=== PATIENT | female | born 1965 | race Caucasian/White ===

== ENCOUNTER 2016-07-03 11:24 | Emergency (ER) | payer OTHER ==
[~2016-07-03] VITALS: Ht 152.4 cm; Wt 85.2 kg
[~2016-07-03 11:24] MED LIST: ACET1TAB84 PO; ALBUAER2 INH; CLR10 PO; DOCU-94 PO; DPKSR500 PO; FLUT0.15 NAE; HYDR25TA5 PO; LEVO25TA34 PO; NAPR-1169 PO; NPHOPS12 OPB; PEDI1CHW95 PO; PRLSR20 PO; QUET5TAB PO; SERT-234 PO; SERT50TA PO
[2016-07-03 11:43] VITALS: Ht 152.4 cm; Wt 85.2 kg
[2016-07-03] MEDS ORDERED: LORAZEPAM 2 MG/ML 1 ML VIAL IV STA (13:29)
[2016-07-03] MEDS ORDERED: KETOROLAC TROMETHAMINE 30 MG/ML VIAL IV STA (13:29)
[2016-07-03] MEDS ORDERED: ONDANSETRON INJ 2 MG/ML 2 ML VIAL IV STA (13:29)
[2016-07-03] MEDS ORDERED: SODIUM CHLORIDE 0.9% 1000ML 1,000 ML IV STA (13:29)
--- NOTE | 2016-07-03 13:29 | EMERGENCY ROOM VISIT NOTE ---
History Report prepared by Leslie: Daphne Bergman Under the Supervision of: Dr. Roscoe Huizar M.D. First contact with patient: 13:12 Chief Complaint: ED VAG BLEEDING Stated Complaint: PERIOD FOR 9 WEEKS, LAST 4 DAYS VERY HEAVY FLOW History of Present Illness The patient is a 51 year old female who presents to the Emergency Room with complaints of persistent vaginal bleeding for the past nine weeks. She currently rates her discomfort as an 8/10 in severity. The patient states that for the past nine weeks she has been having her menstrual period. The patient' s control director notes that her last menstrual cycle was one year ago. She notes that the patient's flow the last four days has been heavier. The patient additionally associates severe cramping with her symptoms today. The patient's control director states that the patient visited gynecology two weeks ago and is scheduled for an ultrasound this Sunday. She states that when she consulted the memorial mason today, they instructed the patient to come to the emergency department for further treatment. The patient denies any chance of a retained tampon, noting that she typically uses pads. Source of History: patient, caregiver Onset: nine weeks Position: other (vaginal) Symptom Intensity: 8/10 Quality: other (bleeding) Timing: other (persistent, heavier) Associated Symptoms: + abdominal pain (cramping) Review of Systems See HPI for pertinent positives & negatives. A total of 10 systems reviewed and were otherwise negative. Past Medical & Surgical Medical Problems: (1) Anxiety State Nos (2) Bilateral lower leg cellulitis (3) Bipolar Disorder, Unspecified (4) Esophageal Reflux (5) Hearing loss (6) Hypothyroidism (7) Mild Mental Retardation (8) Osteoarthritis (9) Plica Syndrome Surgical Problems: (1) H/O colonoscopy Family History None provided Social History Smoking Status: Never Smoker Alcohol Use: none Drug Use: none Marital Status: single Housing Status: lives alone Occupation Status: disabled, other Current/Historical Medications Scheduled Acetaminophen (Tylenol Arthritis Ext Rel), 1,300 MG PO BID Divalproex Sodium (Divalproex Sodium ER), 500 MG PO QAM Divalproex Sodium (Divalproex Sodium ER), 1,000 MG PO HS Docusate Sodium (Colace), 100 MG PO BID Hydrochlorothiazide (Hydrochlorothiazide), 25 MG PO QAM Levothyroxine Sodium (Synthroid), 1 TAB PO DAILY Norethindrone Acetate (Aygestin), 1 TAB PO DAILY Omeprazole (Prilosec), 40 MG PO QPM Pediatric Multiple Vitamin W/ (Multivitamin Gummies Chil), 1 TAB PO QAM Quetiapine Fumarate (Seroquel), 100 MG PO HS Sertraline (Zoloft), 200 MG PO QAM Sertraline (Zoloft), 50 MG PO QAM Scheduled PRN Albuterol Hfa (Ventolin Hfa), 2 PUFFS INH Q8H PRN for SOB/Wheezing Loratadine (Claritin), 10 MG PO DAILY PRN for seasonal allergies Naphazoline Hcl (Naphcon Oph Soln 0.012% *), 1 DROP OPB QID PRN for ALLERGIES Naproxen (Naprosyn), 550 MG PO BID PRN for CRAMPS Allergies Coded Allergies: No Known Allergies (Verified , 07/03/16) Physical Exam Vital Signs Date Time Temp Pulse Resp B/P Pulse Ox O2 Delivery O2 Flow Rate FiO2 07/03/16 16:21 76 20 138/77 95 Room Air 07/03/16 15:13 76 07/03/16 15:04 Room Air 07/03/16 15:03 81 20 146/79 95 Room Air 07/03/16 11:43 36.8 82 18 149/94 96 Room Air Physical Exam GENERAL: Patient is a healthy-appearing well-nourished HEAD: Normocephalic atraumatic EYES: Ocular movements intact pupils equal and react to light OROPHARYNX mucous membranes are moist no exudates present no erythema or edema present NECK: Supple no nuchal rigidity CHEST: Good equal expansion LUNGS: Clear and equal to auscultation CARDIAC: Normal S1 and S2 ABDOMEN: Tender in suprapubic area, no guarding. BACK: No CVA tenderness EXTREMITIES: No pain upon palpation normal muscle strength in all groups no clubbing cyanosis or edema NEURO: Patient is following commands is answering questions appropriately. Alert and oriented x3 Cranial Nerves 2-12 grossly intact Medical Decision & Procedures ER Provider Diagnostic Interpretation: Radiology results as stated below per my review and radiologist interpretation: ULTRASOUND OF THE PELVIS CLINICAL HISTORY: Heavy menses. COMPARISON STUDY: Pelvic CT dated 03/26/2016. Pelvic ultrasound dated 10/05/2014. TECHNIQUE: Real-time, grayscale, and color flow sonography of the pelvis is performed transabdominally. The endovaginal examination was deferred. Images are reviewed in the transverse and longitudinal planes. FINDINGS: Uterus: The uterus is normal in size and echotexture, measuring 8.4 x 4.1 x 5.5 cm. Endometrium: The endometrium is normal in appearance, and the endometrial stripe is normal in thickness measuring up to 1.0 cm. Ovaries: The ovaries are normal in size and morphology. The right ovary measures 4.3 x 2.5 x 3.5 cm and the left ovary measures 2.9 x 1.6 x 1.8 cm. Normal Doppler waveforms are shown within both ovaries. Pelvis: There is no free fluid in the cul-de-sac. No concerning adnexal lesion is seen. IMPRESSION: 1. No acute sonographic abnormality is identified in the pelvis. 2. The endometrial stripe measures up to 1.0 cm in thickness. This is likely normal if the patient is premenopausal Electronically signed by: Riki Mohan M.D. 07/03/2016 3:54 PM Dictated Date/Time: 07/03/2016 3:52 PM Laboratory Results 07/03/16 13:15 Red Blood Count 4.29, Mean Corpuscular Volume 93.5, Mean Corpuscular Hemoglobin 33.6, Mean Corpuscular Hemoglobin Concent 35.9, Mean Platelet Volume 9.4, Neutrophils (%) (Auto) 53.6, Lymphocytes (%) (Auto) 36.5, Monocytes (%) (Auto) 8.8, Eosinophils (%) (Auto) 0.7, Basophils (%) (Auto) 0.2, Neutrophils # (Auto) 2.24, Lymphocytes # (Auto) 1.53, Monocytes # (Auto) 0.37, Eosinophils # (Auto) 0.03, Basophils # (Auto) 0.01 07/03/16 13:15 Test 07/03/16 13:15 07/03/16 14:20 White Blood Count 4.19 K/uL (4.8-10.8) Red Blood Count 4.29 M/uL (4.2-5.4) Hemoglobin 14.4 g/dL (12.0-16.0) Hematocrit 40.1 % (37-47) Mean Corpuscular Volume 93.5 fL (80-100) Mean Corpuscular Hemoglobin 33.6 pg (25-34) Mean Corpuscular Hemoglobin Concent 35.9 g/dl (32-36) Platelet Count 164 K/uL (130-400) Mean Platelet Volume 9.4 fL (7.4-10.4) Neutrophils (%) (Auto) 53.6 % Lymphocytes (%) (Auto) 36.5 % Monocytes (%) (Auto) 8.8 % Eosinophils (%) (Auto) 0.7 % Basophils (%) (Auto) 0.2 % Neutrophils # (Auto) 2.24 K/uL (1.4-6.5) Lymphocytes # (Auto) 1.53 K/uL (1.2-3.4) Monocytes # (Auto) 0.37 K/uL (0.11-0.59) Eosinophils # (Auto) 0.03 K/uL (0-0.5) Basophils # (Auto) 0.01 K/uL (0-0.2) RDW Standard Deviation 41.6 fL (36.4-46.3) RDW Coefficient of Variation 12.3 % (11.5-14.5) Immature Granulocyte % (Auto) 0.2 % Immature Granulocyte # (Auto) 0.01 K/uL (0.00-0.02) Anion Gap 9.0 mmol/L (3-11) Est Creatinine Clear Calc Drug Dose 101.7 ml/min Estimated GFR () 119.3 Estimated GFR (Non- 102.9 BUN/Creatinine Ratio 47.4 (10-20) Calcium Level 9.3 mg/dl (8.5-10.1) Total Bilirubin 0.3 mg/dl (0.2-1) Aspartate Amino Transf (AST/SGOT) 14 U/L (15-37) Alanine Aminotransferase (ALT/SGPT) 20 U/L (12-78) Alkaline Phosphatase 67 U/L (45-117) Total Protein 7.7 gm/dl (6.4-8.2) Albumin 4.1 gm/dl (3.4-5.0) Globulin 3.6 gm/dl (2.5-4.0) Albumin/Globulin Ratio 1.1 (0.9-2) Human Chorionic Gonadotropin, Qual NEG (NEG) Prothrombin Time 10.3 SECONDS (9.0-12.0) Prothromb Time International Ratio 1.0 (0.9-1.1) Activated Partial Thromboplast Time 25.4 SECONDS (21.0-31.0) Partial Thromboplastin Ratio 1.0 Labs reviewed by ED physician. Medications Administered Medications (Trade) Dose Ordered Sig/Cecile Route Start Time Stop Time Status Last Admin Dose Admin Lorazepam (Ativan Inj) 1 mg NOW STAT IV 07/03/16 13:29 07/03/16 13:31 DC 07/03/16 15:21 1 MG Ketorolac Tromethamine (Toradol Inj) 30 mg NOW STAT IV 07/03/16 13:29 07/03/16 13:31 DC 07/03/16 15:11 30 MG Ondansetron HCl 4 mg 4 mg NOW STAT IV 07/03/16 13:29 07/03/16 13:31 DC 07/03/16 15:10 4 MG Sodium Chloride (Nss 1000ml) 1,000 ml @ 999 mls/hr Q1H1M STAT IV 07/03/16 13:29 07/03/16 14:29 DC 07/03/16 15:05 999 MLS/HR Norethindrone Acetate (Aygestin Tab) 10 mg NOW STAT PO 07/03/16 15:58 07/03/16 16:00 DC 07/03/16 16:19 10 MG ED Course 1322: Past medical records reviewed. The patient was evaluated in room C5. A complete history and physical examination was performed. 1329: Ordered Sodium Chloride 1000 ml @ 999 mls/hr IV, Zofran Inj 4 mg IV, Toradol Inj 30 mg IV, Ativan Inj 1 mg IV. 1558: Ordered Aygestin Tab 10 mg PO. 1600: I discussed the exam findings with the patients caregiver and I discussed the treatment plan. She verbalized complete understanding and agreement. She will come back to pharmacy picking tech the patient and take her home. Medical Decision Differential diagnosis: Etiologies such as ectopic , dysfunction uterine bleeding, bleeding dyscrasia, trauma, infection, as well as others were entertained. This is a 51- year-old female who presents emergency department complaining of heavy vaginal bleeding. The patient has seen her CASE MANAGEMENT SPECIALIST approximate 2 weeks ago. She was not started on any new medications and was scheduled for an ultrasound on Sunday however the bleeding increased today. Ultrasound shows a thickened endometrium stripe. Her hemoglobin is stable. Based on these findings I felt that the patient could be safely started on Aygestin. The patient was given Ativan for her ultrasound repeat examination revealed improvement patient's symptoms. I did discuss my results with the patient's control director who was in agreement with the treatment plan. Patient is going to follow-up with [facility] [employer] this week. Impression Primary Impression: Dysfunctional uterine bleeding Scribe Attestation The scribe's documentation has been prepared under my direction and personally reviewed by me in its entirety. I confirm that the note above accurately reflects all work, treatment, procedures, and medical decision making performed by me. Departure Information Dispostion Home / Self-Care Prescriptions Norethindrone Acetate (AYGESTIN) 5 Mg Tab 1 TAB PO DAILY for 10 Days, #10 TAB Prov: Roscoe Huizar MD 07/03/16 Referrals Sriram Ferreira III, M.D. (PCP) Rupert Jimenez MD Forms HOME CARE DOCUMENTATION FORM, IMPORTANT VISIT INFORMATION, WORK / SCHOOL INSTRUCTIONS Patient Instructions Bleeding Uterine, ED Bleed Irregular Vaginal, My [facility] Additional Instructions Follow up with DR Jimenez's office You have been examined and treated today on an emergency basis only. This is not a substitute for, or an effort to provide, complete comprehensive medical care. It is impossible to recognize and treat all injuries or illnesses in a single emergency department visit. It is therefore important that you follow up closely with DR Ferreira. Call as soon as possible for an appointment. Thank you for your time and consideration. I look forward to speaking with you again soon. Please don't hesitate to call us if you have any questions.
[2016-07-03] MEDS ORDERED: VNTHFA/IN INH (13:34)
[2016-07-03] MEDS ORDERED: LEVO25TA PO (13:36)
[2016-07-03 13:37] LABS: BASO % 0.2 %; BASO ABS # 0.01 K/uL (0-0.2); COMPLETE YES; EOS % 0.7 %; HEMATOCRIT 40.1 % (37-47); IG% 0.2 %; LYMPH % 36.5 %; LYMPH ABS # 1.53 K/uL (1.2-3.4); MEAN CELL VOLUME 93.5 fL (80-100); MEAN CORPUSCULAR HEMOGLOBIN 33.6 pg (25-34); MEAN CORPUSCULAR HGB CONC 35.9 g/dl (32-36); MEAN PLATELET VOLUME 9.4 fL (7.4-10.4); MONO % 8.8 %; NEUT % 53.6 %; PLATELET COUNT 164 K/uL (130-400); RED BLOOD COUNT 4.29 M/uL (4.2-5.4); WHITE BLOOD COUNT 4.19 K/uL (4.8-10.8)
[2016-07-03 13:56] LABS: BUN/CREATININE RATIO 47.4 (10-20); CALCIUM 9.3 mg/dl (8.5-10.1); CREATININE 0.62 mg/dl (0.60-1.20); POTASSIUM 3.2 mmol/L (3.5-5.1)
[2016-07-03 13:59] LABS: ALB/GLOB RATIO 1.1 (0.9-2)
[2016-07-03 14:53] LABS: PROTHROMBIN TIME (PATIENT) 10.3 SECONDS (9.0-12.0)
--- NOTE | 2016-07-03 15:55 | DIAGNOSTIC IMAGING REPORT ---
ULTRASOUND OF THE PELVIS CLINICAL HISTORY: Heavy menses. COMPARISON STUDY: Pelvic CT dated 03/26/2016. Pelvic ultrasound dated 10/05/2014. TECHNIQUE: Real-time, grayscale, and color flow sonography of the pelvis is performed transabdominally. The endovaginal examination was deferred. Images are reviewed in the transverse and longitudinal planes. FINDINGS: Uterus: The uterus is normal in size and echotexture, measuring 8.4 x 4.1 x 5.5 cm. Endometrium: The endometrium is normal in appearance, and the endometrial stripe is normal in thickness measuring up to 1.0 cm. Ovaries: The ovaries are normal in size and morphology. The right ovary measures 4.3 x 2.5 x 3.5 cm and the left ovary measures 2.9 x 1.6 x 1.8 cm. Normal Doppler waveforms are shown within both ovaries. Pelvis: There is no free fluid in the cul-de-sac. No concerning adnexal lesion is seen. IMPRESSION: 1. No acute sonographic abnormality is identified in the pelvis. 2. The endometrial stripe measures up to 1.0 cm in thickness. This is likely normal if the patient is premenopausal Electronically signed by: Riki Mohan M.D. 07/03/2016 3:54 PM Dictated Date/Time: 07/03/2016 3:52 PM
[2016-07-03] MEDS ORDERED: NORETHINDRONE ACETATE 5 MG TAB PO STA (15:58)
[2016-07-03] MEDS ORDERED: AYG/5 PO (16:06)
[2016-07-03 16:18] LABS: PREG INTERNAL NEGATIVE QC NEG CLEAR BACKGROUND; PREG INTERNAL POSITIVE QC POS CONTROL LINE
[2016-07-03 17:18] VITALS: BP 142/77; PULSE 142; TEMP 36.8; O2SAT 95
== END 2016-07-03 17:19 | disposition home or self-care (01) ==
LOC: C.EDB 11:25 → C.EDC 17:19
DX: N93.9 Abnormal uterine and vaginal bleeding, unspecified (principal); E03.9 Hypothyroidism, unspecified; K21.9 Gastro-esophageal reflux disease without esophagitis; F41.9 Anxiety disorder, unspecified; F31.9 Bipolar disorder, unspecified; M19.90 Unspecified osteoarthritis, unspecified site; F70 Mild intellectual disabilities; Z79.899 Other long term (current) drug therapy; Z98.890 Other specified postprocedural states

== ENCOUNTER 2016-07-17 16:44 | Emergency (ER) | payer OTHER ==
[~2016-07-17 16:44] MED LIST changes: -ALBUAER2 INH; -FLUT0.15 NAE; +LEVO25TA PO; -LEVO25TA34 PO; +VNTHFA/IN INH
[2016-07-17 17:11] VITALS: TEMP 36.8
[2016-07-17] MEDS ORDERED: SODIUM CHLORIDE 0.9% 1000ML 1,000 ML IV STA (18:31)
[2016-07-17] MEDS ORDERED: ACETAMINOPHEN IV 650 MG in EMPTY BAG 0 ML IV ONE (18:45)
[2016-07-17 19:25] LABS: BASO % 0.2 %; BASO ABS # 0.01 K/uL (0-0.2); COMPLETE YES; HEMATOCRIT 37.1 % (37-47); IG% 0.2 %; LYMPH % 35.6 %; LYMPH ABS # 2.11 K/uL (1.2-3.4); MEAN CELL VOLUME 95.4 fL (80-100); MEAN CORPUSCULAR HEMOGLOBIN 33.4 pg (25-34); MEAN PLATELET VOLUME 9.7 fL (7.4-10.4); MONO % 8.9 %; NEUT % 54.1 %; PLATELET COUNT 163 K/uL (130-400); RED BLOOD COUNT 3.89 M/uL (4.2-5.4); WHITE BLOOD COUNT 5.93 K/uL (4.8-10.8)
[2016-07-17 20:07] LABS: ALKALINE PHOSPHATASE 56 U/L (45-117); ALT/SGPT 15 U/L (12-78); BLOOD UREA NITROGEN 20 mg/dl (7-18); BUN/CREATININE RATIO 37.2 (10-20); CALCIUM 8.8 mg/dl (8.5-10.1); CARBON DIOXIDE 31 mmol/L (21-32); CHLORIDE 104 mmol/L (98-107); CREATININE 0.53 mg/dl (0.60-1.20); GLUCOSE 92 mg/dl (70-99); SODIUM 143 mmol/L (136-145)
--- NOTE | 2016-07-17 21:06 | DIAGNOSTIC IMAGING REPORT ---
EXAMINATION: PELVIC ULTRASOUND CLINICAL HISTORY: abd pain PELVIC PAIN COMPARISON STUDY: 07/03/2016 FINDINGS: The uterus measured 8 cm. The endometrial stripe measured 8 mm. The right ovary measured not well seen presumably secondary to overlying bowel. The left ovary measured 1.9 cm. Normal vascular flow. There was no evidence of pathologic free pelvic fluid. IMPRESSION: Normal pelvic ultrasound. Poor visibility right ovary apparently secondary to overlying bowel. Electronically signed by: Joel Aldana M.D. 07/17/2016 9:04 PM Dictated Date/Time: 07/17/2016 9:03 PM
[2016-07-17 21:11] LABS: POTASSIUM 3.3 mmol/L (3.5-5.1)
[2016-07-17 23:31] LABS: URINE APPEARANCE CLEAR (CLEAR); URINE BILIRUBIN NEG (NEG); URINE COLOR YELLOW; URINE EPITHELIAL CELL AUTO >30 /lpf (0-5); URINE NITRITE NEG (NEG); URINE PH 6.5 (4.5-7.5); URINE SPECIFIC GRAVITY 1.025 (1.000-1.030); UROBILINOGEN NEG (NEG); ZZUR CULT IF INDIC CLEAN CATCH NO
[2016-07-17 23:49] LABS: MANUAL MICROSCOPIC REQUIRED? NO; REVIEW REQ? NO
[2016-07-18] MEDS ORDERED: KETOROLAC TROMETHAMINE 30 MG/ML VIAL IV STA (00:10)
[2016-07-18] MEDS ORDERED: NORETHINDRONE ACETATE 5 MG TAB PO ONE (00:30)
[2016-07-18] MEDS ORDERED: NORE5TAB5 PO (00:32)
--- NOTE | 2016-07-18 00:33 | EMERGENCY ROOM VISIT NOTE ---
History First contact with patient: 18:06 Chief Complaint: VAGINAL BLEEDING Stated Complaint: HEAVY MENSTRAL BEEDING/CRAMPING History of Present Illness The patient is a 51 year old female who presents to the Emergency Department via EMS for evaluation of vaginal bleeding and pelvic cramping. The patient is hard of hearing and has MR. She complains of pain in her pelvic area. She reports the pain is been for the past 4 days. She didn't follow-up with her switch operator as recommended from previous visit. She reports that she is no longer taking the Aygestin. She reports bleeding from her vagina. I did speak with her friend, Trinh Martins who reports that she didn't follow-up with [facility]. They suggested sedating the patient to have pelvic exam performed. She is scheduled to have the stone within the upcoming week. Review of Systems A complete 10-point Review of Systems was discussed with the patient, with pertinent positives and negatives listed in the History of Present Illness. All remaining Review of Systems questions can be considered negative unless otherwise specified. Past Medical/Surgical History Medical Problems: (1) Anxiety State Nos (2) Bilateral lower leg cellulitis (3) Bipolar Disorder, Unspecified (4) Esophageal Reflux (5) Hearing loss (6) Hypothyroidism (7) Mild Mental Retardation (8) Osteoarthritis (9) Plica Syndrome Surgical Problems: (1) H/O colonoscopy Family History None provided Social History Smoking Status: Never Smoker Smokeless Tobacco Use: No Alcohol Use: none Drug Use: none Marital Status: single Housing Status: lives alone Occupation Status: disabled, other Current/Historical Medications Scheduled Acetaminophen (Tylenol Arthritis Ext Rel), 1,300 MG PO BID Divalproex Sodium (Divalproex Sodium ER), 500 MG PO QAM Divalproex Sodium (Divalproex Sodium ER), 1,000 MG PO HS Docusate Sodium (Colace), 100 MG PO BID Hydrochlorothiazide (Hydrochlorothiazide), 25 MG PO QAM Levothyroxine Sodium (Synthroid), 1 TAB PO DAILY Norethindrone (Aygestin), 5 MG PO DAILY Omeprazole (Prilosec), 40 MG PO QPM Pediatric Multiple Vitamin W/ (Multivitamin Gummies Chil), 1 TAB PO QAM Quetiapine Fumarate (Seroquel), 100 MG PO HS Sertraline (Zoloft), 200 MG PO QAM Sertraline (Zoloft), 50 MG PO QAM Scheduled PRN Albuterol Hfa (Ventolin Hfa), 2 PUFFS INH Q8H PRN for SOB/Wheezing Loratadine (Claritin), 10 MG PO DAILY PRN for seasonal allergies Naphazoline Hcl (Naphcon Oph Soln 0.012% *), 1 DROP OPB QID PRN for ALLERGIES Naproxen (Naprosyn), 550 MG PO BID PRN for CRAMPS Allergies Coded Allergies: No Known Allergies (Verified , 07/03/16) Physical Exam Vital Signs Date Time Temp Pulse Resp B/P Pulse Ox O2 Delivery O2 Flow Rate FiO2 07/18/16 01:30 67 18 139/79 97 Room Air 07/18/16 00:00 64 20 124/83 95 Room Air 07/17/16 22:40 70 19 128/78 96 07/17/16 21:14 68 17 134/75 95 07/17/16 19:17 17 136/80 96 07/17/16 17:11 36.8 82 18 135/87 97 Room Air Pain Rating (0-10): 4 Physical Exam VITAL SIGNS - Vital signs and nursing notes were reviewed. GENERAL - 51-year-old female appearing her stated age who is in no acute distress. Communicates well with provider and answers questions appropriately. LUNGS - Chest wall symmetric without accessory muscle use, intercostals retractions, or central cyanosis. Normal vesicular breath sounds CTA B/L. No wheezes, rales, or rhonchi appreciated. CARDIAC - RRR with S1/S2. No murmur, rubs, or gallops appreciated. ABDOMEN - Abdominal contour obese and without pulsations or visible masses. BS normoactive all four quadrants. Mild tenderness to palpation appreciated in the suprapubic area. No guarding. No Rebound Tenderness. No palpable masses, hepatosplenomegaly, or ascites noted. Medical Decision & Procedures ER Provider Diagnostic Interpretation: Radiological imaging and reports were reviewed by myself. Radiologist's Interpretation as follows: EXAMINATION: PELVIC ULTRASOUND CLINICAL HISTORY: abd pain PELVIC PAIN COMPARISON STUDY: 07/03/2016 FINDINGS: The uterus measured 8 cm. The endometrial stripe measured 8 mm. The right ovary measured not well seen presumably secondary to overlying bowel. The left ovary measured 1.9 cm. Normal vascular flow. There was no evidence of pathologic free pelvic fluid. IMPRESSION: Normal pelvic ultrasound. Poor visibility right ovary apparently secondary to overlying bowel. Laboratory Results 07/17/16 19:07 Red Blood Count 3.89, Mean Corpuscular Volume 95.4, Mean Corpuscular Hemoglobin 33.4, Mean Corpuscular Hemoglobin Concent 35.0, Mean Platelet Volume 9.7, Neutrophils (%) (Auto) 54.1, Lymphocytes (%) (Auto) 35.6, Monocytes (%) (Auto) 8.9, Eosinophils (%) (Auto) 1.0, Basophils (%) (Auto) 0.2, Neutrophils # (Auto) 3.21, Lymphocytes # (Auto) 2.11, Monocytes # (Auto) 0.53, Eosinophils # (Auto) 0.06, Basophils # (Auto) 0.01 07/17/16 19:07 07/17/16 20:29 Test 07/17/16 19:07 07/17/16 20:29 07/17/16 22:40 07/17/16 22:49 White Blood Count 5.93 K/uL (4.8-10.8) Red Blood Count 3.89 M/uL (4.2-5.4) Hemoglobin 13.0 g/dL (12.0-16.0) Hematocrit 37.1 % (37-47) Mean Corpuscular Volume 95.4 fL (80-100) Mean Corpuscular Hemoglobin 33.4 pg (25-34) Mean Corpuscular Hemoglobin Concent 35.0 g/dl (32-36) Platelet Count 163 K/uL (130-400) Mean Platelet Volume 9.7 fL (7.4-10.4) Neutrophils (%) (Auto) 54.1 % Lymphocytes (%) (Auto) 35.6 % Monocytes (%) (Auto) 8.9 % Eosinophils (%) (Auto) 1.0 % Basophils (%) (Auto) 0.2 % Neutrophils # (Auto) 3.21 K/uL (1.4-6.5) Lymphocytes # (Auto) 2.11 K/uL (1.2-3.4) Monocytes # (Auto) 0.53 K/uL (0.11-0.59) Eosinophils # (Auto) 0.06 K/uL (0-0.5) Basophils # (Auto) 0.01 K/uL (0-0.2) RDW Standard Deviation 43.5 fL (36.4-46.3) RDW Coefficient of Variation 12.6 % (11.5-14.5) Immature Granulocyte % (Auto) 0.2 % Immature Granulocyte # (Auto) 0.01 K/uL (0.00-0.02) Anion Gap 8.0 mmol/L (3-11) Estimated GFR () 125.6 Estimated GFR (Non- 108.4 BUN/Creatinine Ratio 37.2 (10-20) Calcium Level 8.8 mg/dl (8.5-10.1) Total Bilirubin 0.3 mg/dl (0.2-1) Alanine Aminotransferase (ALT/SGPT) 15 U/L (12-78) Alkaline Phosphatase 56 U/L (45-117) Total Protein 7.3 gm/dl (6.4-8.2) Albumin 3.6 gm/dl (3.4-5.0) Globulin 3.7 gm/dl (2.5-4.0) Albumin/Globulin Ratio 1.0 (0.9-2) Human Chorionic Gonadotropin, Quant < 1 mIU/mL Aspartate Amino Transf (AST/SGOT) 10 U/L (15-37) Urine Color YELLOW Urine Appearance CLEAR (CLEAR) Urine pH 6.5 (4.5-7.5) Urine Specific [place] 1.025 (1.000-1.030) Urine Protein 1+ (NEG) Urine Glucose (UA) NEG (NEG) Urine Ketones NEG (NEG) Urine Occult Blood 3+ (NEG) Urine Nitrite NEG (NEG) Urine Bilirubin NEG (NEG) Urine Urobilinogen NEG (NEG) Urine Leukocyte Esterase NEG (NEG) Urine WBC (Auto) 5-10 /hpf (0-5) Urine RBC (Auto) >30 /hpf (0-4) Urine Hyaline Casts (Auto) 1-5 /lpf (0-5) Urine Epithelial Cells (Auto) >30 /lpf (0-5) Urine Bacteria (Auto) NEG (NEG) Urine Test NEG (NEG) Medications Administered Medications (Trade) Dose Ordered Sig/Cecile Route Start Time Stop Time Status Last Admin Dose Admin Acetaminophen 650 mg/Empty Bag 65 ml @ 260 mls/hr NOW ONCE IV 07/17/16 18:45 07/17/16 18:59 DC 07/17/16 19:10 260 MLS/HR Sodium Chloride (Nss 1000ml) 1,000 ml @ 125 mls/hr Q8H STAT IV 07/17/16 18:31 07/18/16 02:08 DC 07/17/16 19:10 125 MLS/HR Ketorolac Tromethamine (Toradol Inj) 30 mg NOW STAT IV 07/18/16 00:10 07/18/16 00:11 DC 07/18/16 00:20 30 MG Norethindrone Acetate (Aygestin Tab) 5 mg NOW ONCE PO 07/18/16 00:30 07/18/16 00:31 DC 07/18/16 01:00 5 MG ED Course Patient was seen and evaluated by myself. Previous emergency department visit notes were reviewed. Labs were drawn, saline lock in place. The patient was hydrated with normal saline at a rate of 125 mL per hour. She received 650 IV Tylenol. Laboratory results demonstrate no acute leukocytosis, worrisome anemia , or bandemia. The patient has no significant electrolyte abnormalities. Ultrasound results above. I did speak with patient's friend and point of contact, Trinh Martins ([phone]). She was able to provide further information as the patient's most recent gynecologic care. Patient is scheduled to have a gynecological exam performed under sedation. Her current status was up-to-date with her friend who acknowledges understanding. I did speak with Dr. Maravilla of [facility]. He agrees with restarting the Aygestin. Patient was provided initial dose in the emergency department. She was instructed to follow-up with her switch operator from today's visit. She was educated on worrisome symptoms for return visit to the emergency department. Patient discharged home in good condition. Medical Decision Given the patient's presentation and exam findings, I did elect to perform the above-mentioned workup. The patient presents today with complaints of vaginal bleeding and pelvic pain. Her abdomen is soft and minimally tender to palpation in the suprapubic area. She is not anemic. The patient is MR and is hard of hearing. She is noted to have an outpatient pelvic exam performed under sedation. I do not feel is necessary to performing in this situation, especially in the setting of an unremarkable ultrasound. The patient was started back on Aygestin after discussion with [facility]. She will keep her followup. She will return for changing or worsening symptoms. In the evaluation and treatment of this patient, the following differential diagnoses were considered: Ovarian torsion, ovarian cyst, , uterine abruption, malignancy, amongst others. Impression Primary Impression: Abnormal vaginal bleeding Additional Impression: Pelvic pain Departure Information Dispostion Home / Self-Care Condition GOOD Prescriptions Norethindrone (Aygestin) 5 Mg Tab 5 MG PO DAILY for 10 Days, #10 TAB Prov: Venkat Maya, NADJA 07/18/16 Referrals Sriram Ferreira III, M.D. (PCP) Oren Maravilla ., DO Forms WORK / SCHOOL INSTRUCTIONS, HOME CARE DOCUMENTATION FORM, IMPORTANT VISIT INFORMATION Patient Instructions My [facility] Additional Instructions Please follow-up with Dr. Ferreira or your switch operator from today's visit. Take your medications as prescribed. Return for any changing or worsening symptoms. Problem Qualifiers
[2016-07-18 01:30] VITALS: BP 139/79; PULSE 67; O2SAT 97
== END 2016-07-18 01:30 | disposition home or self-care (01) ==
LOC: C.EDB 16:44 → C.EDA 07-18 01:30
DX: N93.9 Abnormal uterine and vaginal bleeding, unspecified (principal); R10.2 Pelvic and perineal pain; F41.9 Anxiety disorder, unspecified; F31.9 Bipolar disorder, unspecified; K21.9 Gastro-esophageal reflux disease without esophagitis; H91.93 Unspecified hearing loss, bilateral; E03.9 Hypothyroidism, unspecified; F79 Unspecified intellectual disabilities; M19.90 Unspecified osteoarthritis, unspecified site; M67.50 Plica syndrome, unspecified knee

== ENCOUNTER 2016-07-31 19:43 | Emergency (ER) | payer OTHER ==
[~2016-07-31] VITALS: Ht 165.1 cm; Wt 91.5 kg
[2016-07-31 19:46] VITALS: TEMP 36.4; Ht 165.1 cm; Wt 91.5 kg
[2016-07-31] MEDS ORDERED: ONDANSETRON INJ 2 MG/ML 2 ML VIAL IV STA (20:15)
[2016-07-31] MEDS ORDERED: SODIUM CHLORIDE 0.9% 1000ML 1,000 ML IV STA (20:15)
[2016-07-31] MEDS ORDERED: OPTIRAY 320 IV PRN (20:30)
--- NOTE | 2016-07-31 20:37 | DIAGNOSTIC IMAGING REPORT ---
SINGLE VIEW CHEST CLINICAL HISTORY: Generalized abdominal pain. FINDINGS: An AP, portable, upright chest radiograph is compared to study dated 10/13/2009. The heart is top normal for projection. The pulmonary vasculature appears congested. There are low lung volumes. Trace pleural effusions are suspected. The lungs and pleural spaces are clear. No pneumothorax is seen. The skeletal structures are osteopenic. Advanced degenerative change is seen in the shoulders. IMPRESSION: 1. Findings suggest congestive failure. Clinical correlation will be required. 2. Small pleural effusions are suspected. Electronically signed by: Riki Mohan M.D. 07/31/2016 8:34 PM Dictated Date/Time: 07/31/2016 8:33 PM
[2016-07-31 20:51] LABS: BASO % 0.3 %; BASO ABS # 0.02 K/uL (0-0.2); COMPLETE YES; EOS % 0.6 %; HEMATOCRIT 41.6 % (37-47); IG% 0.2 %; LYMPH % 36.3 %; LYMPH ABS # 2.32 K/uL (1.2-3.4); MEAN CELL VOLUME 95.9 fL (80-100); MEAN CORPUSCULAR HEMOGLOBIN 33.4 pg (25-34); MEAN CORPUSCULAR HGB CONC 34.9 g/dl (32-36); MEAN PLATELET VOLUME 9.8 fL (7.4-10.4); MONO % 6.7 %; NEUT % 55.9 %; PLATELET COUNT 170 K/uL (130-400); RED BLOOD COUNT 4.34 M/uL (4.2-5.4); WHITE BLOOD COUNT 6.39 K/uL (4.8-10.8)
[2016-07-31 21:36] LABS: BUN/CREATININE RATIO 27.2 (10-20); CREATININE 0.67 mg/dl (0.60-1.20)
[2016-07-31 21:56] LABS: CALCIUM 9.6 mg/dl (8.5-10.1)
--- NOTE | 2016-07-31 22:29 | DIAGNOSTIC IMAGING REPORT ---
CT SCAN OF THE ABDOMEN AND PELVIS WITH IV CONTRAST CLINICAL HISTORY: Right lower quadrant abdominal pain. COMPARISON STUDY: Abdominal CT dated 03/26/1816. TECHNIQUE: Following the IV administration of 89 cc of Optiray 320, CT scan of the abdomen and pelvis is performed from the lung bases to the proximal femora. Images are reviewed in the axial, sagittal, and coronal planes. IV contrast was administered without complication. Automated dose control exposure was utilized. The examination is degraded by motion artifact. CT DOSE: 558.30 mGy.cm FINDINGS: Lung bases: The heart is normal in size and without pericardial effusion. The lung bases are clear noting dependent atelectasis. Liver: The contrast-enhanced liver is enlarged, measuring 19 cm in length. The liver demonstrates diffusely diminished attenuation consistent with hepatic steatosis. There is no intrahepatic biliary ductal dilatation. The hepatic veins and portal veins are patent. Gallbladder: Numerous gallstones are identified. There is no CT evidence of acute cholecystitis. Spleen: Normal in size and attenuation. Pancreas: Unremarkable. Adrenal glands: Unremarkable. Kidneys: The contrast enhanced kidneys are normal in size and without hydronephrosis. The kidneys enhance symmetrically. Abdominal vasculature: The abdominal aorta is normal in course and caliber. Bowel: The small bowel and colon are normal in course and caliber. The appendix is well-visualized and normal. Peritoneum: There is no intraperitoneal free air or abdominal ascites. There is a fat-containing umbilical hernia. Lymphadenopathy: None. Pelvic viscera: The bladder, uterus, and adnexa are normal as visualized. There are small ovarian follicles. Skeletal structures: The skeletal structures are osteopenic. There is mild lumbosacral spondylosis. Sclerotic change is present at the pubic symphysis. No lytic or blastic lesions are seen. IMPRESSION: 1. There are no acute infectious or inflammatory findings in the abdomen or pelvis. 2. Cholelithiasis. 3. Hepatomegaly and mild hepatic steatosis. 4. Additional findings as above. Electronically signed by: Riki Mohan M.D. 07/31/2016 10:26 PM Dictated Date/Time: 07/31/2016 10:23 PM
--- NOTE | 2016-07-31 22:56 | EMERGENCY ROOM VISIT NOTE ---
History Report prepared by Scribe: Christel Mcknight Under the Supervision of: Dr. Roscoe Palacio D.O. First contact with patient: 20:12 Chief Complaint: ABDOMINAL PAIN Stated Complaint: ABDOMINAL PAIN Nursing Triage Summary: see triage note History of Present Illness The patient is a 51 year old female who presents to the Emergency Room with complaints of persistent abdominal pain that started earlier today. She was brought to the ED via EMS. EMS reports she rates her discomfort as a 10/10. The patient denies any vomiting or diarrhea. Source of History: patient, EMS Onset: earlier today Position: abdomen Symptom Intensity: 10/10 Timing: other (persistent) Associated Symptoms: No diarrhea, No vomiting Review of Systems See HPI for pertinent positives & negatives. A total of 10 systems reviewed and were otherwise negative. Past Medical & Surgical Medical Problems: (1) Anxiety State Nos (2) Bilateral lower leg cellulitis (3) Bipolar Disorder, Unspecified (4) Esophageal Reflux (5) Hearing loss (6) Hypothyroidism (7) Mild Mental Retardation (8) Osteoarthritis (9) Plica Syndrome Surgical Problems: (1) H/O colonoscopy Family History None provided Social History Smoking Status: Unknown if Ever Smoked Alcohol Use: none Drug Use: none Marital Status: single Housing Status: lives alone Occupation Status: disabled, other Current/Historical Medications Scheduled Acetaminophen (Tylenol Arthritis Ext Rel), 1,300 MG PO BID Divalproex Sodium (Divalproex Sodium ER), 500 MG PO QAM Divalproex Sodium (Divalproex Sodium ER), 1,000 MG PO HS Docusate Sodium (Colace), 100 MG PO BID Hydrochlorothiazide (Hydrochlorothiazide), 25 MG PO QAM Levothyroxine Sodium (Synthroid), 1 TAB PO DAILY Omeprazole (Prilosec), 40 MG PO QPM Pediatric Multiple Vitamin W/ (Multivitamin Gummies Chil), 1 TAB PO QAM Quetiapine Fumarate (Seroquel), 100 MG PO HS Sertraline (Zoloft), 200 MG PO QAM Sertraline (Zoloft), 50 MG PO QAM Scheduled PRN Albuterol Hfa (Ventolin Hfa), 2 PUFFS INH Q8H PRN for SOB/Wheezing Loratadine (Claritin), 10 MG PO DAILY PRN for seasonal allergies Naphazoline Hcl (Naphcon Oph Soln 0.012% *), 1 DROP OPB QID PRN for ALLERGIES Naproxen (Naprosyn), 550 MG PO BID PRN for CRAMPS Allergies Coded Allergies: No Known Allergies (Verified , 07/03/16) Physical Exam Vital Signs Date Time Temp Pulse Resp B/P Pulse Ox O2 Delivery O2 Flow Rate FiO2 07/31/16 22:47 84 18 110/86 07/31/16 19:46 36.4 77 16 169/83 98 Room Air Physical Exam CONSTITUTIONAL/VITAL SIGNS: Reviewed / noted above. GENERAL: Non-toxic in appearance. INTEGUMENTARY: Warm, dry, and [place]. HEAD: Normocephalic. EYES: without scleral icterus or trauma. ENT/OROPHARYNX: clear and moist. LYMPHADENOPATHY/NECK: Is supple without lymphadenopathy or meningismus. RESPIRATORY: Lungs clear and equal. CARDIOVASCULAR: Regular rate and rhythm. GI/ABDOMEN: Soft, mild tenderness to RLQ. No organomegaly or pulsatile mass. No rebound or guarding. Normal bowel sounds. EXTREMITIES: Warm and well perfused. BACK: No CVA tenderness. NEUROLOGICAL: Intact without focal deficits. PSYCHIATRIC: normal affect. MUSCULOSKELETAL: Normally developed with good muscle tone. Medical Decision & Procedures ER Provider Diagnostic Interpretation: This X-Ray was reviewed and interpreted by myself and the radiologist. SINGLE VIEW CHEST IMPRESSION: 1. Findings suggest congestive failure. Clinical correlation will be required. 2. Small pleural effusions are suspected. Electronically signed by: Riki Mohan M.D. 07/31/2016 8:[address] scan was reviewed and interpreted by the radiologist and reviewed by myself. CT SCAN OF THE ABDOMEN AND PELVIS WITH IV CONTRAST IMPRESSION: 1. There are no acute infectious or inflammatory findings in the abdomen or pelvis. 2. Cholelithiasis. 3. Hepatomegaly and mild hepatic steatosis. 4. Additional findings as above. Electronically signed by: Riki Mohan M.D. 07/31/2016 10:26 PM Laboratory Results 07/31/16 20:40 Red Blood Count 4.34, Mean Corpuscular Volume 95.9, Mean Corpuscular Hemoglobin 33.4, Mean Corpuscular Hemoglobin Concent 34.9, Mean Platelet Volume 9.8, Neutrophils (%) (Auto) 55.9, Lymphocytes (%) (Auto) 36.3, Monocytes (%) (Auto) 6.7, Eosinophils (%) (Auto) 0.6, Basophils (%) (Auto) 0.3, Neutrophils # (Auto) 3.57, Lymphocytes # (Auto) 2.32, Monocytes # (Auto) 0.43, Eosinophils # (Auto) 0.04, Basophils # (Auto) 0.02 07/31/16 20:40 Test 07/31/16 20:40 White Blood Count 6.39 K/uL (4.8-10.8) Red Blood Count 4.34 M/uL (4.2-5.4) Hemoglobin 14.5 g/dL (12.0-16.0) Hematocrit 41.6 % (37-47) Mean Corpuscular Volume 95.9 fL (80-100) Mean Corpuscular Hemoglobin 33.4 pg (25-34) Mean Corpuscular Hemoglobin Concent 34.9 g/dl (32-36) Platelet Count 170 K/uL (130-400) Mean Platelet Volume 9.8 fL (7.4-10.4) Neutrophils (%) (Auto) 55.9 % Lymphocytes (%) (Auto) 36.3 % Monocytes (%) (Auto) 6.7 % Eosinophils (%) (Auto) 0.6 % Basophils (%) (Auto) 0.3 % Neutrophils # (Auto) 3.57 K/uL (1.4-6.5) Lymphocytes # (Auto) 2.32 K/uL (1.2-3.4) Monocytes # (Auto) 0.43 K/uL (0.11-0.59) Eosinophils # (Auto) 0.04 K/uL (0-0.5) Basophils # (Auto) 0.02 K/uL (0-0.2) RDW Standard Deviation 42.6 fL (36.4-46.3) RDW Coefficient of Variation 12.1 % (11.5-14.5) Immature Granulocyte % (Auto) 0.2 % Immature Granulocyte # (Auto) 0.01 K/uL (0.00-0.02) Anion Gap 10.0 mmol/L (3-11) Est Creatinine Clear Calc Drug Dose 108.5 ml/min Estimated GFR () 116.3 Estimated GFR (Non- 100.4 BUN/Creatinine Ratio 27.2 (10-20) Calcium Level 9.6 mg/dl (8.5-10.1) Total Bilirubin 0.3 mg/dl (0.2-1) Direct Bilirubin 0.1 mg/dl (0-0.2) Aspartate Amino Transf (AST/SGOT) 14 U/L (15-37) Alanine Aminotransferase (ALT/SGPT) 19 U/L (12-78) Alkaline Phosphatase 58 U/L (45-117) Total Protein 8.5 gm/dl (6.4-8.2) Albumin 4.3 gm/dl (3.4-5.0) Lipase 154 U/L (73-393) Laboratory results as stated above per my review. Medications Administered Medications (Trade) Dose Ordered Sig/Cecile Route Start Time Stop Time Status Last Admin Dose Admin Sodium Chloride (Nss 1000ml) 1,000 ml @ 999 mls/hr Q1H1M STAT IV 07/31/16 20:15 07/31/16 21:15 DC 07/31/16 21:04 999 MLS/HR Ondansetron HCl (Zofran Inj) 4 mg NOW STAT IV 07/31/16 20:15 07/31/16 20:17 DC 07/31/16 21:05 4 MG ED Course 2013: Previous medical records were reviewed. The patient was evaluated in room C7. A complete history and physical examination was performed. 2015: Zofran 4 mg IV, NSS 1000 ml @ 999 mls/hr IV. 2256: I reevaluated the patient. She is feeling well. I discussed her discharge instructions and she verbalized complete understanding and agreement. Medical Decision Differential considered: pancreatitis, hepatitis, or acute cholecystitis, AAA, UTI, pyelonephritis, kidney stones, appendicitis, diverticulitis, shingles, bowel obstruction mesenteric ischemia, intussusception,hernia, testicular torsion, ovarian torsion, ruptured ovarian cyst,ectopic , . This is a 51-year-old female who presents to the ED with a chief complaint of right lower abdominal pain. The patient was a poor historian. Her exam revealed some mild tenderness in the right lower quadrant. Vital signs were normal. CBC is normal. A chest x-ray did not show any acute disease. Radiologist report CHF but clinically the patient does not have this. Lipase is negative. LFTs were normal. CT scan of the abdomen and pelvis did not show any acute process. There was cholelithiasis. The patient was told the results the test. She is felt to be stable for discharge and outpatient follow-up. Impression Primary Impression: Right lower quadrant abdominal pain Scribe Attestation The scribe's documentation has been prepared under my direction and personally reviewed by me in its entirety. I confirm that the note above accurately reflects all work, treatment, procedures, and medical decision making performed by me. Departure Information Dispostion Home / Self-Care Referrals Sriram Ferreira III, M.D. (PCP) Patient Instructions My [facility] Additional Instructions Follow-up with your doctor for further care and evaluation in 1-2 days. Return to the emergency department for worsening or new symptoms or any concerns. You have been examined and treated today on an emergency basis only. This is not a substitute for, or an effort to provide, complete comprehensive medical care. It is impossible to recognize and treat all injuries or illnesses in a single emergency department visit. It is therefore important that you follow up closely with your doctor. Call as soon as possible for an appointment.
[2016-07-31] MEDS ORDERED: ACETAMINOPHEN 500 MG TAB PO STA (23:17)
[2016-07-31 23:24] VITALS: BP 110/73; PULSE 76; O2SAT 95
== END 2016-07-31 23:24 | disposition home or self-care (01) ==
LOC: EDBD 19:43 → C.EDC 19:44
DX: R10.31 Right lower quadrant pain (principal); F41.9 Anxiety disorder, unspecified; F31.9 Bipolar disorder, unspecified; E03.9 Hypothyroidism, unspecified; K21.9 Gastro-esophageal reflux disease without esophagitis; F79 Unspecified intellectual disabilities; M19.90 Unspecified osteoarthritis, unspecified site; Z79.899 Other long term (current) drug therapy; Z88.8 Allergy status to other drugs, medicaments and biological substances

== ENCOUNTER → 2016-08-10 | Outpatient (CLI) | payer OTHER ==
--- NOTE | 2016-08-11 15:41 | MAMMOGRAPHY REPORT ---
BILATERAL DIGITAL SCREENING MAMMOGRAM WITH CAD: 08/10/2016 CLINICAL HISTORY: Routine screening. TECHNIQUE: Current study was also evaluated with a Computer Aided Detection (CAD) system. Bilatera l CC and MLO views were obtained. Note that the images are somewhat suboptimal, particularly the ML O views, due to difficulties with the patient tolerating proper positioning. The MLO views demonstr ate mild motion artifact bilaterally and the pectoralis muscles are not well visualized. COMPARISON: Comparison is made to exams dated: 08/04/2015 mammogram, 07/31/2014 mammogram, 05/01/2013 mammogram, 02/23/2012 mammogram, 11/23/2010 mammogram, and 10/26/2009 mammogram - [facility]. BREAST COMPOSITION: There are scattered areas of fibroglandular density in both breasts. FINDINGS: No suspicious masses, calcifications, or areas of architectural distortion are noted in e ither breast. There has been no significant interval change compared to prior exams. A few scattere d bilateral benign-appearing calcifications are again noted. IMPRESSION: ACR BI-RADS CATEGORY 2: BENIGN There is no mammographic evidence of malignancy. A 1 year screening mammogram is recommended. The p atient will receive written notification of the results. Approximately 10% of breast cancers are not detected with mammography. A negative mammographic repor t should not delay biopsy if a clinically suggestive mass is present. Amaris Adhikari M.D. /:08/10/2016 16:06:20 Attending Technologist: Apryl Metz, [facility] Glass Engraver: Apryl Shepard RT(R)(M), [facility] letter sent: Normal 1/2 BI-RADS Code: ACR BI-RADS Category 2: Benign
== END | disposition home or self-care (01) ==
LOC: C.MAMM 15:32
PROVIDERS: ATTEND Physician Assistant
DX: Z12.31 Encounter for screening mammogram for malignant neoplasm of breast (principal)

== ENCOUNTER 2017-03-25 07:08 | Emergency (ER) | payer OTHER ==
[~2017-03-25] VITALS: Ht 154.9 cm; Wt 88.8 kg
[2017-03-25 07:13] VITALS: TEMP 36.6; Ht 154.9 cm; Wt 88.8 kg
[2017-03-25] MEDS ORDERED: ONDANSETRON 4MG OD TAB SL STA (07:24)
--- NOTE | 2017-03-25 07:33 | EMERGENCY ROOM VISIT NOTE ---
History First contact with patient: 07:14 Chief Complaint: NAUSEA Stated Complaint: FLU LIKE SYMPTOMS Nursing Triage Summary: nausea started this am. no aching, no vomiting. pt jose g cereal fro breakfast this am History of Present Illness The patient is a 52 year old female who presents to the Emergency Room with complaints of nausea which began this morning while she was eating her cereal for breakfast. The patient denies any abdominal pain, changes in bowel or bladder habits, fevers, chest pain, cough, or difficulty breathing. She does report chills. She denies vomiting or vomiting blood, but continuously expresses "my belly hurts real bad." She denies specifically RUQ, RLQ, or suprapubic pain. She denies any URI symptoms including congestion, sore throat, headache, dizziness, runny nose, or other symptoms. Of note, the patient does have a baseline mental retardation diagnosis, so history is difficult to illicit. The patient has taken nothing for vomiting. Review of Systems A complete 10 point review of systems was reviewed with the patient with pertinent positives and negatives as per history of present illness. All else were negative. Past Medical/Surgical History Medical Problems: (1) Anxiety State Nos (2) Bilateral lower leg cellulitis (3) Bipolar Disorder, Unspecified (4) Esophageal Reflux (5) Hearing loss (6) Hypothyroidism (7) Mild Mental Retardation (8) Osteoarthritis (9) Plica Syndrome Surgical Problems: (1) H/O colonoscopy Family History None provided Social History Smoking Status: Never Smoker Smokeless Tobacco Use: No Alcohol Use: none Drug Use: none Marital Status: single Housing Status: lives alone Occupation Status: disabled, other Current/Historical Medications Scheduled Acetaminophen (Tylenol Arthritis Ext Rel), 1,300 MG PO BID Divalproex Sodium (Divalproex Sodium ER), 500 MG PO QAM Divalproex Sodium (Divalproex Sodium ER), 1,000 MG PO HS Docusate Sodium (Colace), 100 MG PO BID Hydrochlorothiazide (Hydrochlorothiazide), 25 MG PO QAM Levothyroxine Sodium (Synthroid), 1 TAB PO DAILY Omeprazole (Prilosec), 40 MG PO QPM Ondasetron Odt (Zofran Odt), 4 MG SL Q6H Pediatric Multiple Vitamin W/ (Multivitamin Gummies Chil), 1 TAB PO QAM Quetiapine Fumarate (Seroquel), 100 MG PO HS Sertraline (Zoloft), 200 MG PO QAM Sertraline (Zoloft), 50 MG PO QAM Scheduled PRN Albuterol Hfa (Ventolin Hfa), 2 PUFFS INH Q8H PRN for SOB/Wheezing Loratadine (Claritin), 10 MG PO DAILY PRN for seasonal allergies Naphazoline Hcl (Naphcon Oph Soln 0.012% *), 1 DROP OPB QID PRN for ALLERGIES Naproxen (Naprosyn), 550 MG PO BID PRN for CRAMPS Physical Exam Vital Signs Date Time Temp Pulse Resp B/P (MAP) Pulse Ox O2 Delivery O2 Flow Rate FiO2 03/25/17 10:55 72 17 134/62 96 03/25/17 08:47 78 17 127/62 97 03/25/17 07:13 36.6 90 17 138/77 95 Room Air Physical Exam VITALS: Vitals are noted on the nurse's note and reviewed by myself. Vital signs stable. GENERAL: This is a 52-year-old obese white female, in no acute distress, nondiaphoretic, well-developed well-nourished. SKIN: The skin was without rashes, erythema, edema, or bruising. There is no tenting of the skin. Capillary reflex less than 2 seconds. HEAD: Normocephalic atraumatic. EARS: External auditory canals clear, tympanic membranes pearly ramesh without erythema or effusion bilaterally. EYES: Pupils equal round and reactive to light and accommodation. Conjunctivae without injection, sclerae without icterus. Extraocular movements intact. NOSE: Patent, turbinates without inflammation or discharge. No sinus tenderness. MOUTH: Mucous membranes moist. Tonsils are not enlarged. Pharynx without erythema or exudate. Uvula midline. Airway patent. Tongue does not deviate. NECK: Supple without nuchal rigidity. No lymphadenopathy. No thyromegaly. Cervical spine is nontender. No JVD. HEART: Regular rate and rhythm without murmurs gallops or rubs. LUNGS: Clear to auscultation bilaterally without wheezes, rales or rhonchi. No dullness to percussion. No retractions or accessory muscle use. ABDOMEN: Positive bowel sounds x 4. Normal tympanic percussion. Generalized pain, but no obvious tenderness on palpation, but the abdomen is soft, without masses or organomegaly. Salvador sign negative. No guarding or rebound tenderness. MUSCULOSKELETAL: No muscle atrophy, erythema, or edema noted. Full range of motion without joint tenderness in all extremities. No tenderness to palpation. Normal gait. Strength 5/5 throughout. NEURO: Patient was alert and oriented to person place and time. Normal sensation to light and sharp touch. Deep tendon reflexes 2+ throughout. No focal neurological deficits. Medical Decision & Procedures ER Provider Diagnostic Interpretation: ABDOMEN LIMITED (US) CLINICAL HISTORY: 52 years-old Female presenting with epigastric/RUQ pain and nausea. TECHNIQUE: Real-time grayscale and limited color Doppler ultrasound imaging of the abdomen limited to the right upper quadrant was performed. COMPARISON: CT from 07/31/2016. FINDINGS: Pancreas: Visualized portions of the pancreatic head and body normal. Liver: Moderately hyperechogenic parenchyma with partial obscuration of the right hemidiaphragm, likely indicating moderate steatosis. The liver measures 18.8 cm in maximal sagittal dimension. No sonographic evidence of hepatic mass. Main portal vein patent with normal directional flow. Biliary: No intrahepatic biliary ductal dilatation. Common bile duct measures up to 4 mm in diameter. Gallbladder: Gallstones without evidence of gallbladder distention, wall thickening, or pericholecystic fluid or inflammatory change. Sonographic Salvador's sign negative. Right kidney: Normal in appearance. No hydronephrosis. Ascites: None. IMPRESSION: 1. Cholelithiasis without evidence of biliary ductal dilatation or cholecystitis. 2. Hepatic steatosis. Electronically signed by: Raudel Ford M.D. 03/25/2017 9:30 AM Dictated Date/Time: 03/25/2017 9:29 AM CBC without leukocytosis, anemia, thrombocytopenia. CMP without significant electrolyte, renal, or hepatic abnormalities. Lipase was normal. Laboratory Results 03/25/17 08:29 Red Blood Count 4.48, Mean Corpuscular Volume 94.9, Mean Corpuscular Hemoglobin 33.7, Mean Corpuscular Hemoglobin Concent 35.5, Mean Platelet Volume 9.3, Neutrophils (%) (Auto) 84.0, Lymphocytes (%) (Auto) 7.8, Monocytes (%) (Auto) 6.9, Eosinophils (%) (Auto) 0.9, Basophils (%) (Auto) 0.0, Neutrophils # (Auto) 4.53, Lymphocytes # (Auto) 0.42, Monocytes # (Auto) 0.37, Eosinophils # (Auto) 0.05, Basophils # (Auto) 0.00 03/25/17 08:29 Test 03/25/17 08:29 White Blood Count 5.39 K/uL (4.8-10.8) Red Blood Count 4.48 M/uL (4.2-5.4) Hemoglobin 15.1 g/dL (12.0-16.0) Hematocrit 42.5 % (37-47) Mean Corpuscular Volume 94.9 fL (80-100) Mean Corpuscular Hemoglobin 33.7 pg (25-34) Mean Corpuscular Hemoglobin Concent 35.5 g/dl (32-36) Platelet Count 134 K/uL (130-400) Mean Platelet Volume 9.3 fL (7.4-10.4) Neutrophils (%) (Auto) 84.0 % Lymphocytes (%) (Auto) 7.8 % Monocytes (%) (Auto) 6.9 % Eosinophils (%) (Auto) 0.9 % Basophils (%) (Auto) 0.0 % Neutrophils # (Auto) 4.53 K/uL (1.4-6.5) Lymphocytes # (Auto) 0.42 K/uL (1.2-3.4) Monocytes # (Auto) 0.37 K/uL (0.11-0.59) Eosinophils # (Auto) 0.05 K/uL (0-0.5) Basophils # (Auto) 0.00 K/uL (0-0.2) RDW Standard Deviation 41.5 fL (36.4-46.3) RDW Coefficient of Variation 12.0 % (11.5-14.5) Immature Granulocyte % (Auto) 0.4 % Immature Granulocyte # (Auto) 0.02 K/uL (0.00-0.02) Anion Gap 5.0 mmol/L (3-11) Est Creatinine Clear Calc Drug Dose 90.5 ml/min Estimated GFR () 110.0 Estimated GFR (Non- 94.9 BUN/Creatinine Ratio 30.5 (10-20) Calcium Level 8.8 mg/dl (8.5-10.1) Total Bilirubin 0.3 mg/dl (0.2-1) Aspartate Amino Transf (AST/SGOT) 17 U/L (15-37) Alanine Aminotransferase (ALT/SGPT) 22 U/L (12-78) Alkaline Phosphatase 87 U/L (45-117) Total Protein 7.6 gm/dl (6.4-8.2) Albumin 3.8 gm/dl (3.4-5.0) Globulin 3.8 gm/dl (2.5-4.0) Albumin/Globulin Ratio 1.0 (0.9-2) Lipase 144 U/L (73-393) Medications Administered Medications (Trade) Dose Ordered Sig/Cecile Route Start Time Stop Time Status Last Admin Dose Admin Ondansetron HCl (Zofran Odt) 4 mg NOW STAT SL 03/25/17 07:24 03/25/17 07:25 DC 03/25/17 07:31 4 MG ECG Indication: abdominal pain Rate (beats per minute): 87 Rhythm: normal sinus Findings: no acute ischemic change, no ectopy Medical Decision Patient was seen and evaluated . She was given 4 mg sublingual Zofran. The patient was reevaluated and states she continues to feel sick to her belly. I attempted to question whether the patient is experiencing pain or nausea, and she is unclear. I did elect at this point to perform labs and an ultrasound to evaluate the patient for cholecystitis and pancreatitis. This testing was negative for acute infection. I discussed the findings with the patient at bedside, and advised her that I give her medication to help with nausea and send her home. I spoke with Dr. Martin, who did see and evaluate the patient. He did recommend an EKG, as when he went in to evaluate the patient, she began crying. Dr. Martin did recommend an EKG at this time. Apparently, as nursing staff was performing the EKG, the patient continued to cry, and stated multiple times that she does not want to go to work tomorrow. When the patient was advised that I did provide her with a note for work, she apparently stood up , began walking around the room, and got herself dressed and ready to go. The patient at that time stated she was feeling better. To suspect an acute gastroenteritis as the cause of the patient's discomfort and nausea. She was encouraged to stay home and rest from work tomorrow. Discharge instructions reviewed, and the patient was discharged home in good condition. Differential diagnosis includes acute gastroenteritis, cholecystitis, cholelithiasis, acute appendicitis, acute pancreatitis, gastric ulcer, GERD, malignancy, and others. Medication Reconcilliation Current Medication List: was personally reviewed by me Blood Pressure Screening Patient's blood pressure: Normal blood pressure Impression Primary Impression: Gastroenteritis Additional Impression: Nausea Departure Information Dispostion Home / Self-Care Condition GOOD Prescriptions Ondasetron Odt (ZOFRAN ODT) 4 Mg Tab 4 MG SL Q6H for Nausea, #6 TAB Prov: Mabel Aguero PA-C 03/25/17 Referrals Sriram Ferreira III, M.D. (PCP) Patient Instructions ED Gastroenteritis Viral, ED Nausea Vomiting, [facility], [facility] Additional Instructions You have been treated in the Emergency Department your Abdominal Pain and nausea. Laboratory results and imaging studies have ruled out any emergent causes for your abdominal pain which would warrant admission or surgery. You have been prescribed Nausea to be used for any nausea or vomiting. Take as prescribed. For pain control, you can use the following [id number] medicines (if >12 yo): Ibuprofen(Motrin, Advil) may be used for fever or pain. Use 600mg every six hours as needed. Take with food. Avoid using more than 2400mg in a 24 hour period. Do not use 2400mg per day for more than three consecutive days without physician direction. Prolonged inappropriate use can lead to stomach upset or ulcers. (AND/OR) Acetaminophen(Tylenol) may be used for fever or pain. Use 1000mg every six hours as needed. Avoid using more than 3000mg in a 24 hour period. As discussed, there are some gallstones in your gallbladder, but no acute cholecystitis/infection at this time. These could cause problems in the future, but do not appear to be causing any problems at this time. Also, hepatic steatosis noted on ultrasound. Again, continue to follow-up with your PCP regarding this finding and any additional testing you may need. Drink plenty of water and stay well hydrated. As with any trip to the Emergency Department, you should follow-up with your Primary Care Provider in 1-2 days from today's visit, especially if you are not feeling better by that time. Return to the emergency department if your symptoms persist despite treatment plan outlined above or if the following symptoms occur: increased fevers, chills , worsening nausea/vomiting, blood in your stool or urine. Problem Qualifiers
[2017-03-25 08:43] LABS: COMPLETE YES; EOS % 0.9 %; HEMATOCRIT 42.5 % (37-47); IG% 0.4 %; LYMPH % 7.8 %; LYMPH ABS # 0.42 K/uL (1.2-3.4); MEAN CELL VOLUME 94.9 fL (80-100); MEAN CORPUSCULAR HEMOGLOBIN 33.7 pg (25-34); MEAN CORPUSCULAR HGB CONC 35.5 g/dl (32-36); MEAN PLATELET VOLUME 9.3 fL (7.4-10.4); MONO % 6.9 %; PLATELET COUNT 134 K/uL (130-400); RED BLOOD COUNT 4.48 M/uL (4.2-5.4); WHITE BLOOD COUNT 5.39 K/uL (4.8-10.8)
[2017-03-25 09:04] LABS: BUN/CREATININE RATIO 30.5 (10-20); CALCIUM 8.8 mg/dl (8.5-10.1); CREATININE 0.72 mg/dl (0.60-1.20); POTASSIUM 3.7 mmol/L (3.5-5.1)
--- NOTE | 2017-03-25 09:32 | DIAGNOSTIC IMAGING REPORT ---
ABDOMEN LIMITED (US) CLINICAL HISTORY: 52 years-old Female presenting with epigastric/RUQ pain and nausea. TECHNIQUE: Real-time grayscale and limited color Doppler ultrasound imaging of the abdomen limited to the right upper quadrant was performed. COMPARISON: CT from 07/31/2016. FINDINGS: Pancreas: Visualized portions of the pancreatic head and body normal. Liver: Moderately hyperechogenic parenchyma with partial obscuration of the right hemidiaphragm, likely indicating moderate steatosis. The liver measures 18.8 cm in maximal sagittal dimension. No sonographic evidence of hepatic mass. Main portal vein patent with normal directional flow. Biliary: No intrahepatic biliary ductal dilatation. Common bile duct measures up to 4 mm in diameter. Gallbladder: Gallstones without evidence of gallbladder distention, wall thickening, or pericholecystic fluid or inflammatory change. Sonographic Salvador's sign negative. Right kidney: Normal in appearance. No hydronephrosis. Ascites: None. IMPRESSION: 1. Cholelithiasis without evidence of biliary ductal dilatation or cholecystitis. 2. Hepatic steatosis. Electronically signed by: Raudel Ford M.D. 03/25/2017 9:30 AM Dictated Date/Time: 03/25/2017 9:29 AM
[2017-03-25] MEDS ORDERED: ONDA4TAB10 SL (09:53)
[2017-03-25 10:55] VITALS: BP 134/62; PULSE 72; O2SAT 96
--- NOTE | 2017-03-25 15:18 | EMERGENCY ROOM VISIT NOTE ---
ED Visit Note First contact with patient: 07:14 I have personally evaluated this patient examined her and reviewed the pertinent labs and data. I have discussed the case with Mabel Aguero, the physician curriculum assistant and agree with the plan. Please refer to the PA note. This patient comes in with abdominal pain and nausea. Her workup was negative. She seemed very upset about having to go to work and on my exam her abdomen is negative. She seemed much better after she was told she had a work excuse and said she felt better and wanted to go home. At this point or not finding anything to suggest acute infectious or surgical process. She should follow-up with her regular doctor.
== END 2017-03-25 10:50 | disposition home or self-care (01) ==
LOC: EDBD 07:08 → C.EDB 07:10
DX: K52.9 Noninfective gastroenteritis and colitis, unspecified (principal); F31.9 Bipolar disorder, unspecified; K21.9 Gastro-esophageal reflux disease without esophagitis; E03.9 Hypothyroidism, unspecified; F41.9 Anxiety disorder, unspecified; F79 Unspecified intellectual disabilities; M19.90 Unspecified osteoarthritis, unspecified site; Z79.899 Other long term (current) drug therapy

== ENCOUNTER 2024-06-18 10:44 | Inpatient (IN) ==
--- NOTE | 2024-06-18 11:10 | Emergency Department Note ---
Impression & Plan AMS (altered mental status), Multifocal pneumonia, Hypoxia, Flu ED Provider Note Provider: Pedrito Gill MD CHIEF COMPLAINT: Altered, respiratory issues HISTORY OF PRESENT ILLNESS: Patient is a 59-year-old female history of intellectual disability presenting via ambulance from her adult daycare. Patient evidently started to have some respiratory symptoms yesterday. Seen in primary care clinic diagnosed bronchitis and Z-Jarad was ordered although patient did not started. Patient today was evidently noted by staff to be altered and not herself. Found by EMS to be hypoxic on room air and febrile. Patient upon arrival will answer her to her name but will give me much history. No pain reported or falls. PAST MEDICAL HISTORY: As noted above MEDICATIONS: Reviewed home medication list has not yet picked up the azithromycin prescribed yesterday. SOCIAL HISTORY: Lives at [facility] PHYSICAL EXAM: GENERAL: alert in no acute distress on stretcher, following some commands Head: normocephalic and atraumatic EYES: No injection, discharge or icterus. PERRL from pictures stable disconjugate gaze. NECK: Trachea midline. Supple. ENT: Mucous membranes pink and moist. LUNGS: Airway patent. No retractions. Breath sounds coarse without significant wheeze HEART: Regular rate and rhythm. No chest wall tenderness ABDOMEN: Soft and non-tender, without guarding or rebound. SKIN: Acyanotic, warm, dry, without rashes EXTREMITIES: Without swelling, tenderness or deformity NEUROLOGICAL: No focal deficits moving upper extremities. No obvious facial droop. Makes eye contact. Occasionally gets a few words out. EK beats per minute. Sinus tachycardia. No PVC or PAC. No acute ST segment elevation or depression with some artifact in V4 and V5. QTc 439. CONTINUOUS CARDIAC MONITORING: was ordered and showed a heart rate of 100s-120s bpm in sinus tachycardia Patient's laboratory studies and imaging reviewed. Differential includes Infection, dehydration, metabolic abnormality, hypo/hyperglycemia, electrolyte disturbance, anemia, hypoxia, cardiac sources, intracerebral event, toxicologic, neurologic, as well as other pathologies. IMPRESSION/MEDICAL DECISION MAKING: Patient newly hypoxic. Pending COVID flu testing from yesterday. Sent here today from her facility. Staff report mentation now is improving some but was minimally responsive earlier. Slight oxygen supplementation today is in the 80s on room air and again this is new. No leukocytosis. Chest x-ray without findings of focal pneumonia. VBG without significant acidosis though mildly hypercarbic. Lactate mildly elevated. Patient is febrile here. Given Tylenol and IV fluid (1 L as not hypotensive or with a severely elevated lactate). CT of the head as well as a chest completed to look and further evaluate the lungs as well as exclude any acute intracranial abnormality or pneumonia. CT does question multifocal pneumonia/inflammatory changes per radiology report but no acute intracranial findings. Peer work placed for urine and urine sample does not appear overly infected. Will cover broadly with antibiotics and given a dose of ceftriaxone here as well as a dose of azithromycin. Positive influenza test but patient with a questionable swallow at this time we will hold on Tamiflu. Updated care providers at bedside and hospitalist team contacted. DIAGNOSIS: Hypoxia, confusion, pneumonia, influenza DISPOSITION: Hospitalist will evaluate Past Med/Surg History Problem List (Updated 06/18/24 @ 14:23 by Pedrito Gill M.D.) Flu (Acute) Panic disorder Hypertensive urgency Severe sepsis Bronchopneumonia Acute hypoxic respiratory failure Hypoxia (Acute) Multifocal pneumonia (Acute) AMS (altered mental status) (Acute) Bilateral lower leg cellulitis Hypothyroidism (Chronic) Osteoarthritis (Chronic) Hearing loss (Chronic) H/O colonoscopy (Chronic) Abdominal pain (Acute) Bilateral leg pain (Acute) Cellulitis (Acute) Contusion of multiple sites (Acute) Diffuse abdominal pain (Acute) Fall (Acute) Social History Smoking Status: Never smoker Feels Safe at Home: Yes Allergies Allergies Allergy/AdvReac Type Severity Reaction Status Date / Time No Known Allergies Allergy Verified 07/03/16 13:29 Home Meds Home Medications Medication Instructions Recorded Confirmed Loratadine (Claritin) 10 mg PO DAILY ##0 05/29/08 06/18/24 OMEPRAZOLE (PRILOSEC) 40 mg PO QPM ##0 10/13/09 06/18/24 Divalproex Sodium (Divalproex 1,000 mg PO BID ##0 08/10/13 06/18/24 Sodium ER) QUETIAPINE FUMARATE (SEROQUEL) 75 mg PO HS #0 tabs 08/10/13 06/18/24 Acetaminophen (Tylenol Arthritis 650 mg PO Q4H PRN Pain/Fever #0 09/03/15 06/18/24 Ext Rel) caps DOCUSATE SODIUM (COLACE) 100 mg PO BID ##0 12/06/15 06/18/24 Pediatric Multiple Vitamin W/ 1 tab PO QAM ##0 12/06/15 06/18/24 (Multivitamin Gummies Chil) Hydrochlorothiazide 25 mg PO QAM ##0 03/26/16 06/18/24 LEVOTHYROXINE SODIUM (SYNTHROID) 1 tab PO DAILY 90 days #90 tabs 07/03/16 06/18/24 meloxicam 15 mg tablet 15 mg PO DAILY 06/18/24 06/18/24 tirzepatide (weight loss) 5 mg/0.5 5 mg subcut WK 06/18/24 06/18/24 mL subcutaneous pen injector (Zepbound) trazodone 150 mg tablet 150 mg PO HS 06/18/24 06/18/24 venlafaxine 150 mg 150 mg PO DAILY 06/18/24 06/18/24 capsule,extended release 24 hr Results & Data (ED) Vital Signs Vital Signs - 24 hr 06/18/24 10:25 06/18/24 10:48 06/18/24 10:56 Temperature 38.0 C H Temperature Source Oral Pulse Rate 110 H 113 H Pulse Rate [Right] Pulse Rate from SpO2 Sensor Pulse Rhythm Regular Pulse Rhythm [Right] Pulse Strength [Right] Respiratory Rate 18 19 Respiratory Effort / Characteristics Non-Labored Spontaneous Respiratory Depth Normal Respiratory Pattern Blood Pressure 144/88 H Blood Pressure [Right Arm] Blood Pressure Mean 106 Blood Pressure Mean [Right Arm] Blood Pressure Position Sitting Pulse Oximetry 95 96 97 Oxygen Delivery Method Nasal Cannula Nasal Cannula Oxygen Flow Rate 2 1 Sepsis Recent Fever Within 48 Hours Yes Sepsis New/Unexplained Change in Mental Status Yes Sepsis Action Taken by Nursing Physician Notified 06/18/24 11:06 06/18/24 11:21 06/18/24 11:40 Temperature Temperature Source Pulse Rate 114 H 109 H Pulse Rate [Right] 112 H Pulse Rate from SpO2 Sensor 106 H Pulse Rhythm Pulse Rhythm [Right] Regular Pulse Strength [Right] Normal Respiratory Rate 22 22 Respiratory Effort / Characteristics Non-Labored Respiratory Depth Normal Respiratory Pattern Regular Blood Pressure 127/95 Blood Pressure [Right Arm] 187/119 H Blood Pressure Mean 105 Blood Pressure Mean [Right Arm] 141 Blood Pressure Position Pulse Oximetry 72 L 97 Oxygen Delivery Method Nasal Cannula Oxygen Flow Rate 1 Sepsis Recent Fever Within 48 Hours Sepsis New/Unexplained Change in Mental Status Sepsis Action Taken by Nursing 06/18/24 11:42 06/18/24 11:52 06/18/24 12:39 Temperature Temperature Source Pulse Rate 112 H 112 H Pulse Rate [Right] Pulse Rate from SpO2 Sensor 112 H 114 H Pulse Rhythm Pulse Rhythm [Right] Pulse Strength [Right] Respiratory Rate 16 24 Respiratory Effort / Characteristics Respiratory Depth Respiratory Pattern Blood Pressure 187/119 H 118/62 Blood Pressure [Right Arm] Blood Pressure Mean 141 80 Blood Pressure Mean [Right Arm] Blood Pressure Position Pulse Oximetry 96 97 Oxygen Delivery Method Nasal Cannula Oxygen Flow Rate 1 Sepsis Recent Fever Within 48 Hours Sepsis New/Unexplained Change in Mental Status Sepsis Action Taken by Nursing 06/18/24 13:00 Temperature Temperature Source Pulse Rate 100 H Pulse Rate [Right] Pulse Rate from SpO2 Sensor 100 H Pulse Rhythm Pulse Rhythm [Right] Pulse Strength [Right] Respiratory Rate 19 Respiratory Effort / Characteristics Respiratory Depth Respiratory Pattern Blood Pressure 129/76 Blood Pressure [Right Arm] Blood Pressure Mean 93 Blood Pressure Mean [Right Arm] Blood Pressure Position Pulse Oximetry 96 Oxygen Delivery Method Oxygen Flow Rate Sepsis Recent Fever Within 48 Hours Sepsis New/Unexplained Change in Mental Status Sepsis Action Taken by Nursing Laboratory Data 06/18/24 11:35 06/18/24 11:35 Lab Results 06/18/24 06/18/24 06/18/24 Range/Units 11:35 11:37 12:52 WBC 6.29 (4.8-10.8) K/ul RBC 4.34 (4.20-5.40) M/uL Hgb 14.3 (12.0-16.0) g/dl Hct 41.5 (37.0-47.0) % MCV 95.6 (80.0-100.0) fL MCH 32.9 (25.0-34.0) pg MCHC 34.5 (32.0-36.0) g/dL RDW Std Deviation 40.4 (36.4-46.3) fL RDW Coeff of Mathew 11.4 L (11.5-14.5) % Plt Count 121 L (130-400) K/uL MPV 9.5 (9.4-12.4) fL Immature Gran % (Auto) 0.3 % Neut % (Auto) 84.2 % Lymph % (Auto) 7.2 % [place] % (Auto) 7.8 % Eos % (Auto) 0.2 % Baso % (Auto) 0.3 % Neut # (Auto) 5.30 (1.40-6.50) K/uL Lymph # (Auto) 0.45 L (1.20-3.40) K/uL [place] # (Auto) 0.49 (0.11-0.59) K/uL Eos # (Auto) 0.01 (0.00-0.50) K/uL Baso # (Auto) 0.02 (0.00-0.20) K/uL Immature Gran # (Auto) 0.02 (0.01-0.20) K/uL PT 10.4 (9.0-12.0) Seconds INR 1.0 (0.9-1.1) VBG pH 7.39 (7.36-7.41) VBG pCO2 65 H (38-50) mmHg VBG pO2 36 mmHg VBG HCO3 39 mmol/L VBG O2 Saturation 60.6 % VBG Base Excess 11.2 mEq/L Sodium 137 (136-145) mmol/L Potassium 3.6 (3.5-5.1) mmol/L Chloride 91 L (98-107) mmol/L Carbon Dioxide 38 H (21-32) mmol/L Anion Gap 8 (3-11) BUN 22 (6-23) mg/dl Creatinine 0.70 (0.6-1.2) mg/dl Est Cr Clr Drug Dosing 85.5 ml/min eGFR 98.34 BUN/Creatinine Ratio 31.4 H (10-20) Glucose 119 H (70-99(Fasting)) mg/dl Lactate 2.9 H* (0.4-2.0) mmol/L Calcium 9.2 (8.6-10.3) mg/dl Magnesium 1.7 (1.7-2.4) mg/dl Total Bilirubin 0.5 (0.2-1.0) mg/dl AST 27 (13-39) U/L ALT 21 (7-52) U/L Alkaline Phosphatase 55 (34-104) U/L Total Creatine Kinase 55 (26-192) U/L Troponin I High Sens 6.8 (0-14) pg/ml Total Protein 7.0 (6.0-8.3) gm/dl Albumin 4.0 (3.4-5.0) gm/dl Globulin 3.0 (2.5-4.0) gm/dl Albumin/Globulin Ratio 1.3 (0.9-2) Procalcitonin 0.09 (0-0.5) ng/ml TSH 1.463 (0.300-4.500) uIu/ml Urine Color Yellow Urine Appearance Cloudy A (Clear) Urine pH 8.5 H (4.5-7.5) Ur Specific [place] 1.019 (1.000-1.030) Urine Protein Trace H (Negative) Urine Glucose (UA) Negative (Negative) Urine Ketones 1+ H (Negative) Urine Blood Negative (Negative) Urine Nitrite Negative (Negative) Urine Bilirubin Negative (Negative) Urine Urobilinogen Positive H (Negative) Ur Leukocyte Esterase Trace H (Negative) Urine WBC (Auto) 0-5 (0-5) /hpf Urine RBC (Auto) 0-2 (0-2) /hpf U Hyaline Cast (Auto) 0-2 (0-2) /lpf U Epithel Cells (Auto) 11-20 H (0-2) /hpf Urine Bacteria (Auto) None Seen (None Seen) Nasal Influ A H1 2008 PCR DETECTED A (NotDetected) Valproic Acid 108 H (50-100) mcg/ml Adenovirus (PCR) Not Detected (NotDetected) B. pertussis DNA (PCR) Not Detected (NotDetected) B.parapertussis DNA PCR Not Detected (NotDetected) C. pneumoniae DNA (PCR) Not Detected (NotDetected) Coronavirus OC43 (PCR) Not Detected (NotDetected) Coronavirus HKU1 (PCR) Not Detected (NotDetected) Coronavirus 229E (PCR) Not Detected (NotDetected) SARS-CoV-2 (PCR) Not Detected (NotDetected) Coronavirus NL63 (PCR) Not Detected (NotDetected) Human Metapneumovir PCR Not Detected (NotDetected) Influenza Type B (PCR) Not Detected (NotDetected) M. pneumoniae (PCR) Not Detected (NotDetected) Parainfluenza 1 (PCR) Not Detected (NotDetected) Parainfluenza 2 (PCR) Not Detected (NotDetected) Parainfluenza 3 (PCR) Not Detected (NotDetected) Parainfluenza 4 (PCR) Not Detected (NotDetected) RSV (PCR) Not Detected (NotDetected) Entero/Rhino (PCR) Not Detected (NotDetected) Administered Medications Discontinued Medications Sodium Chloride (Nss) 1,000 mls @ 999 mls/hr IV .Q1H1M ONE Stop: 06/18/24 12:03 Last Admin: 06/18/24 11:17 Dose: 999 mls/hr Documented By: MARY Ceftriaxone Sodium (Rocephin) 2,000 mg in 50 mls @ 100 mls/hr IV NOW STA Stop: 06/18/24 13:01 Last Admin: 06/18/24 13:07 Dose: 100 mls/hr Documented By: MARY Acetaminophen (Ofirmev) 1,000 mg in 100 mls @ 400 mls/hr IV NOW STA Stop: 06/18/24 12:49 Last Admin: 06/18/24 13:02 Dose: 400 mls/hr Documented By: MARY Imaging Data Radiologist's Impression: Chest CT 06/18/24 10:56 CT OF THE CHEST WITHOUT IV CONTRAST CLINICAL HISTORY: Hypoxia. Altered mental status. COMPARISON STUDY: Chest radiograph July 31, 2016. Chest radiograph performed earlier today. CT DOSE: 1355.68 mGy.cm TECHNIQUE: Axial images of the chest were obtained without IV contrast. Images were reviewed in the axial, sagittal, and coronal planes. IV contrast was not administered for this examination. Automated exposure control was utilized for the study. A dose lowering technique was utilized adhering to the principles of ALARA. FINDINGS: No enlarged axillary, mediastinal or hilar lymph nodes are present. The heart is mildly enlarged. There is no pericardial effusion. The central airways are patent. No pneumothorax or pleural effusion is present. Lungs are suboptimally assessed due to respiratory motion. Patchy alveolar opacities within the right upper lobe and right lower lobe are noted. There are additional mild groundglass opacities within the left lung. Gallstones are incidentally noted within the gallbladder. IMPRESSION: 1. Patchy alveolar opacities within the lungs, as described above. The findings suggest an infectious process such as bronchopneumonia. 2. No pleural effusions. 3. Mild cardiomegaly. 4. Cholelithiasis. ACT 112: Negative or not required by law. Electronically signed by: Harinder Rivas M.D. 06/18/2024 12:19 PM Chest X-Ray 06/18/24 10:56 XR chest 1V portable CLINICAL HISTORY: weakness, ams COMPARISON STUDY: 07/31/2016 FINDINGS: Single view chest demonstrates no acute cardiopulmonary process. There is no airspace opacity or pleural effusion. There is no pneumothorax. The heart and pulmonary vascularity are unremarkable. There are degenerative changes in the shoulders bilaterally. IMPRESSION: No acute process ACT 112: Negative or not required by law. Electronically signed by: Felicita Wen M.D. 06/18/2024 11:[address] 06/18/24 10:57 CT OF THE HEAD WITHOUT CONTRAST CLINICAL HISTORY: Altered mental status. COMPARISON STUDY: Head CT March 26, 2016. TECHNIQUE: Helical axial images of the head were obtained without IV contrast. Automated exposure control was utilized for the study. A dose lowering technique was utilized adhering to the principles of ALARA. FINDINGS: No acute intracranial hemorrhage, midline shift or mass effect is present. The ventricular system is unremarkable. The basal cisterns are patent. No extra-axial collections are present. There are no findings to suggest acute dural sinus thrombosis or acute territorial infarct. No significant calvarial abnormalities are present. IMPRESSION: No acute intracranial findings. ACT 112: Negative or not required by law. Electronically signed by: Harinder Rivas M.D. 06/18/2024 12:15 PM Discharge Plan Visit Data Chief Complaint: Altered Mental Status ED Provider: Pedrito Gill Discharge Problem: AMS (altered mental status), Multifocal pneumonia, Hypoxia, Flu Patient Disposition: Being Evaluated by Hospitalist Discharge Problem: AMS (altered mental status) Qualifiers: Altered mental status type: unspecified Qualified Code(s): R41.82 - Altered mental status, unspecified
[2024-06-18] MEDS: SODIUM CHLORIDE 0.9% 1,000 ML IV ONE (11:17)
--- NOTE | 2024-06-18 11:19 | XRay Report ---
XR chest 1V portable CLINICAL HISTORY: weakness, ams COMPARISON STUDY: 07/31/2016 FINDINGS: Single view chest demonstrates no acute cardiopulmonary process. There is no airspace opaci ty or pleural effusion. There is no pneumothorax. The heart and pulmonary vascularity are unremarkabl e. There are degenerative changes in the shoulders bilaterally. IMPRESSION: No acute process ACT 112: Negative or not required by law. Electronically signed by: Felicita Wen M.D. 06/18/2024 11:18 AM
[2024-06-18 11:54] LABS: Base Excess VBG 11.2 mEq/L; HCO3 VBG 39 mmol/L; Oxygen Saturation VBG 60.6 %; PCO2 VBG 65 mmHg (38-50); PO2 VBG 36 mmHg; pH VBG 7.39 (7.36-7.41)
[2024-06-18 12:18] LABS: Basophils # (auto) 0.02 K/uL (0.00-0.20); Basophils % (auto) 0.3 %; Eosinophils # (auto) 0.01 K/uL (0.00-0.50); Eosinophils % (auto) 0.2 %; Hematocrit (blood only) 41.5 % (37.0-47.0); Hemoglobin 14.3 g/dl (12.0-16.0); Immature Granulocytes # (auto) 0.02 K/uL (0.01-0.20); Immature Granulocytes % (auto) 0.3 %; Lymphocytes # (auto) 0.45 K/uL (1.20-3.40); Lymphocytes % (auto) 7.2 %; Mean Corpuscular Hemoglobin 32.9 pg (25.0-34.0); Mean Corpuscular Hgb Conc 34.5 g/dL (32.0-36.0); Mean Corpuscular Volume 95.6 fL (80.0-100.0); Mean Platelet Volume 9.5 fL (9.4-12.4); Monocytes # (auto) 0.49 K/uL (0.11-0.59); Monocytes % (auto) 7.8 %; Neutrophils % (auto) 84.2 %; Platelet Count 121 K/uL (130-400); RDW Coefficient of Variation 11.4 % (11.5-14.5); RDW Standard Deviation 40.4 fL (36.4-46.3); Red Blood Count 4.34 M/uL (4.20-5.40); White Blood Count 6.29 K/ul (4.8-10.8)
--- NOTE | 2024-06-18 12:18 | CT Scan Report ---
CT OF THE HEAD WITHOUT CONTRAST CLINICAL HISTORY: Altered mental status. COMPARISON STUDY: Head CT March 26, 2016. TECHNIQUE: Helical axial images of the head were obtained without IV contrast. Automated exposure con trol was utilized for the study. A dose lowering technique was utilized adhering to the principles o f ALARA. FINDINGS: No acute intracranial hemorrhage, midline shift or mass effect is present. The ventricular system is unremarkable. The basal cisterns are patent. No extra-axial collections are present. There are no findings to suggest acute dural sinus thrombosis or acute territorial infarct. No significant calvarial abnormalities are present. IMPRESSION: No acute intracranial findings. ACT 112: Negative or not required by law. Electronically signed by: Harinder Rivas M.D. 06/18/2024 12:15 PM
--- NOTE | 2024-06-18 12:20 | CT Scan Report ---
CT OF THE CHEST WITHOUT IV CONTRAST CLINICAL HISTORY: Hypoxia. Altered mental status. COMPARISON STUDY: Chest radiograph July 31, 2016. Chest radiograph performed earlier today. CT DOSE: 1355.68 mGy.cm TECHNIQUE: Axial images of the chest were obtained without IV contrast. Images were reviewed in the axial, sagittal, and coronal planes. IV contrast was not administered for this examination. Automat ed exposure control was utilized for the study. A dose lowering technique was utilized adhering to t he principles of ALARA. FINDINGS: No enlarged axillary, mediastinal or hilar lymph nodes are present. The heart is mildly en larged. There is no pericardial effusion. The central airways are patent. No pneumothorax or pleural effusion is present. Lungs are suboptimally assessed due to respiratory motion. Patchy alveolar opaci ties within the right upper lobe and right lower lobe are noted. There are additional mild groundglas s opacities within the left lung. Gallstones are incidentally noted within the gallbladder. IMPRESSION: 1. Patchy alveolar opacities within the lungs, as described above. The findings suggest an infectious process such as bronchopneumonia. 2. No pleural effusions. 3. Mild cardiomegaly. 4. Cholelithiasis. ACT 112: Negative or not required by law. Electronically signed by: Harinder Rivas M.D. 06/18/2024 12:19 PM
[2024-06-18 12:30] LABS: Albumin Globulin Ratio 1.3 (0.9-2); BUN Creatinine Ratio 31.4 (10-20); Bilirubin,Total 0.5 mg/dl (0.2-1.0); Calcium 9.2 mg/dl (8.6-10.3); Creatinine Clr Calc Pharmacy 85.5 ml/min; Magnesium 1.7 mg/dl (1.7-2.4); Potassium 3.6 mmol/L (3.5-5.1)
[2024-06-18] MEDS ORDERED: AZITHROMYCIN 500 MG VIAL IV ONE (12:33)
[2024-06-18 12:37] LABS: Prothrombin Time 10.4 Seconds (9.0-12.0); Troponin I High Sensitivity 6.8 pg/ml (0-14)
[2024-06-18 12:46] LABS: Thyroid Stimulating Hormone 1.463 uIu/ml (0.300-4.500)
--- NOTE | 2024-06-18 12:47 | History & Physical Report ---
Date of Service June 18, 2024 Assessment & Plan (1) Severe sepsis: (2) Bronchopneumonia: (3) Acute hypoxic respiratory failure: Plan: Nafisa Garvin is a 59y/o F with PMHx significant for hypothyroidism, prediabetes, esophagitis, morbid obesity, uterine leiomyoma, generalized osteoarthritis of multiple sites, chronic allergic conjunctivitis, conductive hearing loss of both ears, panic disorder, persistent insomnia and mild intellectual disability who presented to the ED via EMS from [facility] due to AMS, fever and worsening URI symptoms. Was seen by her PCP yesterday and diagnosed with acute bacterial bronchitis. She was prescribed a Z-Jarad however did not start this. She has been experiencing a cough over the past few days. Noted to have a low-grade fever this morning per caregivers. Has also been complaining of some sinus congestion and sore throat. Noted to have a fever of 100.4F at time of admission. No supplemental O2 use at baseline. Was found to be hypoxic at 87% SpO2 on RA per EMS. Requiring 1L NC and sa turating well in the mid to upper 90s SpO2 at time of admission. Initial laboratory evaluation reviewed. No leukocytosis. Procalcitonin negative. Lactate 2.9; CXR with degenerative changes in the shoulders bilaterally but otherwise no acute process seen. Chest CT with patchy alveolar opacities within the lungs suggestive of bronchopneumonia. Respiratory BioFire panel positive for influenza A. Meets severe sepsis criteria on admission given lactic acidosis, HR>100, fever and known source of infection. S/p 1L NSS in ED. Continue IVF with 1L LR's x 1 more bag. Monitor lactate trend s/p IVF resuscitation. S/p IV Rocephin and po Zithromax in ED. Will broaden ABX coverage with IV vancomycin and IV Zosyn given evidence of sepsis. Check nasal MRSA swab. Tamiflu x 5-day course. ISP/flutter valve as able. PRN DuoNebs. Obtain sputum culture as able. Wean O2 as tolerated. (4) Seizure-like activity: Plan: Staff at noticed she was "not acting like herself" this morning. Caregivers at bedside mention she was having these episodes at the facility where she would "stare off into space." She was also displaying RUE and RLE tremulous/shaking behavior when these "staring off" episodes occurred. No prior history of seizures per discussion with her caregivers and no loss of bowel or bladder control during these episodes. Per chart review, appears patient underwent full neurological testing including EEG back in September 2002 after questionable seizure-like activity but this all came back negative. She is on Depakote ER for mood disorder. No documented family history of seizure disorders per chart review. Witnessed RUE shaking and staring spell in the ED during our conversation at time of admission. Given above history and witnessed event in the ED, suspect patient may be experiencing partial/focal seizures. Appreciate neurology consult. Case discussed with on-call [facility] neurologist, Dr. Silverio Saez, over the phone. Agrees with Keppra loading dose and to continue Keppra 500mg BID for now. Follow EEG results. Will need outpatient neurology follow-up in the next 4-6 weeks following discharge. Above infection could certainly be lowering her seizure threshold. With any further episodes, neurology mentions to consider Ativan to abort the movement. Can continue current dose of Depakote ER. Home seroquel dose decreased by half as atypical antipsychotic medications can potentially lower the seizure threshold in some patients. (5) AMS (altered mental status): Plan: Likely 2/[address] unremarkable. Mentation level appears to be back to baseline at time of admission per discussion with her caregivers at bedside from . (6) Intellectual disability: (7) Hearing loss of both ears: Plan: She is extremely [place]. Known intellectual disability with baseline speech deficits however can answer appropriately to direct yes/no questioning. Unable to understand open-ended questioning per discussion with caregivers from . She does well with basic [place] Sign Language ques/phrases which her caregivers have taught her; patient is not fully fluent in ASL. Does read lips very well. (8) Hypertensive urgency: Plan: Likely 2/2 above or emotional stress/anxiety. BP initially 180s/110s on admission. Now improved. Routine BP monitoring in place. (9) Abdominal pain: Plan: Patient was complaining of some centralized abdominal pain. UA with 11-20 epithelial cells but no bacteria. Will check CTAP. Other Chronic Medical Conditions: BLE Swelling - Euvolemic on exam. Hold HCTZ. Hypothyroidism - TSH WNL, continue levothyroxine. Mood Disorder - Seroquel dose decreased as per above. Continue Depakote ER at current dose and venlafaxine. Generalized OA - Hold meloxicam. Seasonal Allergies - Continue Claritin. GERD - Continue PPI. Persistent Insomnia - Continue trazodone. DVT Prophylaxis: SQ Lovenox Code Status: FULL CODE PCP: Ibis Everett PA-C Disposition: Admit to PCU for further inpatient evaluation and management. Patient seen in collaboration with Dr. Harrison. Please see addendum. I spent a total of 65 minutes coordinating, documenting, and providing care for this patient excluding time spent in the performance of separately billed services or time spent by another provider/QHP. This included personally reviewing all current laboratories and imaging studies, medical reconciliation, outpatient chart review and discussion with specialists. This chart was completed in part utilizing Speech Voice Recognition Software. Grammatical errors, random word insertions, pronoun errors, and incomplete sentences are an occasional consequence of this system due to software limitations, ambient noise, and hardware issues. Any formal questions or concerns about the content, text, or information contained within the body of this dictation should be directly addressed to the provider for clarification. History of Present Illness Chief Complaint: AMS, fever and worsening URI symptoms Primary Care Provider: Ibis Everett PA-C Nafisa Garvin is a 59y/o F with PMHx significant for hypothyroidism, pr ediabetes, esophagitis, morbid obesity, uterine leiomyoma, generalized osteoarthritis of multiple sites, chronic allergic conjunctivitis, conductive hearing loss of both ears, panic disorder, persistent insomnia and mild intellectual disability who presented to the ED via EMS from [facility] due to AMS, fever and worsening URI symptoms. History obtained from caregivers at bedside, discussion with ED provider and associated chart review. Patient seen at bedside with Dr. Harrison. Patient is extremely [place]. Known intellectual disability with baseline speech deficits however can answer appropriately to direct yes/no questioning. Unable to understand open-ended questioning per discussion with caregivers from . She does well with basic Palestinian Sign Language ques/phrases which her caregivers have taught her; patient is not fully fluent in ASL. Does read lips very well. She was seen by her PCP yesterday and diagnosed with acute bacterial bronchitis. She was prescribed a Z-Jarda however did not start this. Staff at noticed she was "not acting like herself" this morning. Caregivers at bedside mention she was having these episodes at the facility where she would "stare off into space." She was also displaying RUE and RLE tremulous behavior when these "staring off" episodes occurred. No prior history of seizures per discussion with her caregivers. No loss of bowel or bladder control during these episodes. Caregivers mention her mentation level appears to be back to normal at time of our discussion. At the times when these episodes occurred, she seemed somewhat confused but alert per her caregivers. Per chart review, appears patient underwent full neurological testing including EEG back in September 2002 after questionable seizure-like activity but this all came back negative. She is on Depakote ER for mood disorder. No documented family history of seizure disorders per chart review. Unfortunately patient does not have any living relatives per discussion with her caregivers. These episodes lasted anywhere from a few seconds up until a few minutes. She has been experiencing a cough over the past few days. Noted to have a low-grade fever this morning per caregivers. Has also been complaining of some sinus congestion and sore throat. Noted to have a fever of 100.4F at time of admission. No supplemental O2 use at baseline. Was found to be hypoxic at 87% SpO2 on RA per EMS. Requiring 1L NC and saturating well in the mid to upper 90s SpO2 at time of admission. Initial laboratory evaluation reviewed. No leukocytosis. Procalcitonin negative. Lactate 2.9; CXR with degenerative changes in the shoulders bilaterally but otherwise no acute process seen. Head CT unremarkable. Chest CT with patchy alveolar opacities within the lungs suggestive of bronchopneumonia. Respiratory BioFire panel positive for influenza A. Valproic acid level supratherapeutic at 108. Patient did not take any of her medications today. Allergies Allergy/AdvReac Type Severity Reaction Status Date / Time No Known Allergies Allergy Verified 07/03/16 13:29 Home Medications Medication Instructions Recorded Confirmed Type Loratadine (Claritin) 10 mg PO DAILY ##0 05/29/08 06/18/24 History OMEPRAZOLE (PRILOSEC) 40 mg PO QPM ##0 10/13/09 06/18/24 History Divalproex Sodium (Divalproex 1,000 mg PO BID ##0 08/10/13 06/18/24 History Sodium ER) QUETIAPINE FUMARATE (SEROQUEL) 75 mg PO HS #0 tabs 08/10/13 06/18/24 History Acetaminophen (Tylenol Arthritis 650 mg PO Q4H PRN Pain/Fever #0 09/03/15 06/18/24 History Ext Rel) caps DOCUSATE SODIUM (COLACE) 100 mg PO BID ##0 12/06/15 06/18/24 History Pediatric Multiple Vitamin W/ 1 tab PO QAM ##0 12/06/15 06/18/24 History (Multivitamin Gummies Chil) Hydrochlorothiazide 25 mg PO QAM ##0 03/26/16 06/18/24 History LEVOTHYROXINE SODIUM (SYNTHROID) 1 tab PO DAILY 90 days #90 tabs 07/03/16 06/18/24 History meloxicam 15 mg tablet 15 mg PO DAILY 06/18/24 06/18/24 History tirzepatide (weight loss) 5 mg/0.5 5 mg subcut WK 06/18/24 06/18/24 History mL subcutaneous pen injector (Zepbound) trazodone 150 mg tablet 150 mg PO HS 06/18/24 06/18/24 History venlafaxine 150 mg 150 mg PO DAILY 06/18/24 06/18/24 History capsule,extended release 24 hr Past Med/Surg History Problem List Hearing loss of both ears Intellectual disability Seizure-like activity Flu (Acute) Panic disorder Hypertensive urgency Severe sepsis Bronchopneumonia Acute hypoxic respiratory failure Hypoxia (Acute) Multifocal pneumonia (Acute) AMS (altered mental status) (Acute) Bilateral lower leg cellulitis Hypothyroidism (Chronic) Osteoarthritis (Chronic) Hearing loss (Chronic) H/O colonoscopy (Chronic) Abdominal pain (Acute) Bilateral leg pain (Acute) Cellulitis (Acute) Contusion of multiple sites (Acute) Diffuse abdominal pain (Acute) Fall (Acute) Social History Smoking Status: Never smoker Second Hand Exposure: No; Do You Dip or Chew Tobacco: No; Tobacco Cessation Education Requested by Patient: No Hx Alcohol Use: No Hx Substance Use: No Communication Ability: Impaired Roll Tube Setter Required: No Beliefs That Will Affect Care: None Current Living Situation: Personal Care Facility Other Information That Helps Us Care for You: No Feels Safe at Home: Yes Safety Concerns: Feels Safe At This Time Review of Systems Review of Systems: Unable to properly obtain due to patient's cognitive status. Physical Exam Physical Exam: Gen: unknown due to mental status HEENT: NCAT, EOMI, not icteric. External ears normal. No rhinorrhea. dry mucous membranes. Neck: Supple, full range of motion, no observable masses, No meningeal sign. Lungs: rhonchi noted bilaterally CV: tachycardic, regular rhythm Abdomen: Soft, nondistended, No rebound tenderness. MSK: No joint swelling, no redness. Skin: No rashes, petechiae, lesions. Normal color per patient. Neuro: noted right arm twitching, staring spells, personally witnessed Psych: Appropriate for situation. Results & Data Results & Data Vital Signs (Past 12 Hours) Vital Signs Temp Pulse Pulse Resp BP BP Pulse Ox 06/18/24 11:52 06/18/24 11:40 112 H 22 187/119 H 97 06/18/24 11:21 109 H 06/18/24 10:56 113 H 19 97 06/18/24 10:48 38.0 C H 110 H 18 144/88 H 96 06/18/24 10:25 95 O2 Del Method O2 Flow Rate 06/18/24 11:52 Nasal Cannula 1 06/18/24 11:40 Nasal Cannula 1 06/18/24 11:21 06/18/24 10:56 Nasal Cannula 1 06/18/24 10:48 Nasal Cannula 2 06/18/24 10:25 Laboratory Results Short CBC 06/18/24 Range/Units 11:35 WBC 6.29 (4.8-10.8) K/ul Hgb 14.3 (12.0-16.0) g/dl Hct 41.5 (37.0-47.0) % Plt Count 121 L (130-400) K/uL BMP 06/18/24 11:35 Sodium 137 Potassium 3.6 Chloride 91 L Carbon Dioxide 38 H BUN 22 Creatinine 0.70 Glucose 119 H Calcium 9.2 Cardiac Enzymes 06/18/24 Range/Units 11:35 Total Creatine Kinase 55 (26-192) U/L Liver Function 06/18/24 Range/Units 11:35 Total Bilirubin 0.5 (0.2-1.0) mg/dl AST 27 (13-39) U/L ALT 21 (7-52) U/L Alkaline Phosphatase 55 (34-104) U/L Albumin 4.0 (3.4-5.0) gm/dl Diagnostic Findings Chest CT 06/18/24 10:56 CT OF THE CHEST WITHOUT IV CONTRAST CLINICAL HISTORY: Hypoxia. Altered mental status. COMPARISON STUDY: Chest radiograph July 31, 2016. Chest radiograph performed earlier today. CT DOSE: 1355.68 mGy.cm TECHNIQUE: Axial images of the chest were obtained without IV contrast. Images were reviewed in the axial, sagittal, and coronal planes. IV contrast was not administered for this examination. Automated exposure control was utilized for the study. A dose lowering technique was utilized adhering to the principles of ALARA. FINDINGS: No enlarged axillary, mediastinal or hilar lymph nodes are present. The heart is mildly enlarged. There is no pericardial effusion. The central airways are patent. No pneumothorax or pleural effusion is present. Lungs are suboptimally assessed due to respiratory motion. Patchy alveolar opacities within the right upper lobe and right lower lobe are noted. There are additional mild groundglass opacities within the left lung. Gallstones are incidentally noted within the gallbladder. IMPRESSION: 1. Patchy alveolar opacities within the lungs, as described above. The findings suggest an infectious process such as bronchopneumonia. 2. No pleural effusions. 3. Mild cardiomegaly. 4. Cholelithiasis. ACT 112: Negative or not required by law. Electronically signed by: Harinder Rivas M.D. 06/18/2024 12:19 PM Chest X-Ray 06/18/24 10:56 XR chest 1V portable CLINICAL HISTORY: weakness, ams COMPARISON STUDY: 07/31/2016 FINDINGS: Single view chest demonstrates no acute cardiopulmonary process. There is no airspace opacity or pleural effusion. There is no pneumothorax. The heart and pulmonary vascularity are unremarkable. There are degenerative changes in the shoulders bilaterally. IMPRESSION: No acute process ACT 112: Negative or not required by law. Electronically signed by: Felicita Wen M.D. 06/18/2024 11:[address] 06/18/24 10:57 CT OF THE HEAD WITHOUT CONTRAST CLINICAL HISTORY: Altered mental status. COMPARISON STUDY: Head CT March 26, 2016. TECHNIQUE: Helical axial images of the head were obtained without IV contrast. Automated exposure control was utilized for the study. A dose lowering technique was utilized adhering to the principles of ALARA. FINDINGS: No acute intracranial hemorrhage, midline shift or mass effect is present. The ventricular system is unremarkable. The basal cisterns are patent. No extra-axial collections are present. There are no findings to suggest acute dural sinus thrombosis or acute territorial infarct. No significant calvarial abnormalities are present. IMPRESSION: No acute intracranial findings. ACT 112: Negative or not required by law. Electronically signed by: Harinder Rivas M.D. 06/18/2024 12:15 PM Medications Administered Discontinued Medications Sodium Chloride (Nss) 1,000 mls @ 999 mls/hr IV .Q1H1M ONE Stop: 06/18/24 12:03 Last Admin: 06/18/24 11:17 Dose: 999 mls/hr Documented By: MPD Code Status & VTE Plan Code Status FULL CODE Supervising Physician Co-Signing Physician Notes Patient seen and examined at bedside. Patient presents meeting sepsis criteria, SIRS with source (lungs). Has been having staring spells and right arm twitching for the past day, episode witnessed in room by this provider. Suspect sepsis causing absence/partial seizure activity 2/2 lowered seizure threshold. Loaded empirically with Keppra upon witnessing seizure activity in ED and ordered EEG, proceeded to then consult neurology. Appreciate neurology recs. Other etiologies considered included serotonin syndrome vs. neuroleptic malignant syndrome, however sepsis with source is more likely given p resentation. Decreased dose of seroquel and venlafaxine. Of note, patient has significant compensated respiratory acidosis with secondary metabolic alkalosis. This is likely 2/2 obesity hypoventilation syndrome vs. severe KARLO. Will need outpatient follow up for testing. Patient dehydrated as well, given empiric fluids and broad spectrum abx given severe sepsis. Deescalate based on MRSA swab. Patient flu positive, given this patient has risk factors for pseudomonas and will need to be treated empirically. I have seen and discussed the case with the collaborating advanced practitioner. I agree with the above H&P. I have reviewed and confirmed the patients medical history, the findings on physical examination, and the patients diagnosis and treatment plan with Mimi SAEZ and agree with the information documented. I spent a total of 20 minutes coordinating, documenting, and providing care for this patient excluding time spent in the performance of separately billed servi dagoberto. All of the aforementioned completed outside of collaborating with the assigned advanced practitioner for a full treatment plan. I have reviewed the advanced practitioner's documentation, and I agree with, and take responsibility for the plan of care (5) AMS (altered mental status) Altered mental status type: unspecified Qualified Code(s): R41.82 - Altered mental status, unspecified (7) Hearing loss of both ears Hearing loss type: conductive Qualified Code(s): H90.0 - Conductive hearing loss, bilateral (9) Abdominal pain Abdominal location: unspecified location Qualified Code(s): R10.9 - Unspecified abdominal pain
[2024-06-18] MEDS: ACETAMINOPHEN 1,000 MG/100 ML VIAL IV STA (13:02)
[2024-06-18 13:06] LABS: Appearance Urine Cloudy (Clear); Bacteria Urine Automated None Seen (None Seen); Bilirubin Urine Negative (Negative); Blood Urine Negative (Negative); Cast Urine Automated 0-2 /lpf (0-2); Color Urine Yellow; Glucose Urine UA Negative (Negative); Ketones Urine 1+ (Negative); Leukocyte Esterase Urine Trace (Negative); Nitrite Urine Negative (Negative); Protein Urine Trace (Negative); RBC Urine Automated 0-2 /hpf (0-2); Specific Gravity Urine 1.019 (1.000-1.030); Urobilinogen Urine Positive (Negative); WBC Urine Automated 0-5 /hpf (0-5); pH Urine 8.5 (4.5-7.5)
[2024-06-18] MEDS: cefTRIAXone SODIUM 2,000 MG/50 ML BAG IV STA (13:07)
[2024-06-18 13:15] LABS: Adenovirus PCR Not Detected (NotDetected); Bordetella parapertussis PCR Not Detected (NotDetected); Bordetella pertussis PCR Not Detected (NotDetected); Chlamydia pneumoniae PCR Not Detected (NotDetected); Coronavirus 229E PCR Not Detected (NotDetected); Coronavirus CoV-2 (COVID19)PCR Not Detected (NotDetected); Coronavirus HKU1 PCR Not Detected (NotDetected); Coronavirus NL63 PCR Not Detected (NotDetected); Coronavirus OC43PCR Not Detected (NotDetected); Human Metapneumovirus PCR Not Detected (NotDetected); Influenza A (H1 2009) PCR DETECTED (NotDetected); Influenza B PCR Not Detected (NotDetected); Mycoplasma pneumoniae PCR Not Detected (NotDetected); Parainfluenza Virus 1 PCR Not Detected (NotDetected); Parainfluenza Virus 2 PCR Not Detected (NotDetected); Parainfluenza Virus 3 PCR Not Detected (NotDetected); Parainfluenza Virus 4 PCR Not Detected (NotDetected); Respiratory Syncytial VirusPCR Not Detected (NotDetected); Rhinovirus/Enterovirus PCR Not Detected (NotDetected)
[2024-06-18] MEDS ORDERED: VANCOMYCIN CONSULT ACTIVE PRN (13:37)
[2024-06-18] MEDS ORDERED: POLYETHYLENE (MIRALAX) 17 GM PACK PO PRN (14:37)
[2024-06-18] MEDS: PIPERACILLIN/TAZOBACTAM 4.5 GM/100 ML BAG IV ONE (14:40)
[2024-06-18 14:41] LABS: Phosphorus 2.5 mg/dl (2.5-4.9)
[2024-06-18] MEDS: VANCOMYCIN HCL 1,750 MG in SODIUM CHLORIDE 0.9% 500 ML IV ONE (14:41)
[2024-06-18] MEDS: AZITHROMYCIN 500 MG/255 ML D5W BAG IV ONE (14:41)
[2024-06-18] MEDS ORDERED: ALBUTEROL HFA 8 GM INHALER INH PRN (14:49)
--- NOTE | 2024-06-18 14:51 | Neurology Consultation ---
Date of Consultation June 18, 2024 Assessment & Plan (1) Seizure-like activity: Nafisa Garvin is a 59 yo F presenting with sepsis with altered mental status and seizure-like activity witnessed by staff despite a therapeutic depakote level. Reasonable to consider her infection as lowering the seizure threshold. Alternatively these movements could be unrelated to seizure and more consistent with sterotypy. Routine EEG is reasonable and would continue Keppra 500mg BID until seen in follow-up as an outpatient. With any further episodes would consider ativan to abort the movement. Please reach out to us to determine if there is a need to increase the Keppra. -- Continue Keppra 500mg BID -- Continue current dose of depakote -- Agree with routine EEG, will follow for result -- Continue supportive care for sepsis -- Neurology follow-up 4-6 weeks post-discharge Telehealth Consultation Telehealth Information Telehealth Information: I performed this visit using a real-time telehealth connection between my location and the patients location ([facility]). After connecting through interactive tele-video, patient was identified by name and date of and/or wristband check.Patient (or authorized healthcare health and safety representative) was informed that this was a telemedicine visit and it was being conducted confidentially over secure lines. My office door was closed and no one else was present in the room with me.Patient (or authorized healthcare health and safety representative) provided consent to proceed with the visit, expressed an understanding of privacy and security of the telemedicine visit, and gave permission to have a hospital health and safety representative in the room in order to assist with the visit and to conduct portions of the visit, as needed. I informed the patient (or authorized healthcare health and safety representative) that I reviewed their record and presented the opportunity for them to ask any questions regarding the visit today. The patient agreed to participate. History of Present Illness Reason for Consultation: Seizure-like activity Requesting Physician: Dr. Harrison Attending Physician: Lam Harrison MD History of Present Illness Nafisa Garvin is a 59 yo F with hearing loss, intellectual disability presenting from her adult facility with sepsis from pulmonary source. While she was reportedly altered from her baseline on arrival per long term staff, her admitting team noticed that she was having rhythmic movements of the RUE and unidirectional eye movements concerning for a focal seizure. She had been worked up for seizures in the past but has no formal diagnosis as the workup was negative. She is also on depakote with a level of 108 but takes this for mood. She was loaded with Keppra and currently is awake without further shaking episodes. She is unable to contribute to the history which was otherwise obtained from her primary team and chart review. Allergies Allergy/AdvReac Type Severity Reaction Status Date / Time No Known Allergies Allergy Verified 07/03/16 13:29 Home Medications Medication Instructions Recorded Confirmed Type Loratadine (Claritin) 10 mg PO DAILY ##0 05/29/08 06/18/24 History OMEPRAZOLE (PRILOSEC) 40 mg PO QPM ##0 10/13/09 06/18/24 History Divalproex Sodium (Divalproex 1,000 mg PO BID ##0 08/10/13 06/18/24 History Sodium ER) QUETIAPINE FUMARATE (SEROQUEL) 75 mg PO HS #0 tabs 08/10/13 06/18/24 History Acetaminophen (Tylenol Arthritis 650 mg PO Q4H PRN Pain/Fever #0 09/03/15 06/18/24 History Ext Rel) caps DOCUSATE SODIUM (COLACE) 100 mg PO BID ##0 12/06/15 06/18/24 History Pediatric Multiple Vitamin W/ 1 tab PO QAM ##0 12/06/15 06/18/24 History (Multivitamin Gummies Chil) Hydrochlorothiazide 25 mg PO QAM ##0 03/26/16 06/18/24 History LEVOTHYROXINE SODIUM (SYNTHROID) 1 tab PO DAILY 90 days #90 tabs 07/03/16 06/18/24 History meloxicam 15 mg tablet 15 mg PO DAILY 06/18/24 06/18/24 History tirzepatide (weight loss) 5 mg/0.5 5 mg subcut WK 06/18/24 06/18/24 History mL subcutaneous pen injector (Zepbound) trazodone 150 mg tablet 150 mg PO HS 06/18/24 06/18/24 History venlafaxine 150 mg 150 mg PO DAILY 06/18/24 06/18/24 History capsule,extended release 24 hr Patient History Social History Smoking Status: Never smoker Second Hand Exposure: No; Do You Dip or Chew Tobacco: No; Tobacco Cessation Education Requested by Patient: No Hx Alcohol Use: No Hx Substance Use: No Communication Ability: Impaired Automotive Technology Instructor Required: No Beliefs That Will Affect Care: None Current Living Situation: Personal Care Facility Other Information That Helps Us Care for You: No Feels Safe at Home: Yes Safety Concerns: Feels Safe At This Time Review of Systems Unable to obtain Physical Exam Awake and alert, tracks the examiner. Can follow mimic'd commands. No verbal output. No abnormal movements noted. Results & Data Vital Signs (Past 12 Hours) Vital Signs Temp Pulse Pulse Resp BP BP Pulse Ox 06/18/24 14:11 06/18/24 14:11 36.5 C 95 H 18 115/77 97 06/18/24 13:21 100 H 17 95 06/18/24 13:00 100 H 19 129/76 96 06/18/24 12:39 112 H 24 118/62 97 06/18/24 11:52 06/18/24 11:42 112 H 16 187/119 H 96 06/18/24 11:40 112 H 22 187/119 H 97 06/18/24 11:21 109 H 06/18/24 11:06 114 H 22 127/95 72 L 06/18/24 10:56 113 H 19 97 06/18/24 10:48 38.0 C H 110 H 18 144/88 H 96 06/18/24 10:25 95 O2 Del Method O2 Flow Rate 06/18/24 14:11 Nasal Cannula 2 06/18/24 14:11 Nasal Cannula 2 06/18/24 13:21 06/18/24 13:00 06/18/24 12:39 06/18/24 11:52 Nasal Cannula 1 06/18/24 11:42 06/18/24 11:40 Nasal Cannula 1 06/18/24 11:21 06/18/24 11:06 06/18/24 10:56 Nasal Cannula 1 06/18/24 10:48 Nasal Cannula 2 06/18/24 10:25 Laboratory Results Abnormal lab results 06/18/24 06/18/24 06/18/24 Range/Units 11:35 11:37 12:52 RDW Coeff of Mtahew 11.4 L (11.5-14.5) % Plt Count 121 L (130-400) K/uL Lymph # (Auto) 0.45 L (1.20-3.40) K/uL VBG pCO2 65 H (38-50) mmHg Chloride 91 L (98-107) mmol/L Carbon Dioxide 38 H (21-32) mmol/L BUN/Creatinine Ratio 31.4 H (10-20) Glucose 119 H (70-99(Fasting)) mg/dl Lactate 2.9 H* (0.4-2.0) mmol/L Urine Appearance Cloudy A (Clear) Urine pH 8.5 H (4.5-7.5) Urine Protein Trace H (Negative) Urine Ketones 1+ H (Negative) Urine Urobilinogen Positive H (Negative) Ur Leukocyte Esterase Trace H (Negative) U Epithel Cells (Auto) 11-20 H (0-2) /hpf Nasal Influ A H1 2008 PCR DETECTED A (NotDetected) Valproic Acid 108 H (50-100) mcg/ml Diagnostic Findings CT head - Unremarkable
--- NOTE | 2024-06-18 14:58 | Pharmacy Report ---
Pharmacy PK ABX Note - Date of Service June 18, 2024 - Assessment and Plan Assessment 59 year old F receiving Zosyn/vancomycin for treatment of altered mental status/pneumonia. Pertinent microbiologic data includes: MRSA Nasal Swab pending, blood cultures pending, and FluA H1 2009 positive. Day # 1 of antimicrobial therapy. Plan Vancomycin * Loading dose: 1750 mg IV x 1 * Maintenance dose: 1250 mg IV every 12 hours starting at 2100 12 * Regimen is predicted to achieve target AUC/JESUS MANUEL of 400-600 mg/L.hr * Random level to be ordered if continued beyond 48 hours Pharmacy will continue to follow and will adjust dose/frequency as necessary. Thank you. Pharmacy has transitioned to AUC monitoring for vancomycin. AUC/JESUS MANUEL is the preferred PK/PD target and is associated with decreased risk of nephrotoxicity compared to traditional trough targets.
[2024-06-18] MEDS: LACTATED RINGER'S 1,000 ML IV ONE (15:07)
[2024-06-18] MEDS: ENOXAPARIN INJ 40 MG/0.4 ML SYR SQ SCH (15:08)
[2024-06-18] MEDS: OPTIRAY 320 100ml IV ONE (15:37)
--- OUTSIDE RECORDS SUMMARY | 2024-06-18 15:41 | External Medical Summary | Summary of Care ---
Author Name Unknown Organization [facility] Address [address] [place] [address] Phone [phone] Care Team Providers Care Pedodontist Name Role Phone ShondaIbis arechiga Tuyet SAEZ Primary Care Provider [phone] Reason for Referral * Evaluate & Treat - Unlimited Visits (Within 10 days (routine)) - Authorized Specialty Diagnoses / Procedures Referred By Michael roe Referred To Contact Pain Management / Pain Medicine Diagnoses Primary osteoarthritis of right hip Soraida Groves MD [address] [place] [address] Phone: tel: fax: Referral ID Status Reason Start Date Expiration Date Visits Requested Visits Authorized [id number] Authorized Specialty Services Required 06/04/2024 [id number] Question Answer Referral Priority Within 10 days (routine) Where should this appointment be scheduled? External - [facility] Reason for referral? Interventional Pain Management - (Injection) What condition is the patient being referred for? Hip/Shoulder/Knee What is the preferred location to have this test performed? Non [facility] Site Comments Patient Name: Nafisa Garvin Date of : 1965 Department Phone Number: HIP INJECTION UNDER SEDATION MRI or CT (if unable to have a MRI) is recommended if any of the following apply: 1. Patient has neck or back pain with radiation to extremities. A previous MRI will be accepted if symptoms unchanged since prior MRI. 2. Spinal surgery since last MRI. If yes, order a MRI with and without contrast. 3. Hx or ongoing cancer treatment. Patient will need spine x-ray (Ap/Lat) for axial neck or back pain if not done previously. Fax No. [facility] [phone] or contact frontend engineer [phone] Fax No. [facility] [phone] or contact frontend engineer [phone] Fax No. [facility] [phone] or contact frontend engineer [phone] Reason for Visit * Reason Onset Date Comments Advice 05/27/2024 Encounter Details Date Type Department Care Team (Late st Contact Info) Description 05/27/2024 Telephone [facility], [facility] [address] [place] [address] Jorge Bauer DO [address] [place] [phone] Advice Allergies No known active allergiesdocumented as of this encounter (statuses as of 06/04/2024) Medications QUEtiapine Fumarate 50 MG Oral Tablet Take 1.5 Tablets by mouth at bedtime. Total of 75mg 07/15/19 16 Active Pediatric Multiple Vit-C-FA (MULTIVITAMIN CHILDRENS) CHEW Take by mouth daily. Active Venlafaxine HCl ER 150 MG Oral Capsule Extended Release 24 Hour (Effexor XR) 1 Capsule. 02/17/20 21 Active Mucinex DM 30-600 MG Oral Tablet Extended Release 12 Hour Take by mouth 1 Tablet 2 times a day as needed for Congestion or Cough. Take with plenty of water. Do not cut, crush or chew 40 Tablet 2 05/26/19 22 Active traZODone HCl 150 MG Oral Tablet (Desyrel)Indicati ons:Persistent insomnia Take by mouth 1 Tablet before bedtime. To be taken at 8 -9 pm. 30 Tablet 11 07/15/19 22 Active Omeprazole 20 MG Oral Capsule Delayed Release (PriLOSEC)Indicat ions:Esophagitis TAKE 2 CAPSULES (40MG) BY MOUTH 30 MINUTES BEFORE EVENING MEAL FOR STOMACH 56 Capsule 11 09/30/19 22 Active Divalproex Sodium 500 MG Oral Tablet Delayed Release (Depakote DR) TAKE 1 TABLET BY MOUTH EVERY MORNING AND TAKE 2 TABLETS BY MOUTH AT BEDTIME 100 Tablet 06/18/19 24 Active Additional Information Patient taking differently: 1,000 mg BID (.AM/PM), TAKE 2 TABLET BY MOUTH EVERY MORNING AND TAKE 2 TABLETS BY MOUTH AT BEDTIME, Reported on 05/08/2024 CeraVe Daily Moisturizing External Lotion Apply to arms daily 237 mL 10/16/19 24 Active Sharps Deburring Technician Dispose of sharps 1 Each 3 11/07/19 24 Active Polyethylene Glycol 3350 17 GM Oral Packet (Miralax) Take 1 Packet by mouth in the morning. 30 Each 01/02/20 24 Active Loratadine 10 MG Oral Tablet (Claritin)Indicat ions:Allergic rhinitis TAKE ONE TABLET BY MOUTH DAILY. *SEASONAL ALLERGIES* 28 Tablet 5 02/06/20 24 Active hydroCHLOROthiazi de 25 MG Oral Tablet (Hydrodiuril) TAKE ONE TABLET BY MOUTH ONCE DAILY IN THE MORNING TO REDUCE FLUID RETENTION/SWELLIN G DUE TO OA 28 Tablet 5 02/06/20 24 Active Acetaminophen ER 650 MG Oral Tablet Extended Release (Arthritis Pain Relief) TAKE 2 TABLETS (1300MG) BY MOUTH TWICE DAILY TO REDUCE PAIN AND SWELLING DUE TO OA 112 Tablet 4 02/25/20 24 Active Ibuprofen 200 MG Oral Tablet (Motrin) Take 1 Tablet by mouth every 4 hours as needed for Pain, Mild or Fever (Temp Greater than ). Active Magnesium Hydroxide 400 MG/5ML Oral Suspension (Milk of Magnesia) Take by mouth daily as needed for Constipation. 30-60 ml with 8 oz of water Active Loperamide HCl 2 MG Oral Capsule (Imodium A-D) 4 mg followed by 2 mg after each unformed stool. Daily dose should not exceed 16 mg (8 capsules) Active Dextromethorphan Polistirex ER 30 MG/5ML Suspension Extended Release (Delsym) Take 10 mL by mouth 2 times a day as needed for Cough. Active Pseudoephedrine HCl 30 MG Oral Tablet (Sudafed) Take 2 Tablets by mouth every 4 hours as needed for Congestion. Active Neosporin Original External Ointment Apply topically to affected area. Apply to a thin layer to minor cuts, scrapes, soto or abrasions up to 3 times a day when needed. Active Docusate Sodium 100 MG Oral Capsule (Colace) TAKE 1 CAPSULES BY MOUTH TWICE DAILY *CONSTIPATION* 60 Capsule 4 03/20/20 24 Active QUEtiapine Fumarate 25 MG Oral Tablet (SEROquel) Take 1 Tablet by mouth at bedtime. 04/08/20 24 Active Zepbound 5 MG/0.5ML Subcutaneous Solution Auto-injector (Tirzepatide-Otterologyg ht Management)Indica tions:Morbid obesity due to excess calories (HCC) Inject 5 mg (1 pen) under the skin once weekly. 6 mL 5 10:12 AM EST 04/22/19 25 Active LORazepam 0.5 MG Oral Tablet (Ativan)Indicatio ns:Primary osteoarthritis of right hip Take 1 tablet by mouth 1 hour prior to the scheduled procedure and 1 tablet 20 minutes prior to the scheduled procedure. 2 Tablet 05/08/19 25 Active Levothyroxine Sodium 25 MCG Oral Tablet (Levoxyl)Indicati ons:Hypothyroidis m TAKE ONE TABLET BY MOUTH ONCE DAILY IN THE MORNING FOR HYPOTHYROIDISM 28 Tablet 2 02/06/20 24 025 Disconti nued(Ref ill) Meloxicam 15 MG Oral Tablet (Mobic) Take 1 Tablet by mouth in the morning. 30 Tablet 5 03/20/20 24 025 Disconti nued(Ref ill) documented as of this encounter (statuses as of 06/04/2024) Active Problems Problem Noted Date Diagnosed Date Persistent insomnia 04/06/2022 Pneumonia of both lungs due to infectious organi sm 03/15/2021 Prediabetes 04/22/2018 Overview: Per Prediabetes protocol #1 Morbid obesity due to excess calories 03/25/2018 Generalized osteoarthritis of multiple sites Uterine leiomyoma 07/25/2017 Conductive hearing loss of both ears 08/22/2016 Hypothyroidism 03/15/2009 Other chronic allergic conjunctivitis 04/16/2007 Esophagitis 01/28/2002 Overview (01/08/2017): ICD-10 update of inactive term Panic disorder 01/28/2002 Mild intellectual disability Overview (01/08/2017): ICD-10 update of inactive term documented as of this encounter (statuses as of 06/04/2024) Resolved Problems Problem Noted Date Diagnosed Date Resolved Date Body mass index (BMI) of 40. 0 to 44.9 in adult 06/19/2017 11/29/2017 Overview: Per Obesity protocol #1 Impacted cerumen of left ear 08/22/2016 05/07/2017 ADVANCE DIRECTIVE INFORMATION 12/14/2004 02/11/2024 Overview (12/14/2004): pt unable to understand due to Mental Retardation Intellectual disability 10/07 Overview (01/08/2017): ICD-10 update of inactive term Hearing loss 10/19/2017 INITIATE CONTRACEPT NEC 04/10 documented as of this encounter (statuses as of 06/04/2024) Immunizations Name Administration Dates Next Due COVID-19 mRNA, LNP-s, No Pre serve, 2-Dose Series (Moderna) 06/20/2020,05/23/2020 H1N1 2009 Influenza, IM 02/07/2009 Hepatitis B, 20+ yrs 11/27/1991,06/12/1991,05/14 Influenza, Whole Virus 03/12/2000 MMR - Measles/Mumps/Rubella Vaccine 04/17/1991 PPD 04/15/2019, 8,07/19/2015,04/09,03/22/2011,03/24/2009,03/15/20 09,02/16/2004 03/26/2009 Pneumococcal Polysaccharide PPV23 (Pneumovax) 04/15/2019 Seasonal Influenza Vac., MDV , IM, 0.5 mL (Fluzone) 01/29/2014,02/07/2013,01/24/2012,03/09,02/02/2010,03/15/2009,02/18/20 08,02/26/2007,03/14/2005,04/27/2004,1 ,03/08/2001 Seasonal Influenza, PF, 6 M & above, IM , (FluLaval or Fluzone) 04/12/2023,04/06/2022,02/26/2020,01/08,02/01/2018,03/13/2017 Seasonal Influenza, Quadriva lent, No Preserve, IM 01/29/2015 Seasonal Influenza, Trivalen t, (IIV3), PF, (Fluzone) 03/20/2024 TD - Tetanus/Diptheria (ADULT) 04/28/1994 TD, Preservative Free 03/14/2005 TDAP (age 10 and older)(Boostrix) 08/13/2013 TDAP, Age 7 and older, IM (Adacel) 03/20/2024 documented as of this encounter Social History Tobacco Use Types Packs/Day Years Used Date Smoking Tobacco: Never Smokeless Tobacco: Never Alcohol Use Standard Drinks/Week Comments No 0 (1 standard drink = 0.6 oz pur e alcohol) PHQ-2 Answer Date Recorded PHQ-2 Score -1 03/02/2020 Hunger Vital Sign Answer Date Recorded Within the past 12 months, y ou worried that your food would run out before you got the money to buy more. Never true 08/11/19 23 Within the past 12 months, t he food you bought just didn't last and you didn't have money to get more. Never true 08/10/2022 Comments No Sex and Gender Information Value Date Recorded Sex Assigned at Female 04/05/2022 4:51 PM EST Legal Sex Female 4:58 AM EST Gender Identity Female 04/05/2022 4:51 PM EST Sexual Orientation Choose not to disclose 2021 4:51 PM EST documented as of this encounter Miscellaneous Notes * Addendum Note - Soraida Groves MD - 06/04/2024 1:28 PM ESTAddended by: SORAIDA GROVES on: 06/04/2024 01:28 PM Modules accepted: Orders * Telephone Encounter - Mabel Molina LPN - 05/27/2024 1:07 PM EST Patient's caregiver Janae calling-wants to know if upcoming injection can be done by ortho or here in [place] as it's too difficult for patient to travel to [facility]? right hip intra-articular injection under fluoroscopy. Call janae back at [phone] documented in this encounter Plan of Treatment Upcoming Encounters Date Type Department Care Team (Latest Contact Info) Description 07/25/2024 1:07 PM EDT Hospital Encounter [facility], Operating Room [facility] [address] [place] [phone] Jorge Bauer, [address] [place] [phone] 07/25/2024 1:07 PM EDT - 07/25/2024 1:25 PM EDT Surgery OR [facility], Operating Room [facility] [address] [place] [phone] Jorge Bauer DO [address] [place] [phone] ARTHROCENTESIS OR INJECTION MAJOR JOINT 09/22/2024 10:20 AM EDT Office Visit Family Practice [facility] [address] [facility] [place] [address] Ibis Everett PA-C [address] [facility] COUNTS INCLUDE 234 BEDS AT THE [facility] [place] [address] 03/30/2025 1:15 PM EST Imaging Radiology [address] [place] [phone] Scheduled Procedures Name Priority Associated Diagnoses Date/Ti me ARTHROCENTESIS OR INJECTION MAJOR JOINT Primary osteoarthritis of right hip 07/25/2024 1:07 PM EDT COLONOSCOPY FLEXIBLE PROXIMAL DIAGNOSTIC Recall Special screening for malignant neoplasms, colon Scheduled Referrals Name Type Priority Associated Diagnoses Orde r Schedule PAIN MEDICINE REFERRAL OP Referral Within 10 days (routine) Primary osteoarthritis of right hip Ordered: 06/04/2024 Health Maintenance Due Date Last Done Comments Zoster Vaccines (1 of 2) 1982 Cologuard 01/14/2008 Fecal Occult Blood Test 01/14/2008 Sigmoidoscopy 01/14/2008 Pneumococcal Vaccine: 50+ Years (2 of 2 - PCV) 04/15/2020 04/15/2019 Depression Screening 03/02/2021 03/02/2020, 06/17/2014 (Discussed) TSH 01/11/2024 01/10/2023, 12/2021, 06/17/2020, Additional history exists Colonoscopy 06/29/2024 06/29/2014, 06/29/2014 Colorectal Cancer Screening 06/29/2024 HbA1c 09/05/2024 09/06/2023, 12/0 12/2021, 02/16/2021, Additional history exists COVID-19 Vaccine (4 - Moderna risk 2023-) 09/23/2024 03/25/2024, 06/20/2020, 05/23/2020 Mammogram 04/01/2025 04/01/2024, 03/09, 03/27/2023, Additional history exists Pap Smear 06/17/2026 06/18/2023, 06/07, 01/27/2019, Additional history exists Cervical Cancer Screening 06/17/2028 HPV/Co-Test 06/17/2028 06/18/2023 Lipid Panel 09/05/2028 09/06/2023, 120 12/2021, 02/26/2020, Additional history exists DTap/Tdap Vaccines (3 - Td or Tdap) 03/20/2034 03/20/2024, 08/13/2013, 03/14/2005, Additional history exists Hepatitis B Vaccine Completed 11/27/1991, 06/12/1991, 05/14/1991 Influenza Vaccine (FLU shot) Completed 03/2024, 04/12/2023, 04/06/2022, Additional history exists HPV (Gardasil) Vaccine Aged Out No lo nger eligible based on patient's age to complete this topic MENINGOCOCCAL (MENACTRA/MENVEO) Aged Out No longer eligible based on patient's age to complete this topic Meningitis B Vaccine (Bexsero/Trumemba) Aged Out No longer eligible based on patient's age to complete this topic documented as of this encounter Medical Devices Not on filedocumented as of this encounter Visit Diagnoses Diagnosis Primary osteoarthritis of right hip- Primary Primary localized osteoarthrosis, pelvic region and thigh Primary osteoarthritis of right hip Primary localized osteoarthrosis, pelvic region and thigh Screening mammogram for breast cancer documented in this encounter Care Teams Pedodontist Relationship Specialty Start Date End Date Marguerite July NADJA Benz [address] [place] [address] PCP - General Physician Coat Cutter 10/17/23 documented as of this encounter
--- OUTSIDE RECORDS SUMMARY | 2024-06-18 15:41 | External Medical Summary | Summary of Care ---
Author Name Unknown Organization [facility] Address [address] [facility] [address] Phone [phone] Care Team Providers Care Board Attendant Name Role Phone Ibis Everett NADJA Primary Care Provider [phone] Reason for Visit * Reason Onset Date Comments Appointment 05/26/2024 Encounter Details Date Type Department Care Team (Late st Contact Info) Description 05/26/2024 Telephone Interventional Pain Center, [facility] [address] [place] [address] Jorge Bauer, [address] [place] [phone] Appointment Allergies No known active allergiesdocumented as of this encounter (statuses as of 05/27/2024) Medications QUEtiapine Fumarate 50 MG Oral Tablet [...] Active traZODone HCl 150 MG Oral Tablet (Desyrel)Indicatio ns:Persistent insomnia Take by mouth 1 Tablet before bedtime. To be taken at 8 -9 pm. 30 Tablet 11 07/15/19 22 Active Omeprazole 20 MG Oral Capsule Delayed Release (PriLOSEC)Indicati ons:Esophagitis TAKE 2 CAPSULES (40MG) BY MOUTH 30 MINUTES BEFORE EVENING MEAL FOR STOMACH 56 Capsule 09/30/19 22 Active Divalproex Sodium 500 MG [...] daily 237 mL 10/16/19 24 Active Sharps Mining Helper Dispose of sharps 1 Each 3 11/07/19 24 Active Polyethylene Glycol 3350 17 GM Oral Packet (Miralax) Take 1 Packet by mouth in the morning. 30 Each 01/02/20 24 Active Loratadine 10 MG Oral Tablet (Claritin)Indicati ons:Allergic rhinitis TAKE ONE TABLET BY MOUTH DAILY. *SEASONAL ALLERGIES* 28 Tablet 5 02/06/20 24 Active Levothyroxine Sodium 25 MCG Oral Tablet (Levoxyl)Gaetanotio ns:Hypothyroidism TAKE ONE TABLET BY MOUTH ONCE DAILY IN THE MORNING FOR HYPOTHYROIDISM 28 Tablet 2 02/06/20 24 Active hydroCHLOROthiazid e 25 MG Oral Tablet (Hydrodiuril) TAKE ONE [...] *CONSTIPATION* 60 Capsule 4 03/20/20 24 Active Meloxicam 15 MG Oral Tablet (Mobic) Take 1 Tablet by mouth in the morning. 30 Tablet 5 03/20/20 24 Active QUEtiapine Fumarate 25 MG Oral Tablet (SEROquel) Take 1 Tablet by mouth at bedtime. 04/08/20 24 Active Zepbound 5 MG/0.5ML Subcutaneous Solution Auto-injector (Tirzepatide-Weigh t Management)Indicat ions:Morbid obesity due to excess calories (HCC) Inject 5 mg (1 pen) under the skin once weekly. 6 mL 5 10:12 AM EST 04/22/19 25 Active LORazepam 0.5 MG Oral Tablet (Ativan)Indication s:Primary osteoarthritis of right hip Take 1 tablet by mouth 1 hour prior to the scheduled procedure and 1 tablet 20 minutes prior to the scheduled procedure. 2 Tablet 05/08/19 25 Active documented as of this encounter (statuses as of 05/27/2024) Active Problems Problem Noted Date Diagnosed Date [...] as of this encounter (statuses as of 05/27/2024) Resolved Problems Problem Noted Date Diagnosed Date [...] as of this encounter (statuses as of 05/27/2024) Immunizations Name Administration Dates Next Due COVID-19 [...] as of this encounter Miscellaneous Notes * Telephone Encounter - Elsy Sanz E - No Ob/Or, KARLO - 05/27/2024 8:46 AM EST shelter staff returning call to [facility], please return call @ [phone] Thank you ! 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 CallerShaylee will need a return call to schedule. * Telephone Encounter - Rebecca Temple OSA - 05/26/2024 2:13 PM EST Left a voicemail to schedule injection. documented in this encounter Plan of Treatment Upcoming Encounters Date Type Department Care Team (Late st Contact Info) Description 09/22/2024 10:20 AM EDT Office Visit Family Practice [facility] [address] [place] [address] Ibis Everett PA-C [address] [place] [address] 03/30/2025 1:15 PM EST Imaging Radiology [facility] [address] [place] [phone] Scheduled Procedures Name Priority Associated Diagnoses Date/Ti me ARTHROCENTESIS OR INJECTION MAJOR JOINT Primary osteoarthritis of right hip COLONOSCOPY FLEXIBLE PROXIMA L DIAGNOSTIC Recall Special screening for malignant neoplasms, colon Health Maintenance Due Date Last Done Comments Zoster Vaccines (1 of 2) 1982 Cologuard 01/14/2008 Fecal Occult Blood Test 01/14/2008 Sigmoidoscopy 01/14/2008 Pneumococcal Vaccine: 50+ Years (2 of 2 - PCV) 04/15/2020 04/15/2019 Depression Screening 03/02/2021 03/02/2020, 06/17/2014 (Discussed) TSH 01/11/2024 01/10/2023, 12/2021, 06/17/2020, Additional history exists Colonoscopy 06/29/2024 06/29/2014, 06/29/2014 Colorectal Cancer Screening 06/29/2024 HbA1c 09/05/2024 09/06/2023, 0 12/2021, 02/16/2021, Additional history exists COVID-19 Vaccine (4 - Moderna risk 2023- season) 2024 03/25/2024, 06/20/2020, 05/23/2020 Mammogram 04/01/2025 04/01/2024, 03/09, 03/27/2023, Additional history exists Pap Smear 06/17/2026 06/18/2023, 06/07, 01/27/2019, Additional history exists Cervical Cancer Screening 06/17/2028 HPV/Co-Test 06/17/2028 06/18/2023 Lipid Panel 09/05/2028 09/06/2023, 12/2021, 02/26/2020, Additional history exists DTap/Tdap Vaccines [...] Not on filedocumented as of this encounter Care Teams Board Attendant Relationship Specialty Start Date End Date Ibis Everett PA-C [address] [place] [address] [place] [address] PCP - General Physician Mechanic Foreman 10/17/23 documented as of this encounter
--- OUTSIDE RECORDS SUMMARY | 2024-06-18 15:41 | External Medical Summary | Summary of Care ---
Author Name Unknown Organization [facility] Address [address] [facility] [address] Phone [phone] Care Team Providers Care Marble Polisher Hand Name Role Phone Ibis Everett PA-C Primary Care Provider [phone] Reason for Visit * Reason Onset Date Comments Medication Refill 05/28/2024 Encounter Details Date Type Department Care Team (Late st Contact Info) Description 05/28/2024 Refill Family Practice [facility] [address] [facility] [place] [address] Ibis Everett PA-C [address] [facility] [place] [address] Hypothyroidism Allergies No known active allergiesdocumented as of this encounter (statuses as of 05/31/2024) Medications QUEtiapine Fumarate 50 MG Oral Tablet [...] taken at 8 -9 pm. 30 Tablet 07/15/19 22 Active Omeprazole 20 MG Oral [...] daily 237 mL 10/16/19 24 Active Sharps Business Analytics Analyst Dispose of sharps 1 Each 3 11/07/19 24 Active Polyethylene Glycol 3350 17 GM Oral Packet (Miralax) Take 1 Packet by mouth in the morning. 30 Each 01/02/20 24 Active Loratadine 10 MG Oral Tablet (Claritin)Indicat ions:Allergic rhinitis TAKE ONE TABLET BY MOUTH DAILY. *SEASONAL ALLERGIES* 28 Tablet 02/06/20 24 Active hydroCHLOROthiazi de 25 MG [...] Active Zepbound 5 MG/0.5ML Subcutaneous Solution Auto-injector (Tirzepatide-Aurea ht Management)Indica tions:Morbid obesity due to excess [...] THE MORNING FOR HYPOTHYROIDISM 28 Tablet 2 05/29/19 25 Active Meloxicam 15 MG Oral Tablet (Mobic) Take 1 Tablet by mouth in the morning. 28 Tablet 2 05/29/19 25 Active Levothyroxine Sodium 25 MCG Oral Tablet (Levoxyl)Indicati ons:Hypothyroidis m TAKE ONE TABLET BY MOUTH ONCE DAILY IN THE MORNING FOR HYPOTHYROIDISM 28 Tablet 2 02/06/20 24 025 Disconti nued(Ref ill) Meloxicam 15 MG Oral Tablet (Mobic) Take 1 Tablet by mouth in the morning. 30 Tablet 5 03/20/20 24 025 Disconti nued(Ref ill) documented as of this encounter (statuses as of 05/31/2024) Active Problems Problem Noted Date Diagnosed Date [...] as of this encounter (statuses as of 05/31/2024) Resolved Problems Problem Noted Date Diagnosed Date [...] as of this encounter (statuses as of 05/31/2024) Immunizations Name Administration Dates Next Due COVID-19 mRNA, LNP-s, No Pre serve, 2-Dose Series (Moderna) 06/20/2020,05/23/2020 H1N1 2009 Influenza, IM 02/07/2009 PPD 04/15/2019, 8,07/19/2015,04/09,03/22/2011,03/24/2009,03/15/20 09 03/26/2009 Pneumococcal Polysaccharide PPV23 (Pneumovax) 04/15/2019 Seasonal Influenza Vac., MDV , IM, 0.5 mL (Fluzone) 01/29/2014,02/07/2013,01/24/2012,03/09,02/02/2010,03/15/2009,02/18/20 08,02/26/2007 Seasonal Influenza, PF, 6 M & above, IM , (FluLaval or Fluzone) 04/12/2023,04/06/2022,02/26/2020,01/08,02/01/2018,03/13/2017 Seasonal Influenza, Quadriva lent, No Preserve, IM 01/29/2015 Seasonal Influenza, Trivalen t, (IIV3), PF, (Fluzone) 03/20/2024 TDAP (age 10 and older)(Boostrix) 08/13/2013 TDAP, [...] money to buy more. Never true 08/11/19 Within the past 12 months, t he [...] encounter Miscellaneous Notes * Telephone Encounter - Alaina Chappell - 05/31/2024 12:26 PM EST Received message from [facility] regarding patient needing labs. Patient was notified. Successfully contacted patient and provided [facility] message. * Telephone Encounter - Lupis Herrmann RPh - 05/29/2024 1:06 PM ESTSigned Prescriptions: Disp Refills Levothyroxine Sodium 25 MCG Oral Tablet (L*28 Tab*2 Sig: TAKE ONE TABLET BY MOUTH ONCE DAILY IN THE MORNING FOR HYPOTHYROIDISM Authorizing Provider: IBIS EVERETT Ordering User: LUPIS HERRMANN Meloxicam 15 MG Oral Tablet (Mobic) 28 Tab*2 Sig: Take 1 Tablet by mouth in the morning. Authorizing Provider: IBIS EVERETT Order ing User: LUPIS HERRMANN * Telephone Encounter - Lupis Herrmann RPh - 05/29/2024 1:05 PM EST 2nd attempt Provided 28 days supply with 2 refill(s). Per refill protocol patient should have TSH, ALT, AST on file within past year. Reviewed : AMP report Care Gaps/Health Maintenance medications list for any routine labs typically ordered for this patient. Lab orders placed. Please contact patient to advise of labs ordered for blood draw. Fasting is not required. Advise toobtain labs before requesting the next refill. Thanks, Lupis Herrmann PharmD Clinical Pharmacist [facility] [phone] 05/29/2024, 1:05 PM * Telephone Encounter - Hood Glass PHARM Tech - 05/28/2024 2:15 PM EST Did you pend patient's preferred pharmacy and medication before forwarding?yes Pharmacy: [facility] Pending Prescriptions: Disp Refills Levothyroxine Sodium 25 MCG Oral Tablet (*28 Tab*2 Sig: TAKE ONE TABLET BY MOUTH ONCE DAILY IN THE MORNING FOR HYPOTHYROIDISM Meloxicam 15 MG Oral Tablet (Mobic) 30 Tab*5 Sig: Take 1 Tablet by mouth in the morning. Last Visit: 03/20/2024 (in office), 08/23/2022 (telemedicine) Next Visit: 09/22/2024 If no future appointments scheduled, and last appointment is greater than a year ago, please schedule patient for a follow-up appointment Last date the medication was ordered: 02/06/24, 03/20/24 Is this request for a controlled substance?No Urine Drug Screen:No results found. However, due to the size of the patient record, not all encounters were searched. Please check Results Review for a complete set of results. Patient Phone Numbers Labs: Lab Results Component Value Date/Time CREAT 0.7 09/06/2023 09:15 AM CREAT 0.6 02/26/2020 09:21 AM POTASSIUM 3.9 09/06/2023 09:15 AM POTASSIUM 4.0 02/26/2020 09:21 AM TSH 1.61 01/10/2023 11:07 AM TSH 1.92 01/30/2019 08:39 AM LDL 118 09/06/2023 09:15 AM LDL 104 02/26/2020 09:44 AM LDL NOT APPLICABLE 02/26/2020 09:21 AM ALT 32 01/10/2023 11:07 AM ALT 37 (H) 02/26/2020 09:21 AM HGBA1C 6.0 (H) 09/06/2023 09:15 AM HGBA1C 6.1 (H) 02/26/2020 09:44 AM documented in this encounter Plan of Treatment Upcoming Encounters Date Type Department Care Team (Latest Contact Info) Description 07/25/2024 1:07 PM EDT Hospital Encounter [facility] Operating [facility] [address] [place] [address] [place] [phone] Jorge Bauer DO [address] [place] [phone] 07/25/2024 1:07 PM EDT - 07/25/2024 1:25 PM EDT Surgery [facility], [facility] [address] [place] [phone] Jorge Bauer DO [address] [place] [phone] ARTHROCENTESIS OR INJECTION MAJOR JOINT 09/22/2024 10:20 AM EDT Office Visit Family Practice [facility] [address] [place] [address] Ibis Everett PA-C [address] [place] [address] 03/30/2025 1:15 PM EST Imaging Radiology [address] [place] [phone] Scheduled Procedures Name Priority Associated Diagnoses Date/Ti [...] 03/02/2021 03/02/2020, 06/17/2014 (Discussed) TSH 01/11/2024 01/10/2023, 0612/2021, 06/17/2020, Additional history exists Colonoscopy 06/29/2024 06/29/2014, 06/29/2014 Colorectal Cancer Screening 06/29/2024 HbA1c 09/05/2024 09/06/2023, /0 12/2021, 02/16/2021, Additional history exists COVID-19 Vaccine [...] as of this encounter Visit Diagnoses Diagnosis Hypothyroidism Unspecified hypothyroidism Primary osteoarthritis of right hip Primary localized osteoarthrosis, pelvic region and thigh Screening mammogram for breast cancer documented in this encounter Care Teams Marble Polisher Hand Relationship Specialty Start Date End Date Marguerite Ibis NADJA Benz [address] [place] [address] PCP - General Physician Tank Builder Supervisor 10/17/23 documented as of this encounter
--- OUTSIDE RECORDS SUMMARY | 2024-06-18 15:41 | External Medical Summary | Summary of Care ---
Author Name Unknown Organization [facility] Address [address] [facility] [address] Phone [phone] Care Team Providers Care Mophead Trimmer And Wrapper Name Role Phone Ibis Everett NADJA Primary Care Provider [phone] Reason for Visit * Reason Onset Date Comments Appointment 05/26/2024 Encounter Details Date Type Department Care Team (Late st Contact Info) Description 05/26/2024 Telephone Interventional Pain Center, 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 Caller, Shaylee will need a return call to schedule. * Telephone Encounter - Rebecca Temple OSA - 05/26/2024 2:13 PM EST Left a voicemail to schedule injection. documented in this encounter Plan of Treatment Upcoming Encounters Date Type Department Care Team (Late st Contact Info) Description 09/22/2024 10:20 AM EDT Office Visit Family Practice [facility] [address] [place] [address] Ibis Everett PA-C [address] [facility] [place] [address] 03/30/2025 1:15 PM EST Imaging Radiology [address] [place] [phone] Scheduled Procedures Name Priority Associated Diagnoses Date/Ti [...] filedocumented as of this encounter Care Teams Mophead Trimmer And Wrapper Relationship Specialty Start Date End Date MargueriteJuly NADJA Benz [address] [place] [address] PCP - General Physician Store Operations Manager 10/17/23 documented as of this encounter
--- OUTSIDE RECORDS SUMMARY | 2024-06-18 15:41 | External Medical Summary | Summary of Care ---
Author Name Unknown Organization [facility] Address [address] [facility] [place] [address] Phone [phone] Care Team Providers Care Inspector And Hand Packager Name Role Phone Ibis Everett NADJA Primary Care Provider [phone] Reason for Visit * Reason Onset Date Comments Advice 05/27/2024 Encounter Details Date Type Department Care Team (Late st Contact Info) Description 05/27/2024 Telephone Interventional Pain Center, [facility] [address] [place] [id number] Jorge Bauer DO [address] [place] [phone] Advice Allergies No known [...] Lotion Apply to arms daily 237 mL 5 10/16/19 24 Active Sharps Stock Control Supervisor Dispose of sharps 1 Each 3 11/07/19 24 Active Polyethylene Glycol 3350 17 GM Oral Packet (Miralax) Take 1 Packet by mouth in the morning. 30 Each 5 01/02/20 24 Active Loratadine 10 MG Oral Tablet (Claritin)Indicati ons:Allergic rhinitis TAKE ONE TABLET BY MOUTH DAILY. *SEASONAL ALLERGIES* 28 Tablet 5 02/06/20 24 Active Levothyroxine Sodium 25 MCG Oral Tablet (Levoxyl)Indicatio ns:Hypothyroidism TAKE ONE TABLET BY MOUTH ONCE [...] encounter Miscellaneous Notes * Telephone Encounter - Mabel Molina LPN - 05/27/2024 1:07 PM EST Patient's caregiver June calling-wants to know if upcoming injection can be done by ortho or here in [place] as it's too difficult for patient to travel to [facility]? right hip intra-articular injection under fluoroscopy. Call june back at [phone] documented in this encounter Plan of Treatment Upcoming Encounters Date Type Department Care Team (Latest Contact Info) Description 07/25/2024 1:07 PM EDT Hospital Encounter [facility], Operating Room [facility] [address] [place] [address] Jorge Bauer, DO [address] [place] [phone] 07/25/2024 1:07 PM EDT - 07/25/2024 1:25 PM EDT Surgery [facility], Operating Room [facility] [address] [place] [address] [place] [phone] Jorge Bauer, DO [address] [place] [phone] ARTHROCENTESIS OR INJECTION MAJOR JOINT 09/22/2024 10:20 AM EDT Office Visit Family Practice [facility] [address] [facility] [place] [address] Ibis Everett PA-C [address] [facility] [place] [address] 03/30/2025 1:15 PM EST Imaging Radiology [address] [place] [phone] Scheduled Procedures Name Priority Associated Diagnoses Date/Ti [...] 03/02/2021 03/02/2020, 06/17/2014 (Discussed) TSH 01/11/2024 01/10/2023, 06/0 12/2021, 06/17/2020, Additional history exists Colonoscopy 06/29/2024 06/29/2014, 06/29/2014 Colorectal Cancer Screening 06/29/2024 HbA1c 09/05/2024 09/06/2023, 12/2021, 02/16/2021, Additional history exists COVID-19 Vaccine [...] filedocumented as of this encounter Care Teams Inspector And Hand Packager Relationship Specialty Start Date End Date MargueriteJuly NADJA Benz [address] [place] [address] PCP - General Physician Litharge Supervisor 10/17/23 documented as of this encounter
--- OUTSIDE RECORDS SUMMARY | 2024-06-18 15:41 | External Medical Summary | Summary of Care ---
Author Name Unknown Organization [facility] Address [address] [facility] [place] [address] Phone [phone] Care Team Providers Care Manager Creative Name Role Phone Ibis Everett PA-C Primary Care Provider Reason for Visit * Reason Comments Acute Encounter Details Date Type Department Care Team (Late st Contact Info) Description 06/17/2024 5:00 PM EDT Office Visit Family Practice [facility] [address] [facility] [place] [address] Marguerite Ibis NADJA Benz [address] [facility] [place] [address] Bronchitis, complicated* Allergies No known active allergiesdocumented as of this encounter (statuses as of 06/18/2024) Medications QUEtiapine Fumarate 50 MG Oral Tablet [...] TABLETS BY MOUTH AT BEDTIME, Reported on 06/17/2024 CeraVe Daily Moisturizing External Lotion Apply to arms daily 237 mL 10/16/19 24 Active Sharps Econometrics Professor Dispose of sharps 1 Each 3 11/07/19 24 Active Polyethylene Glycol 3350 17 GM Oral Packet (Miralax) Take 1 Packet by mouth in the morning. 30 Each 01/02/20 24 Active Loratadine 10 MG Oral Tablet (Claritin)Indicati ons:Allergic rhinitis TAKE ONE TABLET BY MOUTH DAILY. *SEASONAL ALLERGIES* 28 Tablet 02/06/20 24 Active hydroCHLOROthiazid e 25 MG [...] morning. 28 Tablet 2 05/29/19 25 Active Azithromycin 250 MG Oral Tablet (Zithromax)Indicat ions:Bronchitis, complicated Take 2 tabs by mouth on the first day, then 1 tab daily on days two through five 6 Tablet 06/18/19 25 025 Active documented as of this encounter (statuses as of 06/18/2024) Active Problems Problem Noted Date Diagnosed Date [...] as of this encounter (statuses as of 06/18/2024) Resolved Problems Problem Noted Date Diagnosed Date [...] as of this encounter (statuses as of 06/18/2024) Immunizations Name Administration Dates Next Due COVID-19 [...] PM EST documented as of this encounter Last Filed Vital Signs Vital Sign Reading Time Taken Comments Blood Pressure 112/80 06/17/2024 5:52 PM EDT Pulse 91 06/17/2024 5:52 PM EDT Temperature 37.3 C (99.2 F) 06/17/2024 5:52 PM ED T Respiratory Rate 20 06/17/2024 5:52 PM EDT Oxygen Saturation 97% 06/17/2024 5:52 PM EDT Inhaled Oxygen Concentration - - Weight 81.9 kg (180 lb 8 oz) 06/17/2024 5:52 PM EDT Height - - Body Mass Index 35.67 04/16/2024 11:45 AM EST documented in this encounter Progress Notes * Ibis Everett PA-C - 06/17/2024 6:22 PM EDT Images from the original note were not included. Subjective Nafisa Garvin is a 59 year old female that presents for Acute Patient is a 59 year old female who presents with a respiratory symptoms which started this am. Shenotes chills, ear ache, headache, nasal congestion, sore throat, cough/productive, wheezing. Has been given delsym Appetite diminished Sleep diminished. Objective BP 112/80 | Pulse 91 | Temp 99.2 F (37.3 C) (Tympanic) | Resp 20 | Wt 180 lb 8 oz (81.9 kg) | LMP (LMP Unknown) | SpO2 97% | BMI 35.67 kg/m | BSA 1.86 m BP Readings from Last 3 Encounters: 06/17/24 112/80 04/16/24 118/64 03/20/24 120/80 Wt Readings from Last 3 Encounters: 06/17/24 180 lb 8 oz (81.9 kg) 04/16/24 188 lb 12.8 oz (85.6 kg) 03/20/24 194 lb 8 oz (88.2 kg) General: alert, no distress, well nourished, well developed, cooperative, and ill looking Head: Normocephalic, No masses, lesions, tenderness or abnormalities Eye Exam: PERRLA, extraocular movements intact, conjunctiva are pink and non- injected, sclera clear Ears: External ears normal, Canals clear, R TM dull, L TM dull Nose: no purulent discharge, mucosal edema, mucosal erythema Oropharynx: no exudate, no erythema, lips, buccal mucosa, and tongue normal, and mucous membranes are moist Neck: supple, no adenopathy, no bruits, thyroid normal size, non-tender, without nodularity Heart: regular rate & rhythm, no murmur, and no gallops Lungs: chest symmetric with normal AP diameter, no chest deformities noted, normal respiratory rateand rhythm, no chest wall tenderness, diaphragmatic excursion normal, coarse sounds heard Results reviewed : None Assessment and Plan Bronchitis, complicated (Primary) - Azithromycin 250 MG Oral Tablet (Zithromax); Take 2 tabs by mouth on the first day, then 1 tab daily on days two through five - INFLUENZA A/B RSV SARS-COV2,PCR; Future; Expected date: 06/17/2024 - INFLUENZA A/B RSV SARS-COV2,PCR Wrap-Up I spent a total of 20-29 minutes (exact time 23 mins) on the date of service in preparation, delivery, and documentation of the care provided to Nafisa Garvin excluding any time spent in the performance of separately billed services. documented in this encounter Nursing Notes * Regina Kang NA - 06/17/2024 5:45 PM EDT Nafisa Garvin presents with complaints of loss of voice, congestion, cough, sore throat, stomach pain and ear pain Caregiver reports she started showing symptoms yesterday. Caregiver reports her roommate has bronchitis. Denies any fevers at the home at this time. Reports giving prescribed medications which provided no relief. Caregiver states patient has been eating and drinking ok. documented in this encounter Plan of Treatment Upcoming Encounters Date Type Department Care Team (Latest Contact Info) Description 07/07/2024 11:00 AM EDT Office Visit Nutrition & Weight Management, [facility] [address] [place] [address] Nati Mathur PA-C [address] [place] [address] 07/25/2024 1:07 PM EDT Hospital Encounter [facility], Operating Room [facility] [address] [place], [place] [address] [phone] Jorge Bauer DO [address] [place] [address] 07/25/2024 1:07 PM EDT - 07/25/2024 1:25 PM EDT Surgery OR [facility], Operating Room [facility] [address] [place] [address] Jorge Bauer DO [address] [place] [phone] ARTHROCENTESIS OR INJECTION MAJOR JOINT 09/22/2024 10:20 AM EDT Office Visit Family Practice [facility] [address] [facility] [place] [address] Ibis Everett PA-C [address] [place] [address] 03/30/2025 1:15 PM EST Imaging Radiology [address] [place] [phone] Scheduled Orders Name Type Priority Associated Diagnoses Orde r Schedule INFLUENZA A/B RSV SARS-COV2,PCR Lab Routine Bronchitis, complicated Expected: 06/17/2024 (Approximate), Expires: 06/17/2025 Scheduled Procedures Name Priority Associated Diagnoses Date/Ti [...] Colorectal Cancer Screening 06/29/2024 HbA1c 09/05/2024 09/06/2023, 12/12/2021, 02/16/2021, Additional history exists COVID-19 Vaccine (4 - Moderna risk 2023- season) 2024 03/25/2024, 06/20/2020, 05/23/2020 Mammogram 04/01/2025 04/01/2024, 03/09, 03/27/2023, Additional history exists Pap Smear 06/17/2026 06/18/2023, 06/07, 01/27/2019, Additional history exists Cervical Cancer Screening 06/17/2028 HPV/Co-Test 06/17/2028 06/18/2023 Lipid Panel 09/05/2028 09/06/2023, 1212/2021, 02/26/2020, Additional history exists DTap/Tdap Vaccines (3 [...] as of this encounter Visit Diagnoses Diagnosis Bronchitis, complicated- Primary Bronchitis, not specified as acute or chronic Primary osteoarthritis of right hip Primary localized osteoarthrosis, pelvic region and thigh Screening mammogram for breast cancer documented in this encounter Care Teams Manager Creative Relationship Specialty Start Date End Date Ibis Everett PA-C [address] [place] [address] PCP - General Physician Optical Sales Associate 10/17/23 documented as of this encounter"
--- OUTSIDE RECORDS SUMMARY | 2024-06-18 15:41 | External Medical Summary | Summary of Care ---
Author Name Unknown Organization [facility] Address [address] [facility] [address] Phone [phone] Care Team Providers Care Chief Hydroelectric Station Operator Name Role Phone Ibis Everett NADJA Primary Care Provider [phone] Reason for Visit * Reason Onset Date Comments Appointment 05/26/2024 Encounter Details Date Type Department Care Team (Late st Contact Info) Description 05/26/2024 Telephone Interventional Pain Center, [facility] [address] [place] [address] Jorge Bauer, [address] [place] [phone] Appointment Allergies No known active allergiesdocumented as [...] daily 237 mL 10/16/19 24 Active Sharps Bilingual Office Assistant Dispose of sharps 1 Each 3 11/07/19 [...] Ob/Or, KARLO - 05/27/2024 8:46 AM EST [facility] staff returning call to [facility], please return call @ [phone] Thank you ! * Telephone Encounter - Indio Lomeli OSA - 05/26/2024 4:11 PM EST Pt's customer services supervisor was requesting to speak to office to schedule injection, but the call was disconnected from customer services supervisor when reaching out. CallerShaylee will need a return call to schedule. * Telephone Encounter - Rebecca Temple OSA - 05/26/2024 2:13 PM EST Left a voicemail to schedule injection. documented in this encounter Plan of Treatment Upcoming Encounters Date Type Department Care Team (Late st Contact Info) Description 09/22/2024 10:20 AM EDT Office Visit Family Practice [facility] [address] [facility] [place] [address] Ibis Everett PA-C [address] [facility] [place] [address] 03/30/2025 1:15 PM EST Imaging Radiology [facility] [address] [facility] [address] [place] [phone] Scheduled Procedures Name Priority Associated Diagnoses Date/Ti [...] filedocumented as of this encounter Care Teams Chief Hydroelectric Station Operator Relationship Specialty Start Date End Date Ibis Everett PA-C [address] [place] [address] [place] [address] PCP - General Physician Security System Engineer 10/17/23 documented as of this encounter
--- OUTSIDE RECORDS SUMMARY | 2024-06-18 15:42 | External Medical Summary | Summary of Care ---
Author Name Unknown Organization [facility] Address [address] [facility] [address] Phone [phone] Care Team Providers Care Prescription Clerk Name Role Phone Ibis Everett NADJA Primary Care Provider [phone] Encounter Details Date Type Department Care Team (Late st Contact Info) Description 04/25/2024 Telephone Nutrition & Weight Management, [facility] [address] [place] [address] Nati Mathur PA-C [address] [place] [address] Allergies No known active allergiesdocumented as of this encounter (statuses as of 05/08/2024) Medications QUEtiapine Fumarate 50 MG Oral Tablet [...] Active traZODone HCl 150 MG Oral Tablet (Desyrel)Indicat ions:Persistent insomnia Take by mouth 1 Tablet before bedtime. To be taken at 8 -9 pm. 30 Tablet 11 07/15/19 Active Omeprazole 20 MG Oral Capsule Delayed Release (PriLOSEC)Indica tions:Esophagiti s TAKE 2 CAPSULES (40MG) BY MOUTH 30 MINUTES BEFORE EVENING MEAL FOR STOMACH 56 Capsule 09/30/19 22 Active Divalproex Sodium 500 MG Oral Tablet Delayed Release (Depakote DR) TAKE 1 TABLET BY MOUTH EVERY MORNING AND TAKE 2 TABLETS BY MOUTH AT BEDTIME 100 Tablet 5 06/18/19 24 Active Additional Information Patient taking differently: 1,000 mg BID (.AM/PM), TAKE 2 TABLET BY MOUTH EVERY MORNING AND TAKE 2 TABLETS BY MOUTH AT BEDTIME, Reported on 05/08/2024 CeraVe Daily Moisturizing External Lotion Apply to arms daily 237 mL 10/16/19 24 Active Sharps Aerial Planting And Cultivation Manager Dispose of sharps 1 Each 3 11/07/19 24 Active Polyethylene Glycol 3350 17 GM Oral Packet (Miralax) Take 1 Packet by mouth in the morning. 30 Each 01/02/20 24 Active Loratadine 10 MG Oral Tablet (Claritin)Indica tions:Allergic rhinitis TAKE ONE TABLET BY MOUTH DAILY. *SEASONAL ALLERGIES* 28 Tablet 5 02/06/20 24 Active Levothyroxine Sodium 25 MCG Oral Tablet (Levoxyl)Indicat ions:Hypothyroid ism TAKE ONE TABLET BY MOUTH ONCE DAILY IN THE MORNING FOR HYPOTHYROIDISM 28 Tablet 2 02/06/20 24 Active hydroCHLOROthiaz terrell 25 MG Oral Tablet (Hydrodiuril) TAKE ONE TABLET BY MOUTH ONCE DAILY IN THE MORNING TO REDUCE FLUID RETENTION/SWELLING DUE TO OA 28 Tablet 5 02/06/20 [...] Active Zepbound 5 MG/0.5ML Subcutaneous Solution Auto-injector (TirMike t Management)Indic ations:Morbid obesity due to excess calories (HCC) Inject 5 mg (1 pen) under the skin once weekly. 6 mL 5 10:12 AM EST 04/22/19 25 Active documented as of this encounter (statuses as of 05/08/2024) Active Problems Problem Noted Date Diagnosed Date [...] as of this encounter (statuses as of 05/08/2024) Resolved Problems Problem Noted Date Diagnosed Date [...] as of this encounter (statuses as of 05/08/2024) Immunizations Name Administration Dates Next Due COVID-19 [...] PM EST documented as of this encounter Plan of Treatment Upcoming Encounters Date Type Department Care Team (Late st Contact Info) Description 09/22/2024 10:20 AM EDT Office Visit Family Practice [facility] [address] [facility] [address] Ibis Everett PA-C [address] [place] [address] 03/30/2025 1:15 PM EST Imaging Radiology [facility] [address] [facility] [address] [place] [phone] Scheduled Procedures Name Priority Associated Diagnoses Date/Ti [...] 09/06/2023, 0 12/2021, 02/16/2021, Additional history exists Mammogram 04/01/2025 04/01/2024, 03/09, 03/27/2023, Additional history [...] Completed 03/2024, 04/12/2023, 04/06/2022, Additional history exists COVID-19 Vaccine Completed 03/25/2024, , 05/23/2020 HPV (Gardasil) Vaccine Aged Out No lo nger eligible based on patient's age to complete this topic MENINGOCOCCAL (MENACTRA/MENVEO) Aged Out No longer eligible based on patient's age to complete this topic documented as of this encounter Medical Devices Not on filedocumented as of this encounter Care Teams Prescription Clerk Relationship Specialty Start Date End Date MargueriteJuly NADJA Benz [address] [place], [place] [address] PCP - General Physician Director Of Music Therapy 10/17/23 documented as of this encounter
--- OUTSIDE RECORDS SUMMARY | 2024-06-18 15:42 | External Medical Summary | Summary of Care ---
Author Name Unknown Organization [facility] Address [address] [place] [address] Phone [phone] Care Team Providers Care Inductor Tester Name Role Phone Ibis Everett NADJA Primary Care Provider [phone] Reason for Referral * Precert (Within 10 days (routine)) - Authorized Specialty Diagnoses / Procedures Referred By Michael roe Referred To Contact Pain Medicine Diagnoses Primary osteoarthritis of right hip Procedures ARTHROCENT ASP &/OR INJ MAJOR JX/BURSA W/O Jorge Bauer DO [address] [place] [address] Phone: tel: fax: Referral ID Status Reason Start Date Expiration Date V isits Requested Visits Authorized [id number] Authorized 05/09/2024 [id number] Reason for Visit * Reason Comments Pain Right hip pain const ant achy denies radiating. X 2-3 month no trauma. * Evaluate & Treat - Unlimited Visits (Within 10 days (routine)) - Authorized Specialty Diagnoses / Procedures Referred By Michael roe Referred To Contact Pain Management / Pain Medicine Diagnoses Glenohumeral arthritis, left Arthritis of right hip Soraida Dubose MD [address] [place] [address] Phone: tel: fax: Referral ID Status Reason Start Date Expiration Date Visits Requested Visits Authorized [id number] Authorized Specialty Services Required [id number] [id number] Encounter Details Date Type Department Care Team (Latest Contact Info) Description 05/08/2024 8:45 AM EST Office Visit [facility] [address] [place] [address] Jorge Bauer, [address] [place] [address] Primary osteoarthritis of right hip* Allergies No known active allergiesdocumented as of this encounter (statuses as of 05/08/2024) Medications QUEtiapine Fumarate 50 MG Oral Tablet Take 1.5 Tablets by mouth at bedtime. Total of 75mg 016 Active Pediatric Multiple Vit-C-FA (MULTIVITAMIN CHILDRENS) CHEW Take by mouth daily. Active Venlafaxine HCl ER 150 MG Oral Capsule Extended Release 24 Hour (Effexor XR) 1 Capsule. 021 Active Mucinex DM 30-600 MG Oral Tablet Extended Release 12 Hour Take by mouth 1 Tablet 2 times a day as needed for Congestion or Cough. Take with plenty of water. Do not cut, crush or chew 40 Tablet 2 022 Active traZODone HCl 150 MG Oral Tablet (Desyrel)Indicati ons:Persistent insomnia Take by mouth 1 Tablet before bedtime. To be taken at 8 -9 pm. 30 Tablet 11 022 Active Omeprazole 20 MG Oral Capsule Delayed Release (PriLOSEC)Indicat ions:Esophagitis TAKE 2 CAPSULES (40MG) BY MOUTH 30 MINUTES BEFORE EVENING MEAL FOR STOMACH 56 Capsule 11 022 Active Divalproex Sodium 500 MG Oral Tablet Delayed Release (Depakote DR) TAKE 1 TABLET BY MOUTH EVERY MORNING AND TAKE 2 TABLETS BY MOUTH AT BEDTIME 100 Tablet 5 024 Active Additional Information Patient taking differently: 1,000 mg BID (.AM/PM), TAKE 2 TABLET BY MOUTH EVERY MORNING AND TAKE 2 TABLETS BY MOUTH AT BEDTIME, Reported on 05/08/2024 CeraVe Daily Moisturizing External Lotion Apply to arms daily 237 mL 5 Active Sharps Mustanger Dispose of sharps 1 Each 3 Active Polyethylene Glycol 3350 17 GM Oral Packet (Miralax) Take 1 Packet by mouth in the morning. 30 Each 5 Active Loratadine 10 MG Oral Tablet (Claritin)Indicat ions:Allergic rhinitis TAKE ONE TABLET BY MOUTH DAILY. *SEASONAL ALLERGIES* 28 Tablet 5 Active Levothyroxine Sodium 25 MCG Oral Tablet (Levoxyl)Indicati ons:Hypothyroidis m TAKE ONE TABLET BY MOUTH ONCE DAILY IN THE MORNING FOR HYPOTHYROIDISM 28 Tablet 2 Active hydroCHLOROthiazi de 25 MG Oral Tablet (Hydrodiuril) TAKE ONE TABLET BY MOUTH ONCE DAILY IN THE MORNING TO REDUCE FLUID RETENTION/SWELLI NG DUE TO OA 28 Tablet 5 024 Active Acetaminophen ER 650 MG Oral Tablet Extended Release (Arthritis Pain Relief) TAKE 2 TABLETS (1300MG) BY MOUTH TWICE DAILY TO REDUCE PAIN AND SWELLING DUE TO OA 112 Tablet 4 024 Active Ibuprofen 200 MG Oral Tablet (Motrin) [...] MOUTH TWICE DAILY *CONSTIPATION* 60 Capsule 4 024 Active Meloxicam 15 MG Oral Tablet (Mobic) Take 1 Tablet by mouth in the morning. 30 Tablet 5 024 Active QUEtiapine Fumarate 25 MG Oral Tablet (SEROquel) Take 1 Tablet by mouth at bedtime. 024 Active Zepbound 5 MG/0.5ML Subcutaneous Solution Auto-injector (Tirzepatide-Zhoug ht Management)Indica tions:Morbid obesity due to excess calories (HCC) Inject 5 mg (1 pen) under the skin once weekly. 6 mL 05/01/19 25 10:12 AM EST 025 Active LORazepam 0.5 MG Oral Tablet (Ativan)Indicatio ns:Primary osteoarthritis of right hip Take 1 tablet by mouth 1 hour prior to the scheduled procedure and 1 tablet 20 minutes prior to the scheduled procedure. 2 Tablet 025 Active LORazepam 1 MG Oral Tablet (Ativan) Give 1 tab 1 hour prior to procedure may repeat if desired sedation is not achieved. 2 Tablet 024 2024 Discontinued documented as of this encounter (statuses as [...] PM EST documented as of this encounter Progress Notes * Jorge Bauer, DO - 05/08/2024 8:56 AM EST Interventional Pain Consult Dear Soraida Dubose MD, thank you for your kind referral of Nafisa Garvin. Chief Complaint: Chief Complaint Patient presents with Pain Right hip pain constant achy denies radiating. X 2-3 month no trauma. History of Present Illness: As you know, Nafisa Garvin is a very pleasant 59 year old female with a past medical history significant for Past Medical History: Diagnosis Date Esophagitis, unspecified General counseling for initiation of other contraceptive measures Mild intellectual disabilities Other specified acquired hypothyroidism Panic disorder Persistent insomnia 04/06/2022 Tuberculin test reaction who was referred to the pain clinic for evaluation for the evaluation of right hip pain. The pain is located in the right hip, and it does not radiate. Describes the pain as severe and achy. She pain started 4 months ago. Aggravating factors include: standing up, walking, stairs. Alleviating factors include: rest. The pain is present 100 % of time. Her current pain score is 10/10. Her pain at its least is 4 / 10. Her worst pain is 10 / 10. Denies weakness. Denies numbness. Denies bowel or bladder incontinence. Denies symptoms of saddle anesthesia. Denies fevers/chills/night sweats. Denies unintentional weight loss. Patient has mild cognitive impairment; reads lips. Review of Systems: A comprehensive 14-pt ROS were of reviewed with the patient including difficulty with sleep, snoring, aspiration history, dysphagia, stomach pain, nausea and vomiting, severe headaches, confusion, open skin lesions or wounds, chest pain, shortness of breath, excessive thirst, somnolence, dysuria, incomplete bladder emptying, easy bruising, recent clotting problems or bleeding, depression or rushed thoughts unless noted previously. Past Medical History: Diagnosis Date Esophagitis, unspecified General counseling for initiation of other contraceptive measures Mild intellectual disabilities Other specified acquired hypothyroidism Panic disorder Persistent insomnia 04/06/2022 Tuberculin test reaction Past Surgical History: Procedure Laterality Date COLONOSCOPY, DIAGNOSTIC (RECTUM) 06/29/2014 normal, repeat 10 yrs/COLONOSCOPY FLEXIBLE PROXIMAL DIAGNOSTIC performed by Catalino Pinon MD at ENDOSCOPY [facility] MAMMOGRAM - BILATERAL 04/27/05 birad code 1 MAMMOGRAM - BILATERAL 07/26/06 birad 2 MAMMOGRAM - BILATERAL 09/09/08 birad 2 MAMMOGRAM SCREENING BILATERAL 10/26/09 birad code 1 MAMMOGRAM SCREENING-BILATERAL 04/23/03 birad code 2 Social History Socioeconomic History Marital status: Single Spouse name: Not on file Number of children: Not on file Years of education: Not on file Highest education level: Not on file Occupational History Not on file Tobacco Use Smoking status: Never Smokeless tobacco: Never Vaping Use Vaping status: Never Used Substance and Sexual Activity Alcohol use: No Drug use: No Sexual activity: Not Currently Other Topics Concern Service No Blood Transfusions No Caffeine Concern No Occupational Exposure No Hobby Hazards No Sleep Concern No Stress Concern No Weight Concern No Special Diet No Back Care No Exercise Yes Comment: walks Bike Helmet Not Asked Seat Belt Yes Self-Exams No Social History Narrative Not on file Social Needs Financial Resource Strain: Not on file Food Insecurity: No Food Insecurity (08/10/2022) Hunger Vital Sign Worried About Running Out of Food in the Last Year: Never true Ran Out of Food in the Last Year: Never true Transportation Needs: Not on file Social Connections: Not on file Housing Stability: Not on file Patient has no known allergies. Current Outpatient Medications Medication Sig Dispense Refill QUEtiapine Fumarate 50 MG Oral Tablet Take 1.5 Tablets by mouth at bedtime. Total of 75mg Pediatric Multiple Vit-C-FA (MULTIVITAMIN CHILDRENS) CHEW Take by mouth daily. Venlafaxine HCl ER 150 MG Oral Capsule Extended Release 24 Hour (Effexor XR) 1 Capsule. Mucinex DM 30-600 MG Oral Tablet Extended Release 12 Hour Take by mouth 1 Tablet 2 times a day as needed for Congestion or Cough. Take with plenty of water. Do not cut, crush or chew 40 Tablet 2 traZODone HCl 150 MG Oral Tablet (Desyrel) Take by mouth 1 Tablet before bedtime. To be taken at 8 -9 pm. 30 Tablet 11 Omeprazole 20 MG Oral Capsule Delayed Release (PriLOSEC) TAKE 2 CAPSULES (40MG) BY MOUTH 30 MINUTESBEFORE EVENING MEAL FOR STOMACH 56 Capsule 11 Divalproex Sodium 500 MG Oral Tablet Delayed Release (Depakote DR) TAKE 1 TABLET BY MOUTH EVERY MORNING AND TAKE 2 TABLETS BY MOUTH AT BEDTIME (Patient taking differently: 2 Tablets in the morning and 2 Tablets before bedtime. TAKE 2 TABLET BY MOUTH EVERY MORNING AND TAKE 2 TABLETS BY MOUTH AT BEDTIME.) 100 Tablet 5 Sharps Mustanger Dispose of sharps 1 Each 3 Polyethylene Glycol 3350 17 GM Oral Packet (Miralax) Take 1 Packet by mouth in the morning. 30 Each5 Loratadine 10 MG Oral Tablet (Claritin) TAKE ONE TABLET BY MOUTH DAILY. *SEASONAL ALLERGIES* 28 Tablet 5 Levothyroxine Sodium 25 MCG Oral Tablet (Levoxyl) TAKE ONE TABLET BY MOUTH ONCE DAILY IN THE MORNING FOR HYPOTHYROIDISM 28 Tablet 2 hydroCHLOROthiazide 25 MG Oral Tablet (Hydrodiuril) TAKE ONE TABLET BY MOUTH ONCE DAILY IN THE MORNING TO REDUCE FLUID RETENTION/SWELLING DUE TO OA 28 Tablet 5 Acetaminophen ER 650 MG Oral Tablet Extended Release (Arthritis Pain Relief) TAKE 2 TABLETS (1300MG) BY MOUTH TWICE DAILY TO REDUCE PAIN AND SWELLING DUE TO OA 112 Tablet 4 Ibuprofen 200 MG Oral Tablet (Motrin) Take 1 Tablet by mouth every 4 hours as needed for Pain, Mildor Fever (Temp Greater than ). Magnesium Hydroxide 400 MG/5ML Oral Suspension (Milk of Magnesia) Take by mouth daily as needed forConstipation. 30-60 ml with 8 oz of water Loperamide HCl 2 MG Oral Capsule (Imodium A-D) 4 mg followed by 2 mg after each unformed stool. Daily dose should not exceed 16 mg (8 capsules) Dextromethorphan Polistirex ER 30 MG/5ML Suspension Extended Release (Delsym) Take 10 mL by mouth 2times a day as needed for Cough. Pseudoephedrine HCl 30 MG Oral Tablet (Sudafed) Take 2 Tablets by mouth every 4 hours as needed forCongestion. Neosporin Original External Ointment Apply topically to affected area. Apply to a thin layer to minor cuts, scrapes, soto or abrasions up to 3 times a day when needed. Docusate Sodium 100 MG Oral Capsule (Colace) TAKE 1 CAPSULES BY MOUTH TWICE DAILY *CONSTIPATION* 60Capsule 4 Meloxicam 15 MG Oral Tablet (Mobic) Take 1 Tablet by mouth in the morning. 30 Tablet 5 QUEtiapine Fumarate 25 MG Oral Tablet (SEROquel) Take 1 Tablet by mouth at bedtime. Zepbound 5 MG/0.5ML Subcutaneous Solution Auto-injector (Tirzepatide-Weight Management) Inject 5 mg(1 pen) under the skin once weekly. 6 mL 0 LORazepam 0.5 MG Oral Tablet (Ativan) Take 1 tablet by mouth 1 hour prior to the scheduled procedure and 1 tablet 20 minutes prior to the scheduled procedure. 2 Tablet 0 CeraVe Daily Moisturizing External Lotion Apply to arms daily 237 mL 5 No current facility-administered medications for this visit. Family History Adopted: Yes Pertinent Labs/Test Results: INR ( ) Date Value 12/01/2015 0.90 No results found for: "CREATININE" Hemoglobin A1C (%) Date Value 09/06/2023 6.0 (H) 02/26/2020 6.1 (H) No results found for: "AMPHETAMINE", "BARBITURATES", "BENZODIAZEPINES", "BUPRENORPHINE", "METHADONE", "OPIATES", "OXYCODONE", "PHENCYCLIDINE", "CANNABINOIDS", "TOX SCREEN", "URINE", "TOX SCREEN-SERUM", "TOX SCREEN, URINE" Imaging: EXAM XR HIP UNILAT 2-3 VIEWS INCLUDING AP PELVIS,03/25/2024 9:49 am HISTORY 59 y/o withincreasing right hip pain COMPARISON XR HIP UNILAT 2-3 VIEWS INCLUDING AP PELVIS, ACC: [id number], dated 2019-02-18 09:37:38 TECHNIQUE XR HIP UNILAT 2-3 VIEWS INCLUDING AP PELVISRT FINDINGS No visible fracture. Alignment is normal. Protrusion acetabula on the right again noted with severeright and moderate left hip osteoarthritis, increased compared to prior radiographs. There are degenerative changes in the lower lumbar spine. IMPRESSION IMPRESSION Chronic changes as above. Objective Physical Exam: Vital Signs: LMP (LMP Unknown) There is no height or weight on file to calculate BMI. General: No apparent distress. Accompanied by caregiver. Assistive Devices: none. Grooming: appropriate Eyes: pupils equal and round, sclera white, pupils midsize. ENT: mucous membranes moist Resp: Non-labored breathing CV: Extremities warm and well-perfused. Psych: Oriented; affect warm, insight good, intellectually disabled. Skin: No rashes or lesions appreciated on exposed skin Neuromuscular Exam: TTP right anterior hip Assessment: Nafisa Garvin is a 59 year old year-old female with: Primary osteoarthritis of right hip (Primary) - ARTHROCENT ASP &/OR INJ MAJOR JX/BURSA W/O US; Future; Expected date: 05/09/2024 - LORazepam 0.5 MG Oral Tablet (Ativan); Take 1 tablet by mouth 1 hour prior to the scheduled procedure and 1 tablet 20 minutes prior to the scheduled procedure. Plan: Will schedule right hip intra-articular injection under fluoroscopy. Patient premedication sent, lorazepam 0.5mg x 2 pre-procedure. The risks, benefits and alternatives to the procedure were reviewedat length and the patient was provided the opportunity to ask questions which were answered to their voiced understanding. Following this comprehensive discussion, the patient opted to proceed. The patient was advised that they will require a dray truck driver. Avoid NSAIDs x 3 days and aspirin x 7 days. I spent a total of 30-39 minutes (exact time 34 mins) on the date of service in preparation, delivery, and documentation of the care provided to Nafisa Garvin excluding any time spent in the performance of separately billed services or time spent by another provider/QHP. Jorge Bauer DO [facility] [address] [place] [phone] documented in this encounter Nursing Notes * Lauren Buchanan LPN - 05/08/2024 8:37 AM EST Patient presents for Right hip pain constant achy denies radiating. X 2-3 month no trauma. Previous injections: none- Ortho injection in shoulder 04/01/24 Previous surgeries: none PT: Nubia Foley Imagin03/25/24 XR Hip documented in this encounter Plan of Treatment Upcoming Encounters Date Type Department Care Team (Late st Contact Info) Description 09/22/2024 10:20 AM EDT Office Visit Family Practice [facility] [address] [place] [id number] Ibis Everett PA-C [address] [place] [address] 03/30/2025 1:15 PM EST Imaging Radiology [address] [place] [address] Scheduled Orders Name Type Priority Associated Diagnoses Orde r Schedule ARTHROCENT ASP &/OR INJ MAJOR JX/BURSA W/O US Procedures Routine Primary osteoarthritis of right hip Expected: 05/09/2024, Expires: 09/05/2024 Scheduled Procedures Name Priority Associated Diagnoses Date/Ti [...] Colorectal Cancer Screening 06/29/2024 HbA1c 09/05/2024 09/06/2023, 1212/2021, 02/16/2021, Additional history exists Mammogram 04/01/2025 04/01/2024, [...] cancer documented in this encounter Care Teams Inductor Tester Relationship Specialty Start Date End Date Marguerite Ibis NADJA [address] [place] [address] PCP - General Physician [employer] Counselor 10/17/23 documented as of this encounter
--- OUTSIDE RECORDS SUMMARY | 2024-06-18 15:42 | External Medical Summary | Summary of Care ---
Author Name Unknown Organization [facility] [address] [facility] [address] Phone [phone] Care Team Providers Care Multineedle Shirrer Name Role Phone Ibis Everett NADJA Primary Care Provider [phone] Reason for Visit * Reason Comments Follow Up R knee Encounter Details Date Type Department Care Team (Latest Contact Info) Description 05/14/2024 11:00 AM EST Office [facility] [address] [place] [phone] Hi Santiago PA-C [address] [place] [address] Primary osteoarthritis of right knee* Allergies No known active allergiesdocumented as of this encounter (statuses as of 05/14/2024) Medications QUEtiapine Fumarate 50 MG Oral Tablet [...] crush or chew 40 Tablet 2 05/26/19 Active traZODone HCl 150 MG Oral Tablet (Desyrel)Gaetanotio ns:Persistent insomnia Take by mouth 1 Tablet before bedtime. To be taken at 8 -9 pm. 30 Tablet 07/15/19 Active Omeprazole 20 MG Oral Capsule Delayed Release (PriLOSEC)Indicati ons:Esophagitis TAKE 2 CAPSULES (40MG) BY MOUTH 30 MINUTES BEFORE EVENING MEAL FOR STOMACH 56 Capsule 09/30/19 Active Divalproex Sodium 500 MG Oral Tablet [...] daily 237 mL 10/16/19 24 Active Sharps Religious Educator Dispose of sharps 1 Each 3 11/07/19 [...] scheduled procedure. 2 Tablet 05/08/19 25 Active Hospital, Clinic, or Other Facility Administered Medication Ordered Dose Route Frequency Start Date End Date Status lidocaine 1% 1 mL - triamcinolone acetonide 40 mg/mL 1 mL inj 2 mLIndications:Primary osteoarthritis of right knee 2 mL IJ ONCE 05/14/2024 05/14/2024 Ended documented as of this encounter (statuses as of 05/14/2024) Active Problems Problem Noted Date Diagnosed Date [...] as of this encounter (statuses as of 05/14/2024) Resolved Problems Problem Noted Date Diagnosed Date [...] as of this encounter (statuses as of 05/14/2024) Immunizations Name Administration Dates Next Due COVID-19 [...] as of this encounter Progress Notes * Hi Santiago PA-C - 05/14/2024 10:43 AM ESTAssociated Order(s): LG Joint Inj/Arthro: R knee Post-Procedure Diagnose(s): Primary osteoarthritis of right knee Established patient well documented right knee osteoarthritis presents for follow-up today regarding right knee pain that is chronic in nature. Patient reports a return of right knee pain with weight-bearing activity and intermittently rest. Denies any new injury or fall. Received a corticosteroid i njection 13 months ago and reports greater relief. Inquiring about a subsequent injection today. discomfort in the right knee with weight-bearing activity and appreciated during rest. The patient does have difficulty hearing but is capable of reading lips. There is intellectual disability but overall communicates well with assistance of her healthcare aide and worker. Denies any previous injury or surgeries. No reported calf pain today. Denies any history of swelling or redness. No fevers or chills. Will need x-rays today. Has completed formal physical therapy with little relief. complete review of systems negative General: alert and oriented x3 female, no acute distress, appears currently stated age, pleasant, well nourished, assisted by her aide and healthcare worker Skin: Right knee does not reveal any erythema, effusion, ecchymosis, abrasion, laceration, skin breakdown otherwise Neurovascular: Right lower extremity is neurovascularly intact with good sensation strength throughout, calf supple nontender, toes were mobile, +5 strength dorsi and plantar flexion of the foot Musculoskeletal: Right knee ROM 0-120, jointline tenderness, advanced crepitation noted in PFJ, femoral condyles are tender as well. Ligamentously stable regarding cruciate and collateral ligaments. Extensor mechanism intact. No obvious cystic change or masses the popliteal fossa. Pes anserine bursa and patellar tendon nontender. Hip and ankle atraumatic X-rays of the right knee t reveals advanced tricompartmental osteoarthritis most impressive in the medial joint line and patellofemoral joint. Joint space narrowing, osteophytosis and sclerotic bone change. No acute findings such as fracture dislocation or subluxation. Unable to identify any type of obvious cystic changes or masses in the bone. Official radiology report to follow accordingly and we listed in the patient's chart under imaging. Personal interpretation and documentation regarding today's plain film radiographs performed by myself. Impression: Right knee osteoarthritis Plan: Today 's findings were discussed with the patient. They were educated regarding their diagnosis. Multiple treatment options discussed and agreed upon, including repeat corticosteroid injection.Written consent on file with time-out performed and agreed by all parties present today including the patient has healthcare worker. Again, the patient is injected in the lasted upwards of 1 year previously and they are aware if they can extend the injection length that has certainly beneficial butalso made aware if symptoms happen to return or if the injection wears off sooner they could followup as early as 3-4 months. Otherwise happy to see back on an as-needed basis. The patient has no other questions or concerns. Pleased with today 's care. Call sooner if needed. Patient instructed to call or return to clinic for fever or warmth and redness at injection site for potential infection. Patient also advised as to potential for steroid flare reaction including increased pain and redness at injection site which should be treated with ice and resolve within 24 hours. LG Joint Inj/Arthro: R knee on 05/14/2024 10:58 AM Indications: pain Details: 22 G needle, anterolateral approach Medications: (Triamcinolone lidocaine) Outcome: tolerated well, no immediate complications Procedure, treatment alternatives, risks and benefits explained, specific risks discussed. Consent was given by the patient. Immediately prior to procedure a time out was called to verify the correctpatient, procedure, equipment, pharmacy retail support specialist and site/side marked as required. Patient was prepped and draped in the usual sterile fashion. This chart was completed in part utilizing si[employer] Speech Voice Recognition Software. Grammatical errors, random word insertions, prounoun errors, and incomplete sentences are an occasional consequence of this system due to software limitations, ambient noise, and hardware issues. Any formal questions or concerns about the content, text, or information contained within the body of this dictation should be directly addressed to the provider for clarification. documented in this encounter Nursing Notes * Sabra Canales, MED ASSIST - 05/14/2024 10:41 AM EST Pt presents with R knee pain Is accompanied by her community home assistant surveyor Unable to give pain rating on 1-10 scale, but assistant surveyor says it is affecting her everyday activities documented in this encounter Plan of Treatment Upcoming Encounters Date Type Department Care Team (Late st Contact Info) Description 09/22/2024 10:20 AM EDT Office Visit Family Practice [facility] [address] [facility] [place] [address] Ibis Everett PA-C [address] [facility] [place] [address] 03/30/2025 1:15 PM EST Imaging Radiology [address] [place] [id number] Scheduled Procedures Name Priority Associated Diagnoses Date/Ti [...] 03/02/2021 03/02/2020, 06/17/2014 (Discussed) TSH 01/11/2024 01/10/2023, 06/12/2021, 06/17/2020, Additional history exists Colonoscopy 06/29/2024 06/29/2014, 06/29/2014 Colorectal Cancer Screening 06/29/2024 HbA1c 09/05/2024 09/06/2023, 12/12/2021, 02/16/2021, Additional history exists Mammogram 04/01/2025 04/01/2024, 03/09, 03/27/2023, Additional history exists Pap Smear 06/17/2026 06/18/2023, 06/07, 01/27/2019, Additional history exists Cervical Cancer Screening 06/17/2028 HPV/Co-Test 06/17/2028 06/18/2023 Lipid Panel 09/05/2028 09/06/2023, 12/0 12/2021, 02/26/2020, Additional history exists DTap/Tdap Vaccines [...] Not on filedocumented as of this encounter Procedures Procedure Name Priority Date/Time Associated Diagnosis Comments AZ ARTHROCENTESIS ASPIR&/INJ MAJOR JT/BURSA W/O US Routine 05/14/2024 10:58 AM EST Primary osteoarthritis of right knee documented in this encounter Results * AZ ARTHROCENTESIS ASPIR&/INJ MAJOR JT/BURSA W/O US (05/14/2024 10:58 AM EST) Narrative Hi Santiago PA-C - 05/14/2024 10:58 AM EST Hi Santiago PA-C 05/14/2024 10:58 AM LG Joint Inj/Arthro: R knee on 05/14/2024 10:58 AM Indications: pain Details: 22 G needle, anterolateral approach Medications: (Triamcinolone lidocaine) Outcome: tolerated well, no immediate complications Procedure, treatment alternatives, risks and benefits explained, specific risks discussed. Consent was given by the patient. Immediately prior to procedure a time out was called to verify the correct patient, procedure, equipment, pharmacy retail support specialist and site/side marked as required. Patient was prepped and draped in the usual sterile fashion. us Hi Santiago PA-C PROCDOC FORM Final R esult documented in this encounter Visit Diagnoses Diagnosis Primary osteoarthritis of right knee- Primary Primary localized osteoarthrosis, lower leg Screening mammogram for breast cancer documented in this encounter Administered Medications Inactive Administered Medications - up to 3 most recent administrations Medication Order MAR Action Action Date Dose Rate Site lidocaine 1% 1 mL - triamcinolone acetonide 40 mg/mL 1 mL inj 2 mL 2 mL, Injection, ONCE, On Sun05/14/24 at 1130, For 1 dose, Lidocaine 1% 1mL Triamcinolone Acetonide 40 mg/mL 1 mL (Final concentration = 20 mg/mL) REFRIGERATE and SHAKE WELLIndications:Primary osteoarthritis of right knee Given 05/14/2024 12:54 PM EST 2 mL Knee Right documented in this encounter Care Teams Multineedle Shirrer Relationship Specialty Start Date End Date Marguerite Ibsi NADJA Benz [address] [place] [address] PCP - General Physician Cloud Operations Engineer 10/17/23 documented as of this encounter
--- OUTSIDE RECORDS SUMMARY | 2024-06-18 15:42 | External Medical Summary | Summary of Care ---
Author Name Unknown Organization [facility] Address [address] [facility] [place] [address] Phone [phone] Care Team Providers Care Geospatial Systems Integrator Name Role Phone Marguerite Ibis Tuyet PA-Nikolas Primary Care Provider [phone] Encounter Details Date Type Department Care Team (Late st Contact Info) Description 05/10/2024 Orders Only PATIENT PORTAL DO NOT DELETE THIS DEPT USED BY [place] [id number] Allergies No known active allergiesdocumented as of this encounter (statuses as of 05/10/2024) Medications QUEtiapine Fumarate 50 MG Oral Tablet [...] daily 237 mL 10/16/19 24 Active Sharps Reinforcing Metal Worker Dispose of sharps 1 Each 3 11/07/19 [...] Active Zepbound 5 MG/0.5ML Subcutaneous Solution Auto-injector (TirzeXenex Disinfection ServicesdeMercadoTransporte LtdWeigh t B-Side Entertainment)Indicat ions:Morbid obesity due to excess calories (HCC) [...] as of this encounter (statuses as of 05/10/2024) Active Problems Problem Noted Date Diagnosed Date [...] as of this encounter (statuses as of 05/10/2024) Resolved Problems Problem Noted Date Diagnosed Date [...] as of this encounter (statuses as of 05/10/2024) Immunizations Name Administration Dates Next Due COVID-19 [...] 10:20 AM EDT Office Visit Family Practice [facility] [address] [place] [address] Marguerite Ibis NADJA Benz [address] [place] [address] 03/30/2025 1:15 PM EST Imaging Radiology [facility] [address] [place] [phone] Scheduled Procedures Name Priority Associated Diagnoses [...] 09/05/2024 09/06/2023, 12/2021, 02/16/2021, Additional history exists Mammogram 04/01/2025 [...] filedocumented as of this encounter Care Teams Geospatial Systems Integrator Relationship Specialty Start Date End Date MargueriteJuly NADJA Benz [address] [place] [address] PCP - General Physician Production Control Specialist 10/17/23 documented as of this encounter
--- OUTSIDE RECORDS SUMMARY | 2024-06-18 15:42 | External Medical Summary | Summary of Care ---
Author Name Unknown Organization [facility] Address [address] [facility] [address] Phone [phone] Care Team Providers Care Inspector Bicycle Name Role Phone Ibis Everett NADJA Primary Care Provider [phone] Reason for Visit * Reason Comments Weight Management Encounter Details Date Type Department Care Team (Late st Contact Info) Description 04/16/2024 11:40 AM EST Office Visit Nutrition & Weight Management, [facility] [address] [place] [address] Nati Mathur PA-C [address] [place] [address] Morbid obesity due to excess calories (HCC)* Allergies No known active allergiesdocumented as of this encounter (statuses as of 04/18/2024) Medications QUEtiapine Fumarate 50 MG Oral Tablet [...] TABLETS BY MOUTH AT BEDTIME, Reported on 04/16/2024 CeraVe Daily Moisturizing External Lotion Apply to arms daily 237 mL 10/16/19 Active Sharps Zmt Operator Dispose of sharps 1 Each 3 11/07/19 [...] morning. 30 Tablet 5 03/20/20 24 Active LORazepam 1 MG Oral Tablet (Ativan) Give 1 tab 1 hour prior to procedure may repeat if desired sedation is not achieved. 2 Tablet 03/20/20 24 Active QUEtiapine Fumarate 25 MG Oral Tablet (SEROquel) Take 1 Tablet by mouth at bedtime. 04/08/20 24 Active Zepbound 5 MG/0.5ML Subcutaneous Solution Auto-injector (Tirzepatide-Zhou ght Management)Indic ations:Morbid obesity due to excess calories (HCC) Inject 5 mg (1 pen) under the skin once weekly. 6 mL 1 04/16/19 25 Active Zepbound 5 MG/0.5ML Subcutaneous Solution Auto-injector (Tirzepatide-Zhou ght Management)Indic ations:Morbid obesity due to excess calories (HCC) Inject 5 mg (1 pen) under the skin once weekly. 2 mL 1 04/04/20 24 025 Discontin ued(Refil l) documented as of this encounter (statuses as of 04/18/2024) Active Problems Problem Noted Date Diagnosed Date [...] as of this encounter (statuses as of 04/18/2024) Resolved Problems Problem Noted Date Diagnosed Date [...] as of this encounter (statuses as of 04/18/2024) Immunizations Name Administration Dates Next Due COVID-19 [...] Sign Reading Time Taken Comments Blood Pressure 118/64 04/16/2024 11:45 AM EST Pulse 79 04/16/2024 11:45 AM EST Temperature 36.8 C (98.2 F) 04/16/2024 1 1:45 AM EST Respiratory Rate - - Oxygen Saturation 98% 04/16/2024 11: 45 AM EST Inhaled Oxygen Concentration - - Weight 85.6 kg (188 lb 12.8 oz) 025 11:45 AM EST Height 151.5 cm (4' 11.65") 04/16/2024 11:45 AM EST Body Mass Index 37.31 04/16/2024 11:45 AM EST documented in this encounter Progress Notes * Nati Mathur PA-C - 04/16/2024 11:47 AM EST [facility] Note Nursing Notes: Hi Asencio LPN 04/16/24 1147 Signed Chief Complaint Patient presents with Weight Management Nafisa Garvin presents in follow up to the comprehensive weight management clinic. The patient camille 59 year old female Wt Readings from Last 6 Encounters: 04/16/24 85.6 kg (188 lb 12.8 oz) 03/20/24 88.2 kg (194 lb 8 oz) 01/02/24 86.1 kg (189 lb 14.4 oz) 11/09/23 91.5 kg (201 lb 11.2 oz) 10/25/23 92.3 kg (203 lb 6.4 oz) 10/15/23 91.7 kg (202 lb 1.3 oz) Patient is receiving ongoing education regarding dietary and physical modifications for weight loss. - Initial clinic visit 10/25/23. Weight 203 lbs Height 58.47" Body mass index is 41.84 kg/m. - Today's weight: 188 lbs - Total weight loss of -15lbs since initial weight in clinic - Patient's last follow up with GI/Nutrition clinic was on 01/02/24. - The patient's weight has -1 lbs since the last visit 04/16/24 -on Zepbound 5mg (has only had 2 doses) -was doing well with 2.5mg then noticed increase in weight at visit in Mar and sent message -losing again with 5mg dose -tolerating well 01/02/24 -on Wegovy 0.25mg -some constipation 11/09/23 -Initial RD visit. -With Della today, care aides -has not started wegovy yet -has been working on smaller portions, protein foods Today's Visit 10/25/23 - Overall goal: improve knee pain and SOB - Wt hx: worse since COVID - Highest wt as adult: 215lbs -lost about 15lbs recently with increased walking -struggling with knee pain -lives in retirement, spends time at [employer] - has 24 hour staff -administers own medications with help from staff at [employer] - no nursing care -staff prepares meals, but pt chooses own foods -patient reads lips Patient Active Problem List Diagnosis Esophagitis Panic disorder Mild intellectual disability Other chronic allergic conjunctivitis Hypothyroidism Conductive hearing loss of both ears Uterine leiomyoma Generalized osteoarthritis of multiple sites Morbid obesity due to excess calories (HCC) Prediabetes Pneumonia of both lungs due to infectious organism Persistent insomnia Review of Systems: Review of Systems Gastrointestinal: Negative for abdominal pain, constipation, diarrhea, nausea and vomiting. All other systems reviewed and are negative. Current Medications: Current Outpatient Medications Medication Sig Dispense Refill [...] BY MOUTH AT BEDTIME.) 100 Tablet 5 CeraVe Daily Moisturizing External Lotion Apply to arms daily 237 mL 5 Sharps Zmt Operator Dispose of sharps 1 Each 3 Polyethylene [...] mouth in the morning. 30 Tablet 5 LORazepam 1 MG Oral Tablet (Ativan) Give 1 tab 1 hour prior to procedure may repeat if desired sedation is not achieved. 2 Tablet 0 Zepbound 5 MG/0.5ML Subcutaneous Solution Auto-injector (Tirzepatide-Weight Management) Inject 5 mg(1 pen) under the skin once weekly. 2 mL 1 QUEtiapine Fumarate 25 MG Oral Tablet (SEROquel) Take 1 Tablet by mouth at bedtime. No current facility-administered medications for this visit. Water intake: yes Prescribed diet: [id number] Calorie Controlled Current diet: Breakfast-- eggs Snack-- skips Lunch-- hoagie Snack-- skips Dinner-- popcorn chicken Snack-- skips Drinks-- water Meals Away from Home-- 3-4x per month Food logs: No Type of exercise: ADL Weight loss Pharmacotherapy: yes tirzeptide 5mg BP 118/64 | Pulse 79 | Temp 36.8 C (98.2 F) | Ht 1.515 m (4' 11.65") | Wt 85.6 kg (188 lb 12.8 oz) | LMP (LMP Unknown) | SpO2 98% | BMI 37.31 kg/m | BSA 1.9 m PHYSICAL EXAMINATION: General: Patient awake alert and oriented. Patient is well appearing and in no acute distress. Skin: No rashes. HEENT: Head is atraumatic, normocephalic. EOMs intact Abdomen: Obese Neuro: No focal deficits Psych: Appropriate mood and affect. Assessment and Plan: Abnormal weight gain / Body mass index is 37.31 kg/m. / Class II obesity: - Would like to proceed with medical management - Barriers are consistency. - Motivators are feeling better overall, avoiding/reducing co-morbid conditions. - The patient was encouraged to to avoid all fruit juices and regular sodas, consume at least 64 ounces of water per day, keep food logs and get weighed on a weekly basis. They were encouraged to increase physical activity as prescribed. - Handouts regarding nutrition and physical activity were provided, as appropriate. 1. Keep a food log. If you bite it, write it! Apps like [employer] or Cue[employer]al Calorie goal: 5579-6520 2. Drink 48-64 ounces of non-caloric beverages per day. No fruit juices or regular soda Try crystal light, propel, zero calorie flavored water, plain water 3. Goal of 30 minutes of exercise 5 days per week (150 minutes per week--can be divided up however you would like) Aim for aerobic activity and muscle strengthening activities 4. Increase fruit and vegetable servings to 5-6 per day. 1/2 of your plate should be fruits and vegetables 5. Eat 100-200 calories within 1-2 hours of awakening, and every 4 - 6 hours while awake. (3 meals with snacks in between) Choose 100 calorie or less snacks, protein snacks 7. Weight yourself weekly and follow trend over time (day to day weight fluctuations can be discouraging) 8. Decrease starches like bread, pasta, cereal, potatoes and corn. Aim for of your plate Try substitutions like zoodles, lentil pasta, cauliflower mashed potatoes, whole grain foods, quinoa Limit junk/processed foods Chips, pretzels, cookies, cakes, sweets White bread/rolls/wraps/bagels, white rice 9. Increase protein to feel full longer (1/4 of your plate) Diagnoses and all orders for this visit: Class 2 severe obesity due to excess calories with serious comorbidity and body mass index (BMI) of39.0 to 39.9 in adult (HCC) -continue Zepbound 5mg -continue current diet -continue increasing exercise as tolerated Abnormal weight gain Acquired hypothyroidism -continue levothyroxine Esophagitis -continue PPI Generalized osteoarthritis of multiple sites -limits exercise Mild intellectual disability Panic disorder Conductive hearing loss of both ears The patient agreed to try the plan as discussed and return in 3 months. They were encouraged to call or send a patient portal message in the meantime with any questions or concerns prior to their next clinic visit. I spent a total of 20 minutes on the date of service in preparation, delivery, and documentation ofthe care provided to Nafisa Garvin excluding any time spent in the performance of separately billed services. This included but was no limited to providing counseling about the benefits of weight loss, about their nutritional status, detailed explanations about calorie count, types of nutrients to choose, and composition of the meals. Motivational interview provided in order to prepare the patient to achieve future goals. Nati Mathur PA-C documented in this encounter Nursing Notes * Hi Asencio LPN - 04/16/2024 11:45 AM EST Chief Complaint Patient presents with Weight Management documented in this encounter Miscellaneous Notes * Addendum Note - Hi Asencio LPN - 04/18/2024 9:44 AM ESTAddended by: HI ASENCIO on: 04/18/2024 09:44 AM Modules accepted: Orders documented in this encounter Plan of Treatment Upcoming Encounters Date Type Department Care Team (Late st Contact Info) Description 05/08/2024 8:45 AM EST Office Visit Interventional Pain Center [facility] [address] [place] [phone] Jorge Bauer DO [address] [place] [phone] 09/22/2024 10:20 AM EDT Office Visit Family Practice [facility] [address] [facility] [place] [address] Ibis Everett PA-C [address] [facility] [place] [address] 03/30/2025 1:15 PM EST Imaging Radiology [facility] [facility] [address] [place] [address] Scheduled Procedures Name Priority Associated Diagnoses Date/Ti me COLONOSCOPY FLEXIBLE PROXIMA L DIAGNOSTIC Recall Special screening for malignant neoplasms, colon Health Maintenance Due Date Last Done Comments Cologuard 01/14/2008 Fecal Occult Blood Test 01/14/2008 Sigmoidoscopy 01/14/2008 Zoster Vaccines (1 of 2) 2013 Pneumococcal Vaccine: 50+ Years (2 of 2 [...] as of this encounter Visit Diagnoses Diagnosis Morbid obesity due to excess calories (HCC)- Primary Screening mammogram for breast cancer documented in this encounter Care Teams Inspector Bicycle Relationship Specialty Start Date End Date Marguerite Ibis NADJA Benz [address] [place] [address] PCP - General Physician Torque Tester 10/17/23 documented as of this encounter
--- OUTSIDE RECORDS SUMMARY | 2024-06-18 15:42 | External Medical Summary | Summary of Care ---
Author Name Unknown Organization [facility] Address [address] [facility] [address] Phone [phone] Care Team Providers Care Rotary Veneer Machine Operator Name Role Phone Ibis Everett NADJA Primary Care Provider [phone] Reason for Visit * Reason Comments Follow Up R knee Encounter Details Date Type Department Care Team (Latest Contact Info) Description 05/14/2024 11:00 AM EST Office Visit Orthopaedics [facility] [address] [place] [address] Hi [...] daily 237 mL 10/16/19 24 Active Sharps Chief Concierge Dispose of sharps 1 Each 3 11/07/19 [...] called to verify the correctpatient, procedure, equipment, manufacturing support engineer and site/side marked as required. Patient was prepped and draped in the usual sterile fashion. This chart was completed in part utilizing [employer] Speech Voice Recognition Software. Grammatical errors, random [...] pain Is accompanied by her community home records assistant Unable to give pain rating on 1-10 scale, but records assistant says it is affecting her everyday activities documented in this encounter Plan of Treatment Upcoming Encounters Date Type Department Care Team (Late st Contact Info) Description 09/22/2024 10:20 AM EDT Office Visit Family Practice [facility] [address] [facility] [place] [address] Ibis Everett PA-C [address] [facility] [place] [address] 03/30/2025 1:15 PM EST Imaging Radiology [address] [place] [phone] Scheduled Procedures Name Priority Associated Diagnoses Date/Ti [...] Procedure Name Priority Date/Time Associated Diagnosis Comments WI ARTHROCENTESIS ASPIR&/INJ MAJOR JT/BURSA W/O US Routine 05/14/2024 10:58 AM EST Primary osteoarthritis of right knee documented in this encounter Results * WI ARTHROCENTESIS ASPIR&/INJ MAJOR JT/BURSA W/O US (05/14/2024 [...] to verify the correct patient, procedure, equipment, manufacturing support engineer and site/side marked as required. Patient was [...] Right documented in this encounter Care Teams Rotary Veneer Machine Operator Relationship Specialty Start Date End Date Marguerite Ibis NADJA Benz [address] [place] [address] PCP - General Physician Quantitative Strategy Analyst 10/17/23 documented as of this encounter
--- OUTSIDE RECORDS SUMMARY | 2024-06-18 15:42 | External Medical Summary | Summary of Care ---
Author Name Unknown Organization [facility] Address [address] [place] [address] Phone [phone] Care Team Providers Care Desktop Administrator Name Role Phone Ibis Everett NADJA Primary Care Provider [phone] Reason for Visit * Reason Comments Weight Management Encounter Details Date Type Department Care Team (Late st Contact Info) Description 04/16/2024 11:40 AM EST Office Visit Nutrition & Weight Management, [facility] [address] [place] [address] Nati Mathur PA-C [address] [place] [address] Morbid obesity due to excess calories (HCC)* Allergies No known active allergiesdocumented as of this encounter (statuses as of 04/16/2024) Medications QUEtiapine Fumarate 50 MG Oral Tablet [...] daily 237 mL 10/16/19 24 Active Sharps Peoplesoft Financial Developer Dispose of sharps 1 Each 3 11/07/19 [...] as of this encounter (statuses as of 04/16/2024) Active Problems Problem Noted Date Diagnosed Date [...] as of this encounter (statuses as of 04/16/2024) Resolved Problems Problem Noted Date Diagnosed Date [...] as of this encounter (statuses as of 04/16/2024) Immunizations Name Administration Dates Next Due COVID-19 [...] Weight Management Clinic Note Nursing Notes: Hi Anderson LPN 04/16/24 1147 Signed Chief Complaint Patient [...] noticed increase in weight at visit in Dec and sent message -losing again with 5mg [...] walking -struggling with knee pain -lives in senior care, spends time at [employer] - has [...] to arms daily 237 mL 5 Sharps Peoplesoft Financial Developer Dispose of sharps 1 Each 3 Polyethylene [...] this visit. Water intake: yes Prescribed diet: 9696-5078 Calorie Controlled Current diet: Breakfast-- eggs Snack-- [...] you bite it, write it! Apps like SafetyWeb or [employer] Calorie goal: 2875-0768 2. Drink 48-64 ounces of non-caloric beverages [...] in this encounter Nursing Notes * Hi Anderson LPN - 04/16/2024 11:45 AM EST Chief Complaint Patient presents with Weight Management documented in this encounter Plan of Treatment Upcoming Encounters Date Type Department Care Team (Late st Contact Info) Description 05/08/2024 8:45 AM EST Office Visit Interventional Pain Center [facility] [address] [place] [phone] Jorge Bauer, [address] [place] [phone] 09/22/2024 10:20 AM EDT Office Visit Family Practice [facility] [address] [facility] [place] [address] Ibis Everett PA-C [address] [facility] [place] [address] 03/30/2025 1:15 PM EST Imaging Radiology [address] [place] [address] Scheduled Procedures Name Priority Associated Diagnoses Date/Ti [...] 09/06/2023, 12/0 12/2021, 02/16/2021, Additional history exists Mammogram 04/01/2025 [...] cancer documented in this encounter Care Teams Desktop Administrator Relationship Specialty Start Date End Date Ibis Everett PA-C [address] [place] [address] PCP - General Physician Claim Benefit Specialist 10/17/23 documented as of this encounter
--- OUTSIDE RECORDS SUMMARY | 2024-06-18 15:42 | External Medical Summary | Summary of Care ---
Author Name Unknown Organization [facility] Address [address] [facility] [place] [address] Phone [phone] Care Team Providers Care Health Care Assistant Name Role Phone Ibis Everett NADJA Primary Care Provider [phone] Encounter Details Date Type Department Care Team (Late st Contact Info) Description 04/22/2024 Orders Only Endocrinology [address] [place] [address] Nati Mathur PA-C [address] [place] [address] Morbid obesity due to excess calories (HCC) Allergies No known active allergiesdocumented as of this encounter (statuses as of 04/22/2024) Medications QUEtiapine Fumarate 50 MG Oral Tablet [...] daily 237 mL 10/16/19 24 Active Sharps Brick Tester Dispose of sharps 1 Each 3 11/07/19 [...] under the skin once weekly. 6 mL 04/22/19 25 Active Zepbound 5 MG/0.5ML Subcutaneous Solution Auto-injector (Tirzepatide-Zhou ght Management)Indic ations:Morbid obesity due to excess calories (HCC) Inject 5 mg (1 pen) under the skin once weekly. 6 mL 1 04/16/19 25 025 Discontin ued(Refil l) documented as of this encounter (statuses as of 04/22/2024) Active Problems Problem Noted Date Diagnosed Date [...] as of this encounter (statuses as of 04/22/2024) Resolved Problems Problem Noted Date Diagnosed Date [...] as of this encounter (statuses as of 04/22/2024) Immunizations Name Administration Dates Next Due COVID-19 [...] AM EST Office Visit Interventional Pain Center [facility] [address] [place] [address] Jorge Bauer DO [address] [place] [phone] 09/22/2024 10:20 AM EDT Office Visit Family Practice [facility] [address] [place] [address] Ibis Everett PA-C [address] [place] [address] 03/30/2025 1:15 PM EST Imaging Radiology [facility] [address] [place] [address] [...] Diagnosis Morbid obesity due to excess calories (HCC) Screening mammogram for breast cancer documented in this encounter Care Teams Health Care Assistant Relationship Specialty Start Date End Date Marguerite July NADJA Benz [address] [place] [address] PCP - General Physician Security Manager 10/17/23 documented as of this encounter
--- OUTSIDE RECORDS SUMMARY | 2024-06-18 15:42 | External Medical Summary | Summary of Care ---
Author Name Unknown Organization [facility] Address [address] [facility] [address] Phone [phone] Care Team Providers Care Federal Agent Name Role Phone Ibis Everett NADJA Primary Care Provider [phone] Reason for Visit * Reason Comments Follow Up R knee Encounter Details Date Type Department Care Team (Latest Contact Info) Description 05/14/2024 11:00 AM EST Office Visit Orthopaedics [facility] [address] [place] [address] Hi [...] daily 237 mL 10/16/19 24 Active Sharps Filler Picker Dispose of sharps 1 Each 3 11/07/19 [...] called to verify the correctpatient, procedure, equipment, family support worker and site/side marked as required. Patient was prepped and draped in the usual sterile fashion. This chart was completed in part utilizing [employer] Speech Voice Recognition Software. Grammatical errors, random [...] pain Is accompanied by her community home employee relations assistant Unable to give pain rating on 1-10 scale, but employee relations assistant says it is affecting her everyday activities documented in this encounter Plan of Treatment Upcoming Encounters Date Type Department Care Team (Late st Contact Info) Description 09/22/2024 10:20 AM EDT Office Visit Family Practice [facility] [address] [facility] [place] [address] Ibis Everett PA-C [address] [facility] [place] [address] 03/30/2025 1:15 PM EST Imaging Radiology [address] [place] [phone] Scheduled Procedures Name Priority Associated Diagnoses Date/Ti [...] Procedure Name Priority Date/Time Associated Diagnosis Comments NM ARTHROCENTESIS ASPIR&/INJ MAJOR JT/BURSA W/O US Routine 05/14/2024 10:58 AM EST Primary osteoarthritis of right knee documented in this encounter Results * NM ARTHROCENTESIS ASPIR&/INJ MAJOR JT/BURSA W/O US (05/14/2024 [...] to verify the correct patient, procedure, equipment, family support worker and site/side marked as required. Patient was [...] Right documented in this encounter Care Teams Federal Agent Relationship Specialty Start Date End Date Marguerite Ibis NADJA Benz [address] [place] [address] PCP - General Physician Claim Administrator 10/17/23 documented as of this encounter
--- OUTSIDE RECORDS SUMMARY | 2024-06-18 15:42 | External Medical Summary | Summary of Care ---
Author Name Unknown Organization [facility] Address [address] [facility] [address] Phone [phone] Care Team Providers Care Machinist Apprentice Name Role Phone Ibis Everett [place] Primary Care Provider [phone] Reason for Visit * Reason Onset Date Comments Appointment 05/26/2024 Encounter Details Date Type Department Care Team (Late st Contact Info) Description 05/26/2024 Telephone Interventional Pain Center, [facility] [address] [place] [address] Jorge Bauer, [address] [place] [phone] Appointment Allergies No known active allergiesdocumented as of this encounter (statuses as of 05/26/2024) Medications QUEtiapine Fumarate 50 MG Oral Tablet [...] daily 237 mL 10/16/19 24 Active Sharps Aerospace Medicine Physician Dispose of sharps 1 Each 3 11/07/19 [...] as of this encounter (statuses as of 05/26/2024) Active Problems Problem Noted Date Diagnosed Date [...] as of this encounter (statuses as of 05/26/2024) Resolved Problems Problem Noted Date Diagnosed Date [...] as of this encounter (statuses as of 05/26/2024) Immunizations Name Administration Dates Next Due COVID-19 [...] OSA - 05/26/2024 4:11 PM EST Pt's cocktail server was requesting to speak to office to schedule injection, but the call was disconnected from cocktail server when reaching out. Caller, Shaylee will need a return call to schedule. * Telephone Encounter - Rebecca Temple OSA - 05/26/2024 2:13 PM EST Left a voicemail to schedule injection. documented in this encounter Plan of Treatment Upcoming Encounters Date Type Department Care Team (Late st Contact Info) Description 09/22/2024 10:20 AM EDT Office Visit Family Practice [facility] [address] [place] [address] Ibis Everett PA-C [address] [facility] [place] [address] 03/30/2025 1:15 PM EST Imaging Radiology [address] [place] [phone] Scheduled Procedures Name Priority Associated Diagnoses Date/Ti [...] filedocumented as of this encounter Care Teams Machinist Apprentice Relationship Specialty Start Date End Date MargueriteJuly NADJA Benz [address] [place] [address] PCP - General Physician Home Health Care Physician 10/17/23 documented as of this encounter
--- OUTSIDE RECORDS SUMMARY | 2024-06-18 15:43 | External Medical Summary | Summary of Care ---
Author Name Unknown Organization [facility] Address [address] [facility] [address] Phone [phone] Care Team Providers Care Experimental Mechanic Outboard Motors Name Role Phone Ibis Everett PAToni Primary Care Provider [phone] Encounter Details Date Type Department Care Team (Late Contact Info) Description 03/24/2024 Telephone Nutrition & Weight Management, [facility] [address] [place] [address] Nati Mathur PA-C [address] [place] [address] Allergies No known active allergiesdocumented as of this encounter (statuses as of 03/25/2024) Medications QUEtiapine Fumarate 50 MG Oral Tablet [...] cut, crush or chew 40 Tablet 2 Active traZODone HCl 150 MG Oral Tablet (Desyrel)Indica tions:Persisten t insomnia Take by mouth 1 Tablet before bedtime. To be taken at 8 -9 pm. 30 Tablet 11 Active Omeprazole 20 MG Oral Capsule Delayed Release (PriLOSEC)Indic ations:Esophagi tis TAKE 2 CAPSULES (40MG) BY MOUTH 30 MINUTES BEFORE EVENING MEAL FOR STOMACH 56 Capsule Active Divalproex Sodium 500 MG Oral Tablet Delayed Release (Depakote DR) TAKE 1 TABLET BY MOUTH EVERY MORNING AND TAKE 2 TABLETS BY MOUTH AT BEDTIME 100 Tablet Active Additional Information Patient taking differently: 1,000 mg BID (.AM/PM), TAKE 2 TABLET BY MOUTH EVERY MORNING AND TAKE 2 TABLETS BY MOUTH AT BEDTIME, Reported on 01/02/2024 CeraVe Daily Moisturizing External Lotion Apply to arms daily 237 mL Active Sharps Nuclear Weapons Custodian Dispose of sharps 1 Each 3 Active Polyethylene Glycol 3350 17 GM Oral Packet (Miralax) Take 1 Packet by mouth in the morning. 30 Each Active Loratadine 10 MG Oral Tablet (Claritin)Indic ations:Allergic rhinitis TAKE ONE TABLET BY MOUTH DAILY. *SEASONAL ALLERGIES* 28 Tablet 5 Active Levothyroxine Sodium 25 MCG Oral Tablet (Levoxyl)Indica tions:Hypothyro idism TAKE ONE TABLET BY MOUTH ONCE DAILY IN THE MORNING FOR HYPOTHYROIDISM 28 Tablet 2 Active hydroCHLOROthia zide 25 MG Oral Tablet (Hydrodiuril) TAKE ONE TABLET BY MOUTH ONCE DAILY IN THE MORNING TO REDUCE FLUID RETENTION/SWELLIN G DUE TO OA 28 Tablet 5 Active Acetaminophen ER 650 MG Oral Tablet Extended Release (Arthritis Pain Relief) TAKE 2 TABLETS (1300MG) BY MOUTH TWICE DAILY TO REDUCE PAIN AND SWELLING DUE TO OA 112 Tablet 4 Active Ibuprofen 200 MG Oral Tablet (Motrin) [...] not exceed 16 mg (8 capsules) Active Dextromethorpha n Polistirex ER 30 MG/5ML Suspension Extended Release [...] MOUTH TWICE DAILY *CONSTIPATION* 60 Capsule 4 Active Meloxicam 15 MG Oral Tablet (Mobic) Take 1 Tablet by mouth in the morning. 30 Tablet 5 Active LORazepam 1 MG Oral Tablet (Ativan) Give 1 tab 1 hour prior to procedure may repeat if desired sedation is not achieved. 2 Tablet Active Zepbound 5 MG/0.5ML Subcutaneous Solution Auto-injector (Tirzepatide-We ight Management) inject 5mg under the skin once weekly 6 mL Active Zepbound 2.5 MG/0.5ML Subcutaneous Solution Auto-injector (Tirzepatide-We ight Management) Inject 2.5 mg (1 pen) under the skin once a week. 2 mL 2 02/27/20 24 9:17 AM EST 024 2023 Discontinued documented as of this encounter (statuses as of 03/25/2024) Active Problems Problem Noted Date Diagnosed Date [...] as of this encounter (statuses as of 03/25/2024) Resolved Problems Problem Noted Date Diagnosed Date [...] as of this encounter (statuses as of 03/25/2024) Immunizations Name Administration Dates Next Due COVID-19 [...] encounter Miscellaneous Notes * Telephone Encounter - Lanie Kemp CRNP - 03/25/2024 12:25 PM EST Dose increased to 5mg/week * Telephone Encounter - Meghan Gomez OSA - 03/24/2024 1:37 PM EST Triny, supervisor marble at pt's senior living, is calling regarding pt's Zepbound. She states pt has been on it about 6 weeks now and she has gained 4 lbs. She would like to know if they can increase the dose. Triny can be reached at [phone]. Thank you! documented in this encounter Plan of Treatment Upcoming Encounters Date Type Department Care Team (Late st Contact Info) Description 04/01/2024 10:00 AM EST Office Visit Orthopaedics [facility] [address] [place] [address] Dave Sharma MD [address] [place] [phone] 04/01/2024 11:45 AM EST Imaging Radiology [facility] 1st Floor, [place] [address] [place] [address] 04/16/2024 11:40 AM EST Office Visit Nutrition & Weight Management, [facility] [address] [place] [place] [address] Nati Mathur PA-C [address] [place] [address] 09/22/2024 10:20 AM EDT Office Visit Family Practice [facility] 200 [facility] [place] [address] Ibis Everett PA-C 200 [facility] [place] [address] Scheduled Procedures Name Priority Associated Diagnoses Date/Ti me COLONOSCOPY FLEXIBLE PROXIMA L DIAGNOSTIC Recall Special screening for malignant neoplasms, colon Health Maintenance Due Date Last Done Comments Cologuard 01/14/2008 Fecal Occult Blood Test 01/14/2008 Sigmoidoscopy 01/14/2008 Zoster Vaccines (1 of 2) 2013 Depression Screening 03/02/2021 03/02/2020, 06/17/2014 (Discussed) COVID-19 Vaccine ( season) 2023 06/20/2020, 05/23/2020 TSH 01/11/2024 01/10/2023, 06/0 12/2021, 06/17/2020, Additional history exists Mammogram 03/27/2024 03/27/2023, 03/09, 03/27/2022, Additional history exists Colonoscopy 06/29/2024 06/29/2014, 06/29/2014 Colorectal Cancer Screening 06/29/2024 HbA1c 09/05/2024 09/06/2023, 12/2021, 02/16/2021, Additional history exists Pap Smear 06/17/2026 06/18/2023, 06/07, 01/27/2019, Additional history exists Cervical Cancer Screening 06/17/2028 HPV/Co-Test 06/17/2028 06/18/2023 Lipid Panel 09/05/2028 09/06/2023, 12/2021, 02/26/2020, Additional history exists DTap/Tdap Vaccines (3 - Td or Tdap) 03/20/2034 03/20/2024, 08/13/2013, 03/14/2005, Additional history exists Hepatitis B Vaccine Completed 11/27/1991, 06/12/1991, 05/14/1991 Pneumococcal Vaccine: Pediatrics (0 to 5 Years) and At-Risk Patients (6 to 64 Years) Aged Out 04/15/2019 No longer eligible based on patient's age to complete this topic Influenza Vaccine (FLU shot) Completed 03/2024, 04/12/2023, 04/06/2022, Additional history exists HPV (Gardasil) Vaccine Aged Out No lo nger eligible based on patient's age to complete this topic MENINGOCOCCAL (MENACTRA/MENVEO) Aged Out No longer eligible based on patient's age to complete this topic documented as of this encounter Medical Devices Not on filedocumented as of this encounter Care Teams Experimental Mechanic Outboard Motors Relationship Specialty Start Date End Date MargueriteJuly NADJA Benz [address] [place] [address] PCP - General Physician Fractionation Plant Supervisor 10/17/23 documented as of this encounter
--- OUTSIDE RECORDS SUMMARY | 2024-06-18 15:43 | External Medical Summary | Summary of Care ---
Author Name Unknown Organization [facility] Address [address] [address] Phone [phone] Care Team Providers Care Dray Driver Name Role Phone [place] Ibis Benz PA-C Primary Care Provider Reason for Referral * Evaluate & Treat - Unlimited Visits (Within 10 days (routine)) - Authorized Specialty Diagnoses / Procedures Referred By Michael roe Referred To Contact Pain Management / Pain Medicine Diagnoses Glenohumeral arthritis, left Arthritis of right hip Soraida Dubose MD [address] [place] [address] Phone: tel: fax: Referral ID Status Reason Start Date Expiration Date Visits Requested Visits Authorized [id number] Authorized Specialty Services Required [phone] Question Answer Referral Priority Within 10 days (routine) Where should this appointment be scheduled? [facility] Reason for referral? Interventional Pain Management - (Injection) What condition is the patient being referred for? Hip/Shoulder/Knee What is the preferred location to have this test performed? [facility] Comments Patient Name: Nafisa Garvin Date of : 1965 Department Phone Number: MRI or CT (if unable to have [...] pain if not done previously. Fax No. [facility] [phone] or contact senior front end developer [phone] Fax No. [facility] [phone] or contact senior front end developer [phone] Fax No. [facility] [phone] or contact senior front end developer [phone] Reason for Visit * Reason Comments NEW PATIENT * Evaluate & Treat - Unlimited Visits (Within 30 days (routine)) - Authorized Specialty Diagnoses / Procedures Referred By Contac t Referred To Contact Sports Medicine / Orthopedics Diagnoses Glenohumeral arthritis, left Dave Sharma MD [address] [place] [address] Phone: tel: fax: Referral ID Status Reason Start Date Expiration Date Visits Requested Visits Authorized [id number] Authorized Specialty Services Required [id number] Encounter Details Date Type Department Care Team (Late st Contact Info) Description 04/07/2024 12:30 PM EST Office Visit Orthopaedics [facility] [address] [place] [address] Soraida Dubose MD [address] [place] [address] Glenohumeral arthritis, left*; Arthritis of right hip Allergies No known active allergiesdocumented as of this encounter (statuses as of 04/07/2024) Medications QUEtiapine Fumarate 50 MG Oral Tablet [...] daily 237 mL 10/16/19 24 Active Sharps Exchange Floor Manager Dispose of sharps 1 Each 3 [...] sedation is not achieved. 2 Tablet 03/20/20 Active Zepbound 5 MG/0.5ML Subcutaneous Solution Auto-injector ([facility] Management)Indic ations:Morbid obesity due to excess calories (HCC) Inject 5 mg (1 pen) under the skin once weekly. 2 mL 1 04/04/20 Active Hospital, Clinic, or Other Facility Administered Medication Ordered Dose Route Frequency Start Date End Date Status lidocaine 1% 1 mL - triamcinolone acetonide 40 mg/mL 1 mL inj 2 mLIndications:Glenohumeral arthritis, left,Arthritis of right hip 2 mL IJ ONCE 04/07/2024 04/07/2024 Ended documented as of this encounter (statuses as of 04/07/2024) Active Problems Problem Noted Date Diagnosed Date [...] as of this encounter (statuses as of 04/07/2024) Resolved Problems Problem Noted Date Diagnosed Date [...] as of this encounter (statuses as of 04/07/2024) Immunizations Name Administration Dates Next Due COVID-19 [...] as of this encounter Progress Notes * Soraida Dubose MD - 04/07/2024 1:05 PM EST Chief Complaint: NEW PATIENT () History of Present Illness: Nursing Notes: Flora Lawrence, [facility] 04/07/24 1227 Signed Referred by . discuss possible injections Nafisa Garvin is a 59 year old female who is referred by Dr. Sharma to discuss ultrasound-guided injections for left glenohumeral joint osteoarthritis, right hip osteoarthritis, and right knee osteoarthritis. Consult requested by Dave Sharma MD. Nafisa Garvin is here accompanied by 2 caregivers from [facility]. Nafisa Garvin reports pain in the shoulder and hip primarily. Had an injection about a year ago by Hi Santiago into the left knee which seems to has been serving her well. Her caretakers report that she seems most bothered by the shoulder pain. She has been on Meloxicam which does seem to help somewhat. Review of systems: All others negative except those noted above in HPI. Review of patient's allergies indicates: No Known Allergies Current Outpatient Medications Medication Sig Dispense Refill [...] to arms daily 237 mL 5 Sharps Exchange Floor Manager Dispose of sharps 1 Each 3 Polyethylene [...] the skin once weekly. 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 Estimated body mass index is 38.44 kg/m as calculated from the following: Height as of 03/20/24: 1.515 m (4' 11.65"). Weight as of 03/20/24: 88.2 kg (194 lb 8 oz). General: generally well-nourished and in no acute distress HEENT: normocephalic, atraumatic, sclera anicteric Psych: mood and affect normal , cooperative Card: Peripheral pulses: normal in affected extremity (s) Resp: equal chest rise, non-tachypneic, non-labored breathing Skin: no rash, normal Neuro: Coordination: normal; Sensation: normal on affected extremity (s) MSK: Shoulder exam, bilateral Inspection: No visible deformity, redness, swelling or bruising Palpation: No tenderness to palpation Range of motion is grossly limited in the left shoulder compared to right to abduction and forward flexion but seems to be equal to internal external rotation. No obvious weakness although examination rather difficult due to patient condition. Radiology (I have personally reviewed the following films): We reviewed x-rays of the left shoulder from 03/25/2024 and right hip from 03/25/2024. Does show evidence of end-stage in any changes to the right hip and end-stage aortic changes to the glenohumeraljoint of the left shoulder. Assessment and Plan: ICD-10-CM 1. Glenohumeral arthritis, left M19.012 2. Arthritis of right hip M16.11 Pleasant 59-year-old female with mild intellectual disability who is seen today has a referral for potential injections for end-stage arthritis of the shoulder and hip. We discussed diagnosis of arthritis and various treatment options. We discussed the role of injections and how they are strictly for pain management. After reviewing various treatment options he elected to proceed. See procedure note below. As she had a fairly difficult time sitting still for the shoulder injection we will pursue a pain management referral for a hip injection under sedation. We will hold off on scheduled follow up until we see how she does with hip injection. The above assessment and plan were discussed at length. All questions were answered, and the patient expressed understanding. Soraida Dubose MD Primary Care Sports Medicine [facility] [address] [address] PROCEDURE NOTE: SHOULDER GLENOHUMERAL JOINT INJECTION Laterality: Left Time out: Prior to injection, a time out was called to confirm the administration of appropriate medicine, patient name, procedure and confirm to the best of our ability and knowledge the presence of any necessary risks and benefits. Patient verbalized understanding. Ultrasound required due to high risk for complications without ultrasound guidance (risk for neurovascular damage) and patient size (obese) Ultrasound utilized to guide injection. During the procedure, the needle was visualized in plane and was advanced with continuous ultrasound guidance to the appropriate anatomical landmark as described in the procedure. Sterile technique applied using gloves, chlorhexadine, and alcohol swabs. Ethyl chloride spray for local anesthetic. Glenohumeral joint injected using 3.5 inch, 22 gauge needle. Injected with 1 mL Lidocaine 1% - 1 mLTriamcinolone Acetonide 40 mg/mL >> inject 2 mL. Patient Had no significant bleeding or adverse reaction. She did have a difficult time maintaining optimal position for the injection and reported pain with the procedure. Patient instructed to call or return to clinic for fever, warmth, unusual redness at injection sitefor potential infection. Patient also advised regarding post-procedural pain. Soraida Dubose MD Sports Medicine Primary Care Orthopaedics [facility] [address] [place] [address] documented in this encounter Nursing Notes * Flora Lawrence CCMA - 04/07/2024 12:27 PM EST Referred by . discuss possible injections documented in this encounter Plan of Treatment Upcoming Encounters Date Type Department Care Team (Late st Contact Info) Description 04/16/2024 11:40 AM EST Office Visit Nutrition & Weight Management, [facility] [address] [address] Nati Mathur PA-C [address] [place] [address] 05/08/2024 8:45 AM EST Office Visit Interventional Pain Center [facility] [address] [place] [phone] Jorge Bauer DO [address] [place] [phone] 09/22/2024 10:20 AM EDT Office Visit Family Practice [facility] [address] [place] [address] Ibis Everett PA-C [address] [facility] [place] [address] 03/30/2025 1:15 PM EST Imaging Radiology [address] [place] [address] Scheduled Procedures Name Priority Associated Diagnoses Date/Ti me COLONOSCOPY FLEXIBLE PROXIMA L DIAGNOSTIC Recall Special screening for malignant neoplasms, colon Scheduled Referrals Name Type Priority Associated Diagnoses Orde r Schedule PAIN MEDICINE REFERRAL OP Referral Within 10 days (routine) Glenohumeral arthritis, left Arthritis of right hip Ordered: 04/07/2024 Health Maintenance Due Date Last Done Comments Cologuard 01/14/2008 Fecal Occult Blood Test 01/14/2008 Sigmoidoscopy 01/14/2008 Zoster Vaccines (1 of 2) 2013 Pneumococcal Vaccine: 50+ Years (2 of 2 - PCV) 04/15/2020 04/15/2019 Depression Screening 03/02/2021 03/02/2020, 06/17/2014 (Discussed) TSH 01/11/2024 01/10/2023, 0612/2021, 06/17/2020, Additional history exists Colonoscopy 06/29/2024 06/29/2014, 06/29/2014 Colorectal Cancer Screening 06/29/2024 HbA1c 09/05/2024 09/06/2023, 120 12/2021, 02/16/2021, Additional history exists Mammogram 04/01/2025 [...] as of this encounter Visit Diagnoses Diagnosis Glenohumeral arthritis, left- Primary Arthritis of right hip Screening mammogram for breast cancer documented in this encounter Administered Medications Inactive Administered Medications - up to 3 most recent administrations Medication Order MAR Action Action Date Dose Rate Site lidocaine 1% 1 mL - triamcinolone acetonide 40 mg/mL 1 mL inj 2 mL 2 mL, Injection, ONCE, On 04/07/24 at 1345, For 1 dose, Lidocaine 1% 1mL Triamcinolone Acetonide 40 mg/mL 1 mL (Final concentration = 20 mg/mL) REFRIGERATE and SHAKE WELLIndications:Glenohumeral arthritis, left,Arthritis of right hip Given 04/07/2024 1:06 PM EST 2 mL Shoulder Left documented in this encounter Care Teams Dray Driver Relationship Specialty Start Date End Date Ibis Everett PA-C [address] [place] [address] PCP - General Physician Health Facilities Surveyor 10/17/23 documented as of this encounter
--- OUTSIDE RECORDS SUMMARY | 2024-06-18 15:43 | External Medical Summary | Summary of Care ---
Author Name Unknown Organization [facility] Address [address] [facility] [address] Phone [phone] Care Team Providers Care Chocolate Dipper Name Role Phone Ibis Everett NADJA Primary Care Provider [phone] Encounter Details Date Type Department Care Team (Late st Contact Info) Description 04/10/2024 Telephone Interventional Pain Center, [facility] [address] [place] [phone] Jorge Bauer, [address] [place] [phone] Allergies No known active allergiesdocumented as of this encounter (statuses as of 04/10/2024) Medications QUEtiapine Fumarate 50 MG Oral Tablet [...] arms daily 237 mL 10/16/19 Active Sharps Paving Plant Operator Dispose of sharps 1 Each 3 11/07/19 24 Active Polyethylene Glycol 3350 17 GM Oral Packet (Miralax) Take 1 Packet by mouth in the morning. 30 Each 01/02/20 24 Active Loratadine 10 MG Oral Tablet (Claritin)Indica tions:Allergic rhinitis TAKE ONE TABLET BY MOUTH DAILY. *SEASONAL ALLERGIES* 28 Tablet 02/06/20 24 Active Levothyroxine Sodium 25 MCG [...] not achieved. 2 Tablet 03/20/20 24 Active Zepbound 5 MG/0.5ML Subcutaneous Solution Auto-injector (TirMike t Management)Indic ations:Morbid obesity due to excess calories (HCC) Inject 5 mg (1 pen) under the skin once weekly. 2 mL 1 04/04/20 24 Active documented as of this encounter (statuses as of 04/10/2024) Active Problems Problem Noted Date Diagnosed Date [...] as of this encounter (statuses as of 04/10/2024) Resolved Problems Problem Noted Date Diagnosed Date [...] as of this encounter (statuses as of 04/10/2024) Immunizations Name Administration Dates Next Due COVID-19 [...] Telephone Encounter - Mabel Molina LPN - 04/10/2024 11:54 AM EST Patient is scheduled for office visit on 05/08 * Telephone Encounter - Mabel Molina LPN - 04/10/2024 11:54 AM EST ----- Message from Jorge Bauer DO sent at 04/10/2024 11:35 AM EST ----- DAVID ----- Message ----- From: Soraida Dubose MD Sent: 04/07/2024 3:54 PM EST To: Jorge Bauer DO Yes she is. Very sweet and understands some but moved around quite a bit during the shoulder injection which changed the target. Ultimately successful but worry more with the hip because sensitive area and vessels/nerves. Thanks so much! I placed a referral. ----- Message ----- From: Jorge Bauer DO Sent: 04/07/2024 3:31 PM EST To: Sara Parry PA-C; Soraida Dubose MD Absolutely. We don't give sedation either, but I can provide her some pre- procedurally (ativan PO).Is she intellectually disabled? MP ----- Message ----- From: Soraida Dubose MD Sent: 04/07/2024 12:59 PM EST To: Sara Parry PA-C; Jorge Bauer DO Hello, Are you able to see this patient for a US guided or fluoro guided hip injection under some sedation? I did a USG shoulder injection for her today but she had an incredibly hard time staying still. I think she would be best served with some sort of sedation which I am not equipped to do. Her caretakers are incredibly helpful but I am not sure how much she understands. Thanks! Soraida documented in this encounter Plan of Treatment Upcoming Encounters Date Type Department Care Team (Late st Contact Info) Description 04/16/2024 11:40 AM EST Office Visit Nutrition & Weight Management, [facility] [address] [place] [address] Nati Mathur PA-C [address] [place] [address] 05/08/2024 8:45 AM EST Office Visit Interventional Pain Center [facility] [address] [place] [phone] Jorge Bauer DO [address] [place] [phone] 09/22/2024 10:20 AM EDT Office Visit [facility] [address] [facility] [address] Ibis Everett PA-C [address] [place] [address] 03/30/2025 1:15 PM EST Imaging Radiology [facility] 1st [facility] [place] [address] [place] [address] Scheduled Procedures Name Priority Associated Diagnoses Date/Ti [...] filedocumented as of this encounter Care Teams Chocolate Dipper Relationship Specialty Start Date End Date Ibis Everett PA-C [facility] [address] [place] [address] PCP - General Physician Spooling Machine Operator 10/17/23 documented as of this encounter
--- OUTSIDE RECORDS SUMMARY | 2024-06-18 15:43 | External Medical Summary | Summary of Care ---
Author Name Unknown Organization [facility] Address [address] [facility] [address] Phone [phone] Care Team Providers Care Church Communications Administrator Name Role Phone Ibis Everett Tuyet SAEZ Primary Care Provider [phone] Encounter Details Date Type Department Care Team (Late st Contact Info) Description 03/24/2024 Telephone Nutrition & Weight Management, [facility] [address] [place] [address] Nati Mathur PA-C [address] [place] [address] Allergies No known active allergiesdocumented as of [...] EVENING MEAL FOR STOMACH 56 Capsule 11 Active Divalproex Sodium 500 MG Oral Tablet [...] to arms daily 237 mL Active Sharps Associate Music Professor Dispose of sharps 1 Each 3 Active [...] Subcutaneous Solution Auto-injector (Tirzepatide-We ight Management) Inject 5 mg (1 pen) under the skin once weekly. 6 mL 024 Active Zepbound 2.5 MG/0.5ML Subcutaneous Solution Auto-injector [...] Pre serve, 2-Dose Series (Moderna) 06/20/2020,05/23/2020 H1N1 2008 Influenza, IM 02/07/2009 Hepatitis B, 20+ yrs [...] encounter Miscellaneous Notes * Telephone Encounter - Hi Anderson LPN - 03/25/2024 2:21 PM EST Patient aware and voiced understanding * Telephone Encounter - Lanie Kemp CRNP - 03/25/2024 12:25 PM EST Dose increased to 5mg/week * Telephone Encounter - Meghan Gomez OSA - 03/24/2024 1:37 PM EST Triny, agronomy supervisor at pt's longterm, is calling regarding pt's Zepbound. She states pt has been on it about 6 weeks now and she has gained 4 lbs. She would like to know if they can increase the dose. Triny can be reached at [phone]. Thank you! documented in this encounter Plan of Treatment Upcoming Encounters Date Type Department Care Team (Late st Contact Info) Description 04/01/2024 10:00 AM EST Office Visit Orthopaedics [facility] [address] [address] Dave Sharma MD [address] [phone] 04/01/2024 11:45 AM EST [facility] [address] [address] 04/16/2024 11:40 AM EST Office Visit Nutrition & Weight Management, [facility] [address] [address] Nati Mathur PA-C [address] [address] 09/22/2024 10:20 AM EDT Office Visit Family [facility] [address] [place] [address] Ibis Everett PA-C [address] [place] [address] Scheduled Procedures Name Priority Associated Diagnoses Date/Ti me COLONOSCOPY FLEXIBLE PROXIMA L DIAGNOSTIC Recall Special screening for malignant neoplasms, colon Health Maintenance Due Date Last Done Comments Cologuard 01/14/2008 Fecal Occult Blood Test 01/14/2008 Sigmoidoscopy 01/14/2008 Zoster Vaccines (1 of 2) 2013 Depression Screening 03/02/2021 03/02/2020, 06/17/2014 (Discussed) COVID-19 Vaccine ( season) 2023 06/20/2020, 05/23/2020 TSH 01/11/2024 01/10/2023, 12/2021, 06/17/2020, Additional history exists Mammogram 03/27/2024 03/27/2023, 03/09, 03/27/2022, Additional history exists Colonoscopy 06/29/2024 06/29/2014, 06/29/2014 Colorectal Cancer Screening 06/29/2024 HbA1c 09/05/2024 09/06/2023, 12/0 12/2021, 02/16/2021, Additional history exists Pap Smear [...] filedocumented as of this encounter Care Teams Church Communications Administrator Relationship Specialty Start Date End Date Marguerite July Tuyet, NADJA [address] [place] [address] PCP - General Physician Rotary Driller Helper 10/17/23 documented as of this encounter
--- OUTSIDE RECORDS SUMMARY | 2024-06-18 15:43 | External Medical Summary | Summary of Care ---
Author Name Unknown Organization [facility] Address [address] [place] [address] Phone [phone] Care Team Providers Care Vehicle Painter Name Role Phone Ibis Everett NADJA Primary Care Provider [phone] Reason for Visit * Reason Comments Follow Up Dosage Adjustment Via Phone (anticoag Cl inic) Encounter Details Date Type Department Care Team (Late st Contact Info) Description 04/04/2024 2:50 PM EST Telemedicine Endocrinology [address] [place] [phone] Giovanni, Pharmacist Endocrinology [address] [place] [address] Morbid obesity due to excess calories (HCC)* Allergies No known active allergiesdocumented as of this encounter (statuses as of 04/04/2024) Medications QUEtiapine Fumarate 50 MG Oral Tablet [...] daily 237 mL 10/16/19 24 Active Sharps Grain Trader Dispose of sharps 1 Each 3 11/07/19 [...] weekly. 2 mL 1 04/04/20 24 Active Zepbound 5 MG/0.5ML Subcutaneous Solution Auto-injector (Tirzepatide-[facility] g[facility] Management) Inject 5 mg (1 pen) under the skin once weekly. 6 mL 4 12:18 PM EST 03/25/20 24 024 Discontin ued(Refil l) documented as of this encounter (statuses as of 04/04/2024) Active Problems Problem Noted Date Diagnosed Date [...] as of this encounter (statuses as of 04/04/2024) Resolved Problems Problem Noted Date Diagnosed Date [...] as of this encounter (statuses as of 04/04/2024) Immunizations Name Administration Dates Next Due COVID-19 [...] as of this encounter Progress Notes * Anais Graham, [facility] - 04/04/2024 3:59 PM EST GLP-1 Medication Therapy Status Check After connecting to the patient via telephone, the patient was identified by name and date of . Patient was then informed that this was a telephone call only visit. The patient agreed to participate Visit Disposition: Status check Duration: 1 minute Spoke with Shaylee Stringer, group work program director and patient client services representative. Name: Nafisa Garvin Diagnosis: Obesity Current GLP1 therapy: Zepbound 2.5mg weekly. Increasing to 5mg weekly starting Sunday. OBJECTIVE Estimated body mass index is 38.44 kg/m as calculated from the following: Height as of 03/20/24: 1.515 m (4' 11.65"). Weight as of 03/20/24: 88.2 kg (194 lb 8 oz). BP Readings from Last 3 Encounters: 03/20/24 120/80 01/02/24 124/70 11/09/23 118/70 Hemoglobin AIC Results: Lab Results Component Value Date/Time HEMOGLOBIN A1C - [facility] 6.0 (H) 09/06/2023 09:15 AM HEMOGLOBIN A1C - [facility] 5.8 (H) 03/17/2022 09:30 AM HEMOGLOBIN A1C - [facility] 5.9 (H) 02/16/2021 03:27 PM HEMOGLOBIN A1C - [facility] 6.1 (H) 02/26/2020 09:44 AM HEMOGLOBIN A1C - [facility] 6.1 (H) 02/26/2020 09:21 AM HEMOGLOBIN A1C - [facility] 6.1 (H) 01/16/2019 08:57 AM No results found for: "MICROALBUMIN" MEDICATION USE ASSESSMENT Patient is adherent to current prescribed dose of GLP1 therapy? Yes, patient taking as prescribed Allergic / Local Reactions Reported: No Side Effects Reported: No side effects, tolerating well PLAN The patient was educated on when to contact provider with change of symptoms or tolerability to medication. Continue medication as prescribed. Anais Graham [facility] Clinical Pharmacist Medication Therapy Disease Management 04/04/2024,3:59 PM documented in this encounter Plan of Treatment Upcoming Encounters Date Type Department Care Team (Late st Contact Info) Description 04/07/2024 12:30 PM EST Office Visit Orthopaedics [facility] [address] [address] Soraida Dubose MD [address] [address] 04/16/2024 11:40 AM EST Office Visit Nutrition & Weight Management, [facility] [address] [address] Nati Mathur PA-C [address] [place] [address] 09/22/2024 10:20 AM EDT Office Visit Family Practice [facility] [address] [facility] [place] [address] Ibis Everett PA-C [address] [facility] [place] [address] 03/30/2025 1:15 PM EST Imaging Radiology [address] [place] [address] Scheduled Procedures Name Priority Associated Diagnoses Date/Ti [...] cancer documented in this encounter Care Teams Vehicle Painter Relationship Specialty Start Date End Date Marguerite Ibis NADJA [address] [place], [place] [address] PCP - General Physician Electrician Station Assistant 10/17/23 documented as of this encounter
--- OUTSIDE RECORDS SUMMARY | 2024-06-18 15:43 | External Medical Summary | Summary of Care ---
Author Name Unknown Organization [facility] Address [address] [place] [address] Phone [phone] Care Team Providers Care Roasterman Name Role Phone Ibis Everett NADJA Primary Care Provider [phone] Reason for Referral * Evaluate & Treat - Unlimited Visits (Within 30 days (routine)) - Authorized Specialty Diagnoses / Procedures Referred By Contac t Referred To Contact Sports Medicine / Orthopedics Diagnoses Glenohumeral arthritis, left Dave Sharma MD [address] [place] [address] Phone: tel: fax: Referral ID Status Reason Start Date Expiration Date Visits Requested Visits Authorized [id number] Authorized Specialty Services Required [phone] Question Answer What body part is the patient being seen for? Hip What condition is the patient being seen for? Arthritis including related infection Referral Priority Within 30 days (routine) Where should this appointment be scheduled? [facility] Ultrasound-guided injections for right hip/left shoulder * Evaluate & Treat - Unlimited Visits (Within 10 days (routine)) - Authorized Specialty Diagnoses / Procedures Referred By Contac t Referred To Contact Physical Therapy / Physical Medicine And Rehab Diagnoses Glenohumeral arthritis, left Dave Sharma MD [address] [place] [address] Phone: tel: fax: Referral ID Status Reason Start Date Expiration Date Visits Requested Visits Authorized [id number] Authorized Specialty Services Required [phone] Question Answer Referral Priority Within 10 days (routine) Where should this appointment be scheduled? [facility] Comments Left shoulder glenohumeral arthritis, right hip arthritis, bilateral knee arthritis Range of motion, strengthening, ADLs Home program Modalities as needed 2 to 3 times a week for 4-6 weeks Reason for Visit * Reason Comments NEW PATIENT Pt presents for Bhargavi barraza Referred by Ibis PEREIRA * Evaluate & Treat - Unlimited Visits (Within 30 days (routine)) - Authorized Specialty Diagnoses / Procedures Referred By Michael roe Referred To Contact Orthopaedic Surgery / Orthopedics Diagnoses Chronic left shoulder pain Hip pain, right bIis Everett PA-C [address] [place] [address] Phone: tel: fax: Referral ID Status Reason Start Date Expiration Date Visits Requested Visits Authorized [id number] Authorized Specialty Services Required [phone] Encounter Details Date Type Department Care Team (Latest Contact Info) Description 04/01/2024 10:00 AM EST Office Visit Orthopaedics [facility] [address] [place] [address] Dave Sharma MD [address] [facility] [place] [id number] Glenohumeral arthritis, left*; Arthritis of right hip; Primary osteoarthritis of right knee; Morbid obesity due to excess calories (HCC); Prediabetes; Mild intellectual disability Allergies No known active allergiesdocumented as of this encounter (statuses as of 04/01/2024) Medications QUEtiapine Fumarate 50 MG Oral Tablet [...] daily 237 mL 10/16/19 24 Active Sharps Enthone Solder Stripper Dispose of sharps 1 Each 3 11/07/19 [...] RETENTION/SWELLING DUE TO OA 28 Tablet 5 10/30/20 24 Active Acetaminophen ER 650 MG Oral Tablet Extended Release (Arthritis Pain Relief) TAKE 2 TABLETS (1300MG) BY MOUTH TWICE DAILY TO REDUCE PAIN AND SWELLING DUE TO OA 112 Tablet 4 02/25/20 Active Ibuprofen 200 MG Oral Tablet (Motrin) [...] TWICE DAILY *CONSTIPATION* 60 Capsule 4 03/20/20 Active Meloxicam 15 MG Oral Tablet (Mobic) Take 1 Tablet by mouth in the morning. 30 Tablet 5 03/20/20 Active LORazepam 1 MG Oral Tablet (Ativan) Give 1 tab 1 hour prior to procedure may repeat if desired sedation is not achieved. 2 Tablet 03/20/20 Active Zepbound 5 MG/0.5ML Subcutaneous Solution [facility] Inject 5 mg (1 pen) under the skin once weekly. 6 mL 4 12:18 PM EST 03/25/20 Active documented as of this encounter (statuses as of 04/01/2024) Active Problems Problem Noted Date Diagnosed Date [...] as of this encounter (statuses as of 04/01/2024) Resolved Problems Problem Noted Date Diagnosed Date [...] as of this encounter (statuses as of 04/01/2024) Immunizations Name Administration Dates Next Due COVID-19 mRNA, LNP-s, No Pre serve, 2-Dose Series (Moderna) 06/20/2020,05/23/2020 H1N1 2009 Influenza, IM 02/07/2009 PPD 04/15/2019, 8,07/19/2015,04/09,03/22/2011,03/24/2009,03/15/20 09 03/26/2009 Pneumococcal Polysaccharide PPV23 (Pneumovax) 04/15/2019 Seasonal Influenza Vac., MDV , IM, 0.5 mL (Fluzone) 01/29/2014,02/07/2013,01/24/2012,03/09,02/02/2010,03/15/2009,02/18/20,02/26/2007 Seasonal Influenza, PF, 6 M & above, [...] as of this encounter Progress Notes * Dave Sharma MD - 04/01/2024 10:29 AM EST CHIEF COMPLAINT: Chief Complaint Patient presents with NEW PATIENT Pt presents for L shoulder Referred by Ibis PEREIRA Impression: (M19.012) Glenohumeral arthritis, left (primary encounter diagnosis) (M16.11) Arthritis of right hip (M17.11) Primary osteoarthritis of right knee (E66.01) Morbid obesity due to excess calories (HCC) (R73.03) Prediabetes Mild intellectual disability Plan: We discussed the diagnosis and treatment options with the patient today. We discussed conservative management and treatment options for degenerative arthritis of the shoulder. Since the patient's symptoms are intermittent we recommend that she undergo activity modification and routine use of ice. Patient may benefit from seeing non operative Sports Medicine discuss ultrasound-guided injection options for arthritis of the hip, knees and shoulder. Follow Up: Return if symptoms worsen or fail to improve, for Referral to nonoperative Sports Medicine. | For: Referral to nonoperative Sports Medicine There are no Patient Instructions on file for this visit. HISTORY OF PRESENT ILLNESS: Nafisa Garvin is a 59 year old right hand dominant female with mental disability who presents to orthopedic Sports Medicine for consultation at the request of Ibis Everett PA-C to us with a history of left shoulder pain . Patient presents with her caregiver today. Through the patient's caregivershe has been having intermittent left shoulder pain and difficulty with using the arm. Patient has been on meloxicam anti-inflammatory which he takes for her knee pain. Her caregiver also states thatshe has had cortisone injections to the knees in the past for arthritis. She was referred to our office for evaluation of the left shoulder. Patient was recently seen by her primary care and underwent x-rays of the left shoulder and the right hip. Wakes at night? no. Physical Therapy? no. Injections? no. Nursing Notes: Landen Queen CMA 04/01/24 1008 Signed Here for Today's visit regarding: Location of pain: L shoulder Injury: Chronic pain Recent Imaging: L shoulder xrays on 03/25/24 Prior treatment: Tylenol Prior Surgery: None Date of injury or symptoms started: about 4 weeks Goals for this appointment: Alleviate some of the pain in the L shoulder - Landen Pimentel CMA Past Surgical History: Procedure Laterality Date COLONOSCOPY, DIAGNOSTIC (RECTUM) 06/29/2014 normal, repeat 10 yrs/COLONOSCOPY FLEXIBLE PROXIMAL DIAGNOSTIC performed by Catalino Pinon MD at ENDOSCOPY [facility] MAMMOGRAM - BILATERAL 04/27/05 birad code 1 MAMMOGRAM - BILATERAL 07/26/06 birad 2 MAMMOGRAM - BILATERAL 09/09/08 birad 2 MAMMOGRAM SCREENING BILATERAL 10/26/09 birad code 1 MAMMOGRAM SCREENING-BILATERAL 04/23/03 birad code 2 Review of patient's allergies indicates: No Known [...] to arms daily 237 mL 5 Sharps Enthone Solder Stripper Dispose of sharps 1 Each 3 Polyethylene [...] the skin once weekly. 6 mL 0 No current facility-administered medications for this visit. Social History Socioeconomic History Marital status: Single Tobacco Use Smoking status: Never Smokeless tobacco: [...] Back Care No Exercise Yes Comment: walks Seat Belt Yes Self-Exams No Social Needs Food Insecurity: No Food Insecurity (08/10/2022) Hunger Vital Sign Worried About Running Out of Food in the Last Year: Never true Ran Out of Food in the Last Year: Never true Family History Adopted: Yes Past Medical History: Diagnosis Date Esophagitis, unspecified General counseling for initiation of other contraceptive measures Mild intellectual disabilities Other specified acquired hypothyroidism Panic disorder Persistent insomnia 04/06/2022 Tuberculin test reaction ROS: Constitional: No change in weight, No weakness, No fatigue, and No fevers, sweats, or chills Skin: No edema, No rash, and No itching Psychiatric: No depression, No anxiety, and No psychosis Xray: I personally reviewed the xrays. Reviewed the x-rays of the left shoulder from 03/25/2024. The x-rays of the left shoulder show evidence of end-stage degenerative arthritis of the glenohumeral joint. Patient is where he is noted to be concentric. There is evidence of a posterior loose body. Large inferior humeral head osteophyte is noted. Significant loss of glenohumeral joint space with flattening of the humeral head is noted. No evidence of proximal humeral head migration. We reviewed the x-rays of the right hip from 03/25/2024. Those x-rays show evidence of end-stage degenerative changes to the right hip. 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 PHYSICAL EXAM: General: generally well-nourished and in no acute distress HEENT: normocephalic, atraumatic, EOMI, sclera anicteric. Psych: mood and affect normal , cooperative Card: Peripheral pulses: normal in affected extremity (s) Resp: equal chest rise, non-tachypneic, non-labored breathing Skin: no rash, normal Neuro: Coordination: normal; Sensation: normal on affected extremity (s) Skin: normal. C-Spine evaluation: Does patient have neck symptoms and/or numbness/tingling in upper extremities: no Inspection: bilateral and symmetrical without apparent abnormality Shoulder ROM: ABD (170') - Right - 120 degrees Left - 100 degrees ER (40') - Bilateral and equal Passive ER -Bilateral and equal FF (180') - Right - 120 degrees Left - 110 degrees Scapular elevation with forward flexion:negativeBilateral Tenderness/Location: no Instability Testing: Shoulder instability testing: not examined negative scapular winging negative scapular dyskinesis Strength: ABD: Right - 5/5 Left - 5/5 ER: Right - 5/5 Left - 5/5 IR: Right - 5/5 Left - 5/5 Biceps: Right - 5/5 Left - 5/5 "Empty can": Right - 5/5 Left - 5/5 Neurovascular assessment: negative for deficit Neck ROM: Extension 10 Flexion to the chest Spurlings test: Right negative Left negative Lateral bending and rotation pain: right negative left negative TTP: negative Ligamentous laxity testing: negative Bilateral Dave Sharma MD Orthopaedics [facility] [address] [place] [address] Orthopedic Sports Medicine Surgery 04/01/2024 10:29 AM This chart was completed in part utilizing [employer] Speech Voice Recognition Software. Grammatical errors, random word insertions, pronoun errors, and incomplete sentences are an occasional consequence of this system due to software limitations, ambient noise, and hardware issues. Any formal questions or concerns about the content, text, or information contained within the body of this dictation should be directly addressed to the provider for clarification. documented in this encounter Nursing Notes * Landen Queen CMA - 04/01/2024 9:59 AM EST Here for Today's visit regarding: Location of pain: L shoulder Injury: Chronic pain Recent Imaging: L shoulder xrays on 03/25/24 Prior treatment: Tylenol Prior Surgery: None Date of injury or symptoms started: about 4 weeks Goals for this appointment: Alleviate some of the pain in the L shoulder - Landen Pimentel CMA documented in this encounter Plan of Treatment Upcoming Encounters Date Type Department Care Team (Late st Contact Info) Description 04/01/2024 11:45 AM EST Imaging Radiology [facility] [address] [address] [address] Screening mammogram for breast cancer 04/07/2024 12:30 PM EST Office Visit Orthopaedics [facility] [address] [place] [address] Soraida Dubose MD [address] [address] [address] 04/16/2024 11:40 AM EST Office Visit Nutrition & Weight Management, [facility] [address] [address] Nati Mathur PA-C [address] [place] [address] 09/22/2024 10:20 AM EDT Office Visit Family Practice [facility] [place] [address] [facility] [place] [address] Ibis Everett PA-C [address] [facility] [place] [address] Scheduled Procedures Name Priority Associated Diagnoses Date/Ti me COLONOSCOPY FLEXIBLE PROXIMA L DIAGNOSTIC Recall Special screening for malignant neoplasms, colon Scheduled Referrals Name Type Priority Associated Diagnoses Orde r Schedule PHYSICAL THERAPY REFERRAL OP Referral Within 10 days (routine) Glenohumeral arthritis, left Ordered: 04/01/2024 SPORTS MEDICINE REFERRAL OP Referral Within 30 days (routine) Glenohumeral arthritis, left Ordered: 04/01/2024 Health Maintenance Due Date Last Done Comments Cologuard 01/14/2008 Fecal Occult Blood Test 01/14/2008 Sigmoidoscopy 01/14/2008 Zoster Vaccines (1 of 2) 2013 Depression Screening 03/02/2021 03/02/2020, 06/17/2014 (Discussed) TSH 01/11/2024 01/10/2023, 12/2021, 06/17/2020, Additional history exists Mammogram 03/27/2024 03/27/2023, 03/09, 03/27/2022, Additional history exists Colonoscopy 06/29/2024 06/29/2014, 06/29/2014 Colorectal Cancer Screening 06/29/2024 HbA1c 09/05/2024 09/06/2023, 120 12/2021, 02/16/2021, Additional history exists Pap Smear [...] as of this encounter Visit Diagnoses Diagnosis Screening mammogram for breast cancer Glenohumeral arthritis, left- Primary Arthritis of right hip Primary osteoarthritis of right knee Primary localized osteoarthrosis, lower leg Morbid obesity due to excess calories (HCC) Prediabetes Other abnormal glucose Mild intellectual disability Mild intellectual disabilities documented in this encounter Care Teams Roasterman Relationship Specialty Start Date End Date Marguerite July NADJA [address] [place] [address] PCP - General Physician Sales Agent Business Services 10/17/23 documented as of this encounter
--- OUTSIDE RECORDS SUMMARY | 2024-06-18 15:44 | External Medical Summary | Summary of Care ---
Author Name Unknown Organization [facility] Address [address] [place] [address] Phone [phone] Care Team Providers Care Automobile Taillight Assembler Name Role Phone Ibis Everett PAToni Primary Care Provider [phone] Reason for Visit * Reason Onset Date Comments Advice 01/23/2024 Encounter Details Date Type Department Care Team (Late st Contact Info) Description 01/23/2024 Telephone Nutrition & Weight Management, [facility] [address] [place] [address] Nati Mathur PA-C [address] [place] [address] Advice Allergies No known active allergiesdocumented as of this encounter (statuses as of 01/25/2024) Medications Medication Sig Dispensed Refills Start Date End Date Status QUEtiapine Fumarate 50 MG Oral Tablet Take 1.5 Tablets by mouth at bedtime. Total of 75mg 07/15/2015 Active Pediatric Multiple Vit-C-FA (MULTIVITAMIN CHILDRENS) CHEW Take by mouth daily. Active Venlafaxine HCl ER 150 MG Oral Capsule Extended Release 24 Hour (Effexor XR) 1 Capsule. 02/16/2021 Active Mucinex DM 30-600 MG Oral Tablet Extended Release 12 Hour Take by mouth 1 Tablet 2 times a day as needed for Congestion or Cough. Take with plenty of water. Do not cut, crush or chew 40 Tablet 2 05/26/2021 Active traZODone HCl 150 MG Oral Tablet (Desyrel)Indicatio ns:Persistent insomnia Take by mouth 1 Tablet before bedtime. To be taken at 8 -9 pm. 30 Tablet 11 07/14/2021 Active Omeprazole 20 MG Oral Capsule Delayed Release (PriLOSEC)Indicati ons:Esophagitis TAKE 2 CAPSULES (40MG) BY MOUTH 30 MINUTES BEFORE EVENING MEAL FOR STOMACH 56 Capsule 11 09/29/2021 Active Divalproex Sodium 500 MG Oral Tablet Delayed Release (Depakote DR) TAKE 1 TABLET BY MOUTH EVERY MORNING AND TAKE 2 TABLETS BY MOUTH AT BEDTIME 100 Tablet 06/18/2023 Active Additional Information Patient taking differently: 1,000 mg BID (.AM/PM), TAKE 2 TABLET BY MOUTH EVERY MORNING AND TAKE 2 TABLETS BY MOUTH AT BEDTIME, Reported on 01/02/2024 Allergy Relief (Loratadine) 10 MG Oral Tablet (Loratadine)Indica tions:Allergic rhinitis TAKE ONE TABLET BY MOUTH DAILY. *SEASONAL ALLERGIES* 28 Tablet 08/16/2023 Active Levothyroxine Sodium 25 MCG Oral Tablet (Levoxyl)Indicatio ns:Hypothyroidism TAKE ONE TABLET BY MOUTH ONCE DAILY IN THE MORNING FOR HYPOTHYROIDISM 28 Tablet 08/16/2023 Active Meloxicam 15 MG Oral Tablet (Mobic) TAKE ONE TABLET BY MOUTH ONCE DAILY TO REDUCE SWELLING DUE TO OA 28 Tablet 08/16/2023 Active hydroCHLOROthiazid e 25 MG Oral Tablet (Hydrodiuril) TAKE ONE TABLET BY MOUTH ONCE DAILY IN THE MORNING TO REDUCE FLUID RETENTION/SWELLING DUE TO OA 28 Tablet 08/16/2023 Active Acetaminophen ER 650 MG Oral Tablet Extended Release (Arthritis Pain Relief) TAKE 2 TABLETS (1300MG) BY MOUTH TWICE DAILY TO REDUCE PAIN AND SWELLING DUE TO OA 112 Tablet 09/06/2023 Active CeraVe Baby Moisturizing External LotionIndications: Eczema, unspecified type Apply topically to affected area daily. Apply to arms 237 mL 10/15/2023 Active CeraVe Daily Moisturizing External Lotion Apply to arms daily 237 mL 10/16/2023 Active Sharps Brake Holder Dispose of sharps 1 Each 3 11/07/2023 Active Docusate Sodium 100 MG Oral Capsule (Colace) TAKE 1 CAPSULES BY MOUTH TWICE DAILY *CONSTIPATION* 60 Capsule 4 11/07/2023 Active Polyethylene Glycol 3350 17 GM Oral Packet (Miralax) Take 1 Packet by mouth in the morning. 30 Each 5 01/02/2024 Active Wegovy 0.25 MG/0.5ML Subcutaneous Solution Auto-injector (Semaglutide-Weigh t Management)Indicat ions:Class 2 severe obesity due to excess calories with serious comorbidity and body mass index (BMI) of 39.0 to 39.9 in adult ([facility]) Inject 0.25 mg under the skin once a week. 2 mL 5 01/02/2024 Active documented as of this encounter (statuses as of 01/25/2024) Active Problems Problem Noted Date Diagnosed Date Persistent insomnia 04/06/2022 Pneumonia of both lungs due to infectious organi sm 03/15/2021 Prediabetes 04/22/2018 Overview: Per Prediabetes protocol #1 Morbid obesity due to excess calories 03/25/2018 Generalized osteoarthritis of multiple sites Uterine leiomyoma 07/25/2017 Conductive hearing loss of both ears 08/22/2016 Hypothyroidism 03/15/2009 Other chronic allergic conjunctivitis 04/16/2007 ADVANCE DIRECTIVE INFORMATION 12/14/2004 Overview: pt unable to understand due to Mental Retardation Esophagitis 01/28/2002 Overview: ICD-10 update of inactive term Panic disorder 01/28/2002 Mild intellectual disability Overview: ICD-10 update of inactive term documented as of this encounter (statuses as of 01/25/2024) Resolved Problems Problem Noted Date Diagnosed Date Resolved Date Body mass index (BMI) of 40. 0 to 44.9 in adult 06/19/2017 11/29/2017 Overview: Per Obesity protocol #1 Impacted cerumen of left ear 08/22/2016 05/07/2017 Intellectual disability 10/07 Overview: ICD-10 update of inactive term Hearing loss 10/19/2017 INITIATE CONTRACEPT NEC 04/10 documented as of this encounter (statuses as of 01/25/2024) Immunizations Name Administration Dates Next Due COVID-19 [...] Influenza, Quadriva lent, No Preserve, IM 01/29/2015 TD - Tetanus/Diptheria (ADULT) 04/28/1994 TD, Preservative Free 03/14/2005 TDAP (age 10 and older)(Boostrix) 08/13/2013 documented as of this encounter Social History [...] money to get more. Never true 08/10/2022 Utilities Answer Date Recorded Do you have trouble paying y our heating, water, or electric bill? (Adult - for ages 18 years and over) Not on file 09/25/2023 Is your family able to pay t he heat, water, or electric bill? (Household - for ages 0-17 years) Not on file 09/25/2023 Does your family have access to good internet? (Household - for ages 0-17 years) Not on file 09/25/2023 Social Connections Answer Date Recorded How often do you feel lonely or isolated from those around you? (Adult - for ages 18 years and over) Not on file 09/25/2023 Sex and Gender Information Value Date Recorded Sex Assigned at Female 04/05/2022 4:51 PM EST Gender Identity Female 04/05/2022 4:51 PM EST Sexual Orientation Choose not to disclose 2021 4:51 PM EST Job Start Date Occupation Industry Not on file Not on file Not on file documented as of this encounter Miscellaneous Notes * Telephone Encounter - Siva Abad OSA - 01/23/2024 4:04 PM EDT Called in regarding Catherine being on backorder at pharmacy a couple ,months out is wondering if theycan be prescribed something else or if a new plan can be devised regarding health plan or should patient scheduled an appointment. Patient has been out of medication for two weeks. documented in this encounter Plan of Treatment Upcoming Encounters Date Type Department Care Team (Late st Contact Info) Description 04/16/2024 11:40 AM EST Office Visit Nutrition & Weight Management, [facility] [address] [address] Nati Mathur PA-C [address] [address] 04/17/2024 11:20 AM EST Office Visit Family Practice [employer] [address] [place] [address] Ibis Everett PA-C [address] [facility] [place] [address] Scheduled Procedures Name Priority Associated Diagnoses Date/Ti me COLONOSCOPY FLEXIBLE PROXIMA L DIAGNOSTIC Recall Special screening for malignant neoplasms, colon Health Maintenance Due Date Last Done Comments Cologuard 01/14/2008 Fecal Occult Blood Test 01/14/2008 Sigmoidoscopy 01/14/2008 Zoster Vaccines (1 of 2) 2013 Depression Screening 03/02/2021 03/02/2020, 06/17/2014 (Discussed) DTap/Tdap Vaccines (2 - Td or Tdap) 08/14/2023 08/13/2013, 03/14/2005, 04/28/1994 COVID-19 Vaccine (3 - season) 2023 06/20/2020, 05/23/2020 Influenza Vaccine (FLU shot) (#1) 2023 04/12/2023, 04/06/2022, 02/26/2020, Additional history exists B-12 01/11/2024 01/10/2023, 02/07, 12/04/2018 TSH 01/11/2024 01/10/2023, 0612/2021, 06/17/2020, Additional history exists Mammogram 03/27/2024 03/27/2023, 03/09, 03/27/2022, Additional history exists Colonoscopy 06/29/2024 06/29/2014, 06/29/2014 Colorectal Cancer Screening 06/29/2024 HbA1c 09/05/2024 09/06/2023, 12/0 12/2021, 02/16/2021, Additional history exists Pap Smear 06/17/2026 06/18/2023, 06/07, 01/27/2019, Additional history exists Cervical Cancer Screening 06/17/2028 HPV/Co-Test 06/17/2028 06/18/2023 Lipid Panel 09/05/2028 09/06/2023, 12/0 12/2021, 02/26/2020, Additional history exists Hepatitis B Vaccine Completed 11/27/1991, 06/12/1991, 05/14/1991 Pneumococcal Vaccine: Pediatrics (0 to 5 Years) and At-Risk Patients (6 to 64 Years) Aged Out 04/15/2019 No longer eligible based on patient's age to complete this topic HPV (Gardasil) Vaccine Aged Out No lo nger eligible based on patient's age to complete this topic MENINGOCOCCAL (MENACTRA/MENVEO) Aged Out No longer eligible based on patient's age to complete this topic documented as of this encounter Medical Devices Not on filedocumented as of this encounter Care Teams Automobile Taillight Assembler Relationship Specialty Start Date End Date Marguerite July NADJA Benz [address] [place] [address] PCP - General Physician Control Tower Radio Operator 10/17/23 documented as of this encounter
--- OUTSIDE RECORDS SUMMARY | 2024-06-18 15:44 | External Medical Summary | Summary of Care ---
Author Name Unknown Organization [facility] Address [address] [place] [address] Phone [phone] Care Team Providers Care Collection Administrator Name Role Phone Ibis Everett PA-C Primary Care Provider [phone] Encounter Details Date Type Department Care Team (Late Contact Info) Description 03/21/2024 Documentation General Internal Medicine [address] [place] [address] SharpeSuyapa watson Thi, DO [address] [place] [address] Allergies No known active allergiesdocumented as of this encounter (statuses as of 03/21/2024) Medications QUEtiapine Fumarate 50 MG Oral Tablet [...] 237 mL 5 10/16/19 24 Active Sharps Clinical Support Tech Dispose of sharps 1 Each 3 11/07/19 24 Active Polyethylene Glycol 3350 17 GM Oral Packet (Miralax) Take 1 Packet by mouth in the morning. 30 Each 5 01/02/20 24 Active Zepbound 2.5 MG/0.5ML Subcutaneous Solution [facility]or ([facility]) Inject 2.5 mg (1 pen) under the skin once a week. 2 mL 2 4 9:17 AM EST 01/28/20 24 Active Loratadine 10 MG Oral Tablet [...] not achieved. 2 Tablet 03/20/20 24 Active documented as of this encounter (statuses as of 03/21/2024) Active Problems Problem Noted Date Diagnosed Date [...] as of this encounter (statuses as of 03/21/2024) Resolved Problems Problem Noted Date Diagnosed Date [...] as of this encounter (statuses as of 03/21/2024) Immunizations Name Administration Dates Next Due COVID-19 [...] 04/01/2024 10:00 AM EST Office Visit Orthopaedics [facility] [address] [address] Dave Sharma MD [address] [phone] 04/01/2024 11:45 AM EST Imaging Radiology [facility] 1st Floor, [place] [address] [address] 04/16/2024 11:40 AM EST Office Visit Nutrition & Weight Management, [facility] [address] [address] Nati Mathur PA-C [address] [address] 09/22/2024 10:20 AM EDT Office Visit Family Practice [facility] [place] [address] [place] [address] Ibis Everett PA-C [address] [facility] [place] [address] Scheduled Procedures Name Priority Associated Diagnoses Date/Ti [...] filedocumented as of this encounter Care Teams Collection Administrator Relationship Specialty Start Date End Date Marguerite July NADJA Benz [address] [place] [address] PCP - General Physician Curling Machine Operator 10/17/23 documented as of this encounter
--- OUTSIDE RECORDS SUMMARY | 2024-06-18 15:44 | External Medical Summary | Summary of Care ---
Author Name Unknown Organization [facility] Address [address] [place] [address] Phone [phone] Care Team Providers Care Head Cd Reactor Operator Name Role Phone Ibis Everett PA-C Primary Care Provider [phone] Encounter Details Date Type Department Care Team (Late Contact Info) Description 03/23/2024 Documentation General Internal Medicine [address] [place] [address] SharpeSuyapa watson Thi, DO [address] [place] [address] Allergies No known active allergiesdocumented as of this encounter (statuses as of 03/23/2024) Medications QUEtiapine Fumarate 50 MG Oral Tablet [...] 237 mL 5 10/16/19 24 Active Sharps Brand Director Dispose of sharps 1 Each 3 11/07/19 24 Active Polyethylene Glycol 3350 17 GM Oral Packet (Miralax) Take 1 Packet by mouth in the morning. 30 Each 5 01/02/20 24 Active Zepbound 2.5 MG/0.5ML Subcutaneous Solution [facility]injector ([facility]) Inject 2.5 mg (1 pen) under [...] as of this encounter (statuses as of 03/23/2024) Active Problems Problem Noted Date Diagnosed Date [...] as of this encounter (statuses as of 03/23/2024) Resolved Problems Problem Noted Date Diagnosed Date [...] as of this encounter (statuses as of 03/23/2024) Immunizations Name Administration Dates Next Due COVID-19 [...] 04/01/2024 10:00 AM EST Office Visit Orthopaedics [facility] [address] [address] Dave Sharam MD [address] [phone] 04/01/2024 11:45 AM EST Imaging Radiology [facility] 1st Floor, [place] [address] [address] 04/16/2024 11:40 AM EST Office Visit Nutrition & Weight Management, [facility] [address] [address] Nati Mathur PA-C [address] [address] 09/22/2024 10:20 AM EDT Office Visit Family Practice [facility] [place] [address] [place] [address] Ibis Everett PA-C [address] [facility] [place] [address] Scheduled Procedures Name Priority Associated Diagnoses Date/Ti [...] filedocumented as of this encounter Care Teams Head Cd Reactor Operator Relationship Specialty Start Date End Date Marguerite July NADJA Benz [address] [place] [address] PCP - General Physician Metal Mover 10/17/23 documented as of this encounter
--- OUTSIDE RECORDS SUMMARY | 2024-06-18 15:44 | External Medical Summary | Summary of Care ---
Author Name Unknown Organization [facility] Address [address] [place] [address] Phone [phone] Care Team Providers Care Steerer Name Role Phone Ibis Everett PAToni Primary Care Provider [phone] Reason for Visit * Reason Onset Date Comments Advice 01/23/2024 Encounter Details Date Type Department Care Team (Late st Contact Info) Description 01/23/2024 Telephone Nutrition & Weight Management, [facility] [address] [place] [address] Nati Mathur PA-C [address] [place] [address] Advice Allergies No known active allergiesdocumented as of this encounter (statuses as of 01/28/2024) Medications Medication Sig Dispensed Refills Start Date [...] arms daily 237 mL 10/16/2023 Active Sharps Clarity Specialists Dispose of sharps 1 Each 3 11/07/2023 [...] (BMI) of 39.0 to 39.9 in adult ([facility]) Inject 0.25 mg under the skin once a week. 2 mL 5 01/02/2024 Active documented as of this encounter (statuses as of 01/28/2024) Active Problems Problem Noted Date Diagnosed Date [...] as of this encounter (statuses as of 01/28/2024) Resolved Problems Problem Noted Date Diagnosed Date Resolved Date Body mass index (BMI) of 40. 0 to 44.9 in adult 06/19/2017 11/29/2017 Overview: Per Obesity protocol #1 Impacted cerumen of left ear 08/22/2016 05/07/2017 Intellectual disability 10/07 Overview: ICD-10 update of inactive term Hearing loss 10/19/2017 INITIATE CONTRACEPT NEC 04/10 documented as of this encounter (statuses as of 01/28/2024) Immunizations Name Administration Dates Next Due COVID-19 [...] encounter Miscellaneous Notes * Telephone Encounter - Dona Rivas tail trimmer - 01/28/2024 8:37 AM EDT Patient caregiver calling again regarding previous message. Please advise. Thank you, Dona Rivas Guinea Pig Breeder [facility] 01/28/2024,8:37 AM * Telephone Encounter - Siva Abad OSA - 01/23/2024 4:04 PM EDT Called in regarding Wegovy being on backorder at pharmacy a couple [...] EST Office Visit Nutrition & Weight Management, [facility] [address] [place] [address] Nati Mathur PA-C [address] [place] [address] 04/17/2024 11:20 AM EST Office Visit Family Practice [facility] [address] [facility] [place] [address] Ibis Everett PA-C [address] [facility] [place] [address] Scheduled Procedures Name Priority Associated Diagnoses Date/Ti [...] 01/11/2024 01/10/2023, 02/07, 12/04/2018 TSH 01/11/2024 01/10/2023, 06/12/2021, 06/17/2020, Additional history exists Mammogram 03/27/2024 03/27/2023, 03/09, 03/27/2022, Additional history exists Colonoscopy 06/29/2024 06/29/2014, 06/29/2014 Colorectal Cancer Screening 06/29/2024 HbA1c 09/05/2024 09/06/2023, 120 12/2021, 02/16/2021, Additional history exists Pap Smear 06/17/2026 06/18/2023, 06/07, 01/27/2019, Additional history exists Cervical Cancer Screening 06/17/2028 HPV/Co-Test 06/17/2028 06/18/2023 Lipid Panel 09/05/2028 09/06/2023, 12/2021, 02/26/2020, Additional history exists Hepatitis B [...] filedocumented as of this encounter Care Teams Steerer Relationship Specialty Start Date End Date Marguerite July NADJA Benz [address] [place] [address] PCP - General Physician Custody Officer 10/17/23 documented as of this encounter
--- OUTSIDE RECORDS SUMMARY | 2024-06-18 15:44 | External Medical Summary | Summary of Care ---
Author Name Unknown Organization [facility] Address [address] [place] [address] Phone [phone] Care Team Providers Care Fishing Rod Assembler Name Role Phone Ibis Everett PA-C Primary Care Provider [phone] Encounter Details Date Type Department Care Team (Late Contact Info) Description 03/20/2024 Documentation General Internal Medicine [address] [place] [address] SharpeSuyapa watson Thi, DO [address] [place] [address] Allergies No known active allergiesdocumented as of this encounter (statuses as of 03/20/2024) Medications QUEtiapine Fumarate 50 MG Oral Tablet [...] MOUTH AT BEDTIME, Reported on 01/02/2024 CeraVe Baby Moisturizing External LotionIndication s:Eczema, unspecified type Apply topically to affected area daily. Apply to arms 237 mL 10/15/19 24 Active CeraVe Daily Moisturizing External Lotion Apply to arms daily 237 mL 10/16/19 24 Active Sharps Peanut Sorter Dispose of sharps 1 Each 3 11/07/19 24 Active Docusate Sodium 100 MG Oral Capsule (Colace) TAKE 1 CAPSULES BY MOUTH TWICE DAILY *CONSTIPATION* 60 Capsule 4 11/07/19 24 Active Polyethylene Glycol 3350 17 GM Oral Packet (Miralax) Take 1 Packet by mouth in the morning. 30 Each 01/02/20 24 Active Zepbound 2.5 MG/0.5ML Subcutaneous Solution [facility] ([facility]) Inject 2.5 mg (1 pen) under [...] HYPOTHYROIDISM 28 Tablet 2 02/06/20 24 Active Meloxicam 15 MG Oral Tablet (Mobic) TAKE ONE TABLET BY MOUTH ONCE DAILY TO REDUCE SWELLING DUE TO OA 28 Tablet 2 02/06/20 24 Active hydroCHLOROthiaz [...] OA 112 Tablet 4 02/25/20 24 Active documented as of this encounter (statuses as of 03/20/2024) Active Problems Problem Noted Date Diagnosed Date [...] as of this encounter (statuses as of 03/20/2024) Resolved Problems Problem Noted Date Diagnosed Date [...] as of this encounter (statuses as of 03/20/2024) Immunizations Name Administration Dates Next Due COVID-19 mRNA, LNP-s, No Pre serve, 2-Dose Series (Moderna) 06/20/2020,05/23/2020 H1N1 2009 Influenza, IM 02/07/2009 PPD 04/15/2019, 8,07/19/2015,04/09,03/22/2011,03/24/2009,03/15/20 09 03/26/2009 Pneumococcal Polysaccharide PPV23 (Pneumovax) 04/15/2019 Seasonal Influenza Vac., MDV , IM, 0.5 mL (Fluzone) 01/29/2014,02/07/2013,01/24/2012,03/09,02/02/2010,03/15/2009,02/18/20 08,02/26/2007 Seasonal Influenza, PF, 6 M & above, IM , (FluLaval or Fluzone) 04/12/2023,04/06/2022,02/26/2020,01/08,02/01/2018,03/13/2017 Seasonal Influenza, Quadriva lent, No Preserve, IM 01/29/2015 TDAP (age 10 and older)(Boostrix) 08/13/2013 documented [...] Care Team (Late st Contact Info) Description 03/20/2024 11:00 AM EST Office Visit [facility] [address] [place] [address] Ibis Everett PA-C [address] [place] [address] 04/14/2024 11:15 AM EST Imaging Radiology [facility] 1st Floor, [place] [address] [facility] [place] [address] 04/16/2024 11:40 AM EST Office Visit Nutrition & Weight Management, [facility] [address] [facility] [place] [address] Nati Mathur PA-C [address] [place] [address] 04/17/2024 11:20 AM EST Office Visit [facility] [address] [place] [address] Ibis Everett PA-C [address] [facility] [place] [address] Scheduled Procedures Name Priority Associated Diagnoses Date/Ti [...] 01/11/2024 01/10/2023, 02/07, 12/04/2018 TSH 01/11/2024 01/10/2023, 060 12/2021, 06/17/2020, Additional history exists Mammogram 03/27/2024 03/27/2023, 03/09, 03/27/2022, Additional history exists Colonoscopy 06/29/2024 06/29/2014, 06/29/2014 Colorectal Cancer Screening 06/29/2024 HbA1c 09/05/2024 09/06/2023, 1212/2021, 02/16/2021, Additional history exists Pap Smear 06/17/2026 06/18/2023, 06/07, 01/27/2019, Additional history exists Cervical Cancer Screening 06/17/2028 HPV/Co-Test 06/17/2028 06/18/2023 Lipid Panel 09/05/2028 09/06/2023, 120 12/2021, 02/26/2020, Additional history exists Hepatitis B [...] filedocumented as of this encounter Care Teams Fishing Rod Assembler Relationship Specialty Start Date End Date MargueriteJuly NADJA Benz [facility] [address] [place] [address] PCP - General Physician Business Systems Consultant 10/17/23 documented as of this encounter
--- OUTSIDE RECORDS SUMMARY | 2024-06-18 15:44 | External Medical Summary | Summary of Care ---
Author Name Unknown Organization [facility] Address [address] [address] Phone [phone] Care Team Providers Care Division Chair Name Role Phone Ibis Everett NADJA Primary Care Provider [phone] Reason for Visit * Reason Comments eRx-Medication Refill Encounter Details Date Type Department Care Team (Late st Contact Info) Description 02/05/2024 Refill Family Practice [facility] [address] [place] [address] Ashok Marie III, MD [address] [place] [address] Allergic rhinitis; Hypothyroidism; Encounter for long-term (current) use of medications Allergies No known active allergiesdocumented as of this encounter (statuses as of 02/08/2024) Medications Medication Sig Dispensed Refills Start Date End Date Status QUEtiapine Fumarate 50 MG Oral Tablet Take 1.5 Tablets by mouth at bedtime. Total of 75mg 6 Active Pediatric Multiple Vit-C-FA (MULTIVITAMIN CHILDRENS) CHEW Take by mouth daily. Active Venlafaxine HCl ER 150 MG Oral Capsule Extended Release 24 Hour (Effexor XR) 1 Capsule. 1 Active Mucinex DM 30-600 MG Oral Tablet Extended Release 12 Hour Take by mouth 1 Tablet 2 times a day as needed for Congestion or Cough. Take with plenty of water. Do not cut, crush or chew 40 Tablet 2 2 Active traZODone HCl 150 MG Oral Tablet (Desyrel)Indicat ions:Persistent insomnia Take by mouth 1 Tablet before bedtime. To be taken at 8 -9 pm. 30 Tablet 11 2 Active Omeprazole 20 MG Oral Capsule Delayed Release (PriLOSEC)Indica tions:Esophagiti s TAKE 2 CAPSULES (40MG) BY MOUTH 30 MINUTES BEFORE EVENING MEAL FOR STOMACH 56 Capsule 11 2 Active Divalproex Sodium 500 MG Oral Tablet Delayed Release (Depakote DR) TAKE 1 TABLET BY MOUTH EVERY MORNING AND TAKE 2 TABLETS BY MOUTH AT BEDTIME 100 Tablet 5 4 Active Additional Information Patient taking differently: 1,000 mg BID (.AM/PM), TAKE 2 TABLET BY MOUTH EVERY MORNING AND TAKE 2 TABLETS BY MOUTH AT BEDTIME, Reported on 01/02/2024 Acetaminophen ER 650 MG Oral Tablet Extended Release (Arthritis Pain Relief) TAKE 2 TABLETS (1300MG) BY MOUTH TWICE DAILY TO REDUCE PAIN AND SWELLING DUE TO OA 112 Tablet 4 4 Active CeraVe Baby Moisturizing External LotionIndication s:Eczema, unspecified type Apply topically to affected area daily. Apply to arms 237 mL 5 4 Active CeraVe Daily Moisturizing External Lotion Apply to arms daily 237 mL 5 4 Active Sharps [employer] Dispose of sharps 1 Each 3 4 Active Docusate Sodium 100 MG Oral Capsule (Colace) TAKE 1 CAPSULES BY MOUTH TWICE DAILY *CONSTIPATION* 60 Capsule 4 4 Active Polyethylene Glycol 3350 17 GM Oral Packet (Miralax) Take 1 Packet by mouth in the morning. 30 Each 5 4 Active Zepbound 2.5 MG/0.5ML Subcutaneous Solution [facility] Inject 2.5 mg (1 pen) under the skin once a week. 2 mL 2 4 Active Loratadine 10 MG Oral Tablet (Claritin)Indica tions:Allergic rhinitis TAKE ONE TABLET BY MOUTH DAILY. *SEASONAL ALLERGIES* 28 Tablet 5 4 Active Levothyroxine Sodium 25 MCG Oral Tablet (Levoxyl)Indicat ions:Hypothyroid ism TAKE ONE TABLET BY MOUTH ONCE DAILY IN THE MORNING FOR HYPOTHYROIDISM 28 Tablet 2 4 Active Meloxicam 15 MG Oral Tablet (Mobic) TAKE ONE TABLET BY MOUTH ONCE DAILY TO REDUCE SWELLING DUE TO OA 28 Tablet 2 4 Active hydroCHLOROthiaz terrell 25 MG Oral Tablet (Hydrodiuril) TAKE ONE TABLET BY MOUTH ONCE DAILY IN THE MORNING TO REDUCE FLUID RETENTION/SWELLING DUE TO OA 28 Tablet 5 4 Active Allergy Relief (Loratadine) 10 MG Oral Tablet (Loratadine)Josephine cations:Allergic rhinitis TAKE ONE TABLET BY MOUTH DAILY. *SEASONAL ALLERGIES* 28 Tablet 5 4 02/06/20 24 Discontinued Levothyroxine Sodium 25 MCG Oral Tablet (Levoxyl)Indicat ions:Hypothyroid ism TAKE ONE TABLET BY MOUTH ONCE DAILY IN THE MORNING FOR HYPOTHYROIDISM 28 Tablet 5 4 02/06/20 24 Discontinued Meloxicam 15 MG Oral Tablet (Mobic) TAKE ONE TABLET BY MOUTH ONCE DAILY TO REDUCE SWELLING DUE TO OA 28 Tablet 5 4 02/06/20 24 Discontinued hydroCHLOROthiaz terrell 25 MG Oral Tablet (Hydrodiuril) TAKE ONE TABLET BY MOUTH ONCE DAILY IN THE MORNING TO REDUCE FLUID RETENTION/SWELLING DUE TO OA 28 Tablet 5 4 02/06/20 24 Discontinued documented as of this encounter (statuses as of 02/08/2024) Active Problems Problem Noted Date Diagnosed Date [...] as of this encounter (statuses as of 02/08/2024) Resolved Problems Problem Noted Date Diagnosed Date Resolved Date Body mass index (BMI) of 40. 0 to 44.9 in adult 06/19/2017 11/29/2017 Overview: Per Obesity protocol #1 Impacted cerumen of left ear 08/22/2016 05/07/2017 Intellectual disability 10/07 Overview: ICD-10 update of inactive term Hearing loss 10/19/2017 INITIATE CONTRACEPT NEC 04/10 documented as of this encounter (statuses as of 02/08/2024) Immunizations Name Administration Dates Next Due COVID-19 [...] * Telephone Encounter - Alaina Chappell - 02/08/2024 7:02 PM EDT Received message from [facility] regarding patient needing labs. Patient was notified. Successfully contacted patient and provided [facility] message. * Telephone Encounter - Tod Chaudhary [facility] - 02/06/2024 2:56 PM EDT Signed Prescriptions: Disp Refills Loratadine 10 MG Oral Tablet (Claritin) 28 Tab*5 Sig: TAKE ONE TABLET BY MOUTH DAILY. *SEASONAL ALLERGIES* Authorizing Provider: ASHOK MARIE III Ordering User: TOD CHAUDHARY Levothyroxine Sodium 25 MCG Oral Tablet (L*28 Tab*2 Sig: TAKE ONE TABLET BY MOUTH ONCE DAILY IN THE MORNING FOR HYPOTHYROIDISM Authorizing Prov yoana: ASHOK MARIE III Ordering User: TOD CHAUDHARY Meloxicam 15 MG Oral Tablet (Mobic) 28 Tab*2 Sig: TAKE ONE TABLET BY MOUTH ONCE DAILY TO REDUCE SWELLING DUE TO OA Authorizing Provider: ASHOK MARIE III Ordering User: TOD CHAUDHARY hydroCHLOROthiazide 25 MG Oral Tablet (Hyd*28 Tab*5 Sig: TAKE ONE TABLET BY MOUTH ONCE DAILY IN THE MORNING TO REDUCE FLUID RETENTION/SWELLING DUE TO OA Authorizing Provider: ASHOK MARIE III Ordering User: TOD CHAUDHARY * Telephone Encounter - Tod Chaudhary RPh - 02/06/2024 2:54 PM EDT Provided 28 days supply with 2 refill(s) until upcoming appointment. Per refill protocol patient should have TSH on file within past year. Reviewed AMP report, Care Gaps/Health Maintenance, medications list, and for any routine labs typically ordered for this patient. Lab orders placed. Please contact patient to advise of labs ordered for blood draw. Fasting is not required. Advise toobtain labs before requesting the next refill. Thanks, Tod Chaudhary, PharmD Clinical Pharmacist [facility] ([facility]) [phone] 02/06/2024, 2:55 PM documented in this encounter Plan of Treatment Upcoming Encounters Date Type Department Care Team (Late st Contact Info) Description 03/20/2024 11:00 AM EST Office Visit [facility] [place] [address] [place] [address] [address] Ibis Everett PA-C [address] [place] [address] [id number] 04/16/2024 11:40 AM EST Office Visit Nutrition & Weight Management, [facility] [address] [place] [address] Nati Mathur PA-C [address] [place] [phone] 04/17/2024 11:20 AM EST Office Visit Family Practice [facility] [address] [place] [address] Ibis Everett PA-C [address] [place] [address] Scheduled Orders Name Type Priority Associated Diagnoses Orde r Schedule TSH WITH FREE T4 IF INDICATED Lab Routine Hypothyroidism Encounter for long-term (current) use of medications Expected: 02/13/2024 (Approximate), Expires: 02/05/2025 VITAMIN B12 Lab Routine Encounter for long-term (current) use of medications Expected: 02/13/2024 (Approximate), Expires: 02/05/2025 ALT Lab Routine Encounter for long-term (current) use of medications Expected: 02/13/2024 (Approximate), Expires: 02/05/2025 AST Lab Routine Encounter for long-term (current) use of medications Expected: 02/13/2024 (Approximate), Expires: 02/05/2025 Scheduled Procedures Name Priority Associated Diagnoses Date/Ti [...] 09/05/2028 09/06/2023, 1212/2021, 02/26/2020, Additional history exists Hepatitis B Vaccine [...] as of this encounter Visit Diagnoses Diagnosis Allergic rhinitis Allergic rhinitis, cause unspecified Hypothyroidism Unspecified hypothyroidism Encounter for long-term (current) use of medications Encounter for long-term (current) use of other medications documented in this encounter Care Teams Division Chair Relationship Specialty Start Date End Date Marguerite July NADJA [address] [place] [address] PCP - General Physician Storehouse Clerk 10/17/23 documented as of this encounter
--- OUTSIDE RECORDS SUMMARY | 2024-06-18 15:44 | External Medical Summary | Summary of Care ---
Author Name Unknown Organization [facility] Address [address] [place] [address] Phone [phone] Care Team Providers Care [place] [employer] Name Role Phone Ibis Everett PAToni Primary Care Provider [phone] Reason for Visit * Reason Onset Date Comments Advice 01/23/2024 Encounter Details Date Type Department Care Team (Late st Contact Info) Description 01/23/2024 Telephone Nutrition & Weight Management, [facility] [address] [place] [address] Nati Mathur PA-C [address] [place] [address] Advice Allergies No known active allergiesdocumented as of this encounter (statuses as of 01/30/2024) Medications Medication Sig Dispensed Refills Start Date [...] BEFORE EVENING MEAL FOR STOMACH 56 Capsule 09/29/2021 Active Divalproex Sodium 500 MG Oral [...] Allergy Relief (Loratadine) 10 MG Oral Tablet (Loratadine)Indic ations:Allergic rhinitis TAKE ONE TABLET BY MOUTH DAILY. *SEASONAL ALLERGIES* 28 Tablet 08/16/2023 Active Levothyroxine Sodium 25 MCG Oral Tablet (Levoxyl)Indicati ons:Hypothyroidis m TAKE ONE TABLET BY MOUTH ONCE DAILY IN THE MORNING FOR HYPOTHYROIDISM 28 Tablet 08/16/2023 Active Meloxicam 15 MG Oral Tablet (Mobic) TAKE ONE TABLET BY MOUTH ONCE DAILY TO REDUCE SWELLING DUE TO OA 28 Tablet 08/16/2023 Active hydroCHLOROthiazi de 25 MG Oral Tablet (Hydrodiuril) TAKE ONE TABLET BY MOUTH ONCE DAILY IN THE MORNING TO REDUCE FLUID RETENTION/SWELLING DUE TO OA 28 Tablet 08/16/2023 Active Acetaminophen ER 650 MG Oral Tablet Extended Release (Arthritis Pain Relief) TAKE 2 TABLETS (1300MG) BY MOUTH TWICE DAILY TO REDUCE PAIN AND SWELLING DUE TO OA 112 Tablet 4 09/06/2023 Active CeraVe Baby Moisturizing External LotionIndications :Eczema, unspecified type Apply topically to affected area daily. Apply to arms 237 mL 10/15/2023 Active CeraVe Daily Moisturizing External Lotion Apply to arms daily 237 mL 10/16/2023 Active Sharps Sales Performance Manager Dispose of sharps 1 Each 3 11/07/2023 Active Docusate Sodium 100 MG Oral Capsule (Colace) TAKE 1 CAPSULES BY MOUTH TWICE DAILY *CONSTIPATION* 60 Capsule 4 11/07/2023 Active Polyethylene Glycol 3350 17 GM Oral Packet (Miralax) Take 1 Packet by mouth in the morning. 30 Each 5 01/02/2024 Active Zepbound 2.5 MG/0.5ML Subcutaneous Solution Auto-injector (Tirzepatide[facility]) Inject 2.5 mg (1 pen) under the skin once a week. 2 mL 2 01/28/2024 Active Wegovy 0.25 MG/0.5ML Subcutaneous Solution Auto-injector (Semaglutide-[facility])Indica tions:Class 2 severe obesity due to excess calories with serious comorbidity and body mass index (BMI) of 39.0 to 39.9 in adult ([facility]) Inject 0.25 mg under the skin once a week. 2 mL 5 01/02/2024 01/28/20 24 Discontinu ed(Medicat ion List Clean Up) documented as of this encounter (statuses as of 01/30/2024) Active Problems Problem Noted Date Diagnosed Date [...] as of this encounter (statuses as of 01/30/2024) Resolved Problems Problem Noted Date Diagnosed Date Resolved Date Body mass index (BMI) of 40. 0 to 44.9 in adult 06/19/2017 11/29/2017 Overview: Per Obesity protocol #1 Impacted cerumen of left ear 08/22/2016 05/07/2017 Intellectual disability 10/07 Overview: ICD-10 update of inactive term Hearing loss 10/19/2017 INITIATE CONTRACEPT NEC 04/10 documented as of this encounter (statuses as of 01/30/2024) Immunizations Name Administration Dates Next Due COVID-19 [...] Telephone Encounter - Hi Anderson LPN - 01/30/2024 12:48 PM EDT Auth denied * Addendum Note - Nati Mathur PA-C - 01/28/2024 11:28 AM EDTAddended by: NATI MATHUR on: 01/28/2024 11:28 AM Modules accepted: Orders * Telephone Encounter - Nati Mathur PA-C - 01/28/2024 11:27 AM EDT Will switch to zepbound - needs new PA Please call caregiver. Will switch to Zepbound IN PLACE of Wegovy. Side effect profile is similar * Telephone Encounter - Dona Rivas PHARM Tech - 01/28/2024 8:37 AM EDT Patient caregiver calling again regarding previous message. Please advise. Thank you, Dona Rivas Donor Services Coordinator I [facility]) 01/28/2024,8:37 [...] EST Office Visit Nutrition & Weight Management, [facility] [address] [address] Nati Mathur PA-C [address] [place] [address] 04/17/2024 11:20 AM EST Office Visit Family [facility] [address] [place] [address] Ibis Everett PA-C [address] [facility] [place] [address] Scheduled Procedures Name Priority Associated Diagnoses Date/Ti [...] filedocumented as of this encounter Care Teams [place] Relationship Specialty Start Date End Date Marguerite July Tuyet, NADJA [address] [place] [address] PCP - General Physician Senior Information Security Consultant 10/17/23 documented as of this encounter
--- OUTSIDE RECORDS SUMMARY | 2024-06-18 15:44 | External Medical Summary | Summary of Care ---
Author Name Unknown Organization [facility] Address [address] [place] [address] Phone [phone] Care Team Providers Care [employer] Name Role Phone Ibis Everett PAToni Primary Care Provider [phone] Reason for Visit * Reason Onset Date Comments Advice 01/23/2024 Encounter Details Date Type Department Care Team (Late st Contact Info) Description 01/23/2024 Telephone Nutrition & Weight Management, [facility] [address] [place] [address] Nati Mathur PA-C [address] [place] [address] Advice Allergies No known active allergiesdocumented as of this encounter (statuses as of 01/23/2024) Medications Medication Sig Dispensed Refills Start Date [...] arms daily 237 mL 10/16/2023 Active Sharps Buffing Wheel Former Automatic Dispose of sharps 1 Each 3 11/07/2023 [...] (BMI) of 39.0 to 39.9 in adult ([facility]) Inject 0.25 mg under the skin once a week. 2 mL 5 01/02/2024 Active documented as of this encounter (statuses as of 01/23/2024) Active Problems Problem Noted Date Diagnosed Date [...] as of this encounter (statuses as of 01/23/2024) Resolved Problems Problem Noted Date Diagnosed Date Resolved Date Body mass index (BMI) of 40. 0 to 44.9 in adult 06/19/2017 11/29/2017 Overview: Per Obesity protocol #1 Impacted cerumen of left ear 08/22/2016 05/07/2017 Intellectual disability 10/07 Overview: ICD-10 update of inactive term Hearing loss 10/19/2017 INITIATE CONTRACEPT NEC 04/10 documented as of this encounter (statuses as of 01/23/2024) Immunizations Name Administration Dates Next Due COVID-19 [...] EST Office Visit Nutrition & Weight Management, [facility] [address] [address] Nati Mathur PA-C [address] [place] [address] 04/17/2024 11:20 AM EST Office Visit Family Practice [employer] [address] [place] [address] Ibis Everett PA-C [address] [facility] [place] [address] Scheduled Procedures Name Priority Associated Diagnoses Date/Ti [...] filedocumented as of this encounter Care Teams [employer] Relationship Specialty Start Date End Date Marguerite July NADJA [address] [place] [address] PCP - General Physician Property And Casualty Insurance Agent 10/17/23 documented as of this encounter
--- OUTSIDE RECORDS SUMMARY | 2024-06-18 15:44 | External Medical Summary | Summary of Care ---
Author Name Unknown Organization [facility] Address [address] [place] [address] Phone [phone] Care Team Providers Care Direct Mail Coordinator Name Role Phone Ibis Everett PA-C Primary Care Provider [phone] Reason for Referral * Evaluate & Treat - Unlimited Visits (Within 30 days (routine)) - Authorized Specialty Diagnoses / Procedures Referred By Michael roe Referred To Contact Orthopaedic Surgery / Orthopedics Diagnoses Chronic left shoulder pain Hip pain, right Ibis Everett PA-C [address] [place] [address] Phone: tel: fax: Referral ID Status Reason Start Date Expiration Date Visits Requested Visits Authorized [id number] Authorized Specialty Services Required [phone] Question Answer Referral Priority Within 30 days (routine) Where should this appointment be scheduled? [facility] What body part is the patient being seen for? Shoulder - and right hip What condition is the patient being seen for? Arthritis including related infection Reason for Visit * Reason Onset Date Comments Physical-Exam Immunizations 03/20/2024 Medication Administration 03/20/2024 Flu an d/or Pneumo Inj Encounter Details Date Type Department Care Team ([facility] st Contact Info) Description 03/20/2024 11:00 AM EST Office Visit Family Practice [facility] Huynh [address] [place] [address] [address] Marguerite July NADJA Benz [address] [place], [place] [address] Well adult exam*; Conductive hearing loss of both ears; Acquired hypothyroidism; Prediabetes; Mild intellectual disability; Morbid obesity due to excess calories (HCC); Panic disorder; Need for mxixjxnrmh-dhfmdfm-or rtussis (Tdap) vaccine; Need for prophylactic vaccination and inoculation against influenza; Chronic left shoulder pain; Hip pain, right Allergies No known active allergiesdocumented as of [...] Sodium 500 MG Oral Tablet Delayed Release (Depakoujs GARCÍA) TAKE 1 TABLET BY MOUTH EVERY MORNING [...] 237 mL 5 10/16/19 24 Active Sharps Computer Systems Software Engineer Dispose of sharps 1 Each 3 11/07/19 24 Active Polyethylene Glycol 3350 17 GM Oral Packet (Miralax) Take 1 Packet by mouth in the morning. 30 Each 5 01/02/20 24 Active Zepbound 2.5 MG/0.5ML Subcutaneous Solution Auto-injector ([facility]) Inject 2.5 mg (1 pen) under [...] not achieved. 2 Tablet 03/20/20 24 Active Chibieh-Lboiht-M cell Pertussis 5-2.5-18.5 LF-MCG/0.5 Suspension Prefilled Syringe (Boostrix) Inject 0.5 mL into a large muscle once for 1 dose. As directed 0.5 mL ML 03/20/20 24 024 Active CeraVe Baby Moisturizing External LotionIndication s:Eczema, unspecified type Apply topically to affected area daily. Apply to arms 237 mL 5 10/15/19 24 024 Discontin ued(Medic ation List Clean Up) Docusate Sodium 100 MG Oral Capsule (Colace) TAKE 1 CAPSULES BY MOUTH TWICE DAILY *CONSTIPATION* 60 Capsule 4 11/07/19 24 024 Discontin ued(Refil l) Meloxicam 15 MG Oral Tablet (Mobic) TAKE ONE TABLET BY MOUTH ONCE DAILY TO REDUCE SWELLING DUE TO OA 28 Tablet 2 02/06/20 24 024 Discontin ued(Refil l) documented as [...] Sign Reading Time Taken Comments Blood Pressure 120/80 03/20/2024 11:13 AM EST Pulse 80 03/20/2024 11:13 AM EST Temperature 36.2 C (97.2 F) 03/20/2024 11:[address] Respiratory Rate 20 03/20/2024 11:13 AM EST Oxygen Saturation 96% 03/20/2024 11:13 AM EST Inhaled Oxygen Concentration - - Weight 88.2 kg (194 lb 8 oz) 03/20/2024 11:13 AM EST Height 151.5 cm (4' 11.65") 03/20/2024 11:13 AM EST Body Mass Index 38.44 03/20/2024 11:13 AM EST documented in this encounter Patient Instructions * Patient Instructions* Nora Eubanks LPN - 03/20/2024 11:17 AM EST ~~PATIENT INSTRUCTIONS FOR TDAP VACCINE~~ Possible side effects of TDAP vaccine, (tetanus shot), are usually mild and can include: 1. Soreness or redness at injection site 2. Low grade fever 3. Body aches You may use a fever / pain reducing medication as needed for these symptoms. LET YOUR DOCTOR KNOW IMMEDIATELY IF YOU HAVE DIFFICULTY BREATHING OR SWALLOWING, EXPERIENCE ITCHINGOF FEET OR HANDS, HAVE SWELLING OF EYES, FACE OR INSIDE OF NOSE. documented in this encounter Progress Notes * Ibis Everett PA-C - 03/20/2024 11:23 AM EST Nafisa Garvin is a 59 year old female who presents for an annual check-up. Current concerns: Feeling well 2 staff in attendance. Needs to have a tooth extracted. Nafisa wants sedated. Dentist is willing to do but is asking for something to sedate her. Difficulty getting her to shower. She is also complaining of left shoulder pain. No injury. Has noted about 2 months. Some decreased ROM. Appetite good Sleep good Urination/ bowel movements Past Medical History: Diagnosis Date Esophagitis, unspecified General counseling for initiation of other contraceptive measures Mild intellectual disabilities Other specified acquired hypothyroidism Panic disorder Persistent insomnia 04/06/2022 Tuberculin test reaction Past Surgical History: Procedure Laterality Date COLONOSCOPY, DIAGNOSTIC (RECTUM) 06/29/2014 normal, repeat 10 yrs/COLONOSCOPY FLEXIBLE PROXIMAL DIAGNOSTIC performed by Catalino Pinon MD at ENDOSCOPY [facility] MAMMOGRAM - BILATERAL 04/27/05 birad code 1 MAMMOGRAM - BILATERAL 07/26/06 birad 2 MAMMOGRAM - BILATERAL 09/09/08 birad 2 MAMMOGRAM SCREENING BILATERAL 10/26/09 birad code 1 MAMMOGRAM SCREENING-BILATERAL 04/23/03 birad code 2 Current Outpatient Medications Medication Sig Dispense Refill Ibuprofen 200 MG Oral Tablet (Motrin) Take [...] to 3 times a day when needed. QUEtiapine Fumarate 50 MG Oral Tablet Take [...] to arms daily 237 mL 5 Sharps Computer Systems Software Engineer Dispose of sharps 1 Each 3 Docusate Sodium 100 MG Oral Capsule (Colace) TAKE 1 CAPSULES BY MOUTH TWICE DAILY *CONSTIPATION* 60Capsule 4 Polyethylene Glycol 3350 17 GM Oral Packet (Miralax) Take 1 Packet by mouth in the morning. 30 Each5 Zepbound 2.5 MG/0.5ML Subcutaneous Solution Auto-injector (Tirzepatide-Weight Management) Inject 2.5 mg (1 pen) under the skin once a week. 2 mL 2 Loratadine 10 MG Oral Tablet (Claritin) TAKE ONE TABLET BY MOUTH DAILY. *SEASONAL ALLERGIES* 28 Tablet 5 Levothyroxine Sodium 25 MCG Oral Tablet (Levoxyl) TAKE ONE TABLET BY MOUTH ONCE DAILY IN THE MORNING FOR HYPOTHYROIDISM 28 Tablet 2 Meloxicam 15 MG Oral Tablet (Mobic) TAKE ONE TABLET BY MOUTH ONCE DAILY TO REDUCE SWELLING DUE TO OA 28 Tablet 2 hydroCHLOROthiazide 25 MG Oral Tablet (Hydrodiuril) TAKE ONE TABLET BY MOUTH ONCE DAILY IN THE MORNING TO REDUCE FLUID RETENTION/SWELLING DUE TO OA 28 Tablet 5 Acetaminophen ER 650 MG Oral Tablet Extended Release (Arthritis Pain Relief) TAKE 2 TABLETS (1300MG) BY MOUTH TWICE DAILY TO REDUCE PAIN AND SWELLING DUE TO OA 112 Tablet 4 No current facility-administered medications for this visit. Review of patient's allergies indicates: No Known Allergies Social History Socioeconomic History Marital status: Single [...] Not on file Family History Adopted: Yes Review Of Systems Skin: negative Eyes: negative Ears/Nose/Throat: negative Respiratory: negative Cardiovascular: negative Gastrointestinal: heartburn Genitourinary: negative Musculoskeletal: joint pains, swelling, osteoarthritis Neurologic: negative Psychiatric: anxiety and panic attacks Hematologic/Lymphatic/Immunologic: negative Endocrine: thyroid disorder Gynecologic:No LMP recorded (lmp unknown). Patient is postmenopausal., PHYSICAL EXAMINATION: BP 120/80 | Pulse 80 | Temp 97.2 F (36.2 C) (Tympanic) | Resp 20 | Ht 4' 11.65" (1.515 m) | Wt 194 lb 8 oz (88.2 kg) | LMP (LMP Unknown) | SpO2 96% | BMI 38.44 kg/m | BSA 1.93 m General appearance - well nourished, comfortable. Skin - no rashes or lesions suspicious for malignancy. Head - without deformity, mass, or tenderness. Eyes - conjuctiva clear, EOMI, nondilated limited fundoscopic exam without obvious pathology. Ears - canals clear, TMs normal. Nose/Sinuses - normal mucosa without mass. Oropharynx -no oral lesions. Neck - normal ROM, supple, without adenopathy, thyromegaly, or bruit. Back - without deformity or tenderness. Lungs - symmetric and full breath sounds without rales, rhonchi, or wheezes. Heart - normal precordial impulse, PMI nondisplaced, normal S1,S2, without murmurs, rubs, or gallops. carotid upstrokes 2/4 without bruit. Breasts - symmetric, axillae negative. Abdomen - nondistended, no organomegaly, nontender to palpation,bowel sounds active. Extremities - no cyanosis, clubbing, or edema. Musculoskeletal - joints without restriction in range of motion or deformity. Peripheral pulses - symmetric and intact. Neuro - normal gait and station, without tremor, symmetric motor strength, DTRs symmetric. Pelvic- deferred ASSESSMENT/PLAN: (Z00.00) Well adult exam (primary encounter diagnosis) Plan: (H90.0) Conductive hearing loss of both ears Plan: (E03.9) Acquired hypothyroidism Plan: (R73.03) Prediabetes Plan: (F70) Mild intellectual disability Plan: (E66.01) Morbid obesity due to excess calories (HCC) Plan: (F41.0) Panic disorder Plan: (Z23) Need for ftjjygznlw-hzuotno-mzpgpwwrl (Tdap) vaccine Plan: TDAP (AGE 7 AND OLDER), ADACEL (Z23) Need for prophylactic vaccination and inoculation against influenza Plan: INFLUENZA VAC, TRIVALENT, (IIV3), PF, 0.5 ML (FLUZONE) Well adult exam (Primary) Conductive hearing loss of both ears Acquired hypothyroidism Prediabetes Mild intellectual disability Morbid obesity due to excess calories (HCC) Panic disorder Need for refsogcder-kdfgivl-sgrudbldf (Tdap) vaccine - TDAP (AGE 7 AND OLDER), ADACEL Need for prophylactic vaccination and inoculation against influenza - INFLUENZA VAC, TRIVALENT, (IIV3), PF, 0.5 ML (FLUZONE) Chronic left shoulder pain - XR SHOULDER, 2 OR MORE VIEWS; Future; Expected date: 03/20/2024 - ORTHOPAEDICS REFERRAL OP Hip pain, right - XR HIP UNILAT 2-3 VIEWS INCLUDING AP PELVIS; Future; Expected date: 03/20/2024 - ORTHOPAEDICS REFERRAL OP Other orders - Docusate Sodium 100 MG Oral Capsule (Colace); TAKE 1 CAPSULES BY MOUTH TWICE DAILY *CONSTIPATION* - Meloxicam 15 MG Oral Tablet (Mobic); Take 1 Tablet by mouth in the morning. - LORazepam 1 MG Oral Tablet (Ativan); Give 1 tab 1 hour prior to procedure may repeat if desired sedation is not achieved. - Czznjkz-Hbbeuz-Difyv Pertussis 5-2.5-18.5 LF-MCG/0.5 Suspension Prefilled Syringe (Boostrix); Inject 0.5 mL into a large muscle once for 1 dose. As directed Check-out note: Can mammogram be moved up. Schedule ortho Diet and exercise discussed Continue current medications. * Nora Eubanks LPN - 03/20/2024 11:17 AM EST Immunization Administration Documentation Time Out Procedure Performed: Yes Patient Identified (Ask Name/Date of ): Yes Does the patient have a fever greater than 101 degrees today? No Patient allergic to latex? No VFC Stock: No Immunization(s) verified: Yes, Immunization Name: Flu and Tdap (Adacel), VIS Sheet(s) given: Yes Verified Side and Site: Yes Verified Shot(s) with Parent(s)/Patient: Yes documented in this encounter Nursing Notes * Nora Eubanks LPN - 03/20/2024 11:13 AM EST Nafisa Garvin presents for annual physical exam. Medications & HM reviewed. Has forms that need completed. documented in this encounter Plan of Treatment Upcoming Encounters Date Type Department Care Team (Late st Contact Info) Description 04/01/2024 10:00 AM EST Office Visit Orthopaedics [facility] [address] [address] Dave Sharma MD [address] [address] 04/01/2024 11:45 AM EST [facility] [address] [address] 04/16/2024 11:40 AM EST Office Visit Nutrition & Weight Management, [facility] [address] [address] Nati Mathur PA-C [address] [address] 09/22/2024 10:20 AM EDT Office Visit Family Practice [facility] [address] [facility] [place] [address] Ibis Everett PA-C [address] [facility] [place] [address] Scheduled Orders Name Type Priority Associated Diagnoses Orde r Schedule XR SHOULDER, 2 OR MORE VIEWS Medical Imaging Routine Chronic left shoulder pain Expected: 03/20/2024, Expires: 04/20/2025 XR HIP UNILAT 2-3 VIEWS INCLUDING AP PELVIS Medical Imaging Routine Hip pain, right Expected: 03/20/2024, Expires: 04/20/2025 Scheduled Procedures Name Priority Associated Diagnoses Date/Ti me COLONOSCOPY FLEXIBLE PROXIMA L DIAGNOSTIC Recall Special screening for malignant neoplasms, colon Scheduled Referrals Name Type Priority Associated Diagnoses Order Schedule ORTHOPAEDICS REFERRAL OP Referral Within 30 days (routine) Chronic left shoulder pain Hip pain, right Ordered: 03/20/2024 Health Maintenance Due Date Last Done Comments [...] as of this encounter Visit Diagnoses Diagnosis Well adult exam- Primary Routine general medical examination at a health care facility Conductive hearing loss of both ears Conductive hearing loss, bilateral Acquired hypothyroidism Unspecified hypothyroidism Prediabetes Other abnormal glucose Mild intellectual disability Mild intellectual disabilities Morbid obesity due to excess calories (HCC) Panic disorder Panic disorder without agoraphobia Need for cbeehcpabo-exngtmn-tjotwrean (Tdap) vaccine Need for prophylactic vaccination with combined myabmrppjg-loqmckr-fcpbntfer (DTP) vaccine Need for prophylactic vaccination and inoculation against influenza Chronic left shoulder pain Pain in joint, shoulder region Hip pain, right Pain in joint, pelvic region and thigh documented in this encounter Care Teams Direct Mail Coordinator Relationship Specialty Start Date End Date Marguerite Ibis NADJA Benz [address] [place] [address] [place] [address] PCP - General Physician Fish Cake Maker 10/17/23 documented as of this encounter
--- OUTSIDE RECORDS SUMMARY | 2024-06-18 15:44 | External Medical Summary | Summary of Care ---
Author Name Unknown Organization [facility] Address [address] [place] [address] Phone [phone] Care Team Providers Care Health Data Administrator Name Role Phone Ibis Everett PAToni Primary Care Provider [phone] Reason for Visit * Reason Onset Date Comments Advice 01/23/2024 Encounter Details Date Type Department Care Team (Late st Contact Info) Description 01/23/2024 Telephone Nutrition & Weight Management, [facility] [address] [place] [address] Nati Mathur PA-C [address] [place] [address] Advice Allergies No known active allergiesdocumented as [...] arms daily 237 mL 10/16/2023 Active Sharps Bounty Trapper Dispose of sharps 1 Each 3 11/07/2023 Active Docusate Sodium 100 MG Oral Capsule (Colace) TAKE 1 CAPSULES BY MOUTH TWICE DAILY *CONSTIPATION* 60 Capsule 4 11/07/2023 Active Polyethylene Glycol 3350 17 GM Oral Packet (Miralax) Take 1 Packet by mouth in the morning. 30 Each 5 01/02/2024 Active Zepbound 2.5 MG/0.5ML Subcutaneous Solution Auto-injector (Tirzepatide-Weig ht Management) Inject 2.5 mg under the skin once a week. 2 mL 2 01/28/2024 Active Wegovy 0.25 MG/0.5ML Subcutaneous Solution Auto-injector (Semaglutide-Weig ht Management)Indica tions:Class 2 severe obesity due to excess calories with serious comorbidity and body mass index (BMI) of 39.0 to 39.9 in adult ([facility]) Inject 0.25 mg under the skin once [...] encounter Miscellaneous Notes * Addendum Note - Nati Mathur PA-C [...] message. Please advise. Thank you, Dona Rivas Analysis Intern I [facility] 01/28/2024,8:37 [...] EST Office Visit Nutrition & Weight Management, [facility] [address] [facility] [place] [address] Nati Mathur PA-C [address] [place] [address] 04/17/2024 11:20 AM EST Office Visit Family Practice [facility] [address] [place] [address] Ibis Everett PA-C [address] [facility] [place] [address] Scheduled Procedures Name Priority Associated Diagnoses Date/Ti [...] filedocumented as of this encounter Care Teams Health Data Administrator Relationship Specialty Start Date End Date Marguerite July Tuyet, NADJA [address] [place], [place] [address] PCP - General Physician It Programmer Analyst 10/17/23 documented as of this encounter
--- OUTSIDE RECORDS SUMMARY | 2024-06-18 15:44 | External Medical Summary | Summary of Care ---
Author Name Unknown Organization [facility] Address [address] [place] [address] Phone [phone] Care Team Providers Care Scarifier Operator Name Role Phone Ibis Everett PAToni Primary Care Provider [phone] Reason for Visit * Reason Onset Date Comments Precert Approved 01/29/2024 Zepbound Encounter Details Date Type Department Care Team (Late st Contact Info) Description 01/29/2024 Telephone Nutrition & Weight Management, [facility] [address] [place] [address] Nati Mathur PA-C [address] [place] [address] Precert Approved ( Zepbound) Allergies No known active allergiesdocumented as of this encounter (statuses as of 02/01/2024) Medications Medication Sig Dispensed Refills Start Date [...] arms daily 237 mL 10/16/2023 Active Sharps Repair Department Manager Dispose of sharps 1 Each 3 11/07/2023 Active Docusate Sodium 100 MG Oral Capsule (Colace) TAKE 1 CAPSULES BY MOUTH TWICE DAILY *CONSTIPATION* 60 Capsule 4 11/07/2023 Active Polyethylene Glycol 3350 17 GM Oral Packet (Miralax) Take 1 Packet by mouth in the morning. 30 Each 5 01/02/2024 Active Zepbound 2.5 MG/0.5ML Subcutaneous Solution Auto-injector (Tirzepatide-Weigh t Management) Inject 2.5 mg (1 pen) under the skin once a week. 2 mL 2 01/28/2024 Active documented as of this encounter (statuses as of 02/01/2024) Active Problems Problem Noted Date Diagnosed Date [...] as of this encounter (statuses as of 02/01/2024) Resolved Problems Problem Noted Date Diagnosed Date Resolved Date Body mass index (BMI) of 40. 0 to 44.9 in adult 06/19/2017 11/29/2017 Overview: Per Obesity protocol #1 Impacted cerumen of left ear 08/22/2016 05/07/2017 Intellectual disability 10/07 Overview: ICD-10 update of inactive term Hearing loss 10/19/2017 INITIATE CONTRACEPT NEC 04/10 documented as of this encounter (statuses as of 02/01/2024) Immunizations Name Administration Dates Next Due COVID-19 [...] Telephone Encounter - Hi Anderson LPN - 02/01/2024 2:41 PM EDT I informed the medical claims specialist of her assisted living facility. * Telephone Encounter - Hi Andesron LPN - 02/01/2024 2:38 PM EDT Type Date User Summary Attachment Precert 02/01/2024 11:20 AM Ronel Rubio OSA Please see scanned fax from insurance under the Media Tab. - Note: Please see scanned fax from insurance under the Media Tab. Approved/Denied: approved Drug Name and Formulation: ZEPBOUND 2.5MG/0.5ML PEN How Prescribed(directions/sig): WEEKLY Qty and Day Supply: 06/06 Did you receive insurance information from outside the chart? No, received insurance information within the chart Valid auth start date: 02/01/2024 Valid auth end date: 07/31/2024 Rx Insurance Info: GALEN KOO Reference #: Ronel Rubio Medication Lottery Office Manager III [facility] ([facility]) P: [phone] F: [phone] 02/01/24,11:20 AM . Type Date User Summary Attachment Precert 02/01/2024 7:26 AM Ronel Rubio OSA [facility] Authorization Submission - Note: [facility] Authorization Submission Submission Information: Medication: ZEPBOUND 2.5MG/0.5ML PEN Portal used: [facility] Insurance: [place] Authorization #/Choudhury: [id number] * Telephone Encounter - Hi Anderson LPN - 01/31/2024 3:35 PM EDT Please run this auth through the pt's Medicaid plan not Silver Scripts from Medicare. * Telephone Encounter - Rachel Camacho OSA - 01/31/2024 10:24 AM EDT Patient's caregiver, Ovi calling to check status of message that was put in on January 22. Let patient know medication was changed to Zepbound and precert was denied. June said that last time when she was denied for WEGOVY, the same problem happened. She is on medication to manage diabetes, not weight loss. Insurance has not changed. Medicare denied WEGOVY, but medicaid approved it. Medication has to be sent to [facility] in [place]. Please call June. * Telephone Encounter - Soraida Martinez RN - 01/30/2024 10:07 AM EDT Images from the original note were not included. Type Date User Summary Attachment Precert 01/29/2024 12:15 PM Jessica Sheth OSA Please see scanned fax from insurance under the MediaTab. - Note: Please see scanned fax from insurance under the Media Tab. Approved/Denied: denied Other (see below) Drug Name and Formulation: ZEPBOUND 2.5MG/0.5ML PEN How Prescribed(directions/sig): INJECT 2.5MG WEEKLY Qty and Day Supply: 2ML PER 28 DAYS Did you receive insurance information from outside the chart? No, received insurance information within the chart Valid auth start date: N/A Valid auth end date: N/A Rx Insurance Info: AMY KOO Reference #: N/A Jessica Sheth Medication Lottery Office Manager II [facility] 01/29/24,12:13 PM . Type Date User Summary Attachment Precert 01/29/2024 11:01 AM Jessica Sheth OSA [facility] Authorization Submission - Note: [facility] Authorization Submission Submission Information: Medication: ZEPBOUND Portal used: [facility] Insurance: [employer] Authorization #/Choudhury: [id number] [place] * Telephone Encounter - Phu Miller, payroll analyst - 01/29/2024 9:24 AM EDT New or re-auth: new Patient Nafisa Garvin needs a prior authorization for a medication through their [employer] insurance. Medication: Zepbound Formulation: 2.5mg/0.5mL prefilled pen Dosage: 2mL for 28ds ID: [id number] BIN:[id number] PCN:[id number] Target ship date is n/a. Thank you very much, Idalmis Miller Risk Officer, [facility] 01/29/2024 9:24 AM documented in this encounter Plan of Treatment Upcoming Encounters Date Type Department Care Team (Late st Contact Info) Description 04/16/2024 11:40 AM EST Office Visit Nutrition & Weight Management, [facility] [address] [address] Nati Mathur PA-C [address] [address] 04/17/2024 11:20 AM EST Office Visit Family Practice [facility] [address] [place] [address] Ibis Everett PA-C [address] [place] [address] Scheduled Procedures Name Priority Associated Diagnoses Date/Ti [...] filedocumented as of this encounter Care Teams Scarifier Operator Relationship Specialty Start Date End Date Marguerite July NADJA Benz [address] [place] [address] PCP - General Physician Optical Fabricator 10/17/23 documented as of this encounter
--- OUTSIDE RECORDS SUMMARY | 2024-06-18 15:45 | External Medical Summary ---
Author Name Unknown Address Unknown Organization K01:[facility] [address] [place] [id number] Laboratory Report Ordering Provider Test Date Status AKILAH VEGA 12/25/2023 09:50:58 Final Observation Date Value Abnormality Reference (Units ) Status Valproic Acid, level 12/25/2023 09:50:58 82 50-100 (ug/mL) Final Performing Location [facility] [address] [place] [id number]
--- OUTSIDE RECORDS SUMMARY | 2024-06-18 15:45 | External Medical Summary | Summary of Care ---
Author Name Unknown Organization [facility] Address [address] [place] [address] Phone [phone] Care Team Providers Care Course Developer Name Role Phone Ibis Everett PAToni Primary Care Provider [phone] Reason for Visit * Reason Onset Date Comments Advice 01/23/2024 Encounter Details Date Type Department Care Team (Late st Contact Info) Description 01/23/2024 Telephone Nutrition & Weight Management, [facility] [address] [place] [address] Nati Mathur PA-C [address] [place] [address] Advice Allergies No known active allergiesdocumented as [...] arms daily 237 mL 10/16/2023 Active [employer] Family And Marriage Counsellor Dispose of sharps 1 Each 3 11/07/2023 [...] (BMI) of 39.0 to 39.9 in adult ([facility]) Inject 0.25 mg under the skin once [...] 01/23/2024 4:04 PM EDT Called in regarding Catheirne being on backorder at pharmacy a couple [...] EST Office Visit Nutrition & Weight Management, [facility] [address] [address] Nati Mathur PA-C [address] [place] [address] 04/17/2024 11:20 AM EST Office Visit Family Practice [employer] [address] [place] [address] Ibis Everett PA-C [address] [facility] [place] [address] Scheduled Procedures Name Priority Associated Diagnoses Date/Ti [...] filedocumented as of this encounter Care Teams Course Developer Relationship Specialty Start Date End Date Marguerite July NADJA Ben[address] [place] [address] PCP - General Physician Fitness Consultant 10/17/23 documented as of this encounter
--- OUTSIDE RECORDS SUMMARY | 2024-06-18 15:45 | External Medical Summary | Summary of Care ---
Author Name Unknown Organization [facility] Address [address] [place] [address] Phone [phone] Care Team Providers Care Procedure Tech Name Role Phone Shondajuly NADJA Primary Care Provider [phone] Reason for Visit * Reason Comments Outpatient Testing Encounter Details Date Type Department Care Team (Late st Contact Info) Description 12/25/2023 9:40 AM EDT Laboratory Laboratory, [place] [address] [place] [address] [facility] [address], [place] [id number] Schizophrenia (HCC); Encounter for long-term (current) use of other medications; Affective disorder (HCC) Allergies No known active allergiesdocumented as of this encounter (statuses as of 12/25/2023) Medications Medication Sig Dispensed Refills Start Date End Date Status QUEtiapine Fumarate 50 MG Oral Tablet Take 1.5 Tablets by mouth at bedtime. Total of 75mg 07/15/2015 Active Pediatric Multiple Vit-C-FA (MULTIVITAMIN CHILDRENS) CHEW Take by mouth daily. Active Venlafaxine HCl ER 150 MG Oral Capsule Extended Release 24 Hour (Effexor XR) 75 mg. Additional 37.5 mg 02/16/2021 Active Mucinex DM 30-600 MG Oral [...] MOUTH AT BEDTIME 100 Tablet 06/18/2023 Active Allergy Relief (Loratadine) 10 MG Oral [...] DUE TO OA 28 Tablet 08/16/2023 Active metFORMIN HCl ER 500 MG Oral Tablet Extended Release 24 Hour (Glucophage XR)Indications:Pre diabetes TAKE ONE TABLET BY MOUTH DAILY. *DM* 28 Tablet 08/16/2023 Active hydroCHLOROthiazid e 25 [...] arms daily 237 mL 10/16/2023 Active Sharps Residential Real Estate Agent Dispose of sharps 1 Each 3 11/07/2023 Active Docusate Sodium 100 MG Oral Capsule (Colace) TAKE 1 CAPSULES BY MOUTH TWICE DAILY *CONSTIPATION* 60 Capsule 4 11/07/2023 Active Wegovy 0.25 MG/0.5ML Subcutaneous Solution Auto-injector (Semaglutide-Weigh t Management) Inject 0.25 mg under the skin once a week. 2 mL 11/12/2023 Active Wegovy 0.25 MG/0.5ML Subcutaneous Solution Auto-injector (Semaglutide-Weigh t Management)Indicat ions:Morbid obesity due to excess calories (HCC) Inject 0.25 mg under the skin once a week. 2 mL 5 12/11/2023 Active documented as of this encounter (statuses as of 12/25/2023) Active Problems Problem Noted Date Diagnosed Date [...] as of this encounter (statuses as of 12/25/2023) Resolved Problems Problem Noted Date Diagnosed Date Resolved Date Body mass index (BMI) of 40. 0 to 44.9 in adult 06/19/2017 11/29/2017 Overview: Per Obesity protocol #1 Impacted cerumen of left ear 08/22/2016 05/07/2017 Intellectual disability 10/07 Overview: ICD-10 update of inactive term Hearing loss 10/19/2017 INITIATE CONTRACEPT NEC 04/10 documented as of this encounter (statuses as of 12/25/2023) Immunizations Name Administration Dates Next Due COVID-19 mRNA, LNP-s, No Pre serve, 2-Dose Series (Moderna) 06/20/2020,05/23/2020 H1N1 2009 Influenza, IM 02/07/2009 PPD 04/15/2019, 8,07/19/2015,04/09,03/22/2011,03/24/2009,03/15/20 09 03/26/2009 Pneumococcal Polysaccharide PPV23 (Pneumovax) 04/15/2019 Seasonal Influenza, PF, 6 M & above, IM , (FluLaval or Fluzone) 04/12/2023,04/06/2022,02/26/2020,01/08,02/01/2018,03/13/2017 Seasonal Influenza, Quadriva lent, No Preserve, IM 01/29/2015 Seasonal Influenza, Trivalen t, (IIV3), with Preserv, (Fluzone) 01/29/2014,02/07/2013,01/24/2012,03/09,02/02/2010,03/15/2009,02/18/20 08,02/26/2007 TDAP (age 10 and older)(Boostrix) 08/13/2013 documented [...] on file documented as of this encounter Plan of Treatment Upcoming Encounters Date Type Department Care Team (Late st Contact Info) Description 01/02/2024 8:40 AM EDT Office Visit Nutrition & Weight Management, [facility] [address] [place] [address] Nati Mathur PA-C [address] [place] [address] 04/17/2024 11:20 AM EST Office Visit Family Practice [facility] [address] [facility] [place] [address] Ibis Everett PA-C [address] [facility] [place] [address] Pending Results Name Type Priority Associated Diagnoses Date /Time VALPROIC ACID LEVEL Lab Routine Schizophrenia (HCC) Encounter for long-term (current) use of other medications 12/25/2023 9:50 AM EDT Scheduled Procedures Name Priority Associated Diagnoses Date/Ti me COLONOSCOPY FLEXIBLE PROXIMA L DIAGNOSTIC Recall Special screening for malignant neoplasms, colon Health Maintenance Due Date Last Done Comments Cologuard 01/14/2008 Fecal Occult Blood Test 01/14/2008 Sigmoidoscopy 01/14/2008 Zoster Vaccines (1 of 2) 2013 Depression Screening 03/02/2021 03/02/2020, 06/17/2014 (Discussed) DTap/Tdap Vaccines (2 - Td or Tdap) 08/14/2023 08/13/2013, 03/14/2005, 04/28/1994 COVID-19 Vaccine ( season) 2023 06/20/2020, 05/23/2020 Influenza Vaccine (FLU [...] as of this encounter Visit Diagnoses Diagnosis Schizophrenia (HCC) Unspecified schizophrenia, unspecified condition Encounter for long-term (current) use of other medications Affective disorder (HCC) Unspecified episodic mood disorder documented in this encounter Care Teams Procedure Tech Relationship Specialty Start Date End Date Marguerite July Tuyet, NADJA [address] [place] [address] PCP - General Physician C 13 Catapult Operator 10/17/23 documented as of this encounter
--- OUTSIDE RECORDS SUMMARY | 2024-06-18 15:45 | External Medical Summary | Summary of Care ---
Author Name Unknown Organization [facility] Address [address] [place] [facility] [place] [address] Phone [phone] Care Team Providers Care Pulmonary Specialist Name Role Phone Ibis Everett NADJA Primary Care Provider [phone] Encounter Details Date Type Department Care Team (Late st Contact Info) Description 01/02/2024 11:00 AM EDT Office Visit Nutrition & Weight Management, [facility] [address] [place] [address] Nati Mathur PA-C [address] [place] [address] Class 2 severe obesity due to excess calories with serious comorbidity and body mass index (BMI) of 39.0 to 39.9 in adult (HCC)* Allergies No known active allergiesdocumented as of this encounter (statuses as of 01/02/2024) Medications Medication Sig Dispensed Refills Start Date [...] BY MOUTH DAILY. *SEASONAL ALLERGIES* 28 Tablet 08/16/19 24 Active Levothyroxine Sodium 25 MCG Oral Tablet (Levoxyl)Indicat ions:Hypothyroid ism TAKE ONE TABLET BY MOUTH ONCE DAILY IN THE MORNING FOR HYPOTHYROIDISM 28 Tablet 08/16/19 24 Active Meloxicam 15 MG Oral Tablet (Mobic) TAKE ONE TABLET BY MOUTH ONCE DAILY TO REDUCE SWELLING DUE TO OA 28 Tablet 08/16/19 24 Active hydroCHLOROthiaz terrell 25 MG Oral Tablet (Hydrodiuril) TAKE ONE TABLET BY MOUTH ONCE DAILY IN THE MORNING TO REDUCE FLUID RETENTION/SWELLING DUE TO OA 28 Tablet 08/16/19 24 Active Acetaminophen ER 650 MG Oral Tablet Extended Release (Arthritis Pain Relief) TAKE 2 TABLETS (1300MG) BY MOUTH TWICE DAILY TO REDUCE PAIN AND SWELLING DUE TO OA 112 Tablet 09/06/19 24 Active CeraVe Baby Moisturizing External LotionIndication s:Eczema, unspecified type Apply topically to affected area daily. Apply to arms 237 mL 10/15/19 24 Active CeraVe Daily Moisturizing External Lotion Apply to arms daily 237 mL 10/16/19 24 Active Sharps Supplier Diversity Director Dispose of sharps 1 Each 3 11/07/19 24 Active Docusate Sodium 100 MG Oral Capsule (Colace) TAKE 1 CAPSULES BY MOUTH TWICE DAILY *CONSTIPATION* 60 Capsule 4 11/07/19 24 Active Polyethylene Glycol 3350 17 GM Oral Packet (Miralax) Take 1 Packet by mouth in the morning. 30 Each 5 01/02/20 24 Active Wegovy 0.25 MG/0.5ML Subcutaneous Solution Auto-injector (Semaglutide-Zhou ght Management)Indic ations:Class 2 severe obesity due to excess calories with serious comorbidity and body mass index (BMI) of 39.0 to 39.9 in adult (HCC) Inject 0.25 mg under the skin once a week. 2 mL 5 01/02/20 24 Active metFORMIN HCl ER 500 MG Oral Tablet Extended Release 24 Hour (Glucophage XR)Indications:P rediabetes TAKE ONE TABLET BY MOUTH DAILY. *DM* 28 Tablet 5 08/16/19 24 024 Discontinued(Sd dication List Clean Up) Wegovy 0.25 MG/0.5ML Subcutaneous Solution Auto-injector (Semaglutide-Zhou ght Management) Inject 0.25 mg under the skin once a week. 2 mL 11/12/19 24 024 Discontinued(Re fill) Wegovy 0.25 MG/0.5ML Subcutaneous Solution Auto-injector (Semaglutide-Zhou ght Management)Indic ations:Morbid obesity due to excess calories (HCC) Inject 0.25 mg under the skin once a week. 2 mL 5 12/11/19 24 024 Discontinued documented as of this encounter (statuses as of 01/02/2024) Active Problems Problem Noted Date Diagnosed Date [...] as of this encounter (statuses as of 01/02/2024) Resolved Problems Problem Noted Date Diagnosed Date Resolved Date Body mass index (BMI) of 40. 0 to 44.9 in adult 06/19/2017 11/29/2017 Overview: Per Obesity protocol #1 Impacted cerumen of left ear 08/22/2016 05/07/2017 Intellectual disability 10/07 Overview: ICD-10 update of inactive term Hearing loss 10/19/2017 INITIATE CONTRACEPT NEC 04/10 documented as of this encounter (statuses as of 01/02/2024) Immunizations Name Administration Dates Next Due COVID-19 [...] on file documented as of this encounter Progress Notes * Nati Mathur PA-C - 01/02/2024 10:56 AM EDT [facility] Note There are no exam notes on file for this visit. Nafisa Garvin presents in follow up to the comprehensive weight management clinic. The patient camille 58 year old female Wt Readings from Last 6 Encounters: 01/02/24 86.1 kg (189 lb 14.4 oz) 11/09/23 91.5 kg (201 lb 11.2 oz) 10/25/23 92.3 kg (203 lb 6.4 oz) 10/15/23 91.7 kg (202 lb 1.3 oz) 06/18/23 94.6 kg (208 lb 9.6 oz) 04/12/23 97.6 kg (215 lb 1.9 oz) Patient is receiving ongoing education regarding dietary and physical modifications for weight loss. - Initial clinic visit 10/25/23. Weight 203 lbs Height 58.47" Body mass index is 41.84 kg/m. - Today's weight: 189 lbs - Total weight loss of -14lbs since initial weight in clinic - Patient's last follow up with GI/Nutrition clinic was on 10/25/23. - The patient's weight has -14 lbs since the last visit 01/02/24 -on Wegovy 0.25mg -some constipation 11/09/23 [...] walking -struggling with knee pain -lives in correction, spends time at [facility] [employer] - has 24 hour staff -administers own medications with help from staff at [facility] - no nursing care -staff prepares meals, but pt chooses own foods -patient reads lips Patient Active Problem List Diagnosis Esophagitis Panic disorder Mild intellectual disability ADVANCE DIRECTIVE INFORMATION Other chronic allergic conjunctivitis Hypothyroidism Conductive hearing loss of both ears Uterine leiomyoma Generalized osteoarthritis of multiple sites Morbid obesity due to excess calories (HCC) Prediabetes Pneumonia of both lungs due to infectious organism Persistent insomnia Review of Systems: Review of Systems Gastrointestinal: Positive for constipation. Negative for abdominal pain, diarrhea, nausea and vomiting. All other systems reviewed and are negative. Current Medications: Current Outpatient Medications Medication Sig Dispense Refill Polyethylene Glycol 3350 17 GM Oral Packet (Miralax) Take 1 Packet by mouth in the morning. 30 Each5 Wegovy 0.25 MG/0.5ML Subcutaneous Solution Auto-injector (Semaglutide-Weight Management) Inject 0.25 mg under the skin once a week. 2 mL 5 QUEtiapine Fumarate 50 MG Oral Tablet Take [...] BY MOUTH AT BEDTIME.) 100 Tablet 5 Allergy Relief (Loratadine) 10 MG Oral Tablet (Loratadine) TAKE ONE TABLET BY MOUTH DAILY. *SEASONAL ALLERGIES* 28 Tablet 5 Levothyroxine Sodium 25 MCG Oral Tablet (Levoxyl) TAKE ONE TABLET BY MOUTH ONCE DAILY IN THE MORNING FOR HYPOTHYROIDISM 28 Tablet 5 Meloxicam 15 MG Oral Tablet (Mobic) TAKE ONE TABLET BY MOUTH ONCE DAILY TO REDUCE SWELLING DUE TO OA 28 Tablet 5 hydroCHLOROthiazide 25 MG Oral Tablet (Hydrodiuril) TAKE ONE TABLET BY MOUTH ONCE DAILY IN THE MORNING TO REDUCE FLUID RETENTION/SWELLING DUE TO OA 28 Tablet 5 Acetaminophen ER 650 MG Oral Tablet Extended Release (Arthritis Pain Relief) TAKE 2 TABLETS (1300MG) BY MOUTH TWICE DAILY TO REDUCE PAIN AND SWELLING DUE TO OA 112 Tablet 4 CeraVe Baby Moisturizing External Lotion Apply topically to affected area daily. Apply to arms 237 mL 5 CeraVe Daily Moisturizing External Lotion Apply to arms daily 237 mL 5 Sharps Supplier Diversity Director Dispose of sharps 1 Each 3 Docusate Sodium 100 MG Oral Capsule (Colace) TAKE 1 CAPSULES BY MOUTH TWICE DAILY *CONSTIPATION* 60Capsule 4 No current facility-administered medications for this visit. Water intake: yes Prescribed diet: [id number] Calorie Controlled Current diet: Breakfast-- fruit Snack-- skips Lunch-- [facility] today - pasta salad OR bologna and cheese sandwich Snack-- skips Dinner-- fish, tator tots, green beans Snack-- skips Drinks-- water Meals Away from Home-- 3-4x per month Food logs: No Type of exercise: ADL Weight loss Pharmacotherapy: yes Semaglutide 0.25 mg weekly LMP (LMP Unknown) PHYSICAL EXAMINATION: General: Patient awake alert and oriented. Patient is well appearing and in no acute distress. Skin: No rashes. HEENT: Head is atraumatic, normocephalic. EOMs intact Abdomen: Obese Neuro: No focal deficits Psych: Appropriate mood and affect. Assessment and Plan: Abnormal weight gain / There is no height or weight on file to calculate BMI. / Class II obesity: - Would like [...] you bite it, write it! Apps like [employer] or [employer] Calorie goal: 1141-9507 2. Drink 48-64 ounces of non-caloric beverages [...] (BMI) of39.0 to 39.9 in adult (HCC) - Wegovy 0.25 MG/0.5ML Subcutaneous Solution Auto-injector (Semaglutide-Weight Management); Inject 0.25 mg under the skin once a week. - Polyethylene Glycol 3350 17 GM Oral Packet (Miralax); Take 1 Packet by mouth in the morning. -continue Wegovy 0.25mg -add Miralax -continue current diet Abnormal weight gain Acquired hypothyroidism -continue levothyroxine [...] Nati Mathur PA-C documented in this encounter Plan of Treatment Upcoming Encounters Date Type Department Care Team (Late st Contact Info) Description 04/16/2024 11:40 AM EST Office Visit Nutrition & Weight Management, [facility] [address] [facility] [place] [address] Nati Mathur PA-C [address] [facility] [place] [address] 04/17/2024 11:20 AM EST Office Visit Family Practice [facility] [place] [address] [facility] [place] [address] Ibis Everett PA-C [address] [place] [address] [address] Scheduled Procedures Name Priority Associated Diagnoses Date/Ti [...] 01/11/2024 01/10/2023, 02/07, 12/04/2018 TSH 01/11/2024 01/10/2023, 12/2021, 06/17/2020, Additional history [...] as of this encounter Visit Diagnoses Diagnosis Class 2 severe obesity due to excess calories with serious comorbidity and body mass index (BMI) of 39.0 to 39.9 in adult (HCC)- Primary documented in this encounter Care Teams Pulmonary Specialist Relationship Specialty Start Date End Date MargueriteJuly NADJA [address] [place] [address] PCP - General Physician Frame Tender 10/17/23 documented as of this encounter
[2024-06-18] MEDS: levETIRAcetam 500 MG/5 ML VIAL IV STA (16:09)
[2024-06-18] MEDS: PIPERACILLIN/TAZOBACTAM 4.5 GM/100 ML BAG IV SCH (19:40)
[2024-06-18] MEDS: DIVALPROEX EXTENDED RELEASE 500 MG TAB PO SCH (20:44)
[2024-06-18] MEDS: OSELTAMIVIR PHOSPHATE 75 MG CAP PO SCH (20:44)
[2024-06-18] MEDS: QUEtiapine FUMARATE 25 MG TABLET PO SCH (20:44)
[2024-06-18] MEDS: PANTOprazole 40 MG TAB PO SCH (20:44)
[2024-06-18] MEDS ORDERED: QUEtiapine FUMARATE 25 MG TABLET PO SCH (21:00)
[2024-06-18] MEDS: VANCOMYCIN HCL 1,250 MG in SODIUM CHLORIDE 0.9% 250 ML IV SCH (22:06)
--- NOTE | 2024-06-18 22:13 | CT Scan Report ---
Exam(s): CT ABDOMEN + PELVIS W/WO Contrast IV Amt: 90 ml optiray 320 EXAM: CT Abdomen and Pelvis Without and With Intravenous Contrast CLINICAL HISTORY: Reason for exam: concern for renal stone given UA. TECHNIQUE: Axial computed tomography images of the abdomen and pelvis without and with intravenous contrast. CTDI is 27.5 mGy and DLP is 2729.3 mGy-cm. Automated exposure control was utilized for the study. A dose lowering technique was utilized adhering to the principles of ALARA. CONTRAST: Patient received 90 ml optiray 320 of IV contrast COMPARISON: July 31, 2016 FINDINGS: Lung bases: Small amount of atelectasis and/or edema in both lung bases. ABDOMEN: Liver: Unremarkable. No mass. Gallbladder and bile ducts: There are multiple 1.4 cm area rim calcified gallstones within a nondilated gallbladder. No pericholecystic inflammation or biliary duct dilation is seen. Pancreas: Unremarkable. No mass. No ductal dilation. Spleen: Unremarkable. No splenomegaly. Adrenals: Unremarkable. No mass. Kidneys and ureters: Kidneys are unremarkable. No hydronephrosis or ureterolithiasis is seen. Stomach and bowel: See below. PELVIS: Appendix: The appendix is normal. There are several scattered gas fluid levels within a nondilated right and transverse colon suggesting mild ileus or enteritis. No pneumoperitoneum, free fluid, or abscess. 6 cm of stool in the rectum is upper normal. Bladder: The urinary bladder is decompressed by a Moore catheter. No stones. Reproductive: Unremarkable as visualized. ABDOMEN and PELVIS: Intraperitoneal space: See above. Bones/joints: Mild degenerative changes in the lower lumbar spine facets. No acute fracture or subluxation is seen. Soft tissues: Unremarkable. Vasculature: The abdominal aorta is slightly calcified but nondilated. There is no aneurysm or dissection. Lymph nodes: Unremarkable. No enlarged lymph nodes. IMPRESSION: 1. The appendix is normal. There are several scattered gas fluid levels within a nondilated right and transverse colon suggesting mild ileus or enteritis. No pneumoperitoneum, free fluid, or abscess. 6 cm of stool in the rectum is upper normal. 2. Small amount of atelectasis and/or edema in both lung bases. 3. There are multiple 1.4 cm area rim calcified gallstones within a nondilated gallbladder. No pericholecystic inflammation or biliary duct dilation is seen. 4. Kidneys are unremarkable. No hydronephrosis or ureterolithiasis is seen. Electronically signed by: Pedrito Garcia MD 06/18/24 22:12 PM
[2024-06-18] MEDS: LACTATED RINGER'S 1,000 ML IV SCH (23:40)
[2024-06-19] MEDS: LEVOTHYROXINE SODIUM 25 MCG TABLET PO SCH (05:34)
[2024-06-19 05:58] LABS: Creatinine Clr Calc Pharmacy 101.5 ml/min; Magnesium 1.8 mg/dl (1.7-2.4)
--- NOTE | 2024-06-19 06:03 | Electrocardiogram Report ---
Test Reason : Blood Pressure : */* mmHG Vent. Rate : 109 BPM Atrial Rate : 109 BPM P-R Int : 126 ms QRS Dur : 88 ms QT Int : 326 ms P-R-T Axes : 25 22 73 degrees QTcB Int : 439 ms Sinus tachycardia Nonspecific ST and T wave abnormality Abnormal ECG When compared with ECG of 25-Mar-2017 10:16, No significant change Confirmed by Rob Sosa ([id number]) on 06/19/2024 6:03:27 AM Referred By: REFERRED SELF Confirmed By: Rob Sosa
[2024-06-19 06:35] LABS: Basophils # (auto) 0.02 K/uL (0.00-0.20); Basophils % (auto) 0.4 %; Eosinophils # (auto) 0.02 K/uL (0.00-0.50); Eosinophils % (auto) 0.4 %; Hematocrit (blood only) 34.1 % (37.0-47.0); Hemoglobin 11.9 g/dl (12.0-16.0); Immature Granulocytes # (auto) 0.01 K/uL (0.01-0.20); Immature Granulocytes % (auto) 0.2 %; Lymphocytes # (auto) 1.35 K/uL (1.20-3.40); Lymphocytes % (auto) 29.3 %; Mean Corpuscular Hemoglobin 33.5 pg (25.0-34.0); Mean Corpuscular Hgb Conc 34.9 g/dL (32.0-36.0); Mean Corpuscular Volume 96.1 fL (80.0-100.0); Mean Platelet Volume 9.3 fL (9.4-12.4); Monocytes # (auto) 0.61 K/uL (0.11-0.59); Monocytes % (auto) 13.3 %; Neutrophils # (auto) 2.59 K/uL (1.40-6.50); Neutrophils % (auto) 56.4 %; Platelet Count 107 K/uL (130-400); RDW Coefficient of Variation 11.7 % (11.5-14.5); RDW Standard Deviation 41.3 fL (36.4-46.3); Red Blood Count 3.55 M/uL (4.20-5.40)
[2024-06-19] MEDS: levETIRAcetam 500 MG TAB PO SCH (08:28)
[2024-06-19] MEDS: VENLAFAXINE HCL 50 MG TAB PO SCH (08:28)
[2024-06-19] MEDS ORDERED: SERTRALINE HCL 50 MG TABLET PO SCH (09:00)
[2024-06-19] MEDS: ACETAMINOPHEN 325 MG TAB PO PRN (10:30)
--- NOTE | 2024-06-19 15:05 | Hospitalist Progress Note ---
Date of Service June 19, 2024 Assessment & Plan (1) Severe sepsis: (2) Bronchopneumonia: (3) Acute hypoxic respiratory failure: Plan: Nafisa Garvin is a 59y/o F with PMHx significant for hypothyroidism, prediabetes, esophagitis, morbid obesity, uterine leiomyoma, generalized osteoarthritis of multiple sites, chronic allergic conjunctivitis, conductive hearing loss of both ears, panic disorder, persistent insomnia and mild intellectual disability who presented to the ED via EMS from [facility] due to AMS, fever and worsening URI symptoms. Noted to have a fever of 100.4F at time of admission. No supplemental O2 use at baseline. Was found to be hypoxic at 87% SpO2 on RA per EMS. Requiring 1L NC and saturating well in the mid to upper 90s SpO2 at time of admission. Initial laboratory evaluation reviewed. No leukocytosis. Procalcitonin negative. Lactate 2.9; CXR with degenerative changes in the shoulders bilaterally but otherwise no acute process seen. Chest CT with patchy alveolar opacities within the lungs suggestive of bronchopneumonia. Respiratory BioFire panel positive for influenza A. Tamiflu x 5-day course Continue on Zosyn. Stop vancomycin SP/flutter valve as able. PRN DuoNebs (4) Seizure-like activity: Plan: Staff at noticed she was "not acting like herself" this morning. Caregivers at bedside mention she was having these episodes at the facility where she would "stare off into space." She was also displaying RUE and RLE tremulous/shaking behavior when these "staring off" episodes occurred. No prior history of seizures per discussion with her caregivers and no loss of bowel or bladder control during these episodes. Evaluated by neurology; started on Keppra 500 twice daily. EEG pending. Continue on current dose of Depakote (5) AMS (altered mental status): Plan: Likely 2/[address] unremarkable. Mentation level appears to be back to baseline. (6) Intellectual disability: (7) Hearing loss of both ears: Plan: She is extremely [place]. Known intellectual disability with baseline speech deficits however can answer appropriately to direct yes/no questioning. Unable to understand open-ended questioning per discussion with caregivers from . She does well with basic Chinese Sign Language ques/phrases which her caregivers have taught her; patient is not fully fluent in ASL. Does read lips very well. (8) Hypertensive urgency: Plan: Likely 2/2 above or emotional stress/anxiety. BP initially 180s/110s on admission. Now improved. Routine BP monitoring in place. (9) Abdominal pain: Plan: Patient was complaining of some centralized abdominal pain. UA with 11-20 epithelial cells but no bacteria. CT abdomen pelvis did not show any acute finding. Multiple 1.4 cm area rim calcified gallstone within a nondilated gallbladder. Other Chronic Medical Conditions: BLE Swelling - Euvolemic on exam. Hold HCTZ. Hypothyroidism - TSH WNL, continue levothyroxine. Mood Disorder - Seroquel dose decreased as per above. Continue Depakote ER at current dose and venlafaxine. Generalized OA - Hold meloxicam. Seasonal Allergies - Continue Claritin. GERD - Continue PPI. Persistent Insomnia - Continue trazodone. DVT Prophylaxis: SQ Lovenox Code Status: FULL CODE PCP: Ibis Everett PA-C Disposition:Plan to monitor overnight. Possible DC in a.m. Time spent evaluating patient, direct bedside care, chart review, placing orders, interpretation of diagnostic studies, discussion with consultants, patient, and family members, as well as other required patient management activities is 50 minutes Please note the above document was generated using voice recognition software. It may contain grammatical, syntax or spelling errors. Any formal questions or concerns about the content, text or information contained within the body of this dictation should be directly addressed to the provider for clarification Admission and Anticipated Discharge Date Admission Date: June 18, 2024 Subjective Patient seen at bedside. She is sitting up on the chair at the side of the bed without any distress She is comfortable; denies any shortness of breath, chest pain, dizziness or abdominal pain No significant events overnight Review of Systems Review of Systems: All systems reviewed & are unremarkable except as noted in Subjective Physical Exam Physical Exam: Constitutional: Alert oriented x 3; not in distress. Respiratory: Bilateral vesicular breath sound Cardiovascular: RRR, no murmur, no edema Vessels: no JVD or carotid bruit Chest: normal inspection of chest Abdomen: normal bowel sounds, soft, nontender, no hepatosplenomegaly Musculoskeletal: no cyanosis or clubbing, extremities motor strength 5/5 Skin: no rashes, warm and dry normal turgor Neurologic: PERRL, EOMI, accommodation nl, no face palsy, no dysarthria CN's II- XI intact bilaterally and moves all extremities Psychiatric: A+Ox3, euthymic affect Results & Data Results & Data Vital Signs (Past 12 Hours) Vital Signs Temp Pulse Resp BP Pulse Ox O2 Del Method O2 Flow Rate 06/19/24 13:08 2 06/19/24 12:06 36.5 C 71 18 97/66 L 93 Room Air (5) AMS (altered mental status) Altered mental status type: unspecified Qualified Code(s): R41.82 - Altered mental status, unspecified (7) Hearing loss of both ears Hearing loss type: conductive Qualified Code(s): H90.0 - Conductive hearing loss, bilateral (9) Abdominal pain Abdominal location: unspecified location Qualified Code(s): R10.9 - Unspeci fied abdominal pain
[2024-06-20 03:04] VITALS: RESP 18
[2024-06-20 06:37] LABS: Hematocrit (blood only) 37.2 % (37.0-47.0); Hemoglobin 12.7 g/dl (12.0-16.0); Mean Corpuscular Hemoglobin 33.1 pg (25.0-34.0); Mean Corpuscular Hgb Conc 34.1 g/dL (32.0-36.0); Mean Corpuscular Volume 96.9 fL (80.0-100.0); Mean Platelet Volume 9.1 fL (9.4-12.4); Platelet Count 118 K/uL (130-400); RDW Coefficient of Variation 11.6 % (11.5-14.5); RDW Standard Deviation 41.4 fL (36.4-46.3); Red Blood Count 3.84 M/uL (4.20-5.40); White Blood Count 4.24 K/ul (4.8-10.8)
[2024-06-20 07:02] LABS: Calcium 8.9 mg/dl (8.6-10.3); Potassium 3.9 mmol/L (3.5-5.1)
[2024-06-20 07:07] LABS: BUN Creatinine Ratio 20.6 (10-20); Creatinine Clr Calc Pharmacy 84.8 ml/min
[2024-06-20 07:22] LABS: Basophils # (auto) 0.02 K/uL (0.00-0.20); Basophils % (auto) 0.5 %; Eosinophils # (auto) 0.07 K/uL (0.00-0.50); Eosinophils % (auto) 1.7 %; Immature Granulocytes # (auto) 0.01 K/uL (0.01-0.20); Immature Granulocytes % (auto) 0.2 %; Lymphocytes # (auto) 2.14 K/uL (1.20-3.40); Lymphocytes % (auto) 50.5 %; Monocytes # (auto) 0.44 K/uL (0.11-0.59); Monocytes % (auto) 10.4 %; Neutrophils # (auto) 1.56 K/uL (1.40-6.50); Neutrophils % (auto) 36.7 %; RBC Morphology Unremarkable
[2024-06-20 12:10] VITALS: PULSE 71; TEMP 97.9; O2SAT 92
[2024-06-20 15:48] VITALS: BP 97/66
--- NOTE | 2024-06-20 16:01 | Discharge Summary ---
Date of Service June 20, 2024 Admission HPI Per Admitting Provider Nafisa Garvin is a 59y/o F with PMHx significant for hypothyroidism, prediabetes, esophagitis, morbid obesity, uterine leiomyoma, generalized osteoarthritis of multiple sites, chronic allergic conjunctivitis, conductive hearing loss of both ears, panic disorder, persistent insomnia and mild intellectual disability who presented to the ED via EMS from [facility] due to AMS, fever and worsening URI symptoms. History obtained from caregivers at bedside, discussion with ED provider and associated chart review. Patient seen at bedside with Dr. Harrison. Patient is extremely [place]. Known intellectual disability with baseline speech deficits however can answer appropriately to direct yes/no questioning. Unable to understand open-ended questioning per discussion with caregivers from . She does well with basic [place] Sign Language ques/phrases which her caregivers have taught her; patient is not fully fluent in ASL. Does read lips very well. She was seen by her PCP yesterday and diagnosed with acute bacterial bronchitis. She was prescribed a Z-Jarad however did not start this. Staff at [facility] noticed she was "not acting like herself" this morning. Caregivers at bedside mention she was having these episodes at the facility where she would "stare off into space." She was also displaying RUE and RLE tremulous behavior when these "staring off" episodes occurred. No prior history of seizures per discussion with her caregivers. No loss of bowel or bladder control during these episodes. Caregivers mention her mentation level appears to be back to normal at time of our discussion. At the times when these episodes occurred, she seemed somewhat confused but alert per her caregivers. Per chart review, appears patient underwent full neurological testing including EEG back in September 2002 after questionable seizure-like activity but this all came back negative. She is on Depakote ER for mood disorder. No documented family history of seizure disorders per chart review. Unfortunately patient does not have any living relatives per discussion with her caregivers. These episodes lasted anywhere from a few seconds up until a few minutes. She has been experiencing a cough over the past few days. Noted to have a low- grade fever this morning per caregivers. Has also been complaining of some sinus congestion and sore throat. Noted to have a fever of 100.4F at time of admission. No supplemental O2 use at baseline. Was found to be hypoxic at 87% SpO2 on RA per EMS. Requiring 1L NC and saturating well in the mid to upper 90s SpO2 at time of admission. Initial laboratory evaluation reviewed. No leukocytosis. Procalcitonin negative. Lactate 2.9; CXR with degenerative changes in the shoulders bilaterally but otherwise no acute process seen. Head CT unremarkable. Chest CT with patchy alveolar opacities within the lungs suggestive of bronchopneumonia. Respiratory BioFire panel positive for influenza A. Valproic acid level supratherapeutic at 108. Patient did not take any of her medications today. Admission Exam Per Admitting Provider Gen: unknown due to mental status HEENT: NCAT, EOMI, not icteric. External ears normal. No rhinorrhea. dry mucous membranes. Neck: Supple, full range of motion, no observable masses, No meningeal sign. Lungs: rhonchi noted bilaterally CV: tachycardic, regular rhythm Abdomen: Soft, nondistended, No rebound tenderness. MSK: No joint swelling, no redness. Skin: No rashes, petechiae, lesions. Normal color per patient. Neuro: noted right arm twitching, staring spells, personally witnessed Psych: Appropriate for situation. Principal Diagnosis Influenza A Discharge Exam Constitutional: Alert oriented x 3; not in distress. Respiratory: Bilateral vesicular breath sound Cardiovascular: RRR, no murmur, no edema Vessels: no JVD or carotid bruit Chest: normal inspection of chest Abdomen: normal bowel sounds, soft, nontender, no hepatosplenomegaly Musculoskeletal: no cyanosis or clubbing, extremities motor strength 5/5 Skin: no rashes, warm and dry normal turgor Neurologic: PERRL, EOMI, accommodation nl, no face palsy, no dysarthria CN's II- XI intact bilaterally and moves all extremities Psychiatric: A+Ox3, euthymic affect Discharge Data Allergies Allergy/AdvReac Type Severity Reaction Status Date / Time No Known Allergies Allergy Verified 07/03/16 13:29 Consultations 06/18/24 12:45 ED Decision to Admit Stat 06/18/24 13:48 Consult Neurology Routine Ordered Studies 06/18/24 10:56 CT chest diagnostic wo con Stat 06/18/24 10:57 CT head/brain wo con Stat 06/18/24 13:45 CT abdomen pelvis wo/w con Stat Hospital Course (1) Severe sepsis: (2) Bronchopneumonia: (3) Acute hypoxic respiratory failure: Nafisa Garvin is a 59y/o F with PMHx significant for hypothyroidism, prediabetes, esophagitis, morbid obesity, uterine leiomyoma, generalized osteoarthritis of multiple sites, chronic allergic conjunctivitis, conductive hearing loss of both ears, panic disorder, persistent insomnia and mild intellectual disability who presented to the ED via EMS from [facility] due to AMS, fever and worsening URI symptoms. Noted to have a fever of 100.4F at time of admission. No supplemental O2 use at baseline. Was found to be hypoxic at 87% SpO2 on RA per EMS. Requiring 1L NC and saturating well in the mid to upper 90s SpO2 at time of admission. Initial laboratory evaluation reviewed. No leukocytosis. Procalcitonin negative. Lactate 2.9; CXR with degenerative changes in the shoulders bilaterally but otherwise no acute process seen. Chest CT with patchy alveolar opacities within the lungs suggestive of bronchopneumonia. Respiratory BioFire panel positive for influenza A. Patient was treated with Tamiflu with improvement in the symptoms. Her oxygen requirement down trended and she was saturating well on room air. Patient was discharged home with plan to finish up the Tamiflu course. (4) Seizure-like activity: Staff at [facility] noticed she was "not acting like herself" this morning. Caregivers at bedside mention she was having these episodes at the facility where she would "stare off into space." She was also displaying RUE and RLE tremulous/shaking behavior when these "staring off" episodes occurred. No prior history of seizures per discussion with her caregivers and no loss of bowel or bladder control during these episodes. Evaluated by neurology; started on Keppra 500 twice daily. EEG was pending at the time of discharge. Continue on current dose of Depakote (5) AMS (altered mental status): Likely 2/[address] unremarkable. Mentation level appears to be back to baseline at the time of discharge. Total Time Total Time Spent Total Time Spent (In Minutes): 45 Total Time Includes: Examination of the Patient, Discharge Planning, Medication Reconciliation, Communication With Other Providers and Other Discharge Plan Discharge Items Patient Disposition: Home - Self-Care Reason For Visit: SEPSIS Discharge Diagnosis: Influenza A Activity: Resume your previous activity Non-emergency contact: Primary Care Provider Call non-emergency contact if: you have any medication questions and your symptoms worsen Follow-up/Referrals: [email or web address] [Primary Care Provider] - (Date & Time 06/26/2024 1:00 PM Provider: Ibis Everett PA-C [facility] ) Diet: Regular Addtl Attending Provider Instructions: You were admitted to the hospital due to flu and possible seizure. For the flu, you are prescribed Tamiflu 75 mg twice a day for next 3 days. You were evaluated for possible seizure by neurology. They recommended that you are started on Keppra 500 twice daily. Please make an appointment with neurology for follow-up in the next 4 to 6 weeks. The dose of Seroquel has been decreased to 50 mg and dose of trazodone has been decreased to 100 mg once a day. Follow-up with your primary care doctor as scheduled Pending Studies at Discharge: No Stand-Alone Forms: My [facility], Smoking Cessation Medications and DC Order Prescriptions: New oseltamivir [Tamiflu] 75 mg Capsule 75 mg PO BID 3 Days Qty: 6 0RF levetiracetam [Keppra] 500 mg Tablet 500 mg PO BID Qty: 60 0RF Continued Loratadine (Claritin) 10 MG tablet 10 mg PO DAILY Qty: 0 OMEPRAZOLE (PRILOSEC) 20 MG CONTR REL CAP 40 mg PO QPM Qty: 0 Patient Comments: PRIOR TO SUPPER MEAL Divalproex Sodium (Divalproex Sodium ER) 500 MG [id number] 1,000 mg PO BID Qty: 0 Acetaminophen (Tylenol Arthritis Ext Rel) 650 MG CAPLET 650 mg PO Q4H PRN (Reason: Pain/Fever) Qty: 0 DOCUSATE SODIUM (COLACE) 100 MG capsule 100 mg PO BID Qty: 0 Pediatric Multiple Vitamin W/ (Multivitamin Gummies Chil) 1 CHW CHW 1 tab PO QAM Qty: 0 Hydrochlorothiazide 25 MG tablet 25 mg PO QAM Qty: 0 LEVOTHYROXINE SODIUM (SYNTHROID) 25 MCG tablet 1 tab PO DAILY 90 Days Qty: 90 meloxicam 15 mg tablet 15 mg PO DAILY venlafaxine 150 mg capsule,extended release 24hr 150 mg PO DAILY Zepbound 5 mg/0.5 mL Pen Injector 5 mg SUBCUT WK Changed trazodone 150 mg tablet 100 mg PO HS Qty: 0 0RF QUETIAPINE FUMARATE (SEROQUEL) 50 MG tablet 50 mg PO HS Qty: 0 0RF Discharge Orders: Discharge Order (Routine); Ordered 06/20/24 Ordered By: Chun Gonzales Admission Data Admit Date/Time: 06/18/24 13:02 Attending Provider: Chun Gonzales Admit Provider: Lam Harrison Primary Care Provider: Ibis Everett Other Providers: Lam Harrison; Silverio Saez Other Interventions: Discharge Summary Assessment (RN) Last Done: 06/20/24 15:45
== END 2024-06-20 16:25 | disposition home or self-care (01) | DRG 871 ==
LOC: ED 10:44 → 4W 13:02 → SUATTDRO 13:02 → 4W 14:56
DX: I16.0 Hypertensive urgency; K21.9 Gastro-esophageal reflux disease without esophagitis; Z68.32 Body mass index [BMI] 32.0-32.9, adult; H91.93 Unspecified hearing loss, bilateral; R41.82 Altered mental status, unspecified; J96.01 Acute respiratory failure with hypoxia; F70 Mild intellectual disabilities; E87.20 Acidosis, unspecified; E03.9 Hypothyroidism, unspecified; Z79.899 Other long term (current) drug therapy; Z79.890 Hormone replacement therapy; J10.08 Influenza due to other identified influenza virus with other specified pneumonia; E66.01 Morbid (severe) obesity due to excess calories; J18.0 Bronchopneumonia, unspecified organism; F41.9 Anxiety disorder, unspecified; M15.9 Polyosteoarthritis, unspecified; R56.9 Unspecified convulsions; Z11.52 Encounter for screening for COVID-19; A41.89 Other specified sepsis; R65.20 Severe sepsis without septic shock

== ENCOUNTER 2025-01-14 12:14 | Inpatient (IN) ==
--- NOTE | 2025-01-14 12:26 | Emergency Department Note ---
Impression & Plan Acute hyponatremia, Weakness, Hypokalemia, On valproate therapy ED Provider Note NAME: GISELA JADE AGE: 60 SEX: F : 1965 ARRIVES VIA: Ambulance INFORMANT: Patient ED PROVIDER(S): Kyler Rdz DO CHIEF COMPLAINT: Syncope HPI: Patient is a 60-year-old female with a past medical history of hypertension of urgency, panic disorder, acute hypoxic respiratory failure, multifocal pneumonia who presents to the ER for an episode were she was sitting up in a chair and was not responding and abnormal labs. Patient denies all complaints but is limited due to mentation. Per EMS who provide additional history her sodium was 128 the other day and platelets were 130s. Patient does complain of right knee pain following a fall. ADDITIONAL HISTORY OBTAINED: Per HPI Chronic Medical/Social Conditions Affecting Care: Per HPI PAST MEDICAL HISTORY:See Below PAST SURGICAL HISTORY:See Below FAMILY HISTORY:See Below SOCIAL HISTORY:See Below HOME MEDICATIONS:See Below ALLERGIES:See Below VITALS:See Below PHYSICAL EXAMINATION: GENERAL: Sitting up in bed, alert, well appearing, well nourished, no distress, non-toxic EYE EXAM: normal conjunctiva. PERRL and EOM's intact. OROPHARYNX: no exudate, no erythema, lips, buccal mucosa, and tongue normal and mucous membranes are moist NECK: supple, no nuchal rigidity, no adenopathy, non-tender LUNGS: Clear to auscultation. Normal chest wall mechanics HEART: no murmurs, S1 normal and S2 normal ABDOMEN: abdomen soft, non-tender, normo-active bowel sounds, no masses, no rebound or guarding. BACK: Back is symmetrical on inspection and there is no deformity, no midline tenderness, no CVA tenderness. SKIN: no rashes and no bruising UPPER EXTREMITIES: upper extremities are grossly normal. LOWER EXTREMITIES: Flexion extension of bilateral hips without tenderness. No tenderness on palpation entire left lower extremity. No tenderness in the foot or mid or distal koo. NEURO EXAM: Normal sensorium, cranial nerves II-XII intact, normal speech, no weakness of arms, no weakness of legs. No drift. Finger to nose intact. Gross sensation intact. MEDICAL DECISION MAKING: Patient is a 60-year-old female who presents ER for the above-stated complaint. IV was established and blood work is obtained. Labs show mild leukopenia 4.6 thousand. No significant anemia. BMP with mild hypokalemia and hyponatremia at 126. LFTs and bilirubin were unremarkable. Troponin was negative. UA was clean. Valproic was elevated. CT head and cervical spine was negative. X-ray of the hip pelvis and chest are negative. Patient was given IV fluids. Discussed case with hospitalist for further evaluation, management, and treatment. Consults/Care Managements Discussions: Per [facility] Triage Nursing notes reviewed. Limited review of prior medical records performed Vital Signs: reviewed and remarkable for hypertension Differential diagnosis: Infection, dehydration, metabolic abnormality, hypo/hyperglycemia, electrolyte disturbance, anemia, hypoxia, cardiac sources, intracerebral event, toxicologic, neurologic, as well as other pathologies. ER treatment provided: See below Diagnostics interpreted by me include EKG and cardiac monitoring as listed below: -Cardiac Monitoring: An order was placed for continuous cardiac monitoring. The monitor shows a rate of 70 with sinus rhythm. -ECG: Sinus rhythm rate 80 Normal axis No PVCs QTc 429 -Laboratory studies:Interpreted by me as stated above in MDM and shown below. Imaging studies: Xrays: As interpreted by me: Portable AP upright 1 view of the chest shows no focal M-Trate X-rays of the hip and pelvis show no acute fracture X-ray of the knee shows no acute fracture CTs show: CT head and cervical spine was negative per radiology Procedures: None Critical Care: None Past Med/Surg History Problem List (Updated 01/14/25 @ 15:29 by Kyler Rdz DO) On valproate therapy (Acute) Hypokalemia (Acute) Weakness (Acute) Acute hyponatremia (Acute) Sacroiliitis Right hip pain Esophageal reflux Bipolar disorder, unspecified Intellectual disability Seizure-like activity Flu (Acute) Panic disorder Hypertensive urgency Severe sepsis Bronchopneumonia Acute hypoxic respiratory failure Hypoxia (Acute) Multifocal pneumonia (Acute) AMS (altered mental status) (Acute) Bilateral lower leg cellulitis Hypothyroidism (Chronic) Osteoarthritis (Chronic) Hearing loss (Chronic) H/O colonoscopy (Chronic) Abdominal pain (Acute) Bilateral leg pain (Acute) Cellulitis (Acute) Contusion of multiple sites (Acute) Diffuse abdominal pain (Acute) Fall (Acute) Medical History Mental disability Anxiety Social History Smoking Status: Never smoker Second Hand Exposure: No; Do You Dip or Chew Tobacco: No; Hx Alcohol Use: No Hx Substance Use: No Communication Ability: Effective Mechanical Supervisor Required: No Beliefs That Will Affect Care: None Current Living Situation: Personal Care Facility Feels Safe at Home: Yes Assistive Devices: None Allergies Allergies Allergy/AdvReac Type Severity Reaction Status Date / Time No Known Allergies Allergy Verified 01/14/25 15:09 Home Meds Home Medications Medication Instructions Recorded Confirmed meloxicam 15 mg tablet 15 mg PO DAILY 06/18/24 01/14/25 venlafaxine 150 mg 150 mg PO DAILY 06/18/24 01/14/25 capsule,extended release 24 hr acetaminophen 650 mg 1,300 mg PO BID 07/08/24 01/14/25 tablet,extended release (Tylenol Arthritis Pain) divalproex 500 mg tablet,delayed 500 mg PO QAM 07/08/24 01/14/25 release docusate sodium 100 mg capsule 100 mg PO BID 07/08/24 01/14/25 (Colace) hydrochlorothiazide 25 mg tablet 25 mg PO DAILY 07/08/24 01/14/25 levothyroxine 25 mcg tablet 25 mcg PO DAILY 07/08/24 01/14/25 loratadine 10 mg tablet (Claritin) 10 mg PO DAILY 07/08/24 01/14/25 omeprazole 20 mg capsule,delayed 20 mg PO QDD 07/08/24 01/14/25 release quetiapine 25 mg tablet 25 mg PO HS 10/20/24 01/14/25 divalproex 500 mg tablet,extended 1,500 mg PO HS 01/14/25 01/14/25 release 24 hr (Depakote ER) pediatric multivitamin-iron 1 tab PO DAILY 01/14/25 01/14/25 tirzepatide (weight loss) 10 10 mg subcut WK 01/14/25 01/14/25 mg/0.5 mL subcutaneous pen injector (Zepbound) Previous Rx's Medication Instructions Recorded quetiapine 50 mg tablet (Seroquel) 50 mg PO HS #30 tabs 06/20/24 trazodone 100 mg tablet 100 mg PO HS #30 tabs 06/20/24 Results & Data (ED) Vital Signs Vital Signs - 24 hr 01/14/25 12:20 01/14/25 12:20 01/14/25 12:46 Pulse Rate 80 80 Pulse Rate [Apical] Respiratory Rate 16 Blood Pressure 159/88 H Blood Pressure [Right Arm] Blood Pressure Mean 111 Blood Pressure Mean [Right Arm] Pulse Oximetry 95 Oxygen Delivery Method Room Air Room Air Sepsis Recent Fever Within 48 Hours No Sepsis New/Unexplained Change in Mental Status No Sepsis Action Taken by Nursing No Action Required 01/14/25 14:01 Pulse Rate Pulse Rate [Apical] 73 Respiratory Rate 18 Blood Pressure Blood Pressure [Right Arm] 159/88 H Blood Pressure Mean Blood Pressure Mean [Right Arm] 111 Pulse Oximetry 94 Oxygen Delivery Method Room Air Sepsis Recent Fever Within 48 Hours Sepsis New/Unexplained Change in Mental Status Sepsis Action Taken by Nursing Laboratory Data 01/14/25 12:34 01/14/25 12:34 Lab Results 01/14/25 01/14/25 Range/Units 12:30 12:34 WBC 4.67 L (4.8-10.8) K/ul RBC 4.64 (4.20-5.40) M/uL Hgb 15.7 (12.0-16.0) g/dl Hct 42.0 (37.0-47.0) % MCV 90.5 (80.0-100.0) fL MCH 33.8 (25.0-34.0) pg MCHC 37.4 H (32.0-36.0) g/dL RDW Std Deviation 37.2 (36.4-46.3) fL RDW Coeff of Mathew 11.2 L (11.5-14.5) % Plt Count 148 (130-400) K/uL MPV 8.6 L (9.4-12.4) fL Immature Gran % (Auto) 0.4 % Neut % (Auto) 52.6 % Lymph % (Auto) 37.0 % [place] % (Auto) 9.6 % Eos % (Auto) 0.2 % Baso % (Auto) 0.2 % Neut # (Auto) 2.45 (1.40-6.50) K/uL Lymph # (Auto) 1.73 (1.20-3.40) K/uL [place] # (Auto) 0.45 (0.11-0.59) K/uL Eos # (Auto) 0.01 (0.00-0.50) K/uL Baso # (Auto) 0.01 (0.00-0.20) K/uL Immature Gran # (Auto) 0.02 (0.01-0.20) K/uL Sodium 126 L (136-145) mmol/L Potassium 3.2 L (3.5-5.1) mmol/L Chloride 81 L (98-107) mmol/L Carbon Dioxide 38 H (21-32) mmol/L Anion Gap 7 (3-11) BUN 15 (6-23) mg/dl Creatinine 0.65 (0.6-1.2) mg/dl Est Cr Clr Drug Dosing 79.5 ml/min eGFR 99.49 BUN/Creatinine Ratio 23.1 H (10-20) Glucose 78 (70-99(Fasting)) mg/dl Calcium 9.7 (8.6-10.3) mg/dl Total Bilirubin 0.6 (0.2-1.0) mg/dl AST 18 (13-39) U/L ALT 10 (7-52) U/L Alkaline Phosphatase 57 (34-104) U/L Troponin I High Sens 6.0 (0-14) pg/ml Total Protein 7.5 (6.0-8.3) gm/dl Albumin 4.4 (3.4-5.0) gm/dl Globulin 3.1 (2.5-4.0) gm/dl Albumin/Globulin Ratio 1.4 (0.9-2) Lipase 33 (11-82) U/L Urine Color Yellow Urine Appearance Clear (Clear) Urine pH 6.0 (4.5-7.5) Ur Specific [place] 1.021 (1.000-1.030) Urine Protein Negative (Negative) Urine Glucose (UA) Negative (Negative) Urine Ketones Trace H (Negative) Urine Blood Negative (Negative) Urine Nitrite Negative (Negative) Urine Bilirubin Negative (Negative) Urine Urobilinogen Negative (Negative) Ur Leukocyte Esterase Negative (Negative) Urine Comment Valproic Acid 173 H (50-100) mcg/ml Imaging Data Radiologist's Impression: Chest X-Ray 01/14/25 12:20 XR chest 1V portable CLINICAL HISTORY: syncope COMPARISON STUDY: 06/18/2024 FINDINGS: Stable cardiomegaly with increased pulmonary vascular congestion. No consolidation or pleural effusion seen. No pneumothorax. No grossly displaced rib fracture seen. IMPRESSION: Mild CHF. ACT 112: Negative or not required by law. Electronically signed by: Dani Cuevas M.D. 01/14/2025 1:09 PM Hip/Pelvis X-Ray 01/14/25 12:20 XR hip RT 2V w pelvis CLINICAL HISTORY: r hip pain COMPARISON: 10/29/2024 FINDINGS: No fracture or dislocation seen. There are severe degenerative changes at the right hip. There are mild degenerative changes at the left hip. There are lower lumbar degenerative changes. IMPRESSION: No fracture seen. ACT 112: Negative or not required by law. Electronically signed by: Dani Cuevas M.D. 01/14/2025 1:10 PM Knee X-Ray 01/14/25 12:20 XR knee RT 3V CLINICAL HISTORY: r knee pain COMPARISON: None FINDINGS: There is severe osteoarthritis. No fracture or dislocation seen. IMPRESSION: No fracture seen. ACT 112: Negative or not required by law. Electronically signed by: Dani Cuevas M.D. 01/14/2025 1:[address] 01/14/25 12:33 CT cervical spine wo con CT DOSE: 1066.86 mGy.cm CLINICAL HISTORY: 60 years-old Female with fall. Acute neck pain status post fall COMPARISON: None. TECHNIQUE: Multiple axial CT images of the cervical spine were obtained without contrast. A dose lowering technique was utilized adhering to the principles of ALARA. FINDINGS: Severe multilevel facet arthrosis with moderate discogenic degeneration. No acute fracture or subluxation identified. Multilevel neural foraminal narrowing. The cervical soft tissues appear unremarkable. The visualized lung apices appear clear. IMPRESSION: No acute cervical spine fracture or subluxation identified. ACT 112: Negative or not required by law. The above report was generated using voice recognition software. It may contain grammatical, syntax or spelling errors. Electronically signed by: Shakeel Dawson M.D. 01/14/2025 1:[address] 01/14/25 12:33 CT head/brain wo con CLINICAL HISTORY: carson. TECHNIQUE: Multiple axial CT images of the head were obtained without contrast. A dose lowering technique was utilized adhering to the principles of ALARA. CT DOSE: 06/18/2024 COMPARISON: None. FINDINGS: No intracranial hemorrhage seen. No mass effect, midline shift, or hydrocephalus. No skull fracture seen. Visualized paranasal sinuses and mastoid air cells are clear. IMPRESSION: No acute findings. ACT 112: Negative or not required by law. The above report was generated using voice recognition software. It may contain grammatical, syntax or spelling errors. Electronically signed by: Dani Cuevas M.D. 01/14/2025 1:36 PM Discharge Plan Visit Data Chief Complaint: Illness Stated Complaint: UTI SYMPTOMS ED Provider: Kyler Rdz Discharge Problem: Acute hyponatremia, Weakness, Hypokalemia, On valproate therapy Condition: Fair Forms Stand Alone Forms: [facility] Prescriptions Prescriptions: No Action omeprazole 20 mg capsule,delayed release(DR/EC) 20 mg PO QDD levothyroxine 25 mcg tablet 25 mcg PO DAILY acetaminophen [Tylenol Arthritis Pain] 650 mg tablet extended release 1,300 mg PO BID divalproex 500 mg tablet,delayed release (DR/EC) 500 mg PO QAM docusate sodium [Colace] 100 mg capsule 100 mg PO BID hydrochlorothiazide 25 mg tablet 25 mg PO DAILY loratadine [Claritin] 10 mg tablet 10 mg PO DAILY quetiapine 25 mg tablet 25 mg PO HS Rx Instructions: TOTAL DOSE 75 MG--TAKES WITH 50 MG TAB. meloxicam 15 mg tablet 15 mg PO DAILY venlafaxine 150 mg capsule,extended release 24hr 150 mg PO DAILY quetiapine [Seroquel] 50 mg tablet 50 mg PO HS Qty: 30 0RF Rx Instructions: TOTAL DOSE 75 MG--TAKES WITH 25 MG TAB. trazodone 100 mg tablet 100 mg PO HS Qty: 30 0RF Children's Multivit Plus Iron Tablet,Chewable 1 tab PO DAILY Rx Instructions: administer with a meal divalproex [Depakote ER] 500 mg Tablet Extended Release 24 Hr 1,500 mg PO HS Zepbound 10 mg/0.5 mL Pen Injector 10 mg SUBCUT WK Referrals Referrals: Ibis Everett PA-C [Primary Care Provider] -
[2025-01-14 12:52] LABS: Hematocrit (blood only) 42.0 % (37.0-47.0); Hemoglobin 15.7 g/dl (12.0-16.0); Immature Granulocytes # (auto) 0.02 K/uL (0.01-0.20); Immature Granulocytes % (auto) 0.4 %; Mean Corpuscular Hemoglobin 33.8 pg (25.0-34.0); Mean Corpuscular Volume 90.5 fL (80.0-100.0); Platelet Count 148 K/uL (130-400); RDW Standard Deviation 37.2 fL (36.4-46.3); Red Blood Count 4.64 M/uL (4.20-5.40); White Blood Count 4.67 K/ul (4.8-10.8)
[2025-01-14 12:55] LABS: Appearance Urine Clear (Clear); Glucose Urine UA Negative (Negative)
--- NOTE | 2025-01-14 13:10 | XRay Report ---
XR chest 1V portable CLINICAL HISTORY: syncope COMPARISON STUDY: 06/18/2024 FINDINGS: Stable cardiomegaly with increased pulmonary vascular congestion. No consolidation or pleur al effusion seen. No pneumothorax. No grossly displaced rib fracture seen. IMPRESSION: Mild CHF. ACT 112: Negative or not required by law. Electronically signed by: Dani Cuevas M.D. 01/14/2025 1:09 PM
--- NOTE | 2025-01-14 13:11 | XRay Report ---
XR hip RT 2V w pelvis CLINICAL HISTORY: r hip pain COMPARISON: 10/29/2024 FINDINGS: No fracture or dislocation seen. There are severe degenerative changes at the right hip. T here are mild degenerative changes at the left hip. There are lower lumbar degenerative changes. IMPRESSION: No fracture seen. ACT 112: Negative or not required by law. Electronically signed by: Dani Cuevas M.D. 01/14/2025 1:10 PM
--- NOTE | 2025-01-14 13:12 | XRay Report ---
XR knee RT 3V CLINICAL HISTORY: r knee pain COMPARISON: None FINDINGS: There is severe osteoarthritis. No fracture or dislocation seen. IMPRESSION: No fracture seen. ACT 112: Negative or not required by law. Electronically signed by: Dani Cuevas M.D. 01/14/2025 1:11 PM
[2025-01-14 13:21] LABS: Alanine Aminotransferase 10.0 U/L (7-52); Albumin Globulin Ratio 1.4 (0.9-2); Albumin Level 4.4 gm/dl (3.4-5.0); Alkaline Phosphatase 57.0 U/L (34-104); Anion Gap 7.0 (3-11); Bilirubin,Total 0.6 mg/dl (0.2-1.0); Blood Urea Nitrogen 15.0 mg/dl (6-23); Calcium 9.7 mg/dl (8.6-10.3); Carbon Dioxide 38.0 mmol/L (21-32); Chloride 81.0 mmol/L (98-107); Creatinine Clr Calc Pharmacy 79.5 ml/min; Globulin 3.1 gm/dl (2.5-4.0); Glucose 78.0 mg/dl (70-99(Fasting)); Lipase 33.0 U/L (11-82); Potassium 3.2 mmol/L (3.5-5.1); Sodium 126.0 mmol/L (136-145); Total Protein 7.5 gm/dl (6.0-8.3)
--- NOTE | 2025-01-14 13:37 | CT Scan Report ---
CT head/brain wo con CLINICAL HISTORY: carson. TECHNIQUE: Multiple axial CT images of the head were obtained without contrast. A dose lowering tech nique was utilized adhering to the principles of ALARA. CT DOSE: 06/18/2024 COMPARISON: None. FINDINGS: No intracranial hemorrhage seen. No mass effect, midline shift, or hydrocephalus. No skull fracture seen. Visualized paranasal sinuses and mastoid air cells are clear. IMPRESSION: No acute findings. ACT 112: Negative or not required by law. The above report was generated using voice recognition software. It may contain grammatical, syntax o r spelling errors. Electronically signed by: Dani Cuevas M.D. 01/14/2025 1:36 PM
--- NOTE | 2025-01-14 13:38 | CT Scan Report ---
CT cervical spine wo con CT DOSE: 1066.86 mGy.cm CLINICAL HISTORY: 60 years-old Female with fall. Acute neck pain status post fall COMPARISON: None. TECHNIQUE: Multiple axial CT images of the cervical spine were obtained without contrast. A dose low ering technique was utilized adhering to the principles of ALARA. FINDINGS: Severe multilevel facet arthrosis with moderate discogenic degeneration. No acute fracture or subluxation identified. Multilevel neural foraminal narrowing. The cervical soft tissues appear un remarkable. The visualized lung apices appear clear. IMPRESSION: No acute cervical spine fracture or subluxation identified. ACT 112: Negative or not required by law. The above report was generated using voice recognition software. It may contain grammatical, syntax o r spelling errors. Electronically signed by: Shakeel Dawson M.D. 01/14/2025 1:37 PM
[2025-01-14 15:45] LABS: Thyroid Stimulating Hormone 2.144 uIu/ml (0.300-4.500)
--- NOTE | 2025-01-14 16:07 | Electrocardiogram Report ---
Test Reason : Blood Pressure : */* mmHG Vent. Rate : 80 BPM Atrial Rate : 80 BPM P-R Int : 156 ms QRS Dur : 86 ms QT Int : 372 ms P-R-T Axes : 30 35 77 degrees QTcB Int : 429 ms Normal sinus rhythm Poor R wave progression, consider anterior NV vs. lead placement vs. LVH Abnormal ECG When compared with ECG of 18-Jun-2024 10:54, Non-specific change in ST segment in Inferior leads Confirmed by Nikolai aFrrell ([id number]) on 01/14/2025 4:06:49 PM Referred By: REFERRED SELF Confirmed By: Nikolai Farrell
[2025-01-14] MEDS: THIAMINE HCL 100 MG TAB PO STA (16:15)
[2025-01-14] MEDS: FOLIC ACID 1 MG TAB PO STA (16:16)
--- NOTE | 2025-01-14 17:28 | History & Physical Report ---
Date of Service January 14, 2025 Assessment & Plan (1) Weakness: (2) Acute hyponatremia: (3) Intellectual disability: (4) On valproate therapy: Plan 60 yo female with pmhx of hypothyroidism, prediabetes, esophagitis, morbid obesity, uterine leiomyoma, generalized osteoarthritis of multiple sites, chronic allergic conjunctivitis, conductive hearing loss of both ears, panic disorder, persistent insomnia and mild intellectual disability who presents from halfway for worsening gait and falls 2/2 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 #Falls #Hypertonic Hyponatremia -high urine osmoles, high urine sodium, and elevated serum osmoles are consistent with multifactorial cause of hyponatremia -has osmole gap of 101 suggesting volume expanision -patient does have mild pitting edema -likely 2/2 polypharmacy, thiazide use, differential includes toxic ingestion as well given osmolar gap, other considerations include SIAHD and dehydration Plan: -nephrology consult, appreciate recs -discussed personally with set designer electronic prepress operator, start fluid restriction, stop thiazide, fluid restriction, q4hr BMP -goal K of 4 per nephrology -check TSH, cortisol, AM cortisol to r/o other causes -check lactic acid, alcohol, methanol (if test available), ethylene glycol, tox screen given osmolar gap -check VBG as well -PT/OT ordered #Bipolar Disorder #Panic Disorder #Polypharmacy #Supratherapeutic Depakote Levels -on venlafaxine, trazodone, Depakote, all of which can cause SIADH and contribute to above picture -on seroquel as well Plan: -hold depakote for now given supratherapeutic levels, will likely need psych consult given SIADH possible picture in setting of polypharmacy -continue venlafaxine, continue trazadone -decrease seroquel to 50mg at bedtime #Esophagitis -continue omeprazole #Hypothyroidism -continue levothyroxine I spent a total of 80 minutes in direct patient care, including [id number]-foim time with the patient and/or family, reviewing medical records, ordering and reviewing diagnostic tests, and coordinating care with other healthcare providers. This time includes: history taking, physical examination, medical decision making, counseling, ECG interpretation, imaging interpretation, lab interpretation, orders, and education, excluding time spent in the performance of separately billed services. History of Present Illness Chief Complaint: -falls, change in gait Primary Care Provider: Ibis Everett PA-C 60 yo female with pmhx of hypothyroidism, prediabetes, esophagitis, morbid obesity, uterine leiomyoma, generalized osteoarthritis of multiple sites, chronic allergic conjunctivitis, conductive hearing loss of both ears, panic disorder, persistent insomnia and mild intellectual disability who presents from halfway for worsening gait and falls. Had admission on 06/2024 for cough and UTI symptoms. In the ED, noted to have hyponatremia 126, unremarkable imaging other than mild fluid overload on chest xray, admitted to medicine for further workup. Patient seen and examined at bedside. Patient doing ok today. Difficult to perform history and ROS due to intellectual disability. States she is having right hip and back pain. States she feels confused. Otherwise, unable to elicit further history. Discussed with caregiver at bedside, patient has been having change in gait and falls for past few days. States she is more confused as well. Allergies Allergy/AdvReac Type Severity Reaction Status Date / Time No Known Allergies Allergy Verified 01/14/25 15:09 Home Medications Medication Instructions Recorded Confirmed Type meloxicam 15 mg tablet 15 mg PO DAILY 06/18/24 01/14/25 History venlafaxine 150 mg 150 mg PO DAILY 06/18/24 01/14/25 History capsule,extended release 24 hr quetiapine 50 mg tablet (Seroquel) 50 mg PO HS #30 tabs 06/20/24 01/14/25 Rx trazodone 100 mg tablet 100 mg PO HS #30 tabs 06/20/24 01/14/25 Rx acetaminophen 650 mg 1,300 mg PO BID 07/08/24 01/14/25 History tablet,extended release (Tylenol Arthritis Pain) divalproex 500 mg tablet,delayed 500 mg PO QAM 07/08/24 01/14/25 History release docusate sodium 100 mg capsule 100 mg PO BID 07/08/24 01/14/25 History (Colace) hydrochlorothiazide 25 mg tablet 25 mg PO DAILY 07/08/24 01/14/25 History levothyroxine 25 mcg tablet 25 mcg PO DAILY 07/08/24 01/14/25 History loratadine 10 mg tablet (Claritin) 10 mg PO DAILY 07/08/24 01/14/25 History omeprazole 20 mg capsule,delayed 20 mg PO QDD 07/08/24 01/14/25 History release quetiapine 25 mg tablet 25 mg PO HS 10/20/24 01/14/25 History divalproex 500 mg tablet,extended 1,500 mg PO HS 01/14/25 01/14/25 History release 24 hr (Depakote ER) pediatric multivitamin-iron 1 tab PO DAILY 01/14/25 01/14/25 History tirzepatide (weight loss) 10 10 mg subcut WK 01/14/25 01/14/25 History mg/0.5 mL subcutaneous pen injector (Zepbound) Past Med/Surg History Problem List (Updated 01/14/25 @ 15:29 by Kyler Rdz DO) On valproate therapy (Acute) Hypokalemia (Acute) Weakness (Acute) Acute hyponatremia (Acute) Sacroiliitis Right hip pain Esophageal reflux Bipolar disorder, unspecified Intellectual disability Seizure-like activity Flu (Acute) Panic disorder Hypertensive urgency Severe sepsis Bronchopneumonia Acute hypoxic respiratory failure Hypoxia (Acute) Multifocal pneumonia (Acute) AMS (altered mental status) (Acute) Bilateral lower leg cellulitis Hypothyroidism (Chronic) Osteoarthritis (Chronic) Hearing loss (Chronic) H/O colonoscopy (Chronic) Abdominal pain (Acute) Bilateral leg pain (Acute) Cellulitis (Acute) Contusion of multiple sites (Acute) Diffuse abdominal pain (Acute) Fall (Acute) Medical History Mental disability Anxiety Social History Smoking Status: Never smoker Second Hand Exposure: No; Do You Dip or Chew Tobacco: No; Hx Alcohol Use: No Hx Substance Use: No Communication Ability: Effective Paving Rammer Required: No Beliefs That Will Affect Care: None Current Living Situation: Personal Care Facility Feels Safe at Home: Yes Assistive Devices: None Review of Systems Review of Systems: -unable to ask full ROS due to cognitive impairement Physical Exam Physical Exam: Gen: A&O 2 NAD HEENT: NCAT, EOMI, not icteric. External ears normal. No rhinorrhea. Mildly dry mucous membranes. Neck: Supple, full range of motion, no observable masses, No meningeal sign. Lungs: No Respiratory distress. CV: RRR, no edema. Abdomen: Soft, nondistended, No rebound tenderness. MSK: trace pitting edema in legs bilaterally Skin: No rashes, petechiae, lesions. Neuro: Normal Gait, Grossly intact. Results & Data Results & Data Vital Signs (Past 12 Hours) Vital Signs Pulse Pulse Resp BP BP Pulse Ox O2 Del Method 01/14/25 17:01 80 01/14/25 14:01 73 18 159/88 H 94 Room Air 01/14/25 12:46 80 01/14/25 12:20 Room Air 01/14/25 12:20 80 16 159/88 H 95 Room Air Laboratory Results -personally reviewed, Na of 126, supertherapeutic depakote level, labs ordered by this provider show high urine osmoles, high urine sodium, and high serum osmoles consistent with hypertonic hyponatremia, creatinine at baseline, K of 3.2 and replenished Code Status & VTE Plan Code Status -full code
[2025-01-14] MEDS: POTASSIUM CHLORIDE 20 MEQ/15 ML UDC PO STA (17:53)
[2025-01-14] MEDS ORDERED: POLYETHYLENE (MIRALAX) 17 GM PACK PO PRN (17:59)
[2025-01-14] MEDS ORDERED: ONDANSETRON INJ 2 MG/ML 2 ML VIAL IV PRN (17:59)
[2025-01-14 19:48] LABS: Base Excess VBG 15.3 mEq/L; HCO3 VBG 42 mmol/L; Oxygen Saturation VBG < 60.0 %; PCO2 VBG 61 mmHg (38-50); PO2 VBG 24 mmHg; pH VBG 7.45 (7.36-7.41)
[2025-01-14 20:20] LABS: Anion Gap 5.0 (3-11); Blood Urea Nitrogen 12.0 mg/dl (6-23); Calcium 9.3 mg/dl (8.6-10.3); Carbon Dioxide 38.0 mmol/L (21-32); Chloride 80.0 mmol/L (98-107); Creatinine Clr Calc Pharmacy 103.4 ml/min; Glucose 89.0 mg/dl (70-99(Fasting)); Potassium 4.3 mmol/L (3.5-5.1); Sodium 123.0 mmol/L (136-145)
[2025-01-14 20:23] LABS: Amphetamines+Metham, Urine Neg (Neg); MDMA (Ecstacy), Urine Pos (Neg); Marijuana, Urine Neg (Neg)
[2025-01-14] MEDS: ACETAMINOPHEN 325 MG TAB PO PRN (21:17)
[2025-01-14] MEDS: UREA (UREA-NA) 15 GM PACK PO SCH (22:22)
[2025-01-15 00:28] LABS: Blood Urea Nitrogen 44 mg/dl (6-23); Calcium 8.7 mg/dl (8.6-10.3); Carbon Dioxide 36 mmol/L (21-32); Chloride 81 mmol/L (98-107); Creatinine Clr Calc Pharmacy 83.4 ml/min; Glucose 118 mg/dl (70-99(Fasting))
[2025-01-15 01:36] LABS: Potassium 3.7 mmol/L (3.5-5.1); Sodium 122.0 mmol/L (136-145)
[2025-01-15 03:44] LABS: Anion Gap 4.0 (3-11); Blood Urea Nitrogen 40.0 mg/dl (6-23); Calcium 9.0 mg/dl (8.6-10.3); Carbon Dioxide 37.0 mmol/L (21-32); Chloride 82.0 mmol/L (98-107); Creatinine Clr Calc Pharmacy 103.4 ml/min; Glucose 90.0 mg/dl (70-99(Fasting)); Potassium 3.6 mmol/L (3.5-5.1); Sodium 123.0 mmol/L (136-145)
[2025-01-15] MEDS: LEVOTHYROXINE SODIUM 25 MCG TABLET PO SCH (05:45)
[2025-01-15 08:07] LABS: Anion Gap 7.0 (3-11); Blood Urea Nitrogen 33.0 mg/dl (6-23); Calcium 9.5 mg/dl (8.6-10.3); Carbon Dioxide 38.0 mmol/L (21-32); Chloride 82.0 mmol/L (98-107); Creatinine Clr Calc Pharmacy 101.0 ml/min; Glucose 84.0 mg/dl (70-99(Fasting)); Potassium 3.8 mmol/L (3.5-5.1); Sodium 127.0 mmol/L (136-145)
[2025-01-15] MEDS: FOLIC ACID 1 MG TAB PO SCH (08:56)
[2025-01-15] MEDS: THIAMINE HCL 100 MG TAB PO SCH (08:56)
[2025-01-15 11:23] LABS: Anion Gap 8.0 (3-11); Blood Urea Nitrogen 44.0 mg/dl (6-23); Calcium 9.6 mg/dl (8.6-10.3); Carbon Dioxide 37.0 mmol/L (21-32); Chloride 84.0 mmol/L (98-107); Creatinine Clr Calc Pharmacy 92.8 ml/min; Glucose 139.0 mg/dl (70-99(Fasting)); Potassium 3.5 mmol/L (3.5-5.1); Sodium 129.0 mmol/L (136-145)
--- NOTE | 2025-01-15 11:41 | Nephrology Consultation ---
Date of Consultation January 15, 2025 Assessment & Plan (1) Acute hyponatremia: She has been on hydrochlorothiazide and various antipsychotics. Acute decline in sodium is likely secondary to hydrochlorothiazide use, she may have SIADH in the background. - Uosm - 688. Katty- 101.4, POsm- 363 -her admitting sodium was 126 ( 12.34--9/), which dropped to 122 around 1:00 a.m. today, she received 30 g of urea, yesterday night and today morning. Latest sodium is 129( 10.25 am), urine sodium raised as she was on diuretic. -acceptable rise in sodium in last 24 hours, aim for rise of 8-10 over the next 24 hours. -DC urea for now as she is self correcting(she has supratherapeutic valproate level, urea can worsen Ammonia), would prefer small doses of Lasix/normal saline depending upon her fluid status/ BP. -1.8 L fluid restriction. Continue to hold hydrochlorothiazide and meloxicam - change to q.6 sodium check -repeat plasma with urine osmolality and urine sodium in a.m. tomorrow -Her plasma osmolality is raised likely secondary supratherapeutic valproate level. Alcohol levels are awaited, random cortisol levels were normal but this was decreased on the morning labs today. Recommend repeating it again with the morning labs in a.m. Mangement discussed and agreed W/ Dr Anderson. (2) Intellectual disability: -she is on trazodone, Quetiapine and sodium valproate -sodium valproate levels were increased, however LFTs are normal, unable to comment on her present confusional state(if it is any worse than her baseline). -agree with holding valproate, recs to measure valproate level with ammonia serially, contact poison center if this is not improving. -Neurology consult for further dosing History of Present Illness Reason for Consultation: Hyponatremia Attending Physician: Reece Anderson MD History of Present Illness 60 yo female with who presented from retirement for worsening gait and falls.In the ED, noted to have hyponatremia ( Na-126, Normal K ). CT head was negative for any acute findings. Chest x-ray showed pulmonary vascular congestion but no consolidation or pleural effusion. Pmhx of hypothyroidism, prediabetes, esophagitis, morbid obesity, uterine leiomyoma, generalized osteoarthritis of multiple sites, chronic allergic conjunctivitis, conductive hearing loss of both ears, panic disorder, and mild intellectual disability. Patient seen and examined at bedside. Very pleasant to talk to but difficult to perform history and ROS due to intellectual disability, but appears comfortable with no shortness of breath and no pedal edema. Pleasantly confused. Allergies Allergy/AdvReac Type Severity Reaction Status Date / Time No Known Allergies Allergy Verified 01/14/25 15:09 Home Medications Medication Instructions Recorded Confirmed Type meloxicam 15 mg tablet 15 mg PO DAILY 06/18/24 01/14/25 History venlafaxine 150 mg 150 mg PO DAILY 06/18/24 01/14/25 History capsule,extended release 24 hr quetiapine 50 mg tablet (Seroquel) 50 mg PO HS #30 tabs 06/20/24 01/14/25 Rx trazodone 100 mg tablet 100 mg PO HS #30 tabs 06/20/24 01/14/25 Rx acetaminophen 650 mg 1,300 mg PO BID 07/08/24 01/14/25 History tablet,extended release (Tylenol Arthritis Pain) divalproex 500 mg tablet,delayed 500 mg PO QAM 07/08/24 01/14/25 History release docusate sodium 100 mg capsule 100 mg PO BID 07/08/24 01/14/25 History (Colace) hydrochlorothiazide 25 mg tablet 25 mg PO DAILY 07/08/24 01/14/25 History levothyroxine 25 mcg tablet 25 mcg PO DAILY 07/08/24 01/14/25 History loratadine 10 mg tablet (Claritin) 10 mg PO DAILY 07/08/24 01/14/25 History omeprazole 20 mg capsule,delayed 20 mg PO QDD 07/08/24 01/14/25 History release quetiapine 25 mg tablet 25 mg PO HS 10/20/24 01/14/25 History divalproex 500 mg tablet,extended 1,500 mg PO HS 01/14/25 01/14/25 History release 24 hr (Depakote ER) pediatric multivitamin-iron 1 tab PO DAILY 01/14/25 01/14/25 History tirzepatide (weight loss) 10 10 mg subcut WK 01/14/25 01/14/25 History mg/0.5 mL subcutaneous pen injector (Zepbound) Patient History Medical History Mental disability Anxiety Social History Smoking Status: Never smoker Second Hand Exposure: No; Do You Dip or Chew Tobacco: No; Tobacco Cessation Education Requested by Patient: No Hx Alcohol Use: No Hx Substance Use: No Preferred Language: Kiswahili Communication Ability: Impaired Microarray Specialist Required: No Beliefs That Will Affect Care: None Current Living Situation: Personal Care Facility Other Information That Helps Us Care for You: No Feels Safe at Home: Yes Safety Concerns: Feels Safe At This Time Assistive Devices: None Review of Systems 2 Review of Systems: All systems reviewed & are unremarkable except as noted in HPI & below Physical Exam 2 Physical Exam: Gen: A&O 2 NAD HEENT: NCAT, EOMI, not icteric. External ears normal. No rhinorrhea. Mildly dry mucous membranes. Neck: Supple, full range of motion, no observable masses, No meningeal sign. Lungs: No Respiratory distress. CV: RRR, no edema. Abdomen: Soft, nondistended, No rebound tenderness. MSK: trace pitting edema in legs bilaterally Skin: No rashes, petechiae, lesions. Neuro: Normal Gait, Grossly intact Results & Data Vital Signs (Past 12 Hours) Vital Signs Temp Pulse Pulse Resp BP BP Pulse Ox 01/15/25 11:33 36.5 C 68 16 118/66 94 01/15/25 05:56 01/15/25 05:56 36.5 C 75 18 138/83 92 01/15/25 05:00 74 17 158/96 H 95 01/15/25 04:56 74 17 165/102 H 99 01/15/25 04:00 80 17 165/102 H 98 01/15/25 03:00 71 16 111/70 97 01/15/25 02:00 76 17 154/73 H 98 01/15/25 01:25 82 L 01/15/25 01:00 69 18 128/86 92 01/15/25 00:00 74 17 128/86 92 O2 Del Method O2 Flow Rate 01/15/25 11:33 Room Air 01/15/25 05:56 Room Air 01/15/25 05:56 Room Air 01/15/25 05:00 Room Air 01/15/25 04:56 Oxymask 2 01/15/25 04:00 Oxymask 2 01/15/25 03:00 Oxymask 2 01/15/25 02:00 Oxymask 2 01/15/25 01:25 Oxymask 0 01/15/25 01:00 Room Air 01/15/25 00:00 Room Air Laboratory Results 01/14/25 12:34 01/15/25 10:25
[2025-01-15 12:55] LABS: Anion Gap 5.0 (3-11); Blood Urea Nitrogen 53.0 mg/dl (6-23); Calcium 9.5 mg/dl (8.6-10.3); Carbon Dioxide 38.0 mmol/L (21-32); Chloride 87.0 mmol/L (98-107); Creatinine Clr Calc Pharmacy 102.8 ml/min; Glucose 124.0 mg/dl (70-99(Fasting)); Potassium 3.6 mmol/L (3.5-5.1); Sodium 130.0 mmol/L (136-145)
--- NOTE | 2025-01-15 13:49 | Hospitalist Progress Note ---
Date of Service January 15, 2025 Assessment & Plan (1) Weakness: (2) Acute hyponatremia: (3) Intellectual disability: (4) On valproate therapy: Plan 60 yo female with pmhx of hypothyroidism, prediabetes, esophagitis, morbid obesity, uterine leiomyoma, generalized osteoarthritis of multiple sites, chronic allergic conjunctivitis, conductive hearing loss of both ears, panic disorder, persistent insomnia and mild intellectual disability who presents from long term for worsening gait and falls 2/2 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 #Falls #Hypertonic Hyponatremia -high urine osmoles, high urine sodium, and elevated serum osmoles are consistent with multifactorial cause of hyponatremia -has osmole gap of 101 suggesting volume expanision -patient does have mild pitting edema -likely 2/2 polypharmacy, thiazide use, differential includes toxic ingestion as well given osmolar gap, other considerations include SIAHD and dehydration Plan: -nephrology consult, appreciate recs -discussed personally with title processor five piece expansion maker hand, start fluid restriction, stop thiazide, fluid restriction, q4hr BMP -goal K of 4 per nephrology Adrenal insufficiency Hepatic encephalopathy Presenting with drowsiness/less responsive Noted to have high ammonia level of 108 and also Low a.m. cortisol of 3.98 but random cortisol was normal Will start lactulose and also give stress dose of steroid 100 mg hydrocortisone stat and 50 mg IV q6hr and tapering over next 3 -5 days VBG noted Appreciate nephrology input and recommendations #Bipolar Disorder #Panic Disorder #Polypharmacy #Supratherapeutic Depakote Levels -on venlafaxine, trazodone, Depakote, all of which can cause SIADH and contribute to above picture -on seroquel as well Plan: -hold depakote for now given supratherapeutic levels, will likely need psych consult given SIADH possible picture in setting of polypharmacy -continue venlafaxine, continue trazadone -decrease seroquel to 50mg at bedtime Depakote level noted to be very high and Depakote is on hold right now Will get a psychiatric opinion regarding adjustment of Depakote and other antipsychotic medications which may contribute to SIADH #Esophagitis -continue omeprazole #Hypothyroidism -continue levothyroxine Admission and Anticipated Discharge Date Admission Date: January 14, 2025 Subjective 01/15/2025 The patient was seen and examined in medical telemetry unit She has been stable and was talking with the nurses this morning Did not do much conversation with me Complained of some back pain but no other symptoms reported Review of Systems Review of Systems: Unobtainable due to cognitive status Physical Exam Physical Exam: Lying in bed without any significant symptoms but looked very drowsy and sleepy Constitutional: well developed, well nourished, + ill appearing and + obese Eyes: PERRL, conjunctivae normal, anicteric sclerae ENMT: external ear and nose normal, oropharynx normal Neck: trachea midline, no thyromegaly Respiratory: no respiratory distress Auscultation: lungs clear to auscultation bilaterally Cardiovascular: Rate/Rhythm: regular rate and regular rhythm; not tachycardic Heart Sounds: normal S1 and normal S2; no murmur Extremities: + edema (Trace edema bilaterally) Gastrointestinal (Abdomen): Inspection/Auscultation: normal bowel sounds; abdomen not distended Percussion/Palpation: abdomen soft; abdomen nontender Musculoskeletal: Has minor external deformities involving the extremities Neurologic: Alert and awake. Limited communication secondary to intellectual disability Lymphatic: no cervical or axillary lymphadenopathy Results & Data Results & Data Vital Signs (Past 12 Hours) Vital Signs Temp Pulse Pulse Resp BP BP Pulse Ox 01/15/25 11:33 36.5 C 68 16 118/66 94 01/15/25 05:56 01/15/25 05:56 36.5 C 75 18 138/83 92 01/15/25 05:00 74 17 158/96 H 95 01/15/25 04:56 74 17 165/102 H 99 01/15/25 04:00 80 17 165/102 H 98 01/15/25 03:00 71 16 111/70 97 01/15/25 02:00 76 17 154/73 H 98 O2 Del Method O2 Flow Rate 01/15/25 11:33 Room Air 01/15/25 05:56 Room Air 01/15/25 05:56 Room Air 01/15/25 05:00 Room Air 01/15/25 04:56 Oxymask 2 01/15/25 04:00 Oxymask 2 01/15/25 03:00 Oxymask 2 01/15/25 02:00 Oxymask 2 Laboratory Results BMP 01/14/25 01/14/25 01/15/25 19:29 23:20 01:07 Sodium 123 L TNP 122 L Potassium 4.3 D TNP 3.7 Chloride 80 L 81 L Carbon Dioxide 38 H 36 H BUN 12 44 H D Creatinine 0.50 L 0.62 Glucose 89 118 H Calcium 9.3 8.7 01/15/25 01/15/25 01/15/25 03:11 07:20 10:25 Sodium 123 L 127 L 129 L Potassium 3.6 3.8 3.5 Chloride 82 L 82 L 84 L Carbon Dioxide 37 H 38 H 37 H BUN 40 H 33 H 44 H Creatinine 0.50 L 0.57 L 0.62 Glucose 90 84 139 H Calcium 9.0 9.5 9.6 01/15/25 12:17 Sodium 130 L Potassium 3.6 Chloride 87 L Carbon Dioxide 38 H BUN 53 H Creatinine 0.56 L Glucose 124 H Calcium 9.5 Medications Administered Current Inpatient Medications Acetaminophen (Acetaminophen 325 Mg Tab) 650 mg PO Q4H PRN PRN Reason: pain/fever Stop: 02/13/25 17:58 Last Admin: 01/14/25 21:17 Dose: 650 mg Folic Acid (Folic Acid 1 Mg Tab) [facility] Stop: 02/14/25 08:59 Last Admin: 01/15/25 08:56 Dose: 1 mg Levothyroxine Sodium (Levothyroxine Sodium 25 Mcg Tablet) [facility] Stop: 02/14/25 06:29 Last Admin: 01/15/25 05:45 Dose: 25 mcg Ondansetron HCl (Ondansetron Inj 2 Mg/Ml 2 Ml Vial) 4 mg IV Q6H PRN PRN Reason: Nausea Stop: 02/13/25 17:58 Pantoprazole Sodium (Pantoprazole 40 Mg Tab) 40 mg PO DAILY [facility]; Protocol Stop: 02/14/25 08:59 Last Admin: 01/15/25 08:56 Dose: 40 mg Polyethylene Glycol (Polyethylene (Miralax) 17 Gm Pack) 17 gm PO DAILY PRN PRN Reason: Constipation Stop: 02/13/25 17:58 Quetiapine Fumarate (Quetiapine Fumarate 25 Mg Tablet) 50 mg PO [facility] Stop: 02/13/25 20:59 Last Admin: 01/14/25 21:15 Dose: 50 mg Thiamine HCl (Thiamine Hcl 100 Mg Tab) [facility] Stop: 02/14/25 08:59 Last Admin: 01/15/25 08:56 Dose: 100 mg Trazodone HCl (Trazodone Hcl 100 Mg Tab) 100 mg PO [facility] Stop: 02/13/25 20:59 Last Admin: 01/14/25 21:15 Dose: 100 mg Scoring 0 Objective administered: Your
--- NOTE | 2025-01-15 13:58 | Psychiatric Consultation ---
Date of Consultation January 15, 2025 Impression / Recommendations Impression 60 yo female with pmhx of hypothyroidism, prediabetes, esophagitis, morbid obesity, uterine leiomyoma, generalized osteoarthritis of multiple sites, chronic allergic conjunctivitis, conductive hearing loss of both ears, panic disorder, persistent insomnia and mild intellectual disability who presents from [facility] for worsening gait and falls 2/2 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 Psychiatry consulted for polypharmacy concerns. Patient presenting gait instability and falls related to hyponatremia as a result of valproate toxicity. Therapeutic range of valproic acid is typically between 50-100 and can rise up to 125/150 for acute mood stabilization. Per review, pt has has not had recent medication changes to psychotropics. Current valproate level is 173 with low grade toxicity. Previous level on 06/18/24 was 108 with stable sodium levels at that time. Levels may have risen due to age related decline in hepatic enzyme activity, decreased renal clearance of metabolites, dehydration, infection, drug interactions. Signs of toxicity in this patient include elevated ammonia levels which can signal reduced clearance. Unlikely her Quetiapine/Trazodone (at current doses acts as antihistamine with minimal hyponatremia risk), Effexor XR (known hyponatremia risk however patient has been stable on this dose with no past incidents) are contributory. Overall, I spent a total of 80 minutes with this case including review of chart records, nursing report, review of lab work, direct evaluation of the patient at bedside, counseling the patient, discussion of the patient with the hospitalist provider, discussion with the psychiatric liaison during clinical rounds, and documentation in the electronic health record. (1) Valproic acid toxicity: (2) Acute hyponatremia: (3) Intellectual disability: (4) Bipolar disorder, unspecified: Plan -Hold Valproate -Continue Quetiapine, Trazodone, Venlafaxine XR -Obtain repeat Free + Total valproic acid level -Once sodium is normalized, valproate level is below 80, and ammonia level improving, consider restarting Valproate 2-3 days after at 50% of home dose (1000mg) Psych History Identifying Data 60 yo female with pmhx of hypothyroidism, prediabetes, esophagitis, morbid obesity, uterine leiomyoma, generalized osteoarthritis of multiple sites, chronic allergic conjunctivitis, conductive hearing loss of both ears, panic disorder, persistent insomnia and mild intellectual disability who presents from jail for worsening gait and falls 2/2 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 Psychiatry consulted for polypharmacy concerns. Chief Complaint Weakness, hyponatremia History of Present Illness Chart review:Bipolar d/o history. Able to complete ADLs at baseline. Non-verbal and deaf. Home psychotropics: VPA 500mg QAM, 1500mg HS, Quetapine 75mg HS, Trazodone 100mg HS, Effexor XR 150mg QD Unable to engage in clinical interview due to impairments. Appeared calm and alert. Updated about care plan. Agreeable. Allergies Allergy/AdvReac Type Severity Reaction Status Date / Time No Known Allergies Allergy Verified 01/14/25 15:09 Home Medications Medication Instructions Recorded Confirmed Type meloxicam 15 mg tablet 15 mg PO DAILY 06/18/24 01/14/25 History venlafaxine 150 mg 150 mg PO DAILY 06/18/24 01/14/25 History capsule,extended release 24 hr quetiapine 50 mg tablet (Seroquel) 50 mg PO HS #30 tabs 06/20/24 01/14/25 Rx trazodone 100 mg tablet 100 mg PO HS #30 tabs 06/20/24 01/14/25 Rx acetaminophen 650 mg 1,300 mg PO BID 07/08/24 01/14/25 History tablet,extended release (Tylenol Arthritis Pain) divalproex 500 mg tablet,delayed 500 mg PO QAM 07/08/24 01/14/25 History release docusate sodium 100 mg capsule 100 mg PO BID 07/08/24 01/14/25 History (Colace) hydrochlorothiazide 25 mg tablet 25 mg PO DAILY 07/08/24 01/14/25 History levothyroxine 25 mcg tablet 25 mcg PO DAILY 07/08/24 01/14/25 History loratadine 10 mg tablet (Claritin) 10 mg PO DAILY 07/08/24 01/14/25 History omeprazole 20 mg capsule,delayed 20 mg PO QDD 07/08/24 01/14/25 History release quetiapine 25 mg tablet 25 mg PO HS 10/20/24 01/14/25 History divalproex 500 mg tablet,extended 1,500 mg PO HS 01/14/25 01/14/25 History release 24 hr (Depakote ER) pediatric multivitamin-iron 1 tab PO DAILY 01/14/25 01/14/25 History tirzepatide (weight loss) 10 10 mg subcut WK 01/14/25 01/14/25 History mg/0.5 mL subcutaneous pen injector (Zepbound) Patient History Medical History Mental disability Anxiety Social History Smoking Status: Never smoker Second Hand Exposure: No; Do You Dip or Chew Tobacco: No; Tobacco Cessation Education Requested by Patient: No Hx Alcohol Use: No Hx Substance Use: No Preferred Language: Azeri Communication Ability: Impaired Bleach Boiler Puller Required: No Beliefs That Will Affect Care: None Current Living Situation: Personal Care Facility Other Information That Helps Us Care for You: No Feels Safe at Home: Yes Safety Concerns: Feels Safe At This Time Assistive Devices: None Physical Exam Mental Examination: Appearance: Disheveled Eye Contact: Maintains Eye Contact Motor Behavior: Unremarkable Speech: Nonverbal Affect: Calm Vital Signs (Past 24 Hours): Last Vital Signs Temp 36.5 C 01/15/25 11:33 Pulse 68 01/15/25 11:33 Resp 16 01/15/25 11:33 BP 118/66 01/15/25 11:33 Pulse Ox 94 01/15/25 11:33 O2 Del Method Room Air 01/15/25 11:33 O2 Flow Rate 2 01/15/25 04:56 Results & Data (PSY) Medications Administered Acetaminophen (Acetaminophen 325 Mg Tab) 650 mg PO Q4H PRN PRN Reason: pain/fever Stop: 02/13/25 17:58 Last Admin: 01/14/25 21:17 Dose: 650 mg Documented By: FORTUNATO Folic Acid (Folic Acid 1 Mg Tab) 1 mg PO QAM [facility] Stop: 02/14/25 08:59 Last Admin: 01/15/25 08:56 Dose: 1 mg Documented By: PK Levothyroxine Sodium (Levothyroxine Sodium 25 Mcg Tablet) 25 mcg PO DAILYBB [facility] Stop: 02/14/25 06:29 Last Admin: 01/15/25 05:45 Dose: 25 mcg Documented By: KMF Pantoprazole Sodium (Pantoprazole 40 Mg Tab) 40 mg PO DAILY [facility]; Protocol Stop: 02/14/25 08:59 Last Admin: 01/15/25 08:56 Dose: 40 mg Documented By: PK Quetiapine Fumarate (Quetiapine Fumarate 25 Mg Tablet) 50 mg PO [facility] Stop: 02/13/25 20:59 Last Admin: 01/14/25 21:15 Dose: 50 mg Documented By: FORTUNATO Thiamine HCl (Thiamine Hcl 100 Mg Tab) 100 mg PO QA [facility] Stop: 02/14/25 08:59 Last Admin: 01/15/25 08:56 Dose: 100 mg Documented By: PK Trazodone HCl (Trazodone Hcl 100 Mg Tab) 100 mg PO [facility] Stop: 02/13/25 20:59 Last Admin: 01/14/25 21:15 Dose: 100 mg Documented By: FORTUNATO Coding [place] [address] IN/OBS CONSULT LVL 5,80M Patient Type Established History Detailed Exam Detailed Medical Decision Making High Complexity Diagnoses Valproic acid toxicity T42.6X1A Acute hyponatremia E87.1 Intellectual disability F79 Bipolar disorder, unspecified F31.9
[2025-01-15 16:23] LABS: Anion Gap 7.0 (3-11); Blood Urea Nitrogen 46.0 mg/dl (6-23); Calcium 9.5 mg/dl (8.6-10.3); Carbon Dioxide 38.0 mmol/L (21-32); Chloride 86.0 mmol/L (98-107); Creatinine Clr Calc Pharmacy 87.2 ml/min; Glucose 161.0 mg/dl (70-99(Fasting)); Potassium 3.6 mmol/L (3.5-5.1); Sodium 131.0 mmol/L (136-145)
[2025-01-15] MEDS: HYDROCORTISONE SOD 100 MG in SYRINGE 0 ML IV ONE (17:05)
[2025-01-15 20:26] LABS: Anion Gap 9.0 (3-11); Blood Urea Nitrogen 35.0 mg/dl (6-23); Calcium 9.5 mg/dl (8.6-10.3); Carbon Dioxide 35.0 mmol/L (21-32); Chloride 88.0 mmol/L (98-107); Creatinine Clr Calc Pharmacy 66.9 ml/min; Glucose 162.0 mg/dl (70-99(Fasting)); Potassium 3.7 mmol/L (3.5-5.1); Sodium 132.0 mmol/L (136-145)
[2025-01-15 23:36] LABS: Anion Gap 5.0 (3-11); Blood Urea Nitrogen 29.0 mg/dl (6-23); Calcium 9.6 mg/dl (8.6-10.3); Carbon Dioxide 39.0 mmol/L (21-32); Chloride 90.0 mmol/L (98-107); Creatinine Clr Calc Pharmacy 59.3 ml/min; Glucose 162.0 mg/dl (70-99(Fasting)); Potassium 3.7 mmol/L (3.5-5.1); Sodium 134.0 mmol/L (136-145)
[2025-01-16] MEDS: LACTULOSE SYRUP 20 GM/30 ML UDC PO SCH (00:17)
[2025-01-16 05:45] LABS: Hematocrit (blood only) 43.2 % (37.0-47.0); Hemoglobin 15.0 g/dl (12.0-16.0); Immature Granulocytes # (auto) 0.02 K/uL (0.01-0.20); Immature Granulocytes % (auto) 0.3 %; Mean Corpuscular Hemoglobin 32.3 pg (25.0-34.0); Mean Corpuscular Volume 92.9 fL (80.0-100.0); Platelet Count 145 K/uL (130-400); RDW Standard Deviation 38.6 fL (36.4-46.3); Red Blood Count 4.65 M/uL (4.20-5.40); White Blood Count 7.08 K/ul (4.8-10.8)
[2025-01-16 06:04] LABS: Alanine Aminotransferase 9.0 U/L (7-52); Albumin Globulin Ratio 1.3 (0.9-2); Albumin Level 3.9 gm/dl (3.4-5.0); Alkaline Phosphatase 57.0 U/L (34-104); Anion Gap 7.0 (3-11); Bilirubin,Total 0.4 mg/dl (0.2-1.0); Blood Urea Nitrogen 25.0 mg/dl (6-23); Calcium 9.7 mg/dl (8.6-10.3); Carbon Dioxide 37.0 mmol/L (21-32); Chloride 93.0 mmol/L (98-107); Creatinine Clr Calc Pharmacy 94.3 ml/min; Globulin 3.0 gm/dl (2.5-4.0); Glucose 116.0 mg/dl (70-99(Fasting)); Potassium 3.2 mmol/L (3.5-5.1); Sodium 137.0 mmol/L (136-145); Total Protein 6.9 gm/dl (6.0-8.3)
--- NOTE | 2025-01-16 08:22 | Nephrology Progress Note ---
Date of Service January 16, 2025 Assessment & Plan Admission and Anticipated Discharge Date Admission Date: January 14, 2025 Subjective Assessment & Plan (1) Acute hyponatremia: She has been on hydrochlorothiazide and various antipsychotics. Acute decline in sodium is likely secondary to hydrochlorothiazide use, she may have SIADH in the background. - Uosm - 688. Katty- 101.4, POsm- 363 -her admitting sodium was 126 ( 12.34--12/15), which dropped to 122-- she received 30 g of urea, yesterday night and today morning. na this AM was 137--too much rise in last 24 hrs. will give 1000 ml of D5W over next 8 hrs. DC urea for now as she is self correcting(she has supratherapeutic valproate level, urea can worsen Ammonia), would prefer small doses of Lasix/normal saline depending upon her fluid status/ BP. 1.8 L fluid restriction. Continue to hold hydrochlorothiazide and meloxicam Check BMP again at 12 PM repeat plasma with urine osmolality and urine sodium pending from today. Her plasma osmolality is raised likely secondary supratherapeutic valproate level. Alcohol levels are awaited, random cortisol levels were normal but this was decreased on the morning labs today. Recommend repeating it again with the morning labs in a.m. Mangement discussed and agreed W/ Dr Anderson. (2) Intellectual disability: -she is on trazodone, Quetiapine and sodium valproate -sodium valproate levels were increased, however LFTs are normal, unable to comment on her present confusional state(if it is any worse than her baseline). -agree with holding valproate, recs to measure valproate level with ammonia serially, contact poison center if this is not improving. -Neurology consult for further dosing Physical Exam Physical Exam: Gen: A&O 2 NAD HEENT: NCAT, EOMI, not icteric. External ears normal. No rhinorrhea. Mildly dry mucous membranes. Neck: Supple, full range of motion, no observable masses, No meningeal sign. Lungs: No Respiratory distress. CV: RRR, no edema. Abdomen: Soft, nondistended, No rebound tenderness. MSK: trace pitting edema in legs bilaterally Skin: No rashes, petechiae, lesions. Neuro: Normal Gait, Grossly intact. Results & Data Vital Signs (Past 12 Hours) Vital Signs Temp Pulse Pulse Resp BP Pulse Ox O2 Del Method 01/16/25 07:18 90 01/16/25 02:28 36.5 C 93 H 18 119/77 95 Room Air 01/15/25 22:55 36.7 C 97 H 18 119/81 93 Room Air 01/15/25 21:57 95 H
[2025-01-16] MEDS: DEXTROSE 5% 1,000 ML IV SCH (08:36)
[2025-01-16] MEDS: HYDROCORTISONE SOD 50 MG in SYRINGE 0 ML IV SCH (09:43)
[2025-01-16 12:41] LABS: Albumin Level 3.7 gm/dl (3.4-5.0); Anion Gap 6.0 (3-11); Blood Urea Nitrogen 21.0 mg/dl (6-23); Calcium 9.8 mg/dl (8.6-10.3); Carbon Dioxide 39.0 mmol/L (21-32); Chloride 95.0 mmol/L (98-107); Creatinine Clr Calc Pharmacy 78.8 ml/min; Glucose 160.0 mg/dl (70-99(Fasting)); Potassium 3.0 mmol/L (3.5-5.1); Sodium 140.0 mmol/L (136-145)
[2025-01-16] MEDS ORDERED: POTASSIUM PHOS 3 MMOL/1 ML INFUSION IV STA (14:09)
--- NOTE | 2025-01-16 14:20 | Hospitalist Progress Note ---
Date of Service January 16, 2025 Assessment & Plan (1) Weakness: (2) Acute hyponatremia: (3) Intellectual disability: (4) On valproate therapy: Plan 60 yo female with pmhx of hypothyroidism, prediabetes, esophagitis, morbid obesity, uterine leiomyoma, generalized osteoarthritis of multiple sites, chronic allergic conjunctivitis, conductive hearing loss of both ears, panic disorder, persistent insomnia and mild intellectual disability who presents from snf for worsening gait and falls 2/2 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 #Falls #Hypertonic Hyponatremia -high urine osmoles, high urine sodium, and elevated serum osmoles are consistent with multifactorial cause of hyponatremia -has osmole gap of 101 suggesting volume expanision -patient does have mild pitting edema -likely 2/2 polypharmacy, thiazide use, differential includes toxic ingestion as well given osmolar gap, other considerations include SIAHD and dehydration Plan: -nephrology consult, appreciate recs -discussed personally with specialist icu rn correctional, start fluid restriction, stop thiazide, fluid restriction, q4hr BMP -goal K of 4 per nephrology Sodium level is up at 140 and seems to be overcorrected in short time She is getting D5 discharge tomorrow minimized change in sodium Monitor Adrenal insufficiency Hepatic encephalopathy Presenting with drowsiness/less responsive Noted to have high ammonia level of 108 and also Low a.m. cortisol of 3.98 but random cortisol was normal Will start lactulose and also give stress dose of steroid 100 mg hydrocortisone stat and 50 mg IV q6hr and tapering over next 3 -5 days VBG noted Appreciate nephrology input and recommendations Will start hydrocortisone 50 mg Q8 hourly for a day or 2 Ammonia level has been normal and LFTs are normal Patient is more alert and awake. He Weaning #Bipolar Disorder #Panic Disorder #Polypharmacy #Supratherapeutic Depakote Levels -on venlafaxine, trazodone, Depakote, all of which can cause SIADH and contribute to above picture -on seroquel as well Plan: -hold depakote for now given supratherapeutic levels, will likely need psych consult given SIADH possible picture in setting of polypharmacy -continue venlafaxine, continue trazadone -decrease seroquel to 50mg at bedtime Depakote level noted to be very high and Depakote is on hold right now Will get a psychiatric opinion regarding adjustment of Depakote and other antipsychotic medications which may contribute to SIADH Valproic acid level has been normalized and will start half the dose of sodium valproate on Sunday as per the instruction from psychiatrist #Esophagitis -continue omeprazole #Hypothyroidism -continue levothyroxine Discussed with caregiver at the facility Admission and Anticipated Discharge Date Admission Date: January 14, 2025 Subjective 01/15/2025 The patient was seen and examined in medical telemetry unit She has been stable and was talking with the nurses this morning Did not do much conversation with me Complained of some back pain but no other symptoms reported 01/16/2025 The patient was seen and examined in medical telemetry unit She seems doing much better today and opening her eyes and responding to vocal commands She is very deaf and converse minimally Review of Systems Review of Systems: Unobtainable due to cognitive status Physical Exam Physical Exam: Lying in bed without any significant symptoms but looked very drowsy and sleepy Constitutional: well developed, well nourished, + ill appearing and + obese Eyes: PERRL, conjunctivae normal, anicteric sclerae ENMT: external ear and nose normal, oropharynx normal Neck: trachea midline, no thyromegaly Respiratory: no respiratory distress Auscultation: lungs clear to auscultation bilaterally Cardiovascular: Rate/Rhythm: regular rate and regular rhythm; not tachycardic Heart Sounds: normal S1 and normal S2; no murmur Extremities: + edema (Trace edema bilaterally) Gastrointestinal (Abdomen): Inspection/Auscultation: normal bowel sounds; abdomen not distended Percussion/Palpation: abdomen soft; abdomen nontender Musculoskeletal: Has minor external deformities involving the extremities Neurologic: Alert and awake. Limited communication secondary to intellectual disability Lymphatic: no cervical or axillary lymphadenopathy Results & Data Results & Data Vital Signs (Past 12 Hours) Vital Signs Temp Pulse Pulse Resp BP Pulse Ox O2 Del Method 01/16/25 11:45 Room Air 01/16/25 11:39 36.5 C 79 16 141/95 H 98 Room Air 01/16/25 08:21 36.4 C L 86 16 158/76 H 96 Room Air 01/16/25 07:18 90 01/16/25 02:28 36.5 C 93 H 18 119/77 95 Room Air Laboratory Results Short CBC 01/16/25 Range/Units 05:16 WBC 7.08 (4.8-10.8) K/ul Hgb 15.0 (12.0-16.0) g/dl Hct 43.2 (37.0-47.0) % Plt Count 145 (130-400) K/uL BMP 01/15/25 01/15/25 01/15/25 15:51 19:54 23:04 Sodium 131 L 132 L 134 L Potassium 3.6 3.7 3.7 Chloride 86 L 88 L 90 L Carbon Dioxide 38 H 35 H 39 H BUN 46 H 35 H 29 H Creatinine 0.66 0.86 0.97 Glucose 161 H 162 H 162 H Calcium 9.5 9.5 9.6 01/16/25 01/16/25 05:16 12:10 Sodium 137 140 Potassium 3.2 L 3.0 L Chloride 93 L 95 L Carbon Dioxide 37 H 39 H BUN 25 H 21 Creatinine 0.61 D 0.73 Glucose 116 H 160 H Calcium 9.7 9.8 Liver Function 01/16/25 01/16/25 Range/Units 05:16 12:10 Total Bilirubin 0.4 (0.2-1.0) mg/dl AST 13 (13-39) U/L ALT 9 (7-52) U/L Alkaline Phosphatase 57 (34-104) U/L Albumin 3.9 3.7 (3.4-5.0) gm/dl Medications Administered Current Inpatient Medications Acetaminophen (Acetaminophen 325 Mg Tab) 650 mg PO Q4H PRN PRN Reason: pain/fever Stop: 02/13/25 17:58 Last Admin: 01/14/25 21:17 Dose: 650 mg Folic Acid (Folic Acid 1 Mg Tab) 1 mg PO QAM [facility] Stop: 02/14/25 08:59 Last Admin: 01/16/25 08:44 Dose: 1 mg Dextrose (D5w) 1,000 mls @ 125 mls/hr IV .Q8H [facility]A Stop: 01/16/25 16:29 Last Admin: 01/16/25 08:36 Dose: 125 mls/hr Hydrocortisone Sodium (Succinate 50 mg/ Syringe) 1 mls @ 4 mls/min IV Q8H [facility] Stop: 02/15/25 08:44 Last Admin: 01/16/25 09:43 Dose: 4 mls/min Potassium Phosphate 21 mmol/ (Sodium Chloride) 507 mls @ 88 mls/hr IV ONE ONE Stop: 01/16/25 20:00 Lactulose (Lactulose Syrup 20 Gm/30 Ml Udc) 30 gm PO TID [facility] Stop: 02/14/25 20:59 Last Admin: 01/16/25 13:07 Dose: 30 gm Levothyroxine Sodium (Levothyroxine Sodium 25 Mcg Tablet) 25 mcg PO DAILYBB [facility] Stop: 02/14/25 06:29 Last Admin: 01/16/25 08:37 Dose: 25 mcg Ondansetron HCl (Ondansetron Inj 2 Mg/Ml 2 Ml Vial) 4 mg IV Q6H PRN PRN Reason: Nausea Stop: 02/13/25 17:58 Pantoprazole Sodium (Pantoprazole 40 Mg Tab) 40 mg PO DAILY [facility]; Protocol Stop: 02/14/25 08:59 Last Admin: 01/16/25 08:44 Dose: 40 mg Polyethylene Glycol (Polyethylene (Miralax) 17 Gm Pack) 17 gm PO DAILY PRN PRN Reason: Constipation Stop: 02/13/25 17:58 Quetiapine Fumarate (Quetiapine Fumarate 25 Mg Tablet) 50 mg PO HS [facility] Stop: 02/13/25 20:59 Last Admin: 01/15/25 23:17 Dose: 50 mg Thiamine HCl (Thiamine Hcl 100 Mg Tab) 100 mg PO QAM [facility] Stop: 02/14/25 08:59 Last Admin: 01/16/25 08:44 Dose: 100 mg Trazodone HCl (Trazodone Hcl 100 Mg Tab) 100 mg PO HS [facility] Stop: 02/13/25 20:59 Last Admin: 01/15/25 23:17 Dose: 100 mg
[2025-01-16] MEDS: POTASSIUM PHOSPHATE 21 MMOL in SODIUM CHLORIDE 0.9% 500 ML IV ONE (14:53)
[2025-01-17 08:04] LABS: Hematocrit (blood only) 39.7 % (37.0-47.0); Hemoglobin 14.3 g/dl (12.0-16.0); Immature Granulocytes # (auto) 0.05 K/uL (0.01-0.20); Immature Granulocytes % (auto) 0.6 %; Mean Corpuscular Hemoglobin 33.9 pg (25.0-34.0); Mean Corpuscular Volume 94.1 fL (80.0-100.0); Platelet Count 155 K/uL (130-400); RDW Standard Deviation 40.0 fL (36.4-46.3); Red Blood Count 4.22 M/uL (4.20-5.40); White Blood Count 8.89 K/ul (4.8-10.8)
[2025-01-17 08:21] LABS: Anion Gap 8.0 (3-11); Blood Urea Nitrogen 20.0 mg/dl (6-23); Calcium 9.2 mg/dl (8.6-10.3); Carbon Dioxide 34.0 mmol/L (21-32); Chloride 97.0 mmol/L (98-107); Creatinine Clr Calc Pharmacy 110.7 ml/min; Glucose 124.0 mg/dl (70-99(Fasting)); Magnesium 1.7 mg/dl (1.7-2.4); Potassium 3.4 mmol/L (3.5-5.1); Sodium 139.0 mmol/L (136-145)
[2025-01-17] MEDS: POTASSIUM CHLORIDE CRTAB 20 MEQ TABCR PO STA (09:21)
--- NOTE | 2025-01-17 12:45 | Hospitalist Progress Note ---
Date of Service January 17, 2025 Assessment & Plan (1) Weakness: (2) Acute hyponatremia: (3) Intellectual disability: (4) On valproate therapy: Plan 60 yo female with pmhx of hypothyroidism, prediabetes, esophagitis, morbid obesity, uterine leiomyoma, generalized osteoarthritis of multiple sites, chronic allergic conjunctivitis, conductive hearing loss of both ears, panic disorder, persistent insomnia and mild intellectual disability who presents from skilled nursing for worsening gait and falls 2/2 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 #Falls #Hypertonic Hyponatremia -high urine osmoles, high urine sodium, and elevated serum osmoles are consistent with multifactorial cause of hyponatremia -has osmole gap of 101 suggesting volume expanision -patient does have mild pitting edema -likely 2/2 polypharmacy, thiazide use, differential includes toxic ingestion as well given osmolar gap, other considerations include SIAHD and dehydration Plan: -nephrology consult, appreciate recs -discussed personally with field artillery fire control man contact assembler, start fluid restriction, stop thiazide, fluid restriction, q4hr BMP -goal K of 4 per nephrology Sodium level is up at 140 and seems to be overcorrected in short time She is getting D5 discharge tomorrow minimized change in sodium Sodium level remains normal at 139 Clinically much improved and symptomatic back to her baseline Likely discharge on Sunday Adrenal insufficiency Hepatic encephalopathy Presenting with drowsiness/less responsive Noted to have high ammonia level of 108 and also Low a.m. cortisol of 3.98 but random cortisol was normal Will start lactulose and also give stress dose of steroid 100 mg hydrocortisone stat and 50 mg IV q6hr and tapering over next 3 -5 days VBG noted Appreciate nephrology input and recommendations Will start hydrocortisone 50 mg Q8 hourly for a day or 2 Ammonia level has been normal and LFTs are normal We will decrease the hydrocortisone to twice daily today Continue it once daily tomorrow and then give oral supplement thereafter #Bipolar Disorder #Panic Disorder #Polypharmacy #Supratherapeutic Depakote Levels -on venlafaxine, trazodone, Depakote, all of which can cause SIADH and contribute to above picture -on seroquel as well Plan: -hold depakote for now given supratherapeutic levels, will likely need psych consult given SIADH possible picture in setting of polypharmacy -continue venlafaxine, continue trazadone -decrease seroquel to 50mg at bedtime Depakote level noted to be very high and Depakote is on hold right now Will get a psychiatric opinion regarding adjustment of Depakote and other antipsychotic medications which may contribute to SIADH Valproic acid level has been normalized and will start half the dose of sodium valproate on Sunday as per the instruction from psychiatrist Will restart valproic acid at half the dose from Sunday #Esophagitis -continue omeprazole #Hypothyroidism -continue levothyroxine Discussed with caregiver at the facility Admission and Anticipated Discharge Date Admission Date: January 14, 2025 Subjective 01/15/2025 The patient was seen and examined in medical telemetry unit She has been stable and was talking with the nurses this morning Did not do much conversation with me Complained of some back pain but no other symptoms reported 01/16/2025 The patient was seen and examined in medical telemetry unit She seems doing much better today and opening her eyes and responding to vocal commands She is very deaf and converse minimally 01/17/2025 The patient was seen and examined in medical telemetry unit She seems to be at her baseline and talking normally Denies any significant pain and/or other symptoms as far as she can relate Review of Systems Review of Systems: -unable to ask full ROS due to cognitive impairement Physical Exam Physical Exam: Lying in bed without any acute distress Constitutional: well developed, well nourished, + ill appearing and + obese Eyes: PERRL, conjunctivae normal, anicteric sclerae ENMT: external ear and nose normal, oropharynx normal Neck: trachea midline, no thyromegaly Respiratory: no respiratory distress Auscultation: lungs clear to auscultation bilaterally Cardiovascular: Rate/Rhythm: regular rate and regular rhythm; not tachycardic Heart Sounds: normal S1 and normal S2; no murmur Extremities: + edema (Trace edema bilaterally) Gastrointestinal (Abdomen): Inspection/Auscultation: normal bowel sounds; abdomen not distended Percussion/Palpation: abdomen soft; abdomen nontender Musculoskeletal: Has minimal flexural deformity but no acute arthritis involving any of the joint Neurologic: Alert and awake. Intellectual impairment with conversation- appropriate for her Lymphatic: no cervical or axillary lymphadenopathy Results & Data Results & Data Vital Signs (Past 12 Hours) Vital Signs Temp Pulse Pulse Resp BP Pulse Ox O2 Del Method 01/17/25 11:41 36.4 C L 80 16 112/70 92 Room Air 01/17/25 09:59 Room Air 01/17/25 09:57 77 01/17/25 07:46 37.1 C 84 16 91/59 L 93 Room Air 01/17/25 04:09 36.5 C 94 H 16 104/62 94 Room Air Laboratory Results Short CBC 01/17/25 Range/Units 07:14 WBC 8.89 (4.8-10.8) K/ul Hgb 14.3 (12.0-16.0) g/dl Hct 39.7 (37.0-47.0) % Plt Count 155 (130-400) K/uL BMP 01/17/25 07:14 Sodium 139 Potassium 3.4 L Chloride 97 L Carbon Dioxide 34 H BUN 20 Creatinine 0.52 L Glucose 124 H Calcium 9.2 Medications Administered Current Inpatient Medications Acetaminophen (Acetaminophen 325 Mg Tab) 650 mg PO Q4H PRN PRN Reason: pain/fever Stop: 02/13/25 17:58 Last Admin: 01/14/25 21:17 Dose: 650 mg Folic Acid (Folic Acid 1 Mg Tab) 1 mg PO QAM [facility] Stop: 02/14/25 08:59 Last Admin: 01/17/25 08:09 Dose: 1 mg Hydrocortisone Sodium (Succinate 50 mg/ Syringe) 1 mls @ 4 mls/min IV Q12H [facility] Stop: 02/16/25 12:44 Levothyroxine Sodium (Levothyroxine Sodium 25 Mcg Tablet) 25 mcg PO DAILYBB [facility] Stop: 02/14/25 06:29 Last Admin: 01/17/25 06:06 Dose: 25 mcg Ondansetron HCl (Ondansetron Inj 2 Mg/Ml 2 Ml Vial) 4 mg IV Q6H PRN PRN Reason: Nausea Stop: 02/13/25 17:58 Pantoprazole Sodium (Pantoprazole 40 Mg Tab) 40 mg PO DAILY [facility]; Protocol Stop: 02/14/25 08:59 Last Admin: 01/17/25 08:09 Dose: 40 mg Polyethylene Glycol (Polyethylene (Miralax) 17 Gm Pack) 17 gm PO DAILY PRN PRN Reason: Constipation Stop: 02/13/25 17:58 Quetiapine Fumarate (Quetiapine Fumarate 25 Mg Tablet) 50 mg PO HS [facility] Stop: 02/13/25 20:59 Last Admin: 01/16/25 20:42 Dose: 50 mg Thiamine HCl (Thiamine Hcl 100 Mg Tab) 100 mg PO [facility] Stop: 02/14/25 08:59 Last Admin: 01/17/25 08:09 Dose: 100 mg Trazodone HCl (Trazodone Hcl 100 Mg Tab) 100 mg PO [facility] Stop: 02/13/25 20:59 Last Admin: 01/16/25 20:41 Dose: 100 mg
--- NOTE | 2025-01-17 15:19 | Nephrology Progress Note ---
Date of Service January 17, 2025 Assessment & Plan (1) Acute hyponatremia: Plan: hypertonic hyponatremia; sodium has normalized She has been on hydrochlorothiazide and various antipsychotics. Her plasma osmolality is raised likely secondary supratherapeutic valproate level. Alcohol levels are awaited, random cortisol levels were normal but this was decreased on the morning labs today. Recommend repeating it again with the morning labs in a.m. decline in sodium is likely secondary to hydrochlorothiazide use, she may have SIADH in the background. - Uosm - 688. Katty- 101.4, POsm- 363 -her admitting sodium was 126 on 01/14, 127 on 01/15 AM labs; 137 on 01/16; 139 today rate of correction has been labile but is acceptable overall; she has self corrected significantly currently on hydrocortisone as of today K has been repleted today >>continue to hold hctz and meloxicam >> these meds should probably never go back on her med list in future -cont 1.5 L fluid restriction for now; may liberalize in future but will need to monitor sodium as this happens -daily BMP; weekly after d/c >>>b/c of hyponatremia issues should AVOID hctz and thiazide diuretics after d/c >> instead use loops as indicated; AVOID NSAIDS on standing basis unless sodium monitored closely -if recurrent hyponatremia, needs to f/u w/ nephro in clinic will sign off; pls call if ? (2) Intellectual disability: Plan: -she is on trazodone, Quetiapine; sodium valproate on hold -sodium valproate levels were increased, however LFTs are normal, unable to comment on her present confusional state(if it is any worse than her baseline). -agree with holding valproate, recs to measure valproate level with ammonia serially, contact poison center if this is not improving. -psych following Admission and Anticipated Discharge Date Admission Date: January 14, 2025 Subjective no acute interval events. difficult to elicit ROS from pt but she says she feels well. Review of Systems 2 Review of Systems: Other (limited by speech impediment, reading) Physical Exam 2 Constitutional: well developed, well nourished, + physical limitations, + frail appearing and cooperative; no acute distress Eyes: EOM intact bilaterally ENMT: Mouth: + dry oral mucous membranes Neck: no nuchal rigidity Respiratory: normal respiratory effort Auscultation: + diminished lung sounds Cardiovascular: RRR, no murmur, no edema Gastrointestinal (Abdomen): Inspection/Auscultation: normal bowel sounds P ercussion/Palpation: abdomen soft; abdomen nontender Musculoskeletal: Extremities: strength 5/5 throughout Skin: no rashes, warm and dry Neurologic: spear, fluent speech, no tremor Results & Data Vital Signs (Past 12 Hours) Vital Signs Temp Pulse Pulse Resp BP Pulse Ox O2 Del Method 01/17/25 14:20 79 01/17/25 11:41 36.4 C L 80 16 112/70 92 Room Air 01/17/25 09:59 Room Air 01/17/25 09:57 77 01/17/25 07:46 37.1 C 84 16 91/59 L 93 Room Air 01/17/25 04:09 36.5 C 94 H 16 104/62 94 Room Air Laboratory Results 01/17/25 07:14 01/17/25 07:14
[2025-01-17] MEDS: HYDROCORTISONE SOD 50 MG in SYRINGE 0 ML IV SCH (20:25)
[2025-01-18 06:54] LABS: Hematocrit (blood only) 41.5 % (37.0-47.0); Hemoglobin 14.1 g/dl (12.0-16.0); Immature Granulocytes # (auto) 0.07 K/uL (0.01-0.20); Immature Granulocytes % (auto) 0.7 %; Mean Corpuscular Hemoglobin 33.0 pg (25.0-34.0); Mean Corpuscular Volume 97.2 fL (80.0-100.0); Platelet Count 152 K/uL (130-400); RDW Standard Deviation 42.6 fL (36.4-46.3); Red Blood Count 4.27 M/uL (4.20-5.40); White Blood Count 10.20 K/ul (4.8-10.8)
[2025-01-18 07:23] LABS: Anion Gap 8.0 (3-11); Blood Urea Nitrogen 21.0 mg/dl (6-23); Calcium 9.1 mg/dl (8.6-10.3); Carbon Dioxide 33.0 mmol/L (21-32); Chloride 101.0 mmol/L (98-107); Creatinine Clr Calc Pharmacy 115.1 ml/min; Glucose 86.0 mg/dl (70-99(Fasting)); Potassium 3.7 mmol/L (3.5-5.1); Sodium 142.0 mmol/L (136-145)
[2025-01-18] MEDS: POTASSIUM CHLORIDE CRTAB 20 MEQ TABCR PO STA (11:22)
--- NOTE | 2025-01-18 12:14 | Hospitalist Progress Note ---
Date of Service January 18, 2025 Assessment & Plan (1) Weakness: (2) Acute hyponatremia: (3) Intellectual disability: (4) On valproate therapy: Plan 60 yo female with pmhx of hypothyroidism, prediabetes, esophagitis, morbid obesity, uterine leiomyoma, generalized osteoarthritis of multiple sites, chronic allergic conjunctivitis, conductive hearing loss of both ears, panic disorder, persistent insomnia and mild intellectual disability who presents from [facility] for worsening gait and falls 2/2 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 #Falls #Hypertonic Hyponatremia -high urine osmoles, high urine sodium, and elevated serum osmoles are consistent with multifactorial cause of hyponatremia -has osmole gap of 101 suggesting volume expanision -patient does have mild pitting edema -likely 2/2 polypharmacy, thiazide use, differential includes toxic ingestion as well given osmolar gap, other considerations include SIAHD and dehydration Plan: -nephrology consult, appreciate recs -discussed personally with roller cleaner snapper on, start fluid restriction, stop thiazide, fluid restriction, q4hr BMP -goal K of 4 per nephrology Sodium level is up at 140 and seems to be overcorrected in short time She is getting D5 discharge tomorrow minimized change in sodium Sodium level remains normal at 139 Clinically much improved and symptomatic back to her baseline Remains medically stable without any acute distress Sodium level has been normalized, likely discharge tomorrow Adrenal insufficiency Hepatic encephalopathy Presenting with drowsiness/less responsive Noted to have high ammonia level of 108 and also Low a.m. cortisol of 3.98 but random cortisol was normal Will start lactulose and also give stress dose of steroid 100 mg hydrocortisone stat and 50 mg IV q6hr and tapering over next 3 -5 days VBG noted Appreciate nephrology input and recommendations Will start hydrocortisone 50 mg Q8 hourly for a day or 2 Ammonia level has been normal and LFTs are normal We will decrease the hydrocortisone to twice daily today Continue it once daily tomorrow and then give oral supplement thereafter Will give oral prednisone of 5 mg as a continuation dose for possible left renal insufficiency #Bipolar Disorder #Panic Disorder #Polypharmacy #Supratherapeutic Depakote Levels -on venlafaxine, trazodone, Depakote, all of which can cause SIADH and contribute to above picture -on seroquel as well Plan: -hold depakote for now given supratherapeutic levels, will likely need psych consult given SIADH possible picture in setting of polypharmacy -continue venlafaxine, continue trazadone -decrease seroquel to 50mg at bedtime Depakote level noted to be very high and Depakote is on hold right now Will get a psychiatric opinion regarding adjustment of Depakote and other antipsychotic medications which may contribute to SIADH Valproic acid level has been normalized and will start half the dose of sodium valproate on Sunday as per the instruction from psychiatrist Will restart valproic acid at half the dose from Sunday #Esophagitis -continue omeprazole #Hypothyroidism -continue levothyroxine Discussed with caregiver at the facility Admission and Anticipated Discharge Date Admission Date: January 14, 2025 Subjective 01/15/2025 The patient was seen and examined in medical telemetry unit She has been stable and was talking with the nurses this morning Did not do much conversation with me Complained of some back pain but no other symptoms reported 01/16/2025 The patient was seen and examined in medical telemetry unit She seems doing much better today and opening her eyes and responding to vocal commands She is very deaf and converse minimally 01/17/2025 The patient was seen and examined in medical telemetry unit She seems to be at her baseline and talking normally Denies any significant pain and/or other symptoms as far as she can relate 01/18/2025 Patient was seen and examined in medical telemetry unit She has been much better today and denies any significant symptoms Communicating with limitation due to her intellectual deficiency Review of Systems Review of Systems: -unable to ask full ROS due to cognitive impairement Physical Exam Physical Exam: Lying in bed without any acute distress Constitutional: well developed, well nourished, + ill appearing and + obese Eyes: PERRL, conjunctivae normal, anicteric sclerae ENMT: external ear and nose normal, oropharynx normal Neck: trachea midline, no thyromegaly Respiratory: no respiratory distress Auscultation: lungs clear to auscultation bilaterally Cardiovascular: Rate/Rhythm: regular rate and regular rhythm; not tachycardic Heart Sounds: normal S1 and normal S2; no murmur Extremities: + edema (Trace edema bilaterally) Gastrointestinal (Abdomen): Inspection/Auscultation: normal bowel sounds; abdomen not distended Percussion/Palpation: abdomen soft; abdomen nontender Musculoskeletal: No acute arthritis involving any of the joint Neurologic: Alert and awake. Minimal movements involving the extremities Lymphatic: no cervical or axillary lymphadenopathy Results & Data Results & Data Vital Signs (Past 12 Hours) Vital Signs Temp Pulse Resp BP Pulse Ox O2 Del Method 01/18/25 11:00 36.8 C 87 16 118/74 96 Room Air 01/18/25 08:00 Room Air 01/18/25 07:45 36.4 C L 81 16 137/84 96 Room Air 01/18/25 04:00 36.6 C 74 16 120/76 96 Room Air Laboratory Results Short CBC 01/18/25 Range/Units 05:55 WBC 10.20 (4.8-10.8) K/ul Hgb 14.1 (12.0-16.0) g/dl Hct 41.5 (37.0-47.0) % Plt Count 152 (130-400) K/uL BMP 01/18/25 05:55 Sodium 142 Potassium 3.7 Chloride 101 Carbon Dioxide 33 H BUN 21 Creatinine 0.50 L Glucose 86 Calcium 9.1 Medications Administered Current Inpatient Medications Acetaminophen (Acetaminophen 325 Mg Tab) 650 mg PO Q4H PRN PRN Reason: pain/fever Stop: 02/13/25 17:58 Last Admin: 01/14/25 21:17 Dose: 650 mg Folic Acid (Folic Acid 1 Mg Tab) 1 mg PO QAM [facility] Stop: 02/14/25 08:59 Last Admin: 01/18/25 09:17 Dose: 1 mg Hydrocortisone Sodium (Succinate 50 mg/ Syringe) 1 mls @ 4 mls/min IV Q12H [facility] Stop: 02/16/25 12:44 Last Admin: 01/18/25 09:16 Dose: 4 mls/min Levothyroxine Sodium (Levothyroxine Sodium 25 Mcg Tablet) 25 mcg PO DAILYBB [facility] Stop: 02/14/25 06:29 Last Admin: 01/18/25 06:26 Dose: 25 mcg Ondansetron HCl (Ondansetron Inj 2 Mg/Ml 2 Ml Vial) 4 mg IV Q6H PRN PRN Reason: Nausea Stop: 02/13/25 17:58 Pantoprazole Sodium (Pantoprazole 40 Mg Tab) 40 mg PO DAILY [facility]; Protocol Stop: 02/14/25 08:59 Last Admin: 01/18/25 09:17 Dose: 40 mg Polyethylene Glycol (Polyethylene (Miralax) 17 Gm Pack) 17 gm PO DAILY PRN PRN Reason: Constipation Stop: 02/13/25 17:58 Quetiapine Fumarate (Quetiapine Fumarate 25 Mg Tablet) 50 mg PO [facility] Stop: 02/13/25 20:59 Last Admin: 01/17/25 20:24 Dose: 50 mg Thiamine HCl (Thiamine Hcl 100 Mg Tab) 100 mg PO [facility] Stop: 02/14/25 08:59 Last Admin: 01/18/25 09:17 Dose: 100 mg Trazodone HCl (Trazodone Hcl 100 Mg Tab) 100 mg PO [facility] Stop: 02/13/25 20:59 Last Admin: 01/17/25 20:24 Dose: 100 mg
[2025-01-18 18:12] LABS: MDA negative; MDEA negative; MDMA (Ecstasy) Urine, Confirm negative
[2025-01-19 07:06] LABS: Hematocrit (blood only) 39.2 % (37.0-47.0); Hemoglobin 13.9 g/dl (12.0-16.0); Immature Granulocytes # (auto) 0.04 K/uL (0.01-0.20); Immature Granulocytes % (auto) 0.4 %; Mean Corpuscular Hemoglobin 33.5 pg (25.0-34.0); Mean Corpuscular Volume 94.5 fL (80.0-100.0); Platelet Count 173 K/uL (130-400); RDW Standard Deviation 40.1 fL (36.4-46.3); Red Blood Count 4.15 M/uL (4.20-5.40); White Blood Count 9.00 K/ul (4.8-10.8)
[2025-01-19 07:30] LABS: Anion Gap 7.0 (3-11); Blood Urea Nitrogen 20.0 mg/dl (6-23); Calcium 9.3 mg/dl (8.6-10.3); Carbon Dioxide 33.0 mmol/L (21-32); Chloride 100.0 mmol/L (98-107); Creatinine Clr Calc Pharmacy 95.9 ml/min; Glucose 121.0 mg/dl (70-99(Fasting)); Magnesium 1.7 mg/dl (1.7-2.4); Potassium 4.1 mmol/L (3.5-5.1); Sodium 140.0 mmol/L (136-145)
--- NOTE | 2025-01-19 10:56 | Hospitalist Progress Note ---
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 #Falls #Hypertonic Hyponatremia -high urine osmoles, high urine sodium, and elevated serum osmoles are consistent with multifactorial cause of hyponatremia -has osmole gap of 101 suggesting volume expanision -patient does have mild pitting edema -likely 2/2 polypharmacy, thiazide use, differential includes toxic ingestion as well given osmolar gap, other considerations include SIAHD and dehydration Plan: -nephrology consult, appreciate recs -discussed personally with acid purification equipment operator puff iron operator, start fluid restriction, stop thiazide, fluid restriction, q4hr BMP -goal K of 4 per nephrology Sodium level is up at 140 and seems to be overcorrected in short time She is getting D5 discharge tomorrow minimized change in sodium Sodium level remains normal at 139 Clinically much improved and symptomatic back to her baseline Remains medically stable without any acute distress Sodium level has been normalized, likely discharge tomorrow Sodium level has been normalized and her mental status is normal too She is back to her baseline and will be discharged back to the facility Adrenal insufficiency Hepatic encephalopathy Presenting with drowsiness/less responsive Noted to have high ammonia level of 108 and also Low a.m. cortisol of 3.98 but random cortisol was normal Will start lactulose and also give stress dose of steroid 100 mg hydrocortisone stat and 50 mg IV q6hr and tapering over next 3 -5 days VBG noted Appreciate nephrology input and recommendations Will start hydrocortisone 50 mg Q8 hourly for a day or 2 Ammonia level has been normal and LFTs are normal We will decrease the hydrocortisone to twice daily today Continue it once daily tomorrow and then give oral supplement thereafter Will give oral prednisone of 5 mg as a continuation dose for possible left renal insufficiency Will continue with oral prednisone of 5 mg daily for abdomen insufficiency #Bipolar Disorder #Panic Disorder #Polypharmacy #Supratherapeutic Depakote Levels -on venlafaxine, trazodone, Depakote, all of which can cause SIADH and contribute to above picture -on seroquel as well Plan: -hold depakote for now given supratherapeutic levels, will likely need psych consult given SIADH possible picture in setting of polypharmacy -continue venlafaxine, continue trazadone -decrease seroquel to 50mg at bedtime Depakote level noted to be very high and Depakote is on hold right now Will get a psychiatric opinion regarding adjustment of Depakote and other antipsychotic medications which may contribute to SIADH Valproic acid level has been normalized and will start half the dose of sodium valproate on Sunday as per the instruction from psychiatrist Will restart valproic acid at half the dose from Sunday Will continue her antipsychotic medications and Depakote will be decreased to half the dose from tomorrow #Esophagitis -continue omeprazole #Hypothyroidism -continue levothyroxine Discussed with caregiver at the facility Admission and Anticipated Discharge Date Admission Date: January 14, 2025 Subjective 01/15/2025 The patient was seen and examined in medical telemetry unit She has been stable and was talking with the nurses this morning Did not do much conversation with me Complained of some back pain but no other symptoms reported 01/16/2025 The patient was seen and examined in medical telemetry unit She seems doing much better today and opening her eyes and responding to vocal commands She is very deaf and converse minimally 01/17/2025 The patient was seen and examined in medical telemetry unit She seems to be at her baseline and talking normally Denies any significant pain and/or other symptoms as far as she can relate 01/18/2025 Patient was seen and examined in medical telemetry unit She has been much better today and denies any significant symptoms Communicating with limitation due to her intellectual deficiency 01/19/2025 Patient was seen and examined in medical telemetry unit She has been back to her baseline and wants to go back to the facility that she came from Denies any significant symptoms patient Review of Systems Review of Systems: -unable to ask full ROS due to cognitive impairement Physical Exam Physical Exam: Lying in bed without any acute distress Constitutional: well developed, well nourished, + ill appearing and + obese Eyes: PERRL, conjunctivae normal, anicteric sclerae ENMT: external ear and nose normal, oropharynx normal Neck: trachea midline, no thyromegaly Respiratory: no respiratory distress Auscultation: lungs clear to auscultation bilaterally Cardiovascular: Rate/Rhythm: regular rate and regular rhythm; not tachycardic Heart Sounds: normal S1 and normal S2; no murmur Extremities: + edema (Trace edema bilaterally) Gastrointestinal (Abdomen): Inspection/Auscultation: normal bowel sounds; abdomen not distended Percussion/Palpation: abdomen soft; abdomen nontender Musculoskeletal: No acute arthritis involving any of the joint Neurologic: normal touch/pain/proprioception, moves all extremities and + focal motor deficit (Generally weak but no focal neurodeficit) Lymphatic: no cervical or axillary lymphadenopathy Results & Data Results & Data Vital Signs (Past 12 Hours) Vital Signs Temp Pulse Pulse Resp BP Pulse Ox O2 Del Method 01/19/25 07:15 36.3 C L 85 18 144/74 H 96 Room Air 01/19/25 05:54 75 01/19/25 04:56 36.4 C L 72 16 132/59 L 98 Room Air 01/18/25 23:25 36.5 C 79 16 131/79 95 Room Air Laboratory Results Short CBC 01/19/25 Range/Units 06:44 WBC 9.00 (4.8-10.8) K/ul Hgb 13.9 (12.0-16.0) g/dl Hct 39.2 (37.0-47.0) % Plt Count 173 (130-400) K/uL BMP 01/19/25 06:44 Sodium 140 Potassium 4.1 Chloride 100 Carbon Dioxide 33 H BUN 20 Creatinine 0.60 Glucose 121 H Calcium 9.3 Medications Administered Current Inpatient Medications Acetaminophen (Acetaminophen 325 Mg Tab) 650 mg PO Q4H PRN PRN Reason: pain/fever Stop: 02/13/25 17:58 Last Admin: 01/18/25 20:00 Dose: 650 mg Folic Acid (Folic Acid 1 Mg Tab) 1 mg PO QAM [facility] Stop: 02/14/25 08:59 Last Admin: 01/19/25 08:02 Dose: 1 mg Hydrocortisone Sodium (Succinate 50 mg/ Syringe) 1 mls @ 4 mls/min IV Q12H [facility] Stop: 02/16/25 12:44 Last Admin: 01/19/25 08:02 Dose: 4 mls/min Levothyroxine Sodium (Levothyroxine Sodium 25 Mcg Tablet) 25 mcg PO DAILYBB [facility] Stop: 02/14/25 06:29 Last Admin: 01/19/25 06:15 Dose: 25 mcg Ondansetron HCl (Ondansetron Inj 2 Mg/Ml 2 Ml Vial) 4 mg IV Q6H PRN PRN Reason: Nausea Stop: 02/13/25 17:58 Pantoprazole Sodium (Pantoprazole 40 Mg Tab) 40 mg PO DAILY [facility]; Protocol Stop: 02/14/25 08:59 Last Admin: 01/19/25 08:02 Dose: 40 mg Polyethylene Glycol (Polyethylene (Miralax) 17 Gm Pack) 17 gm PO DAILY PRN PRN Reason: Constipation Stop: 02/13/25 17:58 Quetiapine Fumarate (Quetiapine Fumarate 25 Mg Tablet) 50 mg PO [facility] Stop: 02/13/25 20:59 Last Admin: 01/18/25 20:01 Dose: 50 mg Thiamine HCl (Thiamine Hcl 100 Mg Tab) 100 mg PO [facility] Stop: 02/14/25 08:59 Last Admin: 01/19/25 08:02 Dose: 100 mg Trazodone HCl (Trazodone Hcl 100 Mg Tab) 100 mg PO [facility] Stop: 02/13/25 20:59 Last Admin: 01/18/25 20:01 Dose: 100 mg
[2025-01-19] MEDS: DIVALPROEX DELAY RELEASE 500 MG TAB PO ONE (14:21)
--- NOTE | 2025-01-19 15:22 | Electrocardiogram Report ---
Test Reason : Blood Pressure : */* mmHG Vent. Rate : 85 BPM Atrial Rate : 85 BPM P-R Int : 124 ms QRS Dur : 100 ms QT Int : 382 ms P-R-T Axes : 16 49 72 degrees QTcB Int : 454 ms Normal sinus rhythm Nonspecific T wave abnormality Abnormal ECG When compared with ECG of 14-Jan-2025 12:21, Nonspecific T wave abnormality, worse in Inferior leads Confirmed by Alex Márquez ([id number]) on 01/19/2025 3:22:36 PM Referred By: REFERRED SELF Confirmed By: Alex Márquez
[2025-01-19] MEDS: DIVALPROEX EXTENDED RELEASE 500 MG TAB PO SCH (20:10)
[2025-01-20 07:42] VITALS: RESP 18
[2025-01-20 11:29] VITALS: BP 118/75; PULSE 87; TEMP 98.1; O2SAT 94
--- NOTE | 2025-01-20 11:52 | Hospitalist Progress Note ---
Date of Service January 20, 2025 Assessment & Plan (1) Weakness: (2) Acute hyponatremia: (3) Intellectual disability: (4) On valproate therapy: Plan 60 yo female with pmhx of hypothyroidism, prediabetes, esophagitis, morbid obesity, uterine leiomyoma, generalized osteoarthritis of multiple sites, chronic allergic conjunctivitis, conductive hearing loss of both ears, panic disorder, persistent insomnia and mild intellectual disability who presents from [facility] for worsening gait and falls 2/2 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 #Falls #Hypertonic Hyponatremia -high urine osmoles, high urine sodium, and elevated serum osmoles are consistent with multifactorial cause of hyponatremia -has osmole gap of 101 suggesting volume expanision -patient does have mild pitting edema -likely 2/2 polypharmacy, thiazide use, differential includes toxic ingestion as well given osmolar gap, other considerations include SIAHD and dehydration Plan: -nephrology consult, appreciate recs -discussed personally with marine fisheries technician reconciliation specialist, start fluid restriction, stop thiazide, fluid restriction, q4hr BMP -goal K of 4 per nephrology Sodium level is up at 140 and seems to be overcorrected in short time She is getting D5 discharge tomorrow minimized change in sodium Sodium level remains normal at 139 Clinically much improved and symptomatic back to her baseline Remains medically stable without any acute distress Sodium level has been normalized, likely discharge tomorrow Sodium level has been normalized and her mental status is normal too She is back to her baseline and will be discharged back to the facility Has had physical therapy and recommended that she could go back to her prior living facility This was discussed with the pillowcase cleaner and the caregivers involved Adrenal insufficiency Hepatic encephalopathy Presenting with drowsiness/less responsive Noted to have high ammonia level of 108 and also Low a.m. cortisol of 3.98 but random cortisol was normal Will start lactulose and also give stress dose of steroid 100 mg hydrocortisone stat and 50 mg IV q6hr and tapering over next 3 -5 days VBG noted Appreciate nephrology input and recommendations Will start hydrocortisone 50 mg Q8 hourly for a day or 2 Ammonia level has been normal and LFTs are normal We will decrease the hydrocortisone to twice daily today Continue it once daily tomorrow and then give oral supplement thereafter Will give oral prednisone of 5 mg as a continuation dose for possible left renal insufficiency Will continue with oral prednisone of 5 mg daily for abdomen insufficiency Will continue with oral prednisone smallest dose of 2.5 mg daily #Bipolar Disorder #Panic Disorder #Polypharmacy #Supratherapeutic Depakote Levels -on venlafaxine, trazodone, Depakote, all of which can cause SIADH and contribute to above picture -on seroquel as well Plan: -hold depakote for now given supratherapeutic levels, will likely need psych consult given SIADH possible picture in setting of polypharmacy -continue venlafaxine, continue trazadone -decrease seroquel to 50mg at bedtime Depakote level noted to be very high and Depakote is on hold right now Will get a psychiatric opinion regarding adjustment of Depakote and other antipsychotic medications which may contribute to SIADH Valproic acid level has been normalized and will start half the dose of sodium valproate on Sunday as per the instruction from psychiatrist Will restart valproic acid at half the dose from Sunday Will continue her antipsychotic medications and Depakote will be decreased to half the dose from tomorrow She was noted to be significant tremors yesterday morning which was likely secondary to withdrawal from Depakote She was started with reduced dose of Depakote since yesterday and the condition has been improving #Esophagitis -continue omeprazole #Hypothyroidism -continue levothyroxine Discussed with caregiver at the facility She will be discharged to the [facility] Admission and Anticipated Discharge Date Admission Date: January 14, 2025 Subjective 01/15/2025 The patient was seen and examined in medical telemetry unit She has been stable and was talking with the nurses this morning Did not do much conversation with me Complained of some back pain but no other symptoms reported 01/16/2025 The patient was seen and examined in medical telemetry unit She seems doing much better today and opening her eyes and responding to vocal commands She is very deaf and converse minimally 01/17/2025 The patient was seen and examined in medical telemetry unit She seems to be at her baseline and talking normally Denies any significant pain and/or other symptoms as far as she can relate 01/18/2025 Patient was seen and examined in medical telemetry unit She has been much better today and denies any significant symptoms Communicating with limitation due to her intellectual deficiency 01/19/2025 Patient was seen and examined in medical telemetry unit She has been back to her baseline and wants to go back to the facility that she came from Denies any significant symptoms patient 01/20/2025 The patient was seen and examined in medical telemetry unit She has been feeling much better and wants to be discharged to her previous place of living Minimal tremors with outstretched hands Has had physical therapy and recommended that she could go back to her prior iving facility Discussed with the pillowcase cleaner and the decision was taken after discussion with the caregiver Review of Systems Review of Systems: -unable to ask full ROS due to cognitive impairement Physical Exam Physical Exam: Lying in bed without any acute distress Constitutional: well developed, well nourished, + ill appearing and + obese Eyes: PERRL, conjunctivae normal, anicteric sclerae ENMT: external ear and nose normal, oropharynx normal Neck: trachea midline, no thyromegaly Respiratory: no respiratory distress Auscultation: lungs clear to auscultation bilaterally Cardiovascular: Rate/Rhythm: regular rate and regular rhythm; not tachycardic Heart Sounds: normal S1 and normal S2; no murmur Extremities: + edema (Trace edema bilaterally) Gastrointestinal (Abdomen): Inspection/Auscultation: normal bowel sounds; abdomen not distended Percussion/Palpation: abdomen soft; abdomen nontender Neurologic: normal touch/pain/proprioception, moves all extremities and + focal motor deficit (Generally weak but no focal neurodeficit) minimal tremors involving the outstretched hands Lymphatic: no cervical or axillary lymphadenopathy Results & Data Results & Data Vital Signs (Past 12 Hours) Vital Signs Temp Pulse Resp BP Pulse Ox O2 Del Method 01/20/25 11:28 36.7 C 87 18 118/75 94 Room Air 01/20/25 07:41 36.5 C 85 18 135/78 97 Room Air 01/20/25 03:14 36.8 C 76 20 112/46 L 94 Room Air 01/20/25 00:18 36.7 C 92 H 20 130/68 92 Room Air Medications Administered Current Inpatient Medications Acetaminophen (Acetaminophen 325 Mg Tab) 650 mg PO Q4H PRN PRN Reason: pain/fever Stop: 02/13/25 17:58 Last Admin: 01/18/25 20:00 Dose: 650 mg Divalproex Sodium (Divalproex Extended Release 500 Mg Tab) 1,000 mg PO HS [facility] Stop: 02/18/25 20:59 Last Admin: 01/19/25 20:10 Dose: 1,000 mg Folic Acid (Folic Acid 1 Mg Tab) 1 mg PO QAM [facility] Stop: 02/14/25 08:59 Last Admin: 01/20/25 09:54 Dose: 1 mg Levothyroxine Sodium (Levothyroxine Sodium 25 Mcg Tablet) 25 mcg PO DAILYBB [facility] Stop: 02/14/25 06:29 Last Admin: 01/20/25 05:54 Dose: 25 mcg Ondansetron HCl (Ondansetron Inj 2 Mg/Ml 2 Ml Vial) 4 mg IV Q6H PRN PRN Reason: Nausea Stop: 02/13/25 17:58 Pantoprazole Sodium (Pantoprazole 40 Mg Tab) 40 mg PO DAILY [facility]; Protocol Stop: 02/14/25 08:59 Last Admin: 01/20/25 09:54 Dose: 40 mg Polyethylene Glycol (Polyethylene (Miralax) 17 Gm Pack) 17 gm PO DAILY PRN PRN Reason: Constipation Stop: 02/13/25 17:58 Quetiapine Fumarate (Quetiapine Fumarate 25 Mg Tablet) 50 mg PO [facility] Stop: 02/13/25 20:59 Last Admin: 01/19/25 20:11 Dose: 50 mg Thiamine HCl ([facility]amine Hcl 100 Mg Tab) [facility] Stop: 02/14/25 08:59 Last Admin: 01/20/25 09:54 Dose: 100 mg Trazodone HCl (Trazodone Hcl 100 Mg Tab) 100 mg PO [facility] Stop: 02/13/25 20:59 Last Admin: 01/19/25 20:11 Dose: 100 mg
--- NOTE | 2025-01-20 16:02 | Discharge Summary ---
Date of Service January 20, 2025 Admission HPI Per Admitting Provider 60 yo female with pmhx of hypothyroidism, prediabetes, esophagitis, morbid obesity, uterine leiomyoma, generalized osteoarthritis of multiple sites, chronic allergic conjunctivitis, conductive hearing loss of both ears, panic disorder, persistent insomnia and mild intellectual disability who presents from senior living for worsening gait and falls. Had admission on 06/2024 for cough and UTI symptoms. In the ED, noted to have hyponatremia 126, unremarkable imaging other than mild fluid overload on chest xray, admitted to medicine for further workup. Patient seen and examined at bedside. Patient doing ok today. Difficult to perform history and ROS due to intellectual disability. States she is having right hip and back pain. States she feels confused. Otherwise, unable to elicit further history. Discussed with caregiver at bedside, patient has been having change in gait and falls for past few days. States she is more confused as well. Admission Exam Per Admitting Provider Physical Exam: Gen: A&O 2 NAD HEENT: NCAT, EOMI, not icteric. External ears normal. No rhinorrhea. Mildly dry mucous membranes. Neck: Supple, full range of motion, no observable masses, No meningeal sign. Lungs: No Respiratory distress. CV: RRR, no edema. Abdomen: Soft, nondistended, No rebound tenderness. MSK: trace pitting edema in legs bilaterally Skin: No rashes, petechiae, lesions. Neuro: Normal Gait, Grossly intact. Principal Diagnosis Change in mental statusimproved, hyponatremia, supratherapeutic Depakote level, treatmentAdrenal insufficiency Discharge Exam Lying in bed without any acute distress Constitutional well developed, well nourished, + ill appearing and + obese Eyes PERRL, conjunctivae normal, anicteric sclerae ENMT external ear and nose normal, oropharynx normal Neck trachea midline, no thyromegaly Respiratory no respiratory distress Auscultation: lungs clear to auscultation bilaterally Cardiovascular Rate/Rhythm: regular rate and regular rhythm; not tachycardic Heart Sounds: normal S1 and normal S2; no murmur Extremities: + edema (Trace edema bilaterally) Gastrointestinal (Abdomen) Inspection/Auscultation: normal bowel sounds; abdomen not distended Percussion/Palpation: abdomen soft; abdomen nontender Neurologic normal touch/pain/proprioception, moves all extremities and + focal motor deficit (Generally weak but no focal neurodeficit) Lymphatic no cervical or axillary lymphadenopathy Discharge Data Allergies Allergy/AdvReac Type Severity Reaction Status Date / Time No Known Allergies Allergy Verified 01/14/25 15:09 Consultations 01/14/25 17:51 Consult Nephrology Routine 01/15/25 10:33 Consult Psychiatry Routine Ordered Studies 01/14/25 12:33 CT cervical spine wo con Stat CT head/brain wo con Stat Hospital Course (1) Weakness: (2) Acute hyponatremia: (3) Intellectual disability: (4) On valproate therapy: Plan 60 yo female with pmhx of hypothyroidism, prediabetes, esophagitis, morbid ob esity, uterine leiomyoma, generalized osteoarthritis of multiple sites, chronic allergic conjunctivitis, conductive hearing loss of both ears, panic disorder, persistent insomnia and mild intellectual disability who presents from senior living for worsening gait and falls 2/2 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 #Falls #Hypertonic Hyponatremia -high urine osmoles, high urine sodium, and elevated serum osmoles are consistent with multifactorial cause of hyponatremia -has osmole gap of 101 suggesting volume expanision -patient does have mild pitting edema -likely 2/2 polypharmacy, thiazide use, differential includes toxic ingestion as well given osmolar gap, other considerations include SIAHD and dehydration Plan: -nephrology consult, appreciate recs -discussed personally with development system efficiency manager supervisor telephone answering service, start fluid restriction, stop thiazide, fluid restriction, q4hr BMP -goal K of 4 per nephrology Sodium level is up at 140 and seems to be overcorrected in short time She is getting D5 discharge tomorrow minimized change in sodium Sodium level remains normal at 139 Clinically much improved and symptomatic back to her baseline Remains medically stable without any acute distress Sodium level has been normalized, likely discharge tomorrow Sodium level has been normalized and her mental status is normal too She is back to her baseline and will be discharged back to the facility Has had physical therapy and recommended that she could go back to her prior living facility This was discussed with the therapeutic case manager and the caregivers involved Adrenal insufficiency Hepatic encephalopathy Presenting with drowsiness/less responsive Noted to have high ammonia level of 108 and also Low a.m. cortisol of 3.98 but random cortisol was normal Will start lactulose and also give stress dose of steroid 100 mg hydrocortisone stat and 50 mg IV q6hr and tapering over next 3 -5 days VBG noted Appreciate nephrology input and recommendations Will start hydrocortisone 50 mg Q8 hourly for a day or 2 Ammonia level has been normal and LFTs are normal We will decrease the hydrocortisone to twice daily today Continue it once daily tomorrow and then give oral supplement thereafter Will give oral prednisone of 5 mg as a continuation dose for possible left renal insufficiency Will continue with oral prednisone of 5 mg daily for abdomen insufficiency Will continue with oral prednisone smallest dose of 2.5 mg daily #Bipolar Disorder #Panic Disorder #Polypharmacy #Supratherapeutic Depakote Levels -on venlafaxine, trazodone, Depakote, all of which can cause SIADH and contribute to above picture -on seroquel as well Plan: -hold depakote for now given supratherapeutic levels, will likely need psych consult given SIADH possible picture in setting of polypharmacy -continue venlafaxine, continue trazadone -decrease seroquel to 50mg at bedtime Depakote level noted to be very high and Depakote is on hold right now Will get a psychiatric opinion regarding adjustment of Depakote and other antipsychotic medications which may contribute to SIADH Valproic acid level has been normalized and will start half the dose of sodium valproate on Sunday as per the instruction from psychiatrist Will restart valproic acid at half the dose from Sunday Will continue her antipsychotic medications and Depakote will be decreased to half the dose from tomorrow She was noted to be significant tremors yesterday morning which was likely secondary to withdrawal from Depakote She was started with reduced dose of Depakote since yesterday and the condition has been improving #Esophagitis -continue omeprazole #Hypothyroidism -continue levothyroxine Discussed with caregiver at the facility She will be discharged to the personal-care facility Total Time Total Time Spent Total Time Spent (In Minutes): 45 minutes Discharge Plan Discharge Items Patient Disposition: Personal Assisted Reason For Visit: AMS Discharge Diagnosis: Change in mental statusimproved, hyponatremia, supratherapeutic Depakote level, treatmentAdrenal insufficiency Condition on Discharge: Good Activity: Resume your previous activity Non-emergency contact: Primary Care Provider Call non-emergency contact if: you have any medication questions Follow-up/Referrals: Ibis Everett PA-C [Primary Care Provider] - (Date & Time 01/22/2025 1:00 PM Provider: Ibis Everett PA-C [facility]) Diet: Regular Addtl Attending Provider Instructions: Please take to avoid falls The dose of your Depakote has been changed to half of original dosing that she was getting She was given small dose of prednisone of 2.5 mg for possible adrenal insufficiency Her other medications remain unchanged except your hydrochlorothiazide which has been discontinued due to hyponatremia She should be seen her healthcare providers regularly Pending Studies at Discharge: No Stand-Alone Forms: [email or web address], Smoking Cessation Skilled Items Patient informed of condition?: Yes DNR: No Discharge Level of Care: Other Communicable Disease: No Discharge Prognosis: Stable Lines: None Urinary Catheter: Yes Medications and DC Order Prescriptions: New prednisone 2.5 mg tablet 2.5 mg PO DAILY Qty: 30 0RF Continued omeprazole 20 mg capsule,delayed release(DR/EC) 20 mg PO QDD levothyroxine 25 mcg tablet 25 mcg PO DAILY acetaminophen [Tylenol Arthritis Pain] 650 mg tablet extended release 1,300 mg PO BID docusate sodium [Colace] 100 mg capsule 100 mg PO BID loratadine [Claritin] 10 mg tablet 10 mg PO DAILY quetiapine 25 mg tablet 25 mg PO HS Rx Instructions: TOTAL DOSE 75 MG--TAKES WITH 50 MG TAB. meloxicam 15 mg tablet 15 mg PO DAILY venlafaxine 150 mg capsule,extended release 24hr 150 mg PO DAILY quetiapine [Seroquel] 50 mg tablet 50 mg PO HS Qty: 30 0RF Rx Instructions: TOTAL DOSE 75 MG--TAKES WITH 25 MG TAB. trazodone 100 mg tablet 100 mg PO HS Qty: 30 0RF pediatric multivitamin-iron Tablet,Chewable 1 tab PO DAILY Rx Instructions: administer with a meal Zepbound 10 mg/0.5 mL Pen Injector 10 mg SUBCUT WK Changed divalproex [Depakote ER] 500 mg Tablet Extended Release 24 Hr 1,000 mg PO HS Qty: 0 0RF Discontinued divalproex 500 mg tablet,delayed release (DR/EC) 500 mg PO QAM hydrochlorothiazide 25 mg tablet 25 mg PO DAILY Discharge Orders: Discharge Order (Routine); Ordered 01/20/25 Ordered By: Reece Anderson Admission Data Admit Date/Time: 01/14/25 15:00 Attending Provider: Reece Anderson Admit Provider: Lam Harrison Primary Care Provider: Ibis Everett Other Providers: Shirley Elise; Lam Harrison; Angelita Avalos; Dani Le; Sylwia Lawrence; Fabi Sahni; Neymar Medina; Mariluz Mari; Quan Banuelos; Kylah Allen; [facility] Other Interventions: Discharge Summary Assessment (RN) Last Done: 01/20/25 13:00
== END 2025-01-20 13:44 | disposition home health service (06) | DRG 644 ==
LOC: ED 12:14 → SUATTDRO 17:57 → EDINP 17:57 → 2W 01-15 04:56